=== PATIENT | male | born 1990 | race Caucasian/White ===

== ENCOUNTER 2020-03-13 09:18 | Outpatient (REF) | payer OTHER, SELFPAY | END 2020-03-13 09:19 | disposition home or self-care (01) | LOC: HO.LAB 09:18 | PROVIDERS: Visit Provider Internal Medicine | DX: Z20.822 Contact with and (suspected) exposure to COVID-19 (principal) | CPT/HCPCS: 36415; C9803; U0003 ==

== ENCOUNTER 2020-03-21 10:07 | Outpatient (REF) | payer OTHER, SELFPAY | END 2020-03-21 10:08 | disposition home or self-care (01) | LOC: HO.LAB 10:07 | PROVIDERS: Visit Provider Internal Medicine | DX: Z20.822 Contact with and (suspected) exposure to COVID-19 (principal) | CPT/HCPCS: 36415; C9803; U0003; U0005 ==

== ENCOUNTER 2020-03-23 10:36 | Outpatient (REF) | payer OTHER, SELFPAY | END 2020-03-23 10:37 | disposition home or self-care (01) | LOC: HO.LAB 10:36 | PROVIDERS: Visit Provider Internal Medicine | DX: Z20.822 Contact with and (suspected) exposure to COVID-19 (principal) | CPT/HCPCS: 36415; C9803; U0003; U0005 ==

== ENCOUNTER 2021-05-10 11:42 | Emergency (ER) | payer OTHER, SELFPAY ==
--- NOTE | ~2021-05-10 | CT_ITS ---
EXAMINATION: CT ABDOMEN AND PELVIS WITH CONTRAST CLINICAL INFORMATION: Left lower quadrant pain COMPARISON: None TECHNIQUE: Multidetector volumetric images were obtained from the superior aspect of the liver through the pubic symphysis following administration 85 mL of Omnipaque 350 intravenous contrast. Sagittal and coronal reformatted images were obtained on the technologist's workstation. Oral contrast: No This CT examination was performed using dose optimization techniques as appropriate, variously including the following: *Automated exposure control *Adjustment of mA and/or kV according to patient size (this includes techniques or standardized protocols for targeted exams where dose is matched to indication/reason for exam; i.e. extremities or head) *Use of iterative reconstruction technique DLP: 462 mGy-cm FINDINGS: LUNG BASES: The visualized lung bases are unremarkable. LIVER, GALLBLADDER, AND BILIARY TREE: The liver is mildly enlarged in size, normal shape, and diffusely attenuated.. No focal hepatic lesion or biliary ductal dilatation is present. The gallbladder is unremarkable with no evidence of radiopaque gallstones, gallbladder wall thickening, or obvious pericholecystic inflammatory changes. PANCREAS: Unremarkable. SPLEEN: Unremarkable. ADRENAL GLANDS: Unremarkable. KIDNEYS AND URETERS: The kidneys are normal in size, shape, and attenuation. No hydronephrosis, hydroureter, or calculi seen. No perinephric stranding. BLADDER: Unremarkable. GASTROINTESTINAL TRACT: There are scattered colonic diverticula most prominent in the sigmoid colon with mural thickening and pericolic fat stranding. Rest the colon is unremarkable. The small bowel loops are normal caliber. Appendix is normal caliber. No free air or free fluid seen. ABDOMINAL WALL: No significant hernia is appreciated. LYMPH NODES: There are small para-aortic lymph nodes in the left upper and mid abdomen. VASCULAR: Unremarkable. PELVIC VISCERA: Unremarkable. OSSEOUS STRUCTURES: Unremarkable. CT/CT abdomen pelvis w con IMPRESSION: Colonic diverticulosis with sigmoid diverticulitis. There is no free air, free fluid or abscess. No proximal bowel obstruction. Hepatic steatosis with mild hepatomegaly. Mild constipation. Fleischner guidelines were followed.
[2021-05-10 11:45] VITALS: BP 188/85; PULSE 122; RESP 19; TEMP 36.6; O2SAT 98; BMI 25.0
[2021-05-10 12:13] VITALS: BP 132/80; PULSE 111; RESP 20; TEMP 37.4; O2SAT 96
--- NOTE | 2021-05-10 12:17 | ED_ITS ---
HPI - Abdominal Pain General Chief Complaint: Abdominal Pain Stated Complaint: Abd pain Time Seen by Provider: 05/10/21 12:03 Source: patient Mode of arrival: ambulatory Limitations: no limitations History of Present Illness HPI narrative: This is a 31 years old patient presented to the emergency department with chief complaint of a left lower quadrant abdominal pain x4 days, denies any nausea vomiting fever, denies any other systemic symptoms MD elicited complaint: abdominal pain Pertinent past history: none Onset (ago): day(s) (4) Location: LLQ Severity: moderate Radiation: none Migration to: no migration Exacerbating factors: nothing Related Data Previous Rx's Medication Instructions Recorded levofloxacin 500 mg tablet 500 mg PO DAILY #10 tab 05/10/21 metronidazole 500 mg tablet 500 mg PO TID #30 tab 05/10/21 Allergies Allergy/AdvReac Type Severity Reaction Status Date / Time No Known Allergies Allergy Unverified 11/02/19 17:20 Review of Systems Constitutional: Reports no additional constitutional complaints Reports system reviewed and no additional complaints, except as documented Cardiovascular: Reports no additional cardiovascular complaints Respiratory: Reports no additional respiratory complaints [facility] Social History Social History Patient Tobacco Use Status: Current everyday Tobacco user Smoked in Last 30 Days: Yes Use of substances other than those prescribed or required for medical reasons: Yes Substance Use Type: Marijuana Advance Directives: No Advance Directives Information Provided: No Physical Exam ED Vital Signs: Vital Signs - 24 hr 05/10/21 11:45 05/10/21 12:13 05/10/21 13:07 Temperature 98 F 99.3 F Pulse Rate 122 H 111 H 90 Respiratory Rate 19 20 16 Blood Pressure 188/85 H 132/80 129/78 Pulse Oximetry 98 96 99 05/10/21 14:54 Temperature Pulse Rate 86 Respiratory Rate 16 Blood Pressure 128/80 Pulse Oximetry BMI result Body Mass Index 25.0 Const General: cooperative Nutritional Appearance: average body habitus Orientation/consciousness: patient oriented x3 HENMT Head: Yes normal to inspection General nose exam: Normal external nose present Face and sinus: Yes normal facial exam Throat: Yes posterior oropharynx normal Neck Neck: Yes normal visual inspection, Yes full ROM and Yes no lymphadenopathy Chest Chest palpation & inspection: normal inspection of the chest Resp Effort & Inspection: normal respiratory effort and able to speak in complete sentences Auscultation: clear to auscultation bilaterally Cardio Jugular venous distension: no JVD Rate: regular rate Rhythm: regular rhythm GI Inspection: Yes normal to inspection and No distended Palpation (GI): not firm and Tenderness to palpation present (GI) (left lower qudrant tenderness) Percussion: Yes normal to percussion Skin General skin exam: no rashes or lesions noted and elasticity normal Neuro General: patient oriented x3 and gait normal Cranial nerves: Yes CN's II-XII intact bilaterally Course Reevaluation(s) Reevaluation #1: Pt still having pain,WBC elevated,ct showed divericulitis will admit Time: 15:17 Reevaluation #2: Pt was seen by hospitalist admission was arranged but he wants to sign AMA,he understand risks/perforation/sepsis. He sign AMA I will send prescription to his Pharmacy anyway Levaquin and flagyl Reevaluation #3: Receiving IV antibiotic,he will wait for IV AB before leaving AMA MDM - Abdominal Pain Lab Data Result diagrams: 05/10/21 12:20 05/10/21 12:52 Labs: Lab Results 05/10/21 05/10/21 Range/Units 12:20 12:52 WBC 16.1 H (4.8-10.8) X10*3/uL RBC 4.12 L (4.60-5.80) X10*6/uL Hgb 13.1 L (14.0-18.0) g/dl Hct 38.1 L (42.0-52.0) % MCV 92.5 (80.0-98.0) fL MCH 31.8 (27.0-33.0) pg MCHC 34.4 (31.0-36.0) g/dl RDW 12.4 (11.0-16.0) % Plt Count 330 (160-400) X10*3/uL MPV 11.6 (9.4-12.4) fL Immature Gran % (Auto) 0.6 H (0.0-0.4) % Neut % (Auto) 76.1 H (45-73) % Lymph % (Auto) 15.8 L (20-40) % Dolores % (Auto) 6.3 (2-11) % Eos % (Auto) 0.8 (0-4) % Baso % (Auto) 0.4 (0-2) % Lymph # (Auto) 2.6 (1.2-4.9) X10*3/uL Dolores # (Auto) 1.0 (0.1-1.2) X10*3/uL Eos # (Auto) 0.1 (0.0-0.4) X10*3/uL Baso # (Auto) 0.1 (0.0-0.2) X10*3/uL Abs Immat Gran (auto) 0.10 H (0.00-0.03) X10*3/uL Absolute Neuts (auto) 12.3 H (2.0-8.3) x10*3/uL Absolute Nucleated RBC 0.000 (0.0-0.012) X10*3/uL Nucleated RBC % (auto) 0.0 (0.0-0.2) /100WBC Sodium 142 (135-145) mmol/L Potassium 3.9 (3.3-5.1) mmol/L Chloride 105 (96-108) mmol/L Carbon Dioxide 28 (22-29) mmol/L Anion Gap 13 (12-20) BUN 12 (9-16) mg/dL Creatinine 1.00 (0.5-1.4) mg/dL Estim Creat Clear Calc 91.3 Estimated GFR > 60 Random Glucose 103 (60-115) mg/dL Calcium 10.3 H (8.4-10.2) mg/dL Total Bilirubin 0.4 (0.0-1.0) mg/dL AST 54 H (5-37) U/L ALT 109 H (0-40) U/L Alkaline Phosphatase 67 (39-117) U/L Total Protein 7.5 (6.5-8.0) g/dL Albumin 4.8 (3.5-5.0) g/dL Lipase 27 (8-78) U/L Imaging Data CT scan - abdomen: Radiologist's impression: GASTROINTESTINAL TRACT: There are scattered colonic diverticula most prominent in the sigmoid colon with mural thickening and pericolic fat stranding. Rest the colon is unremarkable. The small bowel loops are normal caliber. Appendix is normal caliber. No free air or free fluid seen. ABDOMINAL WALL: No significant hernia is appreciated.? LYMPH NODES: There are small para-aortic lymph nodes in the left upper and mid abdomen. VASCULAR: Unremarkable. PELVIC VISCERA: Unremarkable.? OSSEOUS STRUCTURES: Unremarkable.? CT/CT abdomen pelvis w con IMPRESSION: Colonic diverticulosis with sigmoid diverticulitis. There is no free air, free fluid or abscess. No proximal bowel obstruction. ? Hepatic steatosis with mild hepatomegaly. ? Mild constipation.? ? Fleischner guidelines were followed. Dictated By: Porter Barnes MD Signed By: <Electronically signed by Porter Barnes MD in OV> 05/10/21 1424 DD/ 1352 TD/TT:? Pharmacy Informatics Specialist: [facility] Discharge Plan Discharge Clinical Impression: Diverticulitis Patient Disposition: Left Against Medical Advice Instructions: Diverticulitis (ED) Additional Instructions: You are signing against medical advice,you are welcome to return iof worse,follow up with your [facility] Doctor Wednesday Prescriptions: New levofloxacin 500 mg tablet 500 mg PO DAILY Qty: 10 0RF metronidazole 500 mg tablet 500 mg PO TID Qty: 30 0RF Stand Alone Forms: Against Medical Advice
[2021-05-10 12:25] LABS: MANUAL DIFF FLAG NO
[2021-05-10 12:47] LABS: Basophils Absolute Auto 0.1 X10*3/uL (0.0-0.2); Basophils Percent Auto 0.4 % (0-2); Eosinophils Absolute Auto 0.1 X10*3/uL (0.0-0.4); Eosinophils Percent Auto 0.8 % (0-4); Hematocrit 38.1 % (42.0-52.0); Hemoglobin 13.1 g/dl (14.0-18.0); Imm Gran Pct Auto 0.6 % (0.0-0.4); Lymphocytes Absolute Auto 2.6 X10*3/uL (1.2-4.9); Lymphocytes Percent Auto 15.8 % (20-40); Mean Corpuscular HGB Conc 34.4 g/dl (31.0-36.0); Mean Corpuscular Hemoglobin 31.8 pg (27.0-33.0); Mean Corpuscular Volume 92.5 fL (80.0-98.0); Mean Platelet Volume 11.6 fL (9.4-12.4); Monocytes Percent Auto 6.3 % (2-11); Neutrophils Absolute Auto 12.3 x10*3/uL (2.0-8.3); Neutrophils Percent Auto 76.1 % (45-73); Platelet Count 330 X10*3/uL (160-400); Red Blood Count 4.12 X10*6/uL (4.60-5.80); Red Cell Distribution Width 12.4 % (11.0-16.0); White Blood Count 16.1 X10*3/uL (4.8-10.8)
[2021-05-10] MEDS: ondansetron HCL 4 MG/2 ML VIAL IVPUSH (13:04)
[2021-05-10] MEDS: Morphine Sulfate 4 MG/ML CARTRIDGE IVPUSH ×2 (13:04→15:28)
[2021-05-10] MEDS: 0.9 % Sodium Chloride 1,000 ML 999 ML IVCONT (13:04)
[2021-05-10 13:07] VITALS: BP 129/78; PULSE 90; RESP 16; O2SAT 99
[2021-05-10 13:29] LABS: Alanine Aminotransferase 109 U/L (0-40); Albumin Level 4.8 g/dL (3.5-5.0); Alkaline Phosphatase 67 U/L (39-117); Anion Gap 13 (12-20); Aspartate Amino Transferase 54 U/L (5-37); Bilirubin Total 0.4 mg/dL (0.0-1.0); Blood Urea Nitrogen 12 mg/dL (9-16); Calcium 10.3 mg/dL (8.4-10.2); Carbon Dioxide 28 mmol/L (22-29); Chloride 105 mmol/L (96-108); Creatinine Clr Calc Pharmacy 91.3; Estimated Glomerular Filt Rate > 60; Glucose Random 103 mg/dL (60-115); Lipase 27 U/L (8-78); Potassium 3.9 mmol/L (3.3-5.1); Sodium 142 mmol/L (135-145); Total Protein 7.5 g/dL (6.5-8.0)
[2021-05-10] MEDS: iohexoL 350 MG/ML 100 ML INFUS..BTL IV (13:52)
[2021-05-10 14:54] VITALS: BP 128/80; PULSE 86; RESP 16
[2021-05-10] MEDS: metroNIDAZOLE/NS 500 MG/100 ML PIGGYBACK 100 MG IV (15:36)
--- NOTE | 2021-05-10 15:41 | PC.NURSE ---
Pt declines admission, will be discharged after abx, tolerating food, pain 4/10. Flagyl started
--- NOTE | 2021-05-10 16:20 | PHA.MEDREC ---
Pharmacy Consult ? Medication Reconciliation Pharmacy has completed the medication reconciliation. no known home meds. Only thing on list are Rx's being prescribed today
[2021-05-10] MEDS: levoFLOXacin/D5W 500 MG/100 ML PIGGYBACK 100 MG IV (16:36)
== END 2021-05-10 17:48 | disposition left against medical advice (07) ==
PROVIDERS: Emergency Provider Emergency Medicine
DX: K57.32 Diverticulitis of large intestine without perforation or abscess without bleeding (principal); R10.32 Left lower quadrant pain; F17.200 Nicotine dependence, unspecified, uncomplicated; F12.90 Cannabis use, unspecified, uncomplicated
CPT/HCPCS: 36415; 74177; 80053; 83690; 85025; 96361; 96365; 96368; 96375; 96376; 99284; J1956; J2270; J2405; Q9967

== ENCOUNTER 2021-05-16 10:38 | Inpatient (IN) | payer OTHER, SELFPAY ==
--- NOTE | ~2021-05-16 | CT_ITS ---
EXAMINATION: CT ABDOMEN AND PELVIS WITH CONTRAST CLINICAL INFORMATION: Left lower quadrant pain COMPARISON: CT abdomen pelvis 05/10/2021 TECHNIQUE: Multidetector volumetric images were obtained from the superior aspect of the liver through the pubic symphysis following administration 85 mL of Omnipaque 350 intravenous contrast. Sagittal and coronal reformatted images were obtained on the technologist's workstation. Oral contrast: No This CT examination was performed using dose optimization techniques as appropriate, variously including the following: *Automated exposure control *Adjustment of mA and/or kV according to patient size (this includes techniques or standardized protocols for targeted exams where dose is matched to indication/reason for exam; i.e. extremities or head) *Use of iterative reconstruction technique DLP: For 90 mGy-cm FINDINGS: LUNG BASES: The visualized lung bases are unremarkable. LIVER, GALLBLADDER, AND BILIARY TREE: The liver is mildly enlarged in size, shape, and diffuse hypoattenuation. There is some focal sparing along the periphery of the right hepatic lobe. No focal hepatic lesion or biliary ductal dilatation is present. The gallbladder is unremarkable with no evidence of radiopaque gallstones, gallbladder wall thickening, or obvious pericholecystic inflammatory changes. PANCREAS: Unremarkable. SPLEEN: Unremarkable. ADRENAL GLANDS: Unremarkable. KIDNEYS AND URETERS: The kidneys are normal in size, shape, and attenuation. No hydronephrosis, hydroureter, or calculi seen. No perinephric stranding. BLADDER: Unremarkable. GASTROINTESTINAL TRACT: There is scattered the diverticula stool and gas seen throughout the colon without distention. Nonspecific mild thickening of the sigmoid colon seen with mild pericolic fat stranding. There is paracolic hypodensity measuring 2.1 x 1.7 cm axial image 64/3 likely a small collection or distended diverticulum, better defined on the present exam. No gross changes seen from previous exam. It is not drainable.. The small bowel loops and appendix is normal caliber. ABDOMINAL WALL: No significant hernia is appreciated. LYMPH NODES: Normal. VASCULAR: Unremarkable. PELVIC VISCERA: The prostate gland is normal size. No abnormal pelvic lymph nodes seen. No evidence of hernia. OSSEOUS STRUCTURES: Unremarkable. CT/CT abdomen pelvis w con IMPRESSION: Sigmoid without sclerosis with diverticulitis similar previous study. There is a small hypodensity adjacent to the sigmoid colon slightly well-defined on the present exam and likely represent small collection dilated diverticulum. It is too small for drainage. No proximal bowel obstruction. No free air. Hepatic steatosis. With mild hepatomegaly. Fleischner guidelines were followed.
--- NOTE | ~2021-05-16 | CT_ITS ---
EXAMINATION: CT ABDOMEN AND PELVIS WITH CONTRAST CLINICAL INFORMATION: Follow-up diverticular abscess. COMPARISON: 05/16/2021 TECHNIQUE: Multidetector volumetric images were obtained from the superior aspect of the liver through the pubic symphysis following administration 85 mL of Omnipaque 350 intravenous contrast. Sagittal and coronal reformatted images were obtained on the technologist's workstation. Oral contrast: No This CT examination was performed using dose optimization techniques as appropriate, variously including the following: *Automated exposure control *Adjustment of mA and/or kV according to patient size (this includes techniques or standardized protocols for targeted exams where dose is matched to indication/reason for exam; i.e. extremities or head) *Use of iterative reconstruction technique DLP: 309 mGy-cm FINDINGS: LUNG BASES: The visualized lung bases are unremarkable. LIVER, GALLBLADDER, AND BILIARY TREE: The liver is enlarged measuring 20 cm in CC dimension. There is normal shape with decreased attenuation. No focal hepatic lesion or biliary ductal dilatation is present. The gallbladder is unremarkable with no evidence of radiopaque gallstones, gallbladder wall thickening, or obvious pericholecystic inflammatory changes. PANCREAS: Unremarkable. SPLEEN: Unremarkable. ADRENAL GLANDS: Unremarkable. KIDNEYS AND URETERS: The kidneys are normal in size, shape, and attenuation. No hydronephrosis, hydroureter, or calculi seen. No perinephric stranding. BLADDER: Unremarkable. GASTROINTESTINAL TRACT: The stomach is unremarkable. Normal caliber small bowel. No obstruction. Normal appendix. Colonic diverticulosis again noted. Focal wall thickening at the sigmoid colon remains with mild inflammation. The previous area of hypoattenuation along the colonic wall seen on the prior study has essentially resolved. There is no rim-enhancing fluid collection. No free air. ABDOMINAL WALL: No significant hernia is appreciated. LYMPH NODES: Normal. VASCULAR: Unremarkable. PELVIC VISCERA: The prostate and seminal vesicles are unremarkable. OSSEOUS STRUCTURES: No acute or suspicious osseous abnormality. CT/CT abdomen pelvis w con IMPRESSION: Persistent diverticulitis of the sigmoid colon. There is no abscess visualized at this time. Hepatomegaly with hepatic steatosis. Fleischner guidelines were followed.
[2021-05-16 10:40] VITALS: BP 155/94; PULSE 126; RESP 18; TEMP 37.1; O2SAT 98; BMI 26.6
--- NOTE | 2021-05-16 10:57 | ED.ABDPAIN ---
HPI - Abdominal Pain General Chief Complaint: Recheck/Abnormal Lab/Rx Stated Complaint: Abnormal labs Time Seen by Provider: 05/16/21 10:50 Source: patient Mode of arrival: ambulatory Limitations: no limitations History of Present Illness HPI narrative: 31 yo male with recently diagnosed sigmoid diverticulitis on 05/10 presents to the ER with ongoing abdominal pain and elevated WBC on repeat outpatient lab workup. He was discharged with PO levaquin, flagyl and has been compliant with his abx. He also has been taking Motrin every time he takes his oral antibiotics. He has been eating a normal diet. After discharge from the ER he states he stuck to a liquid diet for of only a very short period time, less than a day and then he advanced his diet to regular. He denies any fevers, nausea, vomiting. He has had 2 episodes of nonbloody diarrhea today as well. He reports ongoing fullness and pain left lower quadrant, not worse than before but not any better. He reports his primary care doctor repeated blood work yesterday and was called with an abnormally high results yesterday afternoon and told to come to the hospital. He is unsure with that number is. MD elicited complaint: abdominal pain Pertinent past history: diverticulitis Onset (ago): day(s) Pain Consistency: constant Location: LLQ Severity: moderate Pain scale (0-10): 6 Quality: aching and fullness Radiation: none Migration to: no migration Exacerbating factors: movement Relieving factors: medication Context: recent antibiotic use Associated symptoms: diarrhea (Nonbloody) Related Data Previous Rx's Medication Instructions Recorded levofloxacin 500 mg tablet 500 mg PO DAILY #10 tab 05/10/21 metronidazole 500 mg tablet 500 mg PO TID #30 tab 05/10/21 Allergies Allergy/AdvReac Type Severity Reaction Status Date / Time No Known Allergies Allergy Unverified 11/02/19 17:20 Review of Systems Review of Systems Constitutional: No Fever, No Chills ENT/Mouth: No sore throat, No Rhinorrhea, No Swallowing Difficulty Cardiovascular: No Chest Pain, No SOB, No Orthopnea, No Edema Respiratory: No Cough, No Sputum, No Wheezing, No dyspnea Gastrointestinal: No Nausea, No Vomiting, +Diarrhea, + abdominal Pain, No Hematochezia, No Melena Genitourinary: No Dysuria, No Urinary Frequency, No Hematuria Musculoskeletal: No joint pain, No Myalgias Skin: No Skin Lesions, No rash Neuro: No Weakness, No Numbness, No Dizziness, No Headache Psych: No Anxiety/Panic, No Depression Heme/Lymph: No Bruising, No Lymphadenopathy Endocrine: No Polyuria, No Polydipsia PMFSH Social History Social History Alcohol intake: current Alcohol intake frequency: a few times a week Patient Tobacco Use Status: Current everyday Tobacco user Use of substances other than those prescribed or required for medical reasons: No Substance Use Type: Marijuana Advance Directives: No Physical Exam ED Vital Signs: Vital Signs - 24 hr 05/16/21 10:40 05/16/21 14:36 Temperature 98.7 F 98.4 F Pulse Rate 126 H 97 Respiratory Rate 18 14 Blood Pressure 155/94 H 143/63 H Pulse Oximetry 98 99 BMI result Body Mass Index 26.6 Course Course Course Narrative: 31-year-old otherwise healthy male presents to the ER with ongoing left lower quadrant pain in the setting of recently diagnosed diverticulitis. He has been on oral Levaquin and Flagyl at home, with reported compliance. He had leukocytosis on lab workup yesterday. Unknown number he is going to call his PCP and find out. On arrival to the ER he is tachycardic to the 120s and complaining of lower quadrant pain in the left side. He has no fever. No vomiting. Will get repeat lab workup including lactic, blood cultures. He already took his PO abx today. Will hold off on IV abx for now. Reevaluation(s) Reevaluation #1: 13:00 - WBC up to 17K, lactic 2.1. Will need to repeat CT scan to assess for possible developing abscess. IV levaquin and flagyl ordered. Reevaluation #2: CT scan showing sigmoid diverticulitis similar to prior study, with a small hypodensity adjacent to the sigmoid colon slightly well-defined on the present exam and most likely representing a small collection, dilated diverticulum, too small for drainage. No free air, no bowel obstruction. Dr. Strong from general surgery was consulted who will admit the patient for further management. Patient updated on plan of care. MDM - Abdominal Pain Lab Data Result diagrams: 05/16/21 11:21 04/01/22 11:22 Labs: Lab Results 05/16/21 05/16/21 05/16/21 Range/Units 11:21 11:21 11:22 WBC 17.5 H (4.8-10.8) X10*3/uL RBC 4.26 L (4.60-5.80) X10*6/uL Hgb 13.3 L (14.0-18.0) g/dl Hct 39.1 L (42.0-52.0) % MCV 91.8 (80.0-98.0) fL MCH 31.2 (27.0-33.0) pg MCHC 34.0 (31.0-36.0) g/dl RDW 12.3 (11.0-16.0) % Plt Count 427 H D (160-400) X10*3/uL MPV 11.1 (9.4-12.4) fL Immature Gran % (Auto) 0.9 H (0.0-0.4) % Neut % (Auto) 79.2 H (45-73) % Lymph % (Auto) 13.5 L (20-40) % Hudspeth % (Auto) 5.8 (2-11) % Eos % (Auto) 0.3 (0-4) % Baso % (Auto) 0.3 (0-2) % Lymph # (Auto) 2.4 (1.2-4.9) X10*3/uL Hudspeth # (Auto) 1.0 (0.1-1.2) X10*3/uL Eos # (Auto) 0.1 (0.0-0.4) X10*3/uL Baso # (Auto) 0.1 (0.0-0.2) X10*3/uL Abs Immat Gran (auto) 0.16 H (0.00-0.03) X10*3/uL Absolute Neuts (auto) 13.9 H (2.0-8.3) x10*3/uL Absolute Nucleated RBC 0.000 (0.0-0.012) X10*3/uL Nucleated RBC % (auto) 0.0 (0.0-0.2) /100WBC PT 14.7 H (9.9-13.0) SEC INR 1.3 H (0.9-1.1) APTT 39.0 H (24.1-38.0) SEC Sodium 139 (135-145) mmol/L Potassium 4.1 (3.3-5.1) mmol/L Chloride 103 (96-108) mmol/L Carbon Dioxide 25 (22-29) mmol/L Anion Gap 15 (12-20) BUN 10 (9-16) mg/dL Creatinine 1.03 (0.5-1.4) mg/dL Estim Creat Clear Calc 88.7 Estimated GFR > 60 Random Glucose 180 H D (60-115) mg/dL Lactic Acid (0.5-2.0) mmol/L Calcium 10.2 (8.4-10.2) mg/dL Magnesium 1.9 (1.6-2.6) mg/dL Total Bilirubin 0.2 (0.0-1.0) mg/dL Direct Bilirubin 0.2 (0.0-0.5) mg/dL AST 65 H (5-37) U/L ALT 78 H (0-40) U/L Alkaline Phosphatase 69 (39-117) U/L Total Protein 7.8 (6.5-8.0) g/dL Albumin 4.8 (3.5-5.0) g/dL COVID-19 (MILAGROS) (Negative) COVID-19 Clin Com 05/16/21 05/16/21 Range/Units 11:22 11:22 WBC (4.8-10.8) X10*3/uL RBC (4.60-5.80) X10*6/uL Hgb (14.0-18.0) g/dl Hct (42.0-52.0) % MCV (80.0-98.0) fL MCH (27.0-33.0) pg MCHC (31.0-36.0) g/dl RDW (11.0-16.0) % Plt Count (160-400) X10*3/uL MPV (9.4-12.4) fL Immature Gran % (Auto) (0.0-0.4) % Neut % (Auto) (45-73) % Lymph % (Auto) (20-40) % Hudspeth % (Auto) (2-11) % Eos % (Auto) (0-4) % Baso % (Auto) (0-2) % Lymph # (Auto) (1.2-4.9) X10*3/uL Hudspeth # (Auto) (0.1-1.2) X10*3/uL Eos # (Auto) (0.0-0.4) X10*3/uL Baso # (Auto) (0.0-0.2) X10*3/uL Abs Immat Gran (auto) (0.00-0.03) X10*3/uL Absolute Neuts (auto) (2.0-8.3) x10*3/uL Absolute Nucleated RBC (0.0-0.012) X10*3/uL Nucleated RBC % (auto) (0.0-0.2) /100WBC PT (9.9-13.0) SEC INR (0.9-1.1) APTT (24.1-38.0) SEC Sodium (135-145) mmol/L Potassium (3.3-5.1) mmol/L Chloride (96-108) mmol/L Carbon Dioxide (22-29) mmol/L Anion Gap (12-20) BUN (9-16) mg/dL Creatinine (0.5-1.4) mg/dL Estim Creat Clear Calc Estimated GFR Random Glucose (60-115) mg/dL Lactic Acid 2.1 H* (0.5-2.0) mmol/L Calcium (8.4-10.2) mg/dL Magnesium (1.6-2.6) mg/dL Total Bilirubin (0.0-1.0) mg/dL Direct Bilirubin (0.0-0.5) mg/dL AST (5-37) U/L ALT (0-40) U/L Alkaline Phosphatase (39-117) U/L Total Protein (6.5-8.0) g/dL Albumin (3.5-5.0) g/dL COVID-19 (MILAGROS) Negative (Negative) COVID-19 Clin Com See Note Discharge Plan Discharge Clinical Impression: Diverticulitis Patient Disposition: Admitted As Inpatient
[2021-05-16] MEDS: 0.9 % Sodium Chloride 1,000 ML 999 ML IVCONT ×2 (11:23→15:04)
[2021-05-16 11:32] LABS: MANUAL DIFF FLAG NO
[2021-05-16 11:37] LABS: Basophils Absolute Auto 0.1 X10*3/uL (0.0-0.2); Basophils Percent Auto 0.3 % (0-2); Eosinophils Absolute Auto 0.1 X10*3/uL (0.0-0.4); Eosinophils Percent Auto 0.3 % (0-4); Hematocrit 39.1 % (42.0-52.0); Hemoglobin 13.3 g/dl (14.0-18.0); Imm Gran Abs Auto 0.16 X10*3/uL (0.00-0.03); Imm Gran Pct Auto 0.9 % (0.0-0.4); Lymphocytes Absolute Auto 2.4 X10*3/uL (1.2-4.9); Lymphocytes Percent Auto 13.5 % (20-40); Mean Corpuscular Hemoglobin 31.2 pg (27.0-33.0); Mean Corpuscular Volume 91.8 fL (80.0-98.0); Mean Platelet Volume 11.1 fL (9.4-12.4); Monocytes Percent Auto 5.8 % (2-11); Neutrophils Absolute Auto 13.9 x10*3/uL (2.0-8.3); Neutrophils Percent Auto 79.2 % (45-73); Platelet Count 427 X10*3/uL (160-400); Red Blood Count 4.26 X10*6/uL (4.60-5.80); Red Cell Distribution Width 12.3 % (11.0-16.0); White Blood Count 17.5 X10*3/uL (4.8-10.8)
[2021-05-16 11:46] LABS: INTERNATIONAL NORM RATIO 1.3 (0.9-1.1); Prothrombin Time 14.7 SEC (9.9-13.0)
[2021-05-16 11:47] LABS: Lactic Acid 2.1 mmol/L (0.5-2.0)
[2021-05-16 11:49] LABS: COVID-19 Test Negative (Negative); IDNOW Serial# 55D5AD1C
[2021-05-16 11:51] LABS: Alanine Aminotransferase 78 U/L (0-40); Albumin Level 4.8 g/dL (3.5-5.0); Alkaline Phosphatase 69 U/L (39-117); Anion Gap 15 (12-20); Aspartate Amino Transferase 65 U/L (5-37); Bilirubin Direct 0.2 mg/dL (0.0-0.5); Bilirubin Total 0.2 mg/dL (0.0-1.0); Blood Urea Nitrogen 10 mg/dL (9-16); Calcium 10.2 mg/dL (8.4-10.2); Carbon Dioxide 25 mmol/L (22-29); Chloride 103 mmol/L (96-108); Creatinine Clr Calc Pharmacy 88.7; Estimated Glomerular Filt Rate > 60; Glucose Random 180 mg/dL (60-115); Magnesium 1.9 mg/dL (1.6-2.6); Potassium 4.1 mmol/L (3.3-5.1); Sodium 139 mmol/L (135-145); Total Protein 7.8 g/dL (6.5-8.0)
[2021-05-16 13:29] LABS: Reflex Lactate? Lactic Acid Added
[2021-05-16] MEDS: iohexoL 350 MG/ML 100 ML INFUS..BTL IV (13:48)
[2021-05-16] MEDS: levoFLOXacin/D5W 500 MG/100 ML PIGGYBACK 100 MG IV (14:01)
[2021-05-16 14:36] VITALS: BP 143/63; PULSE 97; RESP 14; TEMP 36.9; O2SAT 99
[2021-05-16 14:49] LABS: Appearance Urine CLEAR; Color Urine YELLOW; Glucose Urine UA NEG (NEG); Leukocyte Esterase Urine NEG (NEG); Nitrite Urine NEG (NEG); PH 5.5 (5.0-8.0); Specific Gravity - Urine <= 1.005 (1.005-1.025); Urine Blood NEG (NEG); Urine Ketones NEG (NEG); Urine Protein NEG (NEG-TRACE)
[2021-05-16] MEDS: Ketorolac Tromethamine 30 MG/ML VIAL IVPUSH (15:02)
[2021-05-16] MEDS: Morphine Sulfate 4 MG/ML CARTRIDGE IVPUSH (15:03)
[2021-05-16] MEDS: metroNIDAZOLE/NS 500 MG/100 ML PIGGYBACK 100 MG IV (15:03)
--- NOTE | 2021-05-16 15:03 | PM.HPGS ---
History of Present Illness History of Present Illness Date of Service: 05/16/21 Chief complaint: Abnormal labs Narrative: João Campo is a 31 year old male who came to the emergency room today because of left lower quadrant pain. He is actually seen by the ER 5 days ago because of the same problem. He was placed on oral Levaquin and Flagyl. However, he says that he has had persistent pain. He denies any fever or chills. He denies any nausea or vomiting. He had a white count of 16 on the last visit in the ED and it is now up to 17. He says that he does not think that the oral antibiotics of helped him. This is his 1st episode of acute diverticulitis. Review of Systems Constitutional: Constitutional: Denies chills and Denies fever(s) Cardiovascular: Cardiovascular: Denies chest pain, Denies dyspnea and Denies dyspnea on exertion Respiratory: Respiratory: Denies cough, Denies dyspnea and Denies dyspnea on exertion Gastrointestinal: Gastrointestinal: Denies hematochezia and Denies change in bowel habits Genitourinary: Genitourinary: Denies hematuria and Denies difficulty urinating Musculoskeletal: Musculoskeletal: Denies back pain and Denies limited range of motion Neurologic: Denies focal weakness and Denies convulsions Psychiatric: Psychiatric: Denies depression and Denies mood swings PMFSH Past Medical History Medical History (Updated 05/16/21 @ 15:05 by Terrence Strong MD) No pertinent past medical history Social History Social History Alcohol intake: current Alcohol intake frequency: a few times a week Patient Tobacco Use Status: Current everyday Tobacco user Use of substances other than those prescribed or required for medical reasons: No Substance Use Type: Marijuana Advance Directives: No Meds Allergies Allergy/AdvReac Type Severity Reaction Status Date / Time No Known Allergies Allergy Unverified 11/02/19 17:20 Active Medications: Current Medications Sodium Chloride (Ns) 1,000 mls @ 999 mls/hr IVCONT .Q1H1M SABA Stop: 05/16/21 16:00 Physical Exam Vital Signs: Vital Signs: Last Vital Signs Temp 98.4 F 05/16/21 14:36 Pulse 97 05/16/21 14:36 Resp 14 05/16/21 14:36 BP 143/63 H 05/16/21 14:36 Pulse Ox 99 05/16/21 14:36 BMI result Body Mass Index 26.6 Const: General: comfortable and no acute distress Orientation/consciousness: patient oriented x3 Neck: Neck: Yes no lymphadenopathy Resp: Auscultation: clear to auscultation bilaterally Cardio: Rhythm: regular rhythm GI: Other: Soft, tender left lower quadrant, no rebound or guarding, nondistended Palpation (GI): Soft to palpation, nontender and no guarding Neuro: General: patient oriented x3 Results Results Labs: Short CBC 05/16/21 Range/Units 11:21 WBC 17.5 H (4.8-10.8) X10*3/uL Hgb 13.3 L (14.0-18.0) g/dl Hct 39.1 L (42.0-52.0) % Plt Count 427 H D (160-400) X10*3/uL BMP 05/16/21 11:22 Sodium 139 Potassium 4.1 Chloride 103 Carbon Dioxide 25 BUN 10 Creatinine 1.03 Calcium 10.2 Liver Function 05/16/21 Range/Units 11:22 Total Bilirubin 0.2 (0.0-1.0) mg/dL Direct Bilirubin 0.2 (0.0-0.5) mg/dL AST 65 H (5-37) U/L ALT 78 H (0-40) U/L Alkaline Phosphatase 69 (39-117) U/L Albumin 4.8 (3.5-5.0) g/dL Assessment and Plan (1) Diverticulitis: Status: Acute Plan He has acute diverticulitis with what seemed to be a small abscess, described as about 2.1 cm in the sigmoid. This is not an amenable to drainage. He has failed oral antibiotics treatment. He will be admitted for IV antibiotics with Zosyn. He will be be kept on clear liquids. I told him that small chance that he will require CT drainage or even surgery if he does not improve. He is otherwise hemodynamically stable and looks well although complaints of pain. He seems to understand the plan well and is comfortable with this. Quality Stroke Does the patient have a stroke diagnosis?: No VTE Prior VTE?: No VTE Risk Level:: Medical - low VTE Device Contraindication: N/A - Device Ordered VTE Drug Contraindication: Treatment Not Indicated Procedures Date of Service Date of Service: 05/16/21
[2021-05-16] MEDS: 0.9 % Sodium Chloride Flush 3 ML SYRINGE IVFLUSH ×2 (15:06→23:30)
[2021-05-16 15:07] LABS: ~Lactic Acid-LAB USE ONLY 0.8 mmol/L (0.5-2.0)
[2021-05-16] MEDS: Lactated Ringers 500 ML 80 ML IV (16:17)
--- NOTE | 2021-05-16 16:40 | PHA.MEDREC ---
Pharmacy Consult ? Medication Reconciliation Pharmacy has completed the medication reconciliation.
[2021-05-16] MEDS: Piperacillin Sodium/Tazobactam 3.375 GM in 0.9 % Sodium Chloride 50 ML IV ×2 (18:38→23:30)
[2021-05-16 19:10] VITALS: BP 133/69; PULSE 84; RESP 18; TEMP 37.2; O2SAT 98
[2021-05-16] MEDS: Morphine Sulfate 2 MG/ML CARTRIDGE IVPUSH ×2 (19:30→23:16)
[2021-05-17] VITALS (7 sets, daily range): BP systolic 104–139; BP diastolic 56–75; PULSE 72–98; RESP 17–18; TEMP 36.3–37.2; O2SAT 98–99
[2021-05-17] MEDS: Piperacillin Sodium/Tazobactam 3.375 GM in 0.9 % Sodium Chloride 50 ML IV ×4 (05:55→23:54)
[2021-05-17] MEDS: Morphine Sulfate 2 MG/ML CARTRIDGE IVPUSH ×5 (05:58→21:49)
[2021-05-17 06:03] LABS: Hematocrit 37.7 % (42.0-52.0); Hemoglobin 12.6 g/dl (14.0-18.0); Mean Corpuscular HGB Conc 33.4 g/dl (31.0-36.0); Mean Corpuscular Hemoglobin 31.3 pg (27.0-33.0); Mean Corpuscular Volume 93.5 fL (80.0-98.0); Mean Platelet Volume 11.3 fL (9.4-12.4); Platelet Count 391 X10*3/uL (160-400); Red Blood Count 4.03 X10*6/uL (4.60-5.80); Red Cell Distribution Width 12.3 % (11.0-16.0); White Blood Count 17.4 X10*3/uL (4.8-10.8)
[2021-05-17 06:18] LABS: Anion Gap 11 (12-20); Blood Urea Nitrogen 10 mg/dL (9-16); Calcium 9.1 mg/dL (8.4-10.2); Carbon Dioxide 26 mmol/L (22-29); Chloride 104 mmol/L (96-108); Creatinine Clr Calc Pharmacy 99.3; Estimated Glomerular Filt Rate > 60; Glucose Random 103 mg/dL (60-115); Potassium 4.5 mmol/L (3.3-5.1); Sodium 136 mmol/L (135-145)
[2021-05-17] MEDS: 0.9 % Sodium Chloride Flush 3 ML SYRINGE IVFLUSH (08:59)
--- NOTE | 2021-05-17 10:04 | PM.PNGS ---
Subjective Subjective Date of Service: 05/17/21 Interval history: still has pain no fever no N/V passing flatus, BMs Physical Exam Vital Signs: Vital Signs: Last Vital Signs Temp 97.5 F 05/17/21 07:40 Pulse 79 05/17/21 07:40 Resp 17 05/17/21 07:40 BP 111/58 L 05/17/21 07:40 Pulse Ox 99 05/17/21 07:40 BMI result Body Mass Index 26.6 Const: General: comfortable and no acute distress Resp: Effort & Inspection: normal respiratory effort Cardio: Rate: regular rate GI: Other: soft, tender on LLQ, no guarding or rebound, not distended Objective Data Active Medications Piperacillin Sod/Tazobactam (Sod 3.375 gm/ Sodium Chloride) 50 mls @ 100 mls/hr IV Q6H [facility] Last Infusion: 05/17/21 06:25 Dose: 0 mls/hr Documented by: FABY Morphine Sulfate (Morphine Sulfate 2 Mg/Ml Cartridge) 2 mg IVPUSH Q3H PRN; Protocol PRN Reason: Pain, Severe (Pain Scale 7-10) Last Admin: 05/17/21 05:58 Dose: 2 mg Documented by: FABY Ondansetron HCl (Ondansetron Hcl 4 Mg/2 Ml Vial) 4 mg IVPUSH Q8H PRN PRN Reason: nausea Sodium Chloride (0.9 % Sodium Chloride Flush 3 Ml Syringe) 3 ml IVFLUSH QSHIFT [facility] Last Admin: 05/17/21 08:59 Dose: 3 ml Documented by: TRAE Labs CBC & Chem 7: 05/17/21 05:36 05/17/21 05:36 Labs: Laboratory Results - last 24 hr 05/16/21 05/16/21 05/16/21 11:21 11:21 11:22 MCV 91.8 MCH 31.2 MCHC 34.0 RDW 12.3 Plt Count 427 H D MPV 11.1 Immature Gran % (Auto) 0.9 H Neut % (Auto) 79.2 H Lymph % (Auto) 13.5 L [place] % (Auto) 5.8 Eos % (Auto) 0.3 Baso % (Auto) 0.3 Lymph # (Auto) 2.4 [place] # (Auto) 1.0 Eos # (Auto) 0.1 Baso # (Auto) 0.1 Abs Immat Gran (auto) 0.16 H Absolute Neuts (auto) 13.9 H Absolute Nucleated RBC 0.000 Nucleated RBC % (auto) 0.0 PT 14.7 H INR 1.3 H APTT 39.0 H Anion Gap 15 Estim Creat Clear Calc 88.7 Estimated GFR > 60 Random Glucose 180 H D Lactic Acid Lactic Acid F/U @ 2Hr Calcium 10.2 Magnesium 1.9 Total Bilirubin 0.2 Direct Bilirubin 0.2 AST 65 H ALT 78 H Alkaline Phosphatase 69 Total Protein 7.8 Albumin 4.8 Urine Color Urine Appearance Urine pH Ur Specific [place] Urine Protein Urine Glucose (UA) Urine Ketones Urine Blood Urine Nitrite Ur Leukocyte Esterase COVID-19 (MILAGROS) COVID-[employer] 05/16/21 05/16/21 05/16/21 11:22 11:22 14:41 MCV MCH MCHC RDW Plt Count MPV Immature Gran % (Auto) Neut % (Auto) Lymph % (Auto) [place] % (Auto) Eos % (Auto) Baso % (Auto) Lymph # (Auto) [place] # (Auto) Eos # (Auto) Baso # (Auto) Abs Immat Gran (auto) Absolute Neuts (auto) Absolute Nucleated RBC Nucleated RBC % (auto) PT INR APTT Anion Gap Estim Creat Clear Calc Estimated GFR Random Glucose Lactic Acid 2.1 H* Lactic Acid F/U @ 2Hr Calcium Magnesium Total Bilirubin Direct Bilirubin AST ALT Alkaline Phosphatase Total Protein Albumin Urine Color YELLOW Urine Appearance CLEAR Urine pH 5.5 Ur Specific [place] <= 1.005 Urine Protein NEG Urine Glucose (UA) NEG Urine Ketones NEG Urine Blood NEG Urine Nitrite NEG Ur Leukocyte Esterase NEG COVID-19 (MILAGROS) Negative COVID-19 [employer] [facility] See Note 05/16/21 05/17/21 05/17/21 14:50 05:36 05:36 MCV 93.5 MCH 31.3 MCHC 33.4 RDW 12.3 Plt Count 391 MPV 11.3 Immature Gran % (Auto) Neut % (Auto) Lymph % (Auto) [place] % (Auto) Eos % (Auto) Baso % (Auto) Lymph # (Auto) [place] # (Auto) Eos # (Auto) Baso # (Auto) Abs Immat Gran (auto) Absolute Neuts (auto) Absolute Nucleated RBC 0.000 Nucleated RBC % (auto) 0.0 PT INR APTT Anion Gap 11 L Estim Creat Clear Calc 99.3 Estimated GFR > 60 Random Glucose 103 D Lactic Acid Lactic Acid F/U @ 2Hr 0.8 Calcium 9.1 D Magnesium Total Bilirubin Direct Bilirubin AST ALT Alkaline Phosphatase Total Protein Albumin Urine Color Urine Appearance Urine pH Ur Specific [place] Urine Protein Urine Glucose (UA) Urine Ketones Urine Blood Urine Nitrite Ur Leukocyte Esterase COVID-19 (MILAGROS) COVID-19 Clin Com Procedures Date of Service Date of Service: 05/17/21 Progress Note: A&P Assessment and plan (1) Diverticulitis: Status: Acute Assessment and Plan: with small abscess WBC same exam benign looks well continue IV abx bowel rest plan to repeat CT scan in 48H Fall Risk Details Current Medications: Current Medications Piperacillin Sod/Tazobactam (Sod 3.375 gm/ Sodium Chloride) 50 mls @ 100 mls/hr IV Q6H [facility] Last Infusion: 05/17/21 06:25 Dose: Infused Documented by: Morphine Sulfate (Morphine Sulfate 2 Mg/Ml Cartridge) 2 mg IVPUSH Q3H PRN; Protocol PRN Reason: Pain, Severe (Pain Scale 7-10) Last Admin: 05/17/21 05:58 Dose: 2 mg Documented by: Ondansetron HCl (Ondansetron Hcl 4 Mg/2 Ml Vial) 4 mg IVPUSH Q8H PRN PRN Reason: nausea Sodium Chloride (0.9 % Sodium Chloride Flush 3 Ml Syringe) [facility] Last Admin: 05/17/21 08:59 Dose: 3 ml Documented by: Time Spent With Patient Time: Total time spent is greater than 50% in coordination of care (as documented) at patient's floor/unit and/or counseling patient: Quality Stroke Does the patient have a stroke diagnosis?: No VTE Prior VTE?: No VTE Risk Level:: Medical - low VTE Device Contraindication: N/A - Device Ordered VTE Drug Contraindication: Treatment Not Indicated
--- NOTE | 2021-05-17 10:29 | MHC.CM.PN ---
PATIENT LIVES WITH FAMILY HE IS FULLY INDEPENDENT NO DME OR VNA SERVICES PLAN IS REPEAT CT WEDNESDAY. IF ABSCESS IS NOT RESOLVED, POSSIBLE DRAIN OF ABSCESS. FOLLOW UP COLONOSCOPY IN 6 WEEKS. COVID-19 VACCINATED X 2 - MODERNA SERIES. NO HPC ON FILE PATIENT WILL CONSIDER COMPLETION OF ONE
[2021-05-17] MEDS: Lactated Ringers 1,000 ML 80 ML IVCONT ×2 (11:02→23:59)
--- NOTE | 2021-05-17 13:10 | HE.PHANOTE ---
Zosyn <48h of therapy
[2021-05-18] VITALS (7 sets, daily range): BP systolic 110–145; BP diastolic 55–92; PULSE 68–95; RESP 14–19; TEMP 36.1–37.7; O2SAT 98–100
[2021-05-18] MEDS: Piperacillin Sodium/Tazobactam 3.375 GM in 0.9 % Sodium Chloride 50 ML IV ×3 (05:50→18:08)
[2021-05-18 08:28] LABS: Hematocrit 37.6 % (42.0-52.0); Hemoglobin 12.5 g/dl (14.0-18.0); Mean Corpuscular HGB Conc 33.2 g/dl (31.0-36.0); Mean Corpuscular Hemoglobin 31.2 pg (27.0-33.0); Mean Corpuscular Volume 93.8 fL (80.0-98.0); Mean Platelet Volume 11.1 fL (9.4-12.4); Platelet Count 401 X10*3/uL (160-400); Red Blood Count 4.01 X10*6/uL (4.60-5.80); Red Cell Distribution Width 12.3 % (11.0-16.0); White Blood Count 12.8 X10*3/uL (4.8-10.8)
[2021-05-18] MEDS: Morphine Sulfate 2 MG/ML CARTRIDGE IVPUSH ×4 (08:40→22:29)
--- NOTE | 2021-05-18 10:45 | P.PNGS_ITS ---
Subjective Subjective Date of Service: 05/18/21 Interval history: says pain is better although he still has periodic episodes of pain passing flatus no fever hungry Physical Exam Vital Signs: Vital Signs: Last Vital Signs Temp 97.3 F 05/18/21 08:00 Pulse 79 05/18/21 08:00 Resp 19 05/18/21 08:00 BP 136/78 05/18/21 08:00 Pulse Ox 100 05/18/21 08:00 BMI result Body Mass Index 26.6 Const: General: comfortable and no acute distress Resp: Effort & Inspection: normal respiratory effort Cardio: Rate: regular rate GI: Other: some tenderness on LLQ Palpation (GI): Soft to palpation, not firm, no guarding and not rigid Objective Data Active Medications Piperacillin Sod/Tazobactam (Sod 3.375 gm/ Sodium Chloride) 50 mls @ 100 mls/hr IV Q6H [facility] Last Infusion: 05/18/21 06:20 Dose: 0 mls/hr Documented by: FABY Lactated Ringer's (Lr) 1,000 mls @ 80 mls/hr IVCONT .[id number] [facility] Last Admin: 05/17/21 23:59 Dose: 80 mls/hr Documented by: FABY Morphine Sulfate (Morphine Sulfate 2 Mg/Ml Cartridge) 2 mg IVPUSH Q3H PRN; Protocol PRN Reason: Pain, Severe (Pain Scale 7-10) Last Admin: 05/18/21 08:40 Dose: 2 mg Documented by: TRAE Ondansetron HCl (Ondansetron Hcl 4 Mg/2 Ml Vial) 4 mg IVPUSH Q8H PRN PRN Reason: nausea Sodium Chloride (0.9 % Sodium Chloride Flush 3 Ml Syringe) 3 ml IVFLUSH QSHIFT [facility] Last Admin: 05/18/21 08:23 Dose: Not Given Documented by: TRAE Non-Admin Reason: IV Running Labs CBC & Chem 7: 05/18/21 07:53 05/17/21 05:36 Labs: Laboratory Results - last 24 hr 05/18/21 07:53 MCV 93.8 MCH 31.2 MCHC 33.2 RDW 12.3 Plt Count 401 H MPV 11.1 Absolute Nucleated RBC 0.000 Nucleated RBC % (auto) 0.0 Microbiology Microbiology Results: Microbiology 05/16/21 11:31 Blood Culture - Preliminary Blood - Venous No growth after 24 hours. 05/16/21 11:21 Blood Culture - Preliminary Blood - Venous No growth after 24 hours. Procedures Date of Service Date of Service: 05/18/21 Progress Note: A&P Assessment and plan (1) Diverticulitis of intestine with abscess without bleeding: Status: Acute Assessment and Plan: notices improvement with pain no fever WBC down to 12 from 17 abd panel machine tender but benign looks well plan to repeat CT tomorrow to follow abscess Fall Risk Details Current Medications: Current Medications Piperacillin Sod/Tazobactam (Sod 3.375 gm/ Sodium Chloride) 50 mls @ 100 mls/hr IV Q6H [facility] Last Infusion: 05/18/21 06:20 Dose: Infused Documented by: Lactated Ringer's (Lr) 1,000 mls @ 80 mls/hr IVCONT .[id number] [facility] Last Admin: 05/17/21 23:59 Dose: 80 mls/hr Documented by: Morphine Sulfate (Morphine Sulfate 2 Mg/Ml Cartridge) 2 mg IVPUSH Q3H PRN; Protocol PRN Reason: Pain, Severe (Pain Scale 7-10) Last Admin: 05/18/21 08:40 Dose: 2 mg Documented by: Ondansetron HCl (Ondansetron Hcl 4 Mg/2 Ml Vial) 4 mg IVPUSH Q8H PRN PRN Reason: nausea Sodium Chloride (0.9 % Sodium Chloride Flush 3 Ml Syringe) 3 ml IVFLUSH QSHIFT [facility] Last Admin: 05/18/21 08:23 Dose: Not Given Documented by: Time Spent With Patient Time: Total time spent is greater than 50% in coordination of care (as documented) at patient's floor/unit and/or counseling patient: Quality Stroke Does the patient have a stroke diagnosis?: No VTE Prior VTE?: No VTE Risk Level:: Medical - low VTE Device Contraindication: N/A - Device Ordered VTE Drug Contraindication: Treatment Not Indicated
[2021-05-18] MEDS: Lactated Ringers 1,000 ML 80 ML IVCONT (12:40)
[2021-05-19] MEDS: Piperacillin Sodium/Tazobactam 3.375 GM in 0.9 % Sodium Chloride 50 ML IV ×5 (00:08→23:27)
[2021-05-19] MEDS: 0.9 % Sodium Chloride Flush 3 ML SYRINGE IVFLUSH ×3 (00:08→23:27)
[2021-05-19] MEDS: Lactated Ringers 1,000 ML 100 ML IVCONT (00:43)
[2021-05-19 03:12] VITALS: BP 112/56; PULSE 65; RESP 14; TEMP 36.1; O2SAT 99
[2021-05-19 07:39] VITALS: BP 112/64; PULSE 78; RESP 20; TEMP 37.4; O2SAT 93
--- NOTE | 2021-05-19 08:21 | P.PNGS_ITS ---
Subjective Subjective Date of Service: 05/19/21 <Zahra Crowder PA-C - Last Filed: 05/19/21 08:24> 05/19/21 <Terrence Strong MD - Last Filed: 05/19/21 09:40> Interval history: Continues to feel better- pain improving. Was able to sleep on left side last night. Feels hungry. Passing flatus, BM yesterday. <Zahra Crowder PA-C - Last Filed: 05/19/21 08:24> Physical Exam Vital Signs: Vital Signs: Last Vital Signs Temp 99.3 F 05/19/21 07:39 Pulse 78 05/19/21 07:39 Resp 20 05/19/21 07:39 BP 112/64 05/19/21 07:39 Pulse Ox 93 05/19/21 07:39 BMI result Body Mass Index 26.6 <Zahra Crowder PA-C - Last Filed: 05/19/21 08:24> Const: General: comfortable, no acute distress, well developed and alert <Zahra Crowder PA-C - Last Filed: 05/19/21 08:24> Orientation/consciousness: patient oriented x3 <Zahra Crowder PA-C - Last Filed: 05/19/21 08:24> Resp: Effort & Inspection: normal respiratory effort <FOREST Chan Last Filed: 05/19/21 08:24> GI: Inspection: No distended <Zahra Crowder PA-C - Last Filed: 05/19/21 08:24> Palpation (GI): Soft to palpation, Tenderness to palpation present (GI) in the LLQ, no guarding and not rigid <Zahra Crowder PA-C - Last Filed: 05/19/21 08:24> Percussion: Yes normal to percussion <FOREST Chan Last Filed: 05/19/21 08:24> Skin: General skin exam: no rashes or lesions noted <FOREST Chan Last Filed: 05/19/21 08:24> Neuro: General: patient oriented x3 <FOREST Chan Last Filed: 05/19/21 08:24> Extrem: General: Yes no clubbing, cyanosis or edema <Zahra Crowder PA-C - Last Filed: 05/19/21 08:24> Objective Data Active Medications Piperacillin Sod/Tazobactam (Sod 3.375 gm/ Sodium Chloride) 50 mls @ 100 mls/hr IV Q6H [facility] Last Infusion: 05/19/21 06:48 Dose: 0 mls/hr Documented by: CARLEY Lactated Ringer's (Lr) 1,000 mls @ 80 mls/hr IVCONT .[id number] [facility] Last Infusion: 05/19/21 06:49 Dose: 80 mls/hr Documented by: CARLEY Morphine Sulfate (Morphine Sulfate 2 Mg/Ml Cartridge) 2 mg IVPUSH Q3H PRN; Protocol PRN Reason: Pain, Severe (Pain Scale 7-10) Last Admin: 05/18/21 22:29 Dose: 2 mg Documented by: BRISEYDA Ondansetron HCl (Ondansetron Hcl 4 Mg/2 Ml Vial) 4 mg IVPUSH Q8H PRN PRN Reason: nausea Sodium Chloride (0.9 % Sodium Chloride Flush 3 Ml Syringe) 3 ml IVFLUSH QSHIFT [facility] Last Admin: 05/19/21 00:08 Dose: 3 ml Documented by: CARLEY <Zahra Crowder PA-C - Last Filed: 05/19/21 08:24> Labs CBC & Chem 7: : 05/18/21 07:53 05/17/21 05:36 <Zahra Crowder PA-C - Last Filed: 05/19/21 08:24> Labs: Laboratory Results - last 24 hr 05/18/21 07:53 MCV 93.8 MCH 31.2 MCHC 33.2 RDW 12.3 Plt Count 401 H MPV 11.1 Absolute Nucleated RBC 0.000 Nucleated RBC % (auto) 0.0 <FOREST Chan Last Filed: 05/19/21 08:24> Microbiology Microbiology Results: Microbiology 05/16/21 11:31 Blood Culture - Preliminary Blood - Venous No growth after 48 hours. 05/16/21 11:21 Blood Culture - Preliminary Blood - Venous No growth after 48 hours. <Zahra Crowder PA-C - Last Filed: 05/19/21 08:24> Procedures Date of Service Date of Service: 05/19/21 <Zahra Crowder PA-C - Last Filed: 05/19/21 08:24> Progress Note: A&P Assessment and plan (1) Diverticulitis of intestine with abscess without bleeding: Status: Acute <Zahra Crowedr PA-C - Last Filed: 05/19/21 08:24> Assessment and Plan: Feels much better although still has some tenderness Repeat CT scan today as follow-up for the diverticular abscess IV antibiotic Exam remains benign Seen and examined independently - agree with KIMMY Crowder <Terrence Strong MD - Last Filed: 05/19/21 09:40> Plan 31 year old male admitted with diverticulitis. Failed outpatient treatment prior. Clinically improving overall with supportive measures but does still have pinpoint tenderness in the LLQ. VSS. Clinically appearing well. Plan for repeat CT scan with IV contrast today. Hopefully advance to low residue diet if improved. Cont IV zosyn, IVF for now. Patient comfortable with plan. <Zahra Crowder PA-C - Last Filed: 05/19/21 08:24> Fall Risk Details Current Medications: Current Medications Piperacillin Sod/Tazobactam (Sod 3.375 gm/ Sodium Chloride) 50 mls @ 100 mls/hr IV Q6H [facility] Last Infusion: 05/19/21 06:48 Dose: Infused Documented by: Lactated Ringer's (Lr) 1,000 mls @ 80 mls/hr IVCONT .[id number] [facility] Last Infusion: 05/19/21 06:49 Dose: 80 mls/hr Documented by: Morphine Sulfate (Morphine Sulfate 2 Mg/Ml Cartridge) 2 mg IVPUSH Q3H PRN; Protocol PRN Reason: Pain, Severe (Pain Scale 7-10) Last Admin: 05/18/21 22:29 Dose: 2 mg Documented by: Ondansetron HCl (Ondansetron Hcl 4 Mg/2 Ml Vial) 4 mg IVPUSH Q8H PRN PRN Reason: nausea Sodium Chloride (0.9 % Sodium Chloride Flush 3 Ml Syringe) 3 ml IVFLUSH QSHIFT [facility] Last Admin: 05/19/21 00:08 Dose: 3 ml Documented by: <Zahra Crowder PA-C - Last Filed: 05/19/21 08:24> Time Spent With Patient Time: Total time spent is greater than 50% in coordination of care (as documented) at patient's floor/unit and/or counseling patient: <Zahra Crowder PA-C - Last Filed: 05/19/21 08:24> Quality Stroke Does the patient have a stroke diagnosis?: No <Zahra Crowder PA-C - Last Filed: 05/19/21 08:24> VTE Prior VTE?: No <Zahra Crowder PA-C - Last Filed: 05/19/21 08:24> VTE Risk Level:: Medical - low <FOREST Chan Last Filed: 05/19/21 08:24> VTE Device Contraindication: N/A - Device Ordered <FOREST Chan Last Filed: 05/19/21 08:24> VTE Drug Contraindication: Treatment Not Indicated <FOREST Chan Last Filed: 05/19/21 08:24>
[2021-05-19] MEDS: iohexoL 350 MG/ML 100 ML INFUS..BTL IV (10:35)
[2021-05-19 11:59] VITALS: BP 129/73; PULSE 71; RESP 20; TEMP 36.4; O2SAT 100
[2021-05-19 15:34] VITALS: BP 144/82; PULSE 98; RESP 18; TEMP 36.4; O2SAT 98
--- NOTE | 2021-05-19 16:21 | MHC.CM.PN ---
PT NOT MEDICALLY CLEARED TO DC TODAY DC PLAN REMAINS HOME WITH NO SERVICES
[2021-05-19 19:20] VITALS: BP 132/67; PULSE 115; RESP 18; TEMP 36.9; O2SAT 98
[2021-05-20] VITALS: BP 132/65; PULSE 85; RESP 18; TEMP 36.5; O2SAT 98
[2021-05-20] MEDS: Piperacillin Sodium/Tazobactam 3.375 GM in 0.9 % Sodium Chloride 50 ML IV ×2 (06:25→11:38)
[2021-05-20 07:48] VITALS: BP 131/83; PULSE 95; RESP 18; TEMP 36.3; O2SAT 99
--- NOTE | 2021-05-20 08:47 | PM.PNGS ---
Subjective Subjective Date of Service: 05/20/21 <Zahra Crowder PA-C - Last Filed: 05/20/21 08:50> 05/20/21 <Terrence Strong MD - Last Filed: 05/20/21 14:11> Interval history: Tolerating solid diet. Pain has been minimal and has not needed any narcotics. Moving bowels. <Zahra Crowder PA-C - Last Filed: 05/20/21 08:50> Physical Exam Vital Signs: Vital Signs: Last Vital Signs Temp 97.3 F 05/20/21 07:48 Pulse 95 05/20/21 07:48 Resp 18 05/20/21 07:48 BP 131/83 05/20/21 07:48 Pulse Ox 99 05/20/21 07:48 BMI result Body Mass Index 26.6 <FOREST Chan Last Filed: 05/20/21 08:50> Const: General: comfortable, no acute distress and alert <FOREST Chan Last Filed: 05/20/21 08:50> Orientation/consciousness: patient oriented x3 <FOREST Chan Last Filed: 05/20/21 08:50> Resp: Effort & Inspection: normal respiratory effort <FOREST Chan Last Filed: 05/20/21 08:50> GI: Inspection: No distended <FOREST Chan Last Filed: 05/20/21 08:50> Palpation (GI): Soft to palpation and Tenderness to palpation present (GI) in the LLQ (pinpoint, mild) <Zahra Crowder PA-C - Last Filed: 05/20/21 08:50> Percussion: Yes normal to percussion <FOREST Chan Last Filed: 05/20/21 08:50> Skin: General skin exam: no rashes or lesions noted <FOREST Chan Last Filed: 05/20/21 08:50> Neuro: General: patient oriented x3 <FOREST Chan Last Filed: 05/20/21 08:50> Objective Data Active Medications Acetaminophen (Acetaminophen 325 Mg Tablet) 650 mg PO Q6H PRN PRN Reason: fever, pain Piperacillin Sod/Tazobactam (Sod 3.375 gm/ Sodium Chloride) 50 mls @ 100 mls/hr IV Q6H [facility] Last Infusion: 05/20/21 07:43 Dose: 0 mls/hr Documented by: HAWK Morphine Sulfate (Morphine Sulfate 2 Mg/Ml Cartridge) 2 mg IVPUSH Q3H PRN; Protocol PRN Reason: Pain, Severe (Pain Scale 7-10) Last Admin: 05/18/21 22:29 Dose: 2 mg Documented by: BRISEYDA Ondansetron HCl (Ondansetron Hcl 4 Mg/2 Ml Vial) 4 mg IVPUSH Q8H PRN PRN Reason: nausea Oxycodone HCl (Oxycodone Hcl Immed Release 5 Mg Tablet) 5 mg PO Q4H PRN PRN Reason: Pain, Moderate (Pain Scale 4-6 Sodium Chloride (0.9 % Sodium Chloride Flush 3 Ml Syringe) 3 ml IVFLUSH QSHIFT [facility] Last Admin: 05/19/21 23:27 Dose: 3 ml Documented by: ANA <Zahra Crowder PA-C - Last Filed: 05/20/21 08:50> Labs CBC & Chem 7: : 05/18/21 07:53 05/17/21 05:36 <Zahra Crowder PA-C - Last Filed: 05/20/21 08:50> Procedures Date of Service Date of Service: 05/20/21 <Zahra Crowder PA-C - Last Filed: 05/20/21 08:50> Progress Note: A&P Assessment and plan (1) Diverticulitis of intestine with abscess without bleeding: Status: Acute <Zahra Crowder PA-C - Last Filed: 05/20/21 08:50> Assessment and Plan: feels much better minimal pain tolerating diet has BMs,Flatus abd soft,benign looks well ok to dc home on PO abx seen and examined independently - agree with KIMMY Crowder <Terrence Strong MD - Last Filed: 05/20/21 14:11> Plan 31 year old male admitted with diverticulitis with abscess. On IV zosyn. Repeat CT scan yesterday showed no residual abscess, mild fat stranding. Tolerating solid diet without worsening pain. VSS. Abd exam with soft, ND, mild pinpoint LLQ tenderness, no peritoneal signs. Stable for d/c to home today with course of PO Augmentin. Patient comfortable with plan. F/u in office in 2 weeks. <Zahra Crowder PA-C - Last Filed: 05/20/21 08:50> Fall Risk Details Current Medications: Current Medications Acetaminophen (Acetaminophen 325 Mg Tablet) 650 mg PO Q6H PRN PRN Reason: fever, pain Piperacillin Sod/Tazobactam (Sod 3.375 gm/ Sodium Chloride) 50 mls @ 100 mls/hr IV Q6H [facility] Last Infusion: 05/20/21 07:43 Dose: Infused Documented by: Morphine Sulfate (Morphine Sulfate 2 Mg/Ml Cartridge) 2 mg IVPUSH Q3H PRN; Protocol PRN Reason: Pain, Severe (Pain Scale 7-10) Last Admin: 05/18/21 22:29 Dose: 2 mg Documented by: Ondansetron HCl (Ondansetron Hcl 4 Mg/2 Ml Vial) 4 mg IVPUSH Q8H PRN PRN Reason: nausea Oxycodone HCl (Oxycodone Hcl Immed Release 5 Mg Tablet) 5 mg PO Q4H PRN PRN Reason: Pain, Moderate (Pain Scale 4-6 Sodium Chloride (0.9 % Sodium Chloride Flush 3 Ml Syringe) 3 ml IVFLUSH QSHIFT [facility] Last Admin: 05/19/21 23:27 Dose: 3 ml Documented by: <Zahra Crowder PA-C - Last Filed: 05/20/21 08:50> Time Spent With Patient Time: Total time spent is greater than 50% in coordination of care (as documented) at patient's floor/unit and/or counseling patient: <Zahra Crowder PA-C - Last Filed: 05/20/21 08:50> Quality Stroke Does the patient have a stroke diagnosis?: No <FOREST Chan Last Filed: 05/20/21 08:50> VTE Prior VTE?: No <Zahra Crowder PA-C - Last Filed: 05/20/21 08:50> VTE Risk Level:: Medical - low <Zahra Crowder PA-C - Last Filed: 05/20/21 08:50> VTE Device Contraindication: N/A - Device Ordered <FOREST Chan Last Filed: 05/20/21 08:50> VTE Drug Contraindication: Treatment Not Indicated <Zahra Crowder PA-C - Last Filed: 05/20/21 08:50>
[2021-05-20] MEDS: 0.9 % Sodium Chloride Flush 3 ML SYRINGE IVFLUSH (09:29)
--- NOTE | 2021-05-20 09:42 | MHC.CM.PN ---
NURSE LOAD BUILDER NOTE ELECTRONICMEDICAL RECORD REVIEWED ALONG WITH CASE DISCUSSED WITH STAFF NURSE , MET WITH PATIENT AND HE IS AWARE THAT HE WILL BE DISCHARGED HOME TODAY AFTER HIS IV ABX DOSE TODAY . DISCHARGE PLAN -HOME NO SERVICES PCP DR TALIA ORTIZ PATIENT TO CALL FOR FOLLOW UP APPOINTMENT AND FOLLOW UP WITH GI SPECIALIST TRANSPORTATION - PATIENT TO SELF ARRANGE
--- NOTE | 2021-05-20 11:38 | P.DS_ITS ---
DS: Providers Provider Date of Service: 05/20/21 Date of admission: 05/16/21 16:44 Primary care physician: Chi Moyer MD Attending physician on admission: eTrrence Strong Attending physician on discharge: Terrence Strong DS: Diagnosis Discharge Diagnosis (1) Diverticulitis of intestine with abscess without bleeding: Status: Acute DS: Summary Hospital Course Hospital Course: BRIEF HPI: João Campo is a 31 year old male who came to the emergency room today because of left lower quadrant pain.? He is actually seen by the ER 5 days ago because of the same problem.? He was placed on oral Levaquin and Flagyl.? H owever, he says that he has had persistent pain.? He denies any fever or chills.? He denies any nausea or vomiting. He had a white count of 16 on the last visit in the ED and it is now up to 17. He says that he does not think that the oral antibiotics of helped him. This is his 1st episode of acute diverticulitis. CT scan showed scattered the diverticula throughout the colon with mild thickening of the sigmoid colon with mild pericolic fat stranding with a paracolic hypodensity measuring 2.1 x 1.7 cm. HOSPITAL COURSE: The patient was admitted to the surgical service for further treatment of the acute diverticulitis with possible small abscess versus dilated diverticulum. He failed outpatient therapy and therefore required IV antibiotics. He was started on IV zosyn, clear liquids and on IVF. The patient slowly improved through out his stay with decreasing pain. His leukocytosis significantly improved. A repeat CT scan was performed on HD #3 which demonstrated resolution of the area of hypoattenuation along the colonic wall. He was therefore advanced to a low residue diet. He felt well the following day and was tolerating the solid diet without worsening in pain. He was moving his bowels. His abdomen had mild LLQ tenderness without peritoneal signs. He felt ready for discharge. He was discharged to home on 05/20/21 on a 10 day course of PO Augmentin in stable condition. He is to follow up with Dr. Strong in office. Status at Discharge Functional status at discharge: independent ambulation Overall status at discharge: patient is progressing back to baseline Time Spent with Patient Time attestation: Total time spent providing and/or coordinating discharge services: Discharge coordination time: Less than 30 minutes Quality: Safe Use of Opioids Does Pt have an Active Cancer Diagnosis on the Problem List?: No Quality: Stroke Does the patient have a stroke diagnosis?: No Physical Exam Vital Signs: Vital Signs: Last Vital Signs Temp 97.8 F 05/20/21 11:43 Pulse 83 05/20/21 11:43 Resp 17 05/20/21 11:43 BP 143/80 H 05/20/21 11:43 Pulse Ox 99 05/20/21 11:43 BMI result Body Mass Index 26.6 Const: General: comfortable and alert Orientation/consciousness: patient oriented x3 GI: Inspection: No distended Palpation (GI): Soft to palpation, Tenderness to palpation present (GI) in the LLQ; Negative for with no rebound tenderness, no guarding and not rigid Skin: General skin exam: no rashes or lesions noted Neuro: General: patient oriented x3 DS: Data Data Completed and Pending Labs on day of discharge: Preliminary micro results at discharge 05/16/21 11:31 Blood Culture - Preliminary Blood - Venous No growth after 48 hours. 05/16/21 11:21 Blood Culture - Preliminary Blood - Venous No growth after 48 hours. Discharge Plan Discharge Patient Disposition: Home, Self-Care Discharge Diagnosis: diverticulitis Referrals: Chi Moyer MD [Primary Care Provider] - 1 Week Terrence Strong MD [Physician] - 2 Weeks Discharge Medications: New amoxicillin-pot clavulanate [Augmentin] 500-125 mg tablet 1 tab PO BID Qty: 14 0RF Discontinued levofloxacin 500 mg tablet 500 mg PO DAILY Qty: 10 0RF metronidazole 500 mg tablet 500 mg PO TID Qty: 30 0RF Discharge Orders: Discharge Order (Routine); Ordered 05/20/21 Ordered By: Zahra Crowder Diet: other Activity on Discharge: As tolerated Stand Alone Forms: Patient Portal Discharge page, Work/School Release Activity Restrictions/Additional Instructions: Call Your Doctor If: ? ? -Your temperature exceeds 101.5? F? ? ? -You experience excessive pain or swelling ? ? -You have an unexpected reaction to medication ? ? -You experience continued vomiting/nausea Low residue diet. Care Plan Goals: Return to baseline health and gradual return to activity as tolerated. Health Concerns: Diverticulitis with abscess Plan of Treatment: IV antibiotics, transition to PO abx f/u in office Assessment: Improved Discharge Date/Time: 05/20/21 12:25
[2021-05-20 11:43] VITALS: BP 143/80; PULSE 83; RESP 17; TEMP 36.6; O2SAT 99
== END 2021-05-20 12:25 | disposition home or self-care (01) | DRG 244 ==
LOC: HO.ED 15:01 → HO.EDOVER 16:46 → HO.S3 17:22
PROVIDERS: Physician Assistant; Admitting Provider Surgery; Emergency Provider Emergency Medicine; PCP Internal Medicine; Visit Provider Surgery
DX: K57.20 Diverticulitis of large intestine with perforation and abscess without bleeding (principal); F17.210 Nicotine dependence, cigarettes, uncomplicated; Z71.6 Tobacco abuse counseling; Z20.822 Contact with and (suspected) exposure to COVID-19
CPT/HCPCS: 36415; 74177; 80048; 80076; 81003; 83605; 83735; 85025; 85027; 85610; 85730; 87040; 87635; 96361; 96365; 96375; 99285; J1885; J1956; J2270; J2543; Q9967

== ENCOUNTER → 2021-05-28 15:12 | Outpatient (BNVA) | payer OTHER, SELFPAY | PROVIDERS: PCP Internal Medicine; Referring Provider Internal Medicine; Visit Provider Surgery | DX: K57.80 Diverticulitis of intestine, part unspecified, with perforation and abscess without bleeding (principal) | CPT/HCPCS: 99212 ==

== ENCOUNTER 2021-05-30 09:13 | Inpatient (IN) | payer OTHER, SELFPAY ==
--- NOTE | ~2021-05-30 | CT_ITS ---
EXAMINATION: CT ABDOMEN AND PELVIS WITH CONTRAST CLINICAL INFORMATION: Follow-up diverticular abscess. COMPARISON: 05/30/2021 TECHNIQUE: Multidetector volumetric images were obtained from the superior aspect of the liver through the pubic symphysis following administration 85 mL of Omnipaque 350 intravenous contrast. Sagittal and coronal reformatted images were obtained on the technologist's workstation. Oral contrast: No This CT examination was performed using dose optimization techniques as appropriate, variously including the following: *Automated exposure control *Adjustment of mA and/or kV according to patient size (this includes techniques or standardized protocols for targeted exams where dose is matched to indication/reason for exam; i.e. extremities or head) *Use of iterative reconstruction technique DLP: 444 mGy-cm FINDINGS: LUNG BASES: The visualized lung bases are unremarkable. LIVER, GALLBLADDER, AND BILIARY TREE: Fatty liver. No ductal dilatation. The gallbladder is unremarkable with no evidence of radiopaque gallstones, gallbladder wall thickening, or obvious pericholecystic inflammatory changes. PANCREAS: Unremarkable. SPLEEN: Unremarkable. ADRENAL GLANDS: Unremarkable. KIDNEYS AND URETERS: The kidneys are normal in size, shape, and attenuation. No hydronephrosis, hydroureter, or calculi seen. No perinephric stranding. BLADDER: Unremarkable. GASTROINTESTINAL TRACT: Small bowel normal in caliber. Diffuse thickening and inflammation involving the sigmoid colon. The previously seen pericolonic fluid collection has resolved. There is no visible abscess. ABDOMINAL WALL: No significant hernia is appreciated. LYMPH NODES: Normal. VASCULAR: Unremarkable. PELVIC VISCERA: Unremarkable. OSSEOUS STRUCTURES: Unremarkable. CT/CT abdomen pelvis w con IMPRESSION: Persistent diverticulitis of the sigmoid colon. Previously seen abscess has resolved.
--- NOTE | ~2021-05-30 | CT_ITS ---
EXAMINATION: CT ABDOMEN AND PELVIS WITH CONTRAST CLINICAL INFORMATION: Left lower quadrant pain. COMPARISON: 05/19/2021 TECHNIQUE: Multidetector volumetric images were obtained from the superior aspect of the liver through the pubic symphysis following administration 85 mL of Omnipaque 350 intravenous contrast. Sagittal and coronal reformatted images were obtained on the technologist's workstation. Oral contrast: No This CT examination was performed using dose optimization techniques as appropriate, variously including the following: *Automated exposure control *Adjustment of mA and/or kV according to patient size (this includes techniques or standardized protocols for targeted exams where dose is matched to indication/reason for exam; i.e. extremities or head) *Use of iterative reconstruction technique DLP: 465 mGy-cm FINDINGS: LUNG BASES: The visualized lung bases are unremarkable. LIVER, GALLBLADDER, AND BILIARY TREE: The liver is normal in contour with decreased attenuation. No focal hepatic lesion or biliary ductal dilatation is present. The gallbladder is unremarkable with no evidence of radiopaque gallstones, gallbladder wall thickening, or obvious pericholecystic inflammatory changes. PANCREAS: Unremarkable. SPLEEN: Unremarkable. ADRENAL GLANDS: Unremarkable. KIDNEYS AND URETERS: The kidneys are normal in size, shape, and attenuation. No hydronephrosis or hydroureter. No perinephric stranding. BLADDER: Underdistended. GASTROINTESTINAL TRACT: Marked wall thickening and submucosal edema of the sigmoid colon with pericolonic inflammatory change. There is a submucosal hyperenhancement. Possible intramural abscess measuring 1.8 x 1.4 x 1.6 cm. No small bowel obstruction. There is fluid in the colon and rectum. The appendix contains fluid and gas measuring up to 8 mm. ABDOMINAL WALL: No significant hernia is appreciated. LYMPH NODES: Normal. VASCULAR: Normal caliber abdominal aorta. PELVIC VISCERA: The prostate gland and seminal vesicles are unremarkable. OSSEOUS STRUCTURES: No destructive bone lesions. CT/CT abdomen pelvis w con IMPRESSION: Severe inflammation of the sigmoid colon with possible intramural abscess measuring 1.8 x 1.4 x 1.6 cm. Fluid contents of the colon and rectum. This likely represents acute colitis and less likely acute diverticulitis. Infectious and inflammatory etiologies should be considered. Follow-up imaging after treatment is advised. Hepatic steatosis.
[2021-05-30 09:23] VITALS: BP 125/86; PULSE 125; RESP 18; TEMP 36.9; O2SAT 97; BMI 26.6
--- NOTE | 2021-05-30 09:41 | ED_ITS ---
HPI - Abdominal Pain General Chief Complaint: Abdominal Pain Stated Complaint: abd pain Time Seen by Provider: 05/30/21 09:27 Source: patient Mode of arrival: ambulatory Limitations: no limitations History of Present Illness HPI narrative: 31-year-old male with a history of diverticulitis with recent admission05/16-05/20 for diverticulitis with concern for diverticular abscess. patient followed up with Dr. Strong as on May 28 and was switched to oral Augmentin. At that time the patient was reporting increased left lower quadrant abdominal pain. He was recommended to seek care in the emergency department on the but the patient tells me he could not because he had a to go to. Since then he has had continued pain. Yesterday he had a temperature up to 100.4. Has not had any nausea, vomiting, diarrhea or constipation. He is taking the Augmentin as prescribed (has had 4 doses). Related Data Home Medications Medication Instructions Recorded Confirmed betamethasone, augmented 0.05 % 1 appl TOPICAL BID PRN 05/30/21 05/30/21 topical cream Previous Rx's Medication Instructions Recorded amoxicillin 875 mg-potassium 1 tab PO BID #14 tab 05/28/21 clavulanate 125 mg tablet Allergies Allergy/AdvReac Type Severity Reaction Status Date / Time acetaminophen [From Tylenol] Allergy Mild rash Verified 05/28/21 15:36 Review of Systems Review of Systems Yes all other systems are reviewed and are negative Constitutional: Reports no additional constitutional complaints, Denies body ache(s), Denies chills, Reports fever(s), Denies headache(s) and Denies weakness Eyes: Reports no additional eye complaints and Denies change in vision Reports system reviewed and no additional complaints, except as documented, Denies dizziness, Denies headache(s), Denies nasal congestion, Denies nasal discharge and Denies neck pain Cardiovascular: Reports no additional cardiovascular complaints, Denies chest pain, Denies leg edema and Denies dyspnea Respiratory: Reports no additional respiratory complaints, Denies cough and Denies dyspnea Gastrointestinal: Reports no additional gastrointestinal complaints, Reports abdominal pain, Denies diarrhea, Denies nausea and Denies vomiting Genitourinary: Denies urinary incontinence Musculoskeletal: Reports no additional musculoskeletal complaints, Denies back pain, Denies arthralgias, Denies joint swelling, Denies neck pain, Denies numbness and Denies tingling Skin/Breast: Reports system reviewed and no additional complaints, except as docu and Denies rash Reports system reviewed and no additional complaints, except as documented, Denies dizziness, Denies headache(s), Denies numbness, Denies tingling and Denies weakness PMFSH Past Medical History Attestation statement: The following information was validated with the patient. Source: old records reviewed and nursing notes reviewed Medical History Diverticulitis of intestine with abscess without bleeding No pertinent past medical history Social History Social History Household Members: Spouse and Family Housing: Apartment Do you presently have visiting nurse or other home services: No Alcohol intake: current Alcohol intake frequency: holidays/special occasions only Patient Tobacco Use Status: Current everyday Tobacco user Tobacco use type: Cigarette Use of substances other than those prescribed or required for medical reasons: Yes Substance Use Type: Marijuana Advance Directives: No Advance Directives Information Provided: No service: No Current occupational status: employed Physical Exam ED Vital Signs: Vital Signs - 24 hr 05/30/21 09:23 05/30/21 10:36 05/30/21 12:25 Temperature 98.4 F 98.5 F 98.6 F Pulse Rate 125 H 95 83 Respiratory Rate 18 16 18 Blood Pressure 125/86 129/82 126/87 Pulse Oximetry 97 98 100 05/30/21 13:49 Temperature 98.6 F Pulse Rate 91 Respiratory Rate 17 Blood Pressure 128/82 Pulse Oximetry 100 BMI result Body Mass Index 26.6 Const General: cooperative, healthy appearing and comfortable Orientation/consciousness: patient oriented x3 Limitations: no limitations [facility] Head: Yes normal to inspection Ears: hearing grossly normal bilaterally General nose exam: Normal external nose present Face and sinus: Yes normal facial exam Mouth: Normal oral and palatal mucosa present Teeth and gingiva: dentition normal Throat: Yes posterior oropharynx normal, Yes tonsils normal and Yes uvula midline Eyes General: appearance normal, both eyes and all related structures Pupils: Equal, round and reactive pupils present Neck Neck: Yes normal visual inspection, Yes full ROM, Yes no lymphadenopathy and Yes no meningeal signs Chest Chest palpation & inspection: normal inspection of the chest Resp Effort & Inspection: normal respiratory effort Auscultation: clear to auscultation bilaterally Cardio Rate: tachycardic Rhythm: regular rhythm Peripheral pulses: Peripheral pulses 2+ throughout GI Inspection: Yes normal to inspection Palpation (GI): Firmness to palpation present (GI) and Tenderness to palpation present (GI) (LLQ with rebound or guarding) General: Yes no CVA tenderness Back/Spine/Pelvis Back: no CVA tenderness Thoracic/Lumbar Spine: thoracic and lumbar spine normal to inspection Skin General skin exam: no rashes or lesions noted Neuro General: patient oriented x3, moves all extremities and no meningeal signs Cranial nerves: Yes Equal, round and reactive pupils present Extrem General: Yes normal to inspection, Yes no pedal edema and Yes no calf tenderness Course Course Course Narrative: 31-year-old male with recent admit for diverticulitis with small abscess discharged on oral antibiotics, started 2nd run antibiotics 48 hours ago now with worsened pain, subjective fevers. On exam tenderness to palpate with rebound and guarding over the left lower quadrant. Will need labs, UA, repeat imaging. At this time infection is suspected. Antibiotics ordered. Reevaluation(s) Reevaluation #1: Labs show leukocytosis with a shift. Anticipate patient will require admission. I did speak to Dr. Tesfaye from General surgery. He will review CT images Time: 13:24 MDM - Abdominal Pain Differential Diagnosis Differential diagnosis: Likely diverticulitis Medical Records Attestation: I reviewed the patient's medical records. Lab Data Attestation: I reviewed the patient's lab results. Result diagrams: 05/30/21 10:33 05/30/21 10:33 Labs: Lab Results 05/30/21 05/30/21 05/30/21 Range/Units 10:33 10:33 10:33 WBC 22.8 H (4.8-10.8) X10*3/uL RBC 4.06 L (4.60-5.80) X10*6/uL Hgb 12.6 L (14.0-18.0) g/dl Hct 38.1 L (42.0-52.0) % MCV 93.8 (80.0-98.0) fL MCH 31.0 (27.0-33.0) pg MCHC 33.1 (31.0-36.0) g/dl RDW 12.3 (11.0-16.0) % Plt Count 386 (160-400) X10*3/uL MPV 11.4 (9.4-12.4) fL Immature Gran % (Auto) 0.4 (0.0-0.4) % Neut % (Auto) 84.1 H (45-73) % Lymph % (Auto) 8.6 L (20-40) % [place] % (Auto) 6.1 (2-11) % Eos % (Auto) 0.5 (0-4) % Baso % (Auto) 0.3 (0-2) % Lymph # (Auto) 2.0 (1.2-4.9) X10*3/uL [place] # (Auto) 1.4 H (0.1-1.2) X10*3/uL Eos # (Auto) 0.1 (0.0-0.4) X10*3/uL Baso # (Auto) 0.1 (0.0-0.2) X10*3/uL Abs Immat Gran (auto) 0.10 H (0.00-0.03) X10*3/uL Absolute Neuts (auto) 19.2 H (2.0-8.3) x10*3/uL Absolute Nucleated RBC 0.000 (0.0-0.012) X10*3/uL Nucleated RBC % (auto) 0.0 (0.0-0.2) /100WBC Sodium 138 (135-145) mmol/L Potassium 4.1 (3.3-5.1) mmol/L Chloride 106 (96-108) mmol/L Carbon Dioxide 23 (22-29) mmol/L Anion Gap 13 (12-20) BUN 11 (9-16) mg/dL Creatinine 0.86 (0.5-1.4) mg/dL Estim Creat Clear Calc 106.2 Estimated GFR > 60 Random Glucose 188 H D (60-115) mg/dL Lactic Acid 1.5 (0.5-2.0) mmol/L Calcium 9.3 (8.4-10.2) mg/dL Total Bilirubin 0.4 (0.0-1.0) mg/dL Direct Bilirubin < 0.2 (0.0-0.5) mg/dL AST 24 D (5-37) U/L ALT 33 (0-40) U/L Alkaline Phosphatase 68 (39-117) U/L Total Protein 7.2 (6.5-8.0) g/dL Albumin 4.2 (3.5-5.0) g/dL COVID-19 (MILAGROS) (Negative) COVID-19 Clin Com 05/30/21 Range/Units 10:49 WBC (4.8-10.8) X10*3/uL RBC (4.60-5.80) X10*6/uL Hgb (14.0-18.0) g/dl Hct (42.0-52.0) % MCV (80.0-98.0) fL MCH (27.0-33.0) pg MCHC (31.0-36.0) g/dl RDW (11.0-16.0) % Plt Count (160-400) X10*3/uL MPV (9.4-12.4) fL Immature Gran % (Auto) (0.0-0.4) % Neut % (Auto) (45-73) % Lymph % (Auto) (20-40) % [place] % (Auto) (2-11) % Eos % (Auto) (0-4) % Baso % (Auto) (0-2) % Lymph # (Auto) (1.2-4.9) X10*3/uL [place] # (Auto) (0.1-1.2) X10*3/uL Eos # (Auto) (0.0-0.4) X10*3/uL Baso # (Auto) (0.0-0.2) X10*3/uL Abs Immat Gran (auto) (0.00-0.03) X10*3/uL Absolute Neuts (auto) (2.0-8.3) x10*3/uL Absolute Nucleated RBC (0.0-0.012) X10*3/uL Nucleated RBC % (auto) (0.0-0.2) /100WBC Sodium (135-145) mmol/L Potassium (3.3-5.1) mmol/L Chloride (96-108) mmol/L Carbon Dioxide (22-29) mmol/L Anion Gap (12-20) BUN (9-16) mg/dL Creatinine (0.5-1.4) mg/dL Estim Creat Clear Calc Estimated GFR Random Glucose (60-115) mg/dL Lactic Acid (0.5-2.0) mmol/L Calcium (8.4-10.2) mg/dL Total Bilirubin (0.0-1.0) mg/dL Direct Bilirubin (0.0-0.5) mg/dL AST (5-37) U/L ALT (0-40) U/L Alkaline Phosphatase (39-117) U/L Total Protein (6.5-8.0) g/dL Albumin (3.5-5.0) g/dL COVID-19 (MILAGROS) Negative (Negative) COVID-19 Clin Com See Note Imaging Data CT scan - abdomen: Attestation: I personally reviewed and interpreted this imaging study as follows: Radiologist's impression: FINDINGS: LUNG BASES: The visualized lung bases are unremarkable.? LIVER, GALLBLADDER, AND BILIARY TREE: The liver is normal in contour with decreased attenuation. No focal hepatic lesion or biliary ductal dilatation is present. The gallbladder is unremarkable with no evidence of radiopaque gallstones, gallbladder wall thickening, or obvious pericholecystic inflammatory changes.? PANCREAS: Unremarkable.? SPLEEN: Unremarkable.? ADRENAL GLANDS: Unremarkable.? KIDNEYS AND URETERS: The kidneys are normal in size, shape, and attenuation. No hydronephrosis or hydroureter. No perinephric stranding. ? BLADDER: Underdistended. GASTROINTESTINAL TRACT: Marked wall thickening and submucosal edema of the sigmoid colon with pericolonic inflammatory change. There is a submucosal hyperenhancement. Possible intramural abscess measuring 1.8 x 1.4 x 1.6 cm. No small bowel obstruction. There is fluid in the colon and rectum. The appendix contains fluid and gas measuring up to 8 mm. ABDOMINAL WALL: No significant hernia is appreciated.? LYMPH NODES: Normal. VASCULAR: Normal caliber abdominal aorta. PELVIC VISCERA: The prostate gland and seminal vesicles are unremarkable.? OSSEOUS STRUCTURES: No destructive bone lesions. CT/CT abdomen pelvis w con IMPRESSION: Severe inflammation of the sigmoid colon with possible intramural abscess measuring 1.8 x 1.4 x 1.6 cm. Fluid contents of the colon and rectum. This likely represents acute colitis and less likely acute diverticulitis. Infectious and inflammatory etiologies should be considered. Follow-up imaging after treatment is advised. Discharge Plan Discharge Clinical Impression: Abdominal pain, Colitis, Leukocytosis Patient Disposition: Admitted As Inpatient Prescriptions: No Action betamethasone, augmented 0.05 % cream 1 appl topical BID PRN (Reason: Dry Skin) 0RF amoxicillin-pot clavulanate 875-125 mg tablet 1 tab PO BID Qty: 14 0RF
[2021-05-30 10:36] VITALS: BP 129/82; PULSE 95; RESP 16; TEMP 36.9; O2SAT 98
[2021-05-30 10:40] LABS: MANUAL DIFF FLAG NO
[2021-05-30 10:42] LABS: Basophils Absolute Auto 0.1 X10*3/uL (0.0-0.2); Basophils Percent Auto 0.3 % (0-2); Eosinophils Absolute Auto 0.1 X10*3/uL (0.0-0.4); Eosinophils Percent Auto 0.5 % (0-4); Hematocrit 38.1 % (42.0-52.0); Hemoglobin 12.6 g/dl (14.0-18.0); Imm Gran Pct Auto 0.4 % (0.0-0.4); Lymphocytes Percent Auto 8.6 % (20-40); Mean Corpuscular HGB Conc 33.1 g/dl (31.0-36.0); Mean Corpuscular Volume 93.8 fL (80.0-98.0); Mean Platelet Volume 11.4 fL (9.4-12.4); Monocytes Absolute Auto 1.4 X10*3/uL (0.1-1.2); Monocytes Percent Auto 6.1 % (2-11); Neutrophils Absolute Auto 19.2 x10*3/uL (2.0-8.3); Neutrophils Percent Auto 84.1 % (45-73); Platelet Count 386 X10*3/uL (160-400); Red Blood Count 4.06 X10*6/uL (4.60-5.80); Red Cell Distribution Width 12.3 % (11.0-16.0); White Blood Count 22.8 X10*3/uL (4.8-10.8)
[2021-05-30] MEDS: Morphine Sulfate 4 MG/ML CARTRIDGE IVPUSH ×2 (10:47→13:58)
[2021-05-30] MEDS: ondansetron HCL 4 MG/2 ML VIAL IVPUSH (10:48)
[2021-05-30] MEDS: metroNIDAZOLE/NS 500 MG/100 ML PIGGYBACK 100 MG IV (10:48)
[2021-05-30] MEDS: 0.9 % Sodium Chloride 1,000 ML 999 ML IV (10:48)
[2021-05-30 10:52] LABS: Lactic Acid 1.5 mmol/L (0.5-2.0)
[2021-05-30 10:57] LABS: Alanine Aminotransferase 33 U/L (0-40); Albumin Level 4.2 g/dL (3.5-5.0); Alkaline Phosphatase 68 U/L (39-117); Anion Gap 13 (12-20); Aspartate Amino Transferase 24 U/L (5-37); Bilirubin Direct < 0.2 mg/dL (0.0-0.5); Bilirubin Total 0.4 mg/dL (0.0-1.0); Blood Urea Nitrogen 11 mg/dL (9-16); Calcium 9.3 mg/dL (8.4-10.2); Carbon Dioxide 23 mmol/L (22-29); Chloride 106 mmol/L (96-108); Creatinine Clr Calc Pharmacy 106.2; Estimated Glomerular Filt Rate > 60; Glucose Random 188 mg/dL (60-115); Potassium 4.1 mmol/L (3.3-5.1); Sodium 138 mmol/L (135-145); Total Protein 7.2 g/dL (6.5-8.0)
--- NOTE | 2021-05-30 11:04 | PHA.MEDREC ---
Pharmacy Consult ? Medication Reconciliation Pharmacy has completed the medication reconciliation.
[2021-05-30] MEDS: iohexoL 350 MG/ML 100 ML INFUS..BTL IV (11:34)
[2021-05-30 11:49] LABS: COVID-19 Test Negative (Negative)
[2021-05-30 12:25] VITALS: BP 126/87; PULSE 83; RESP 18; TEMP 37; O2SAT 100
[2021-05-30] MEDS: levoFLOXacin/D5W 750 MG/150 ML PIGGYBACK 100 MG IV (12:28)
[2021-05-30 13:49] VITALS: BP 128/82; PULSE 91; RESP 17; TEMP 37; O2SAT 100
--- NOTE | 2021-05-30 13:52 | PM.HPGS ---
History of Present Illness History of Present Illness Date of Service: 05/30/21 Chief complaint: sigmoid diverticulitis w intramural abscess Narrative: João Campo is a 31 year old male male with a previous history of sigmoid diverticulitis admitted on 05/16/2021 to the surgical service for IV antibiotics. He noted improvement in his pain was subsequently discharged to home on 05/20/2021 on oral antibiotics. He was well until helping his cousin move out of an apartment. He noted increasing pain with heavy lifting mainly located in the room left lower quadrant. The pain was very similar to was brought to the emergency department previously. This pain continued to increase in severity any return to the emergency department this morning for further evaluation. In the emergency department he was noted to have tenderness in the left lower quadrant. Laboratories [place] [address] of the abdomen and pelvis again showed sigmoid diverticulitis with a possible mural abscess. He is again admitted to the surgical service for IV antibiotics. Review of Systems Constitutional: Constitutional: Denies chills and Denies fever(s) Cardiovascular: Cardiovascular: Denies chest pain, Denies dyspnea and Denies dyspnea on exertion Respiratory: Respiratory: Denies cough, Denies dyspnea and Denies dyspnea on exertion Gastrointestinal: Gastrointestinal: Denies hematochezia and Denies change in bowel habits Genitourinary: Genitourinary: Denies hematuria and Denies difficulty urinating Musculoskeletal: Musculoskeletal: Denies back pain and Denies limited range of motion Neurologic: Denies focal weakness and Denies convulsions Psychiatric: Psychiatric: Denies depression and Denies mood swings PMFSH Past Medical History Medical History Diverticulitis of intestine with abscess without bleeding No pertinent past medical history Social History Social History Household Members: Spouse and Family Housing: Apartment Do you presently have visiting nurse or other home services: No Alcohol intake: current Alcohol intake frequency: holidays/special occasions only Patient Tobacco Use Status: Current everyday Tobacco user Tobacco use type: Cigarette Use of substances other than those prescribed or required for medical reasons: Yes Substance Use Type: Marijuana Advance Directives: No Advance Directives Information Provided: No service: No Current occupational status: employed Meds Allergies Allergy/AdvReac Type Severity Reaction Status Date / Time acetaminophen [From Tylenol] Allergy Mild rash Verified 05/28/21 15:36 Active Medications: Current Medications Hydromorphone HCl (Hydromorphone Hcl 1 Mg/Ml Syringe) 0.5 mg IVPUSH Q2H PRN; Protocol PRN Reason: Pain, Severe (Pain Scale 7-10) Dextrose/Lactated Ringer's (D5lr) 1,000 mls @ 125 mls/hr IVCONT .Q8H SABA Piperacillin Sod/Tazobactam (Sod 3.375 gm/ Sodium Chloride) 50 mls @ 100 mls/hr IV Q6H SABA Ondansetron HCl (Ondansetron Hcl 4 Mg/2 Ml Vial) 4 mg IVPUSH QID PRN PRN Reason: Nausea Oxycodone HCl (Oxycodone Hcl Immed Release 5 Mg Tablet) 5 mg PO Q6H PRN PRN Reason: Pain, Moderate (Pain Scale 4-6 Pharmacy Consult (Consult Rx Perform Med Rec) 1 each MISCELLANE ONCE PRN PRN Reason: Consult order Sodium Chloride (0.9 % Sodium Chloride Flush 3 Ml Syringe) 3 ml IVFLUSH QSHIFT SABA Zolpidem Tartrate (Zolpidem Tartrate 5 Mg Tablet) 5 mg PO BEDTIME PRN PRN Reason: Insomnia Home Medications Medication Instructions Recorded Confirmed Last Taken Type betamethasone, augmented 0.05 % 1 appl TOPICAL BID PRN 05/30/21 05/30/21 Unknown History topical cream Physical Exam Vital Signs: Vital Signs: Last Vital Signs Temp 98.6 F 05/30/21 13:49 Pulse 91 05/30/21 13:49 Resp 17 05/30/21 13:49 BP 128/82 05/30/21 13:49 Pulse Ox 100 05/30/21 13:49 BMI result Body Mass Index 26.6 Const: General: cooperative, comfortable and well developed Nutritional Appearance: well nourished Orientation/consciousness: patient oriented x3 Eyes: Sclerae: sclerae normal EOM: EOMs intact bilaterally Neck: Neck: Yes normal visual inspection Resp: Effort & Inspection: normal respiratory effort, no cough, no respiratory distress and no stridor Cardio: Jugular venous distension: no JVD GI: Inspection: Yes normal to inspection Palpation (GI): Soft to palpation, Tenderness to palpation present (GI) in the LLQ, Guarding due to palpation present (GI) in the LLQ and not rigid Percussion: Yes dullness to percussion Auscultation: Absent bowel sounds Rectal Exam - Male: Yes deferred Skin: General skin exam: no rashes or lesions noted Neuro: General: patient oriented x3 and no focal motor deficits Extrem: General: Yes full ROM and Yes no clubbing, cyanosis or edema Psych: Appearance: grossly normal Results Results Labs: Short CBC 05/30/21 Range/Units 10:33 WBC 22.8 H (4.8-10.8) X10*3/uL Hgb 12.6 L (14.0-18.0) g/dl Hct 38.1 L (42.0-52.0) % Plt Count 386 (160-400) X10*3/uL BMP 05/30/21 10:33 Sodium 138 Potassium 4.1 Chloride 106 Carbon Dioxide 23 BUN 11 Creatinine 0.86 Calcium 9.3 Liver Function 05/30/21 Range/Units 10:33 Total Bilirubin 0.4 (0.0-1.0) mg/dL Direct Bilirubin < 0.2 (0.0-0.5) mg/dL AST 24 D (5-37) U/L ALT 33 (0-40) U/L Alkaline Phosphatase 68 (39-117) U/L Albumin 4.2 (3.5-5.0) g/dL Assessment and Plan (1) Diverticulitis of intestine with abscess without bleeding: Qualifiers: Diverticulitis site: large intestine Qualified Code(s): K57.20 - Diverticulitis of large intestine with perforation and abscess without bleeding Status: Acute Plan 31-year-old male patient with a recurrent episode of sigmoid diverticulitis with increased abdominal pain in the left lower quadrant. Repeat workup today revealed a markedly elevated WBC and CT with a mural abscess of the sigmoid colon. I recommended readmission with IV antibiotics. We discussed possibility of requiring a sigmoid colectomy in the future. He wishes to avoid surgery for as long as possible I would like to give the antibiotics a chance to work. He understands that if his symptoms do not improve surgery may be the only option. He will be started on Zosyn IV. I will keep him NPO and on IV fluids. Repeat laboratories were requested in the a.m.. Quality Stroke Does the patient have a stroke diagnosis?: No VTE Prior VTE?: No VTE Risk Level:: Surgical - moderate VTE Device Contraindication: N/A - Device Ordered VTE Drug Contraindication: Treatment Not Indicated Procedures Date of Service Date of Service: 05/30/21
[2021-05-30 14:12] LABS: Appearance Urine CLEAR; Color Urine YELLOW; Glucose Urine UA NEG (NEG); Leukocyte Esterase Urine NEG (NEG); Nitrite Urine NEG (NEG); PH 5.5 (5.0-8.0); Urine Blood NEG (NEG); Urine Ketones NEG (NEG); Urine Protein NEG (NEG-TRACE)
[2021-05-30] MEDS: Piperacillin Sodium/Tazobactam 3.375 GM in 0.9 % Sodium Chloride 50 ML IV ×2 (15:09→19:28)
[2021-05-30 15:14] VITALS: BP 120/70; PULSE 92; RESP 16; TEMP 37.3; O2SAT 99
[2021-05-30 15:59] VITALS: BP 134/74; PULSE 104; RESP 18; TEMP 36.6; O2SAT 97
[2021-05-30] MEDS: Dextrose 5 % and Lactated Ring 1,000 ML 125 ML IVCONT ×2 (15:59→23:58)
[2021-05-30] MEDS: 0.9 % Sodium Chloride Flush 3 ML SYRINGE IVFLUSH (16:00)
[2021-05-30] MEDS: oxyCODONE HCl Immed Release 5 MG TABLET PO ×2 (16:26→22:26)
[2021-05-30] MEDS: HYDROmorphone HCl 1 MG/ML SYRINGE 0.5 MG IVPUSH (20:44)
[2021-05-31] VITALS: BP 105/58; PULSE 91; RESP 18; TEMP 36.5; O2SAT 97
[2021-05-31] MEDS: HYDROmorphone HCl 1 MG/ML SYRINGE 0.5 MG IVPUSH ×5 (02:22→23:46)
[2021-05-31] MEDS: Piperacillin Sodium/Tazobactam 3.375 GM in 0.9 % Sodium Chloride 50 ML IV ×4 (02:22→19:57)
[2021-05-31 06:09] LABS: MANUAL DIFF FLAG NO
[2021-05-31] MEDS: oxyCODONE HCl Immed Release 5 MG TABLET PO ×3 (06:15→19:57)
[2021-05-31 06:23] LABS: Basophils Absolute Auto 0.1 X10*3/uL (0.0-0.2); Basophils Percent Auto 0.4 % (0-2); Eosinophils Absolute Auto 0.2 X10*3/uL (0.0-0.4); Eosinophils Percent Auto 1.3 % (0-4); Imm Gran Abs Auto 0.13 X10*3/uL (0.00-0.03); Imm Gran Pct Auto 0.8 % (0.0-0.4); Lymphocytes Absolute Auto 4.4 X10*3/uL (1.2-4.9); Lymphocytes Percent Auto 25.8 % (20-40); Mean Corpuscular HGB Conc 32.4 g/dl (31.0-36.0); Mean Corpuscular Hemoglobin 30.7 pg (27.0-33.0); Mean Corpuscular Volume 94.6 fL (80.0-98.0); Mean Platelet Volume 11.3 fL (9.4-12.4); Monocytes Absolute Auto 1.3 X10*3/uL (0.1-1.2); Monocytes Percent Auto 7.6 % (2-11); Neutrophils Absolute Auto 10.9 x10*3/uL (2.0-8.3); Neutrophils Percent Auto 64.1 % (45-73); Platelet Count 387 X10*3/uL (160-400); Red Blood Count 3.91 X10*6/uL (4.60-5.80); Red Cell Distribution Width 12.5 % (11.0-16.0)
[2021-05-31 06:24] LABS: Anion Gap 13 (12-20); Blood Urea Nitrogen 6 mg/dL (9-16); Calcium 9.1 mg/dL (8.4-10.2); Carbon Dioxide 26 mmol/L (22-29); Chloride 102 mmol/L (96-108); Creatinine Clr Calc Pharmacy 106.2; Estimated Glomerular Filt Rate > 60; Glucose Random 124 mg/dL (60-115); Potassium 4.1 mmol/L (3.3-5.1); Sodium 137 mmol/L (135-145)
[2021-05-31] MEDS: Dextrose 5 % and Lactated Ring 1,000 ML 125 ML IVCONT ×3 (07:40→23:46)
[2021-05-31 08:00] VITALS: BP 116/58; PULSE 74; RESP 18; TEMP 36.1; O2SAT 98
--- NOTE | 2021-05-31 08:39 | P.PNGS_ITS ---
Subjective Subjective Date of Service: 05/31/21 Interval history: Patient reports feeling improved today with decreased abdominal pain. He still has some left lower quadrant abdominal pain but overall is much improved. He denies nausea or vomiting. He is hungry and would like to try some clear liquids. Physical Exam Vital Signs: Vital Signs: Last Vital Signs Temp 96.9 F 05/31/21 08:00 Pulse 74 05/31/21 08:00 Resp 18 05/31/21 08:00 BP 116/58 L 05/31/21 08:00 Pulse Ox 98 05/31/21 08:00 BMI result Body Mass Index 26.6 Const: General: healthy appearing and no acute distress Nutritional Appearance: well nourished Orientation/consciousness: patient oriented x3 Limitations: no limitations Resp: Effort & Inspection: normal respiratory effort GI: Inspection: Yes normal to inspection Palpation (GI): Soft to palpation, Tenderness to palpation present (GI) in the LLQ, no guarding and not rigid Auscultation: normal bowel sounds Rectal Exam - Male: Yes deferred Neuro: General: patient oriented x3 Extrem: General: Yes normal to inspection and No edema Objective Data Active Medications Hydromorphone HCl (Hydromorphone Hcl 1 Mg/Ml Syringe) 0.5 mg IVPUSH Q2H PRN; Protocol PRN Reason: Pain, Severe (Pain Scale 7-10) Last Admin: 05/31/21 02:22 Dose: 0.5 mg Documented by: WOODROW Dextrose/Lactated Ringer's (D5lr) 1,000 mls @ 125 mls/hr IVCONT .Q8H [facility] Last Admin: 05/31/21 07:40 Dose: 125 mls/hr Documented by: TRAE Piperacillin Sod/Tazobactam (Sod 3.375 gm/ Sodium Chloride) 50 mls @ 100 mls/hr IV Q6H [facility] Last Admin: 05/31/21 08:32 Dose: 100 mls/hr Documented by: TRAE Ondansetron HCl (Ondansetron Hcl 4 Mg/2 Ml Vial) 4 mg IVPUSH QID PRN PRN Reason: Nausea Oxycodone HCl (Oxycodone Hcl Immed Release 5 Mg Tablet) 5 mg PO Q6H PRN PRN Reason: Pain, Moderate (Pain Scale 4-6 Last Admin: 05/31/21 06:15 Dose: 5 mg Documented by: WOODROW Pharmacy Consult (Consult Rx Perform Med Rec) 1 each MISCELLANE ONCE PRN PRN Reason: Consult order Sodium Chloride (0.9 % Sodium Chloride Flush 3 Ml Syringe) 3 ml IVFLUSH QSHIFT [facility] Last Admin: 05/31/21 07:43 Dose: Not Given Documented by: TRAE Non-Admin Reason: IV Running Zolpidem Tartrate (Zolpidem Tartrate 5 Mg Tablet) 5 mg PO BEDTIME PRN PRN Reason: Insomnia Labs CBC & Chem 7: 05/31/21 06:03 05/31/21 06:03 Labs: Laboratory Results - last 24 hr 05/30/21 05/30/21 05/30/21 10:33 10:33 10:33 MCV 93.8 MCH 31.0 MCHC 33.1 RDW 12.3 Plt Count 386 MPV 11.4 Immature Gran % (Auto) 0.4 Neut % (Auto) 84.1 H Lymph % (Auto) 8.6 L [place] % (Auto) 6.1 Eos % (Auto) 0.5 Baso % (Auto) 0.3 Lymph # (Auto) 2.0 Vernon # (Auto) 1.4 H Eos # (Auto) 0.1 Baso # (Auto) 0.1 Abs Immat Gran (auto) 0.10 H Absolute Neuts (auto) 19.2 H Absolute Nucleated RBC 0.000 Nucleated RBC % (auto) 0.0 Anion Gap 13 Estim Creat Clear Calc 106.2 Estimated GFR > 60 Random Glucose 188 H D Lactic Acid 1.5 Calcium 9.3 Total Bilirubin 0.4 Direct Bilirubin < 0.2 AST 24 D ALT 33 Alkaline Phosphatase 68 Total Protein 7.2 Albumin 4.2 Urine Color Urine Appearance Urine pH Ur Specific [place] Urine Protein Urine Glucose (UA) Urine Ketones Urine Blood Urine Nitrite Ur Leukocyte Esterase COVID-19 (MILAGROS) COVID-19 Clin Com 05/30/21 05/30/21 05/31/21 10:49 14:03 06:03 MCV 94.6 MCH 30.7 MCHC 32.4 RDW 12.5 Plt Count 387 MPV 11.3 Immature Gran % (Auto) 0.8 H Neut % (Auto) 64.1 Lymph % (Auto) 25.8 Vernon % (Auto) 7.6 Eos % (Auto) 1.3 Baso % (Auto) 0.4 Lymph # (Auto) 4.4 Vernon # (Auto) 1.3 H Eos # (Auto) 0.2 Baso # (Auto) 0.1 Abs Immat Gran (auto) 0.13 H Absolute Neuts (auto) 10.9 H Absolute Nucleated RBC 0.000 Nucleated RBC % (auto) 0.0 Anion Gap Estim Creat Clear Calc Estimated GFR Random Glucose Lactic Acid Calcium Total Bilirubin Direct Bilirubin AST ALT Alkaline Phosphatase Total Protein Albumin Urine Color YELLOW Urine Appearance CLEAR Urine pH 5.5 Ur Specific [place] 1.010 Urine Protein NEG Urine Glucose (UA) NEG Urine Ketones NEG Urine Blood NEG Urine Nitrite NEG Ur Leukocyte Esterase NEG COVID-19 (MILAGROS) Negative COVID-19 [facility]Room Com See Note 05/31/21 06:03 MCV MCH MCHC RDW Plt Count MPV Immature Gran % (Auto) Neut % (Auto) Lymph % (Auto) Vernon % (Auto) Eos % (Auto) Baso % (Auto) Lymph # (Auto) Vernon # (Auto) Eos # (Auto) Baso # (Auto) Abs Immat Gran (auto) Absolute Neuts (auto) Absolute Nucleated RBC Nucleated RBC % (auto) Anion Gap 13 Estim Creat Clear Calc 106.2 Estimated GFR > 60 Random Glucose 124 H Lactic Acid Calcium 9.1 Total Bilirubin Direct Bilirubin AST ALT Alkaline Phosphatase Total Protein Albumin Urine Color Urine Appearance Urine pH Ur Specific [place] Urine Protein Urine Glucose (UA) Urine Ketones Urine Blood Urine Nitrite Ur Leukocyte Esterase COVID-19 (MILAGROS) COVID-19 Clin Com Procedures Date of Service Date of Service: 05/31/21 Progress Note: A&P Assessment and plan (1) Diverticulitis of intestine with abscess without bleeding: Status: Acute Plan Hospital day 2 with sigmoid diverticulitis with mural abscess. Overall the patient feels improved today with decreased abdominal pain. He is passing liquid stools and flatus. He reports feeling hungry this morning. WBC is also improved down to 17 K. will continue IV antibiotics and start clear liquids. Fall Risk Details Current Medications: Current Medications Hydromorphone HCl (Hydromorphone Hcl 1 Mg/Ml Syringe) 0.5 mg IVPUSH Q2H PRN; Protocol PRN Reason: Pain, Severe (Pain Scale 7-10) Last Admin: 05/31/21 02:22 Dose: 0.5 mg Documented by: Dextrose/Lactated Ringer's (D5lr) 1,000 mls @ 125 mls/hr IVCONT .Q8H [facility] Last Admin: 05/31/21 07:40 Dose: 125 mls/hr Documented by: Piperacillin Sod/Tazobactam (Sod 3.375 gm/ Sodium Chloride) 50 mls @ 100 mls/hr IV Q6H [facility] Last Admin: 05/31/21 08:32 Dose: 100 mls/hr Documented by: Ondansetron HCl (Ondansetron Hcl 4 Mg/2 Ml Vial) 4 mg IVPUSH QID PRN PRN Reason: Nausea Oxycodone HCl (Oxycodone Hcl Immed Release 5 Mg Tablet) 5 mg PO Q6H PRN PRN Reason: Pain, Moderate (Pain Scale 4-6 Last Admin: 05/31/21 06:15 Dose: 5 mg Documented by: Pharmacy Consult (Consult Rx Perform Med Rec) 1 each MISCELLANE ONCE PRN PRN Reason: Consult order Sodium Chloride (0.9 % Sodium Chloride Flush 3 Ml Syringe) 3 ml IVFLUSH QSHIFT [facility] Last Admin: 05/31/21 07:43 Dose: Not Given Documented by: Zolpidem Tartrate (Zolpidem Tartrate 5 Mg Tablet) 5 mg PO BEDTIME PRN PRN Reason: Insomnia Time Spent With Patient Time: Total time spent is greater than 50% in coordination of care (as documented) at patient's floor/unit and/or counseling patient: Quality Stroke Does the patient have a stroke diagnosis?: No VTE Prior VTE?: No VTE Risk Level:: Surgical - moderate VTE Device Contraindication: N/A - Device Ordered VTE Drug Contraindication: Treatment Not Indicated
--- NOTE | 2021-05-31 14:55 | MHC.CM.PN ---
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
[2021-05-31 15:59] VITALS: BP 139/81; PULSE 79; RESP 18; TEMP 36.4; O2SAT 99
[2021-05-31] MEDS: 0.9 % Sodium Chloride Flush 3 ML SYRINGE IVFLUSH (16:25)
[2021-06-01] VITALS: BP 114/58; PULSE 64; RESP 18; TEMP 36.4; O2SAT 97
[2021-06-01] MEDS: Piperacillin Sodium/Tazobactam 3.375 GM in 0.9 % Sodium Chloride 50 ML IV ×4 (02:57→19:32)
[2021-06-01] MEDS: oxyCODONE HCl Immed Release 5 MG TABLET PO ×2 (03:32→09:40)
[2021-06-01 05:32] LABS: Hematocrit 31.4 % (42.0-52.0); Hemoglobin 10.5 g/dl (14.0-18.0); Mean Corpuscular HGB Conc 33.4 g/dl (31.0-36.0); Mean Corpuscular Hemoglobin 31.3 pg (27.0-33.0); Mean Corpuscular Volume 93.5 fL (80.0-98.0); Mean Platelet Volume 11.5 fL (9.4-12.4); Platelet Count 349 X10*3/uL (160-400); Red Blood Count 3.36 X10*6/uL (4.60-5.80); Red Cell Distribution Width 12.4 % (11.0-16.0); White Blood Count 9.6 X10*3/uL (4.8-10.8)
[2021-06-01 07:19] VITALS: BP 141/79; PULSE 94; RESP 18; TEMP 36.2; O2SAT 97
[2021-06-01] MEDS: Dextrose 5 % and Lactated Ring 1,000 ML 125 ML IVCONT (07:48)
[2021-06-01] MEDS: 0.9 % Sodium Chloride Flush 3 ML SYRINGE IVFLUSH ×3 (07:50→23:19)
[2021-06-01] MEDS: HYDROmorphone HCl 1 MG/ML SYRINGE 0.5 MG IVPUSH (08:37)
--- NOTE | 2021-06-01 09:01 | PM.PNGS ---
Subjective Subjective Date of Service: 06/01/21 Interval history: Patient has some mild abdominal pain in the left lower quadrant but denies nausea, vomiting, fever or chills. He did have a bowel movement this morning possibly with some blood. Physical Exam Vital Signs: Vital Signs: Last Vital Signs Temp 97.1 F 06/01/21 07:19 Pulse 94 06/01/21 07:19 Resp 18 06/01/21 07:19 BP 141/79 H 06/01/21 07:19 Pulse Ox 97 06/01/21 07:19 BMI result Body Mass Index 26.6 Const: General: healthy appearing and well developed Nutritional Appearance: well nourished Orientation/consciousness: patient oriented x3 Limitations: no limitations Resp: Effort & Inspection: normal respiratory effort GI: Inspection: Yes normal to inspection Palpation (GI): Soft to palpation, Tenderness to palpation present (GI) in the LLQ; Negative for with no rebound tenderness, no guarding and not rigid Skin: General skin exam: no rashes or lesions noted Neuro: General: patient oriented x3 Extrem: General: Yes normal to inspection Objective Data Active Medications Hydromorphone HCl (Hydromorphone Hcl 1 Mg/Ml Syringe) 0.5 mg IVPUSH Q4H PRN; Protocol PRN Reason: Pain, Severe (Pain Scale 7-10) Piperacillin Sod/Tazobactam (Sod 3.375 gm/ Sodium Chloride) 50 mls @ 100 mls/hr IV Q6H [facility] Last Infusion: 06/01/21 08:43 Dose: 0 mls/hr Documented by: TRAE Ondansetron HCl (Ondansetron Hcl 4 Mg/2 Ml Vial) 4 mg IVPUSH QID PRN PRN Reason: Nausea Oxycodone HCl (Oxycodone Hcl Immed Release 5 Mg Tablet) 5 mg PO Q4H PRN PRN Reason: Pain, Moderate (Pain Scale 4-6 Oxycodone HCl (Oxycodone Hcl Immed Release 5 Mg Tablet) 10 mg PO Q4H PRN PRN Reason: Pain, Severe (Pain Scale 7-10) Pharmacy Consult (Consult Rx Perform Med Rec) 1 each MISCELLANE ONCE PRN PRN Reason: Consult order Sodium Chloride (0.9 % Sodium Chloride Flush 3 Ml Syringe) 3 ml IVFLUSH QSHIFT [facility] Last Admin: 06/01/21 07:50 Dose: 3 ml Documented by: TRAE Zolpidem Tartrate (Zolpidem Tartrate 5 Mg Tablet) 5 mg PO BEDTIME PRN PRN Reason: Insomnia Labs CBC & Chem 7: 06/01/21 04:37 05/31/21 06:03 Labs: Laboratory Results - last 24 hr 06/01/21 04:37 MCV 93.5 MCH 31.3 MCHC 33.4 RDW 12.4 Plt Count 349 MPV 11.5 Absolute Nucleated RBC 0.000 Nucleated RBC % (auto) 0.0 Microbiology Microbiology Results: Microbiology 05/30/21 10:43 Blood Culture - Preliminary Blood - Venous No growth after 24 hours. 05/30/21 10:33 Blood Culture - Preliminary Blood - Venous No growth after 24 hours. Procedures Date of Service Date of Service: 06/01/21 Progress Note: A&P Assessment and plan (1) Diverticulitis of intestine with abscess without bleeding: Status: Acute Plan Hospital day 3 with sigmoid diverticulitis and mural abscess. Patient continues to have some abdominal pain but overall feels improved. He is passing liquid stool and flatus. He is unsure of there was some blood in his stool today. He tolerated clear liquids and denies any nausea or vomiting. He wishes to advanced to regular diet. WBC is now normal. Continue IV antibiotics and advanced to a regular diet. Will stop IV fluids. Hospital day 2 with sigmoid diverticulitis with mural abscess.? Overall the patient feels improved today with decreased abdominal pain.? He is passing liquid stools and flatus.? He reports feeling hungry this morning.? WBC is also improved down to 17 K. will continue IV antibiotics and start clear liquids. Fall Risk Details Current Medications: Current Medications Hydromorphone HCl (Hydromorphone Hcl 1 Mg/Ml Syringe) 0.5 mg IVPUSH Q4H PRN; Protocol PRN Reason: Pain, Severe (Pain Scale 7-10) Piperacillin Sod/Tazobactam (Sod 3.375 gm/ Sodium Chloride) 50 mls @ 100 mls/hr IV Q6H [facility] Last Infusion: 06/01/21 08:43 Dose: Infused Documented by: Ondansetron HCl (Ondansetron Hcl 4 Mg/2 Ml Vial) 4 mg IVPUSH QID PRN PRN Reason: Nausea Oxycodone HCl (Oxycodone Hcl Immed Release 5 Mg Tablet) 5 mg PO Q4H PRN PRN Reason: Pain, Moderate (Pain Scale 4-6 Oxycodone HCl (Oxycodone Hcl Immed Release 5 Mg Tablet) 10 mg PO Q4H PRN PRN Reason: Pain, Severe (Pain Scale 7-10) Pharmacy Consult (Consult Rx Perform Med Rec) 1 each MISCELLANE ONCE PRN PRN Reason: Consult order Sodium Chloride (0.9 % Sodium Chloride Flush 3 Ml Syringe) 3 ml IVFLUSH [facility] Last Admin: 06/01/21 07:50 Dose: 3 ml Documented by: Zolpidem Tartrate (Zolpidem Tartrate 5 Mg Tablet) 5 mg PO BEDTIME PRN PRN Reason: Insomnia Time Spent With Patient Time: Total time spent is greater than 50% in coordination of care (as documented) at patient's floor/unit and/or counseling patient: Quality Stroke Does the patient have a stroke diagnosis?: No VTE Prior VTE?: No VTE Risk Level:: Surgical - moderate VTE Device Contraindication: N/A - Device Ordered VTE Drug Contraindication: Treatment Not Indicated
[2021-06-01] MEDS: oxyCODONE HCl Immed Release 5 MG TABLET 10 MG PO ×2 (12:49→19:36)
[2021-06-01 15:40] VITALS: BP 134/75; PULSE 78; RESP 18; TEMP 36.2; O2SAT 100
[2021-06-01 23:39] VITALS: BP 125/69; PULSE 88; RESP 18; TEMP 36.6; O2SAT 99
[2021-06-02] MEDS: oxyCODONE HCl Immed Release 5 MG TABLET 10 MG PO ×5 (00:59→22:23)
[2021-06-02] MEDS: Piperacillin Sodium/Tazobactam 3.375 GM in 0.9 % Sodium Chloride 50 ML IV ×4 (00:59→20:48)
[2021-06-02 08:00] VITALS: BP 129/70; PULSE 76; RESP 18; TEMP 36.5; O2SAT 99
--- NOTE | 2021-06-02 09:17 | P.PNGS_ITS ---
Subjective Subjective Date of Service: 06/02/21 Interval history: Overall patient feels improved and tolerated a regular diet however he continues to have pain in the left lower quadrant. Physical Exam Vital Signs: Vital Signs: Last Vital Signs Temp 97.7 F 06/02/21 08:00 Pulse 76 06/02/21 08:00 Resp 18 06/02/21 08:00 BP 129/70 06/02/21 08:00 Pulse Ox 99 06/02/21 08:00 BMI result Body Mass Index 26.6 Const: General: healthy appearing and well developed Nutritional Appearanc e: well nourished Orientation/consciousness: patient oriented x3 Limitations: no limitations Resp: Effort & Inspection: normal respiratory effort, no audible wheezes, no cough and no respiratory distress GI: Palpation (GI): Soft to palpation, Tenderness to palpation present (GI) in the LLQ; Negative for with no rebound tenderness, no guarding and not rigid Percussion: Yes normal to percussion Auscultation: normal bowel sounds Rectal Exam - Male: Yes deferred Skin: General skin exam: no rashes or lesions noted Neuro: General: patient oriented x3 Extrem: General: Yes no clubbing, cyanosis or edema Objective Data Active Medications Hydromorphone HCl (Hydromorphone Hcl 1 Mg/Ml Syringe) 0.5 mg IVPUSH Q4H PRN; Pr otocol PRN Reason: Pain, Severe (Pain Scale 7-10) Piperacillin Sod/Tazobactam (Sod 3.375 gm/ Sodium Chloride) 50 mls @ 100 mls/hr IV Q6H [facility] Last Infusion: 06/02/21 01:40 Dose: 100 mls/hr Documented by: WOODROW Ondansetron HCl (Ondansetron Hcl 4 Mg/2 Ml Vial) 4 mg IVPUSH QID PRN PRN Reason: Nausea Oxycodone HCl (Oxycodone Hcl Immed Release 5 Mg Tablet) 5 mg PO Q4H PRN PRN Reason: Pain, Moderate (Pain Scale 4-6 Last Admin: 06/01/21 09:40 Dose: 5 mg Documented by: TRAE Oxycodone HCl (Oxycodone Hcl Immed Release 5 Mg Tablet) 10 mg PO Q4H PRN PRN Reason: Pain, Severe (Pain Scale 7-10) Last Admin: 06/02/21 05:12 Dose: 10 mg Documented by: WOODROW Pharmacy Consult (Consult Rx Perform Med Rec) 1 each MISCELLANE ONCE PRN PRN Reason: Consult order Sodium Chloride (0.9 % Sodium Chloride Flush 3 Ml Syringe) 3 ml IVFLUSH QSHIFT [facility] Last Admin: 06/01/21 23:19 Dose: 3 ml Documented by: WOODROW Zolpidem Tartrate (Zolpidem Tartrate 5 Mg Tablet) 5 mg PO BEDTIME PRN PRN Reason: Insomnia Labs CBC & Chem 7: 06/01/21 04:37 05/31/21 06:03 Microbiology Microbiology Results: Microbiology 05/30/21 10:43 Blood Culture - Preliminary Blood - Venous No growth after 48 hours. 05/30/21 10:33 Blood Culture - Preliminary Blood - Venous No growth after 48 hours. Procedures Date of Service Date of Service: 06/02/21 Progress Note: A&P Assessment and plan (1) Diverticulitis of intestine with abscess without bleeding: Status: Acute Plan 31-year-old male patient presenting with recurrent diverticulitis with mural abscess. Overall he has improved with normal WBC and decreased abdominal pain however the pain does persist in the left lower quadrant. On examination he is indeed tender in the left lower quadrant without peritoneal signs. I recommended repeating the CT to assess changes in the mural abscess. He expressed understanding and agrees with the plan. Fall Risk Details Current Medications: Current Medications Hydromorphone HCl (Hydromorphone Hcl 1 Mg/Ml Syringe) 0.5 mg IVPUSH Q4H PRN; Protocol PRN Reason: Pain, Severe (Pain Scale 7-10) Piperacillin Sod/Tazobactam (Sod 3.375 gm/ Sodium Chloride) 50 mls @ 100 mls/hr IV Q6H [facility] Last Infusion: 06/02/21 01:40 Dose: Infused Documented by: Ondansetron HCl (Ondansetron Hcl 4 Mg/2 Ml Vial) 4 mg IVPUSH QID PRN PRN Reason: Nausea Oxycodone HCl (Oxycodone Hcl Immed Release 5 Mg Tablet) 5 mg PO Q4H PRN PRN Reason: Pain, Moderate (Pain Scale 4-6 Last Admin: 06/01/21 09:40 Dose: 5 mg Documented by: Oxycodone HCl (Oxycodone Hcl Immed Release 5 Mg Tablet) 10 mg PO Q4H PRN PRN Reason: Pain, Severe (Pain Scale 7-10) Last Admin: 06/02/21 05:12 Dose: 10 mg Documented by: Pharmacy Consult (Consult Rx Perform Med Rec) 1 each MISCELLANE ONCE PRN PRN Reason: Consult order Sodium Chloride (0.9 % Sodium Chloride Flush 3 Ml Syringe) [address] [facility] Last Admin: 06/01/21 23:19 Dose: 3 ml Documented by: Zolpidem Tartrate (Zolpidem Tartrate 5 Mg Tablet) 5 mg PO BEDTIME PRN PRN Reason: Insomnia Time Spent With Patient Time: Total time spent is greater than 50% in coordination of care (as documented) at patient's floor/unit and/or counseling patient: No Severe Sepsis: No Severe Sepsis Quality Stroke Does the patient have a stroke diagnosis?: No VTE Prior VTE?: No VTE Risk Level:: Surgical - moderate VTE Device Contraindication: N/A - Device Ordered VTE Drug Contraindication: Treatment Not Indicated
[2021-06-02] MEDS: 0.9 % Sodium Chloride Flush 3 ML SYRINGE IVFLUSH ×3 (09:52→20:50)
[2021-06-02] MEDS: iohexoL 350 MG/ML 100 ML INFUS..BTL IV (14:50)
[2021-06-02] MEDS: Diatrizoate Meglumine, Sodium 30 ML SOLUTION PO (14:52)
[2021-06-02 15:59] VITALS: BP 114/61; PULSE 76; RESP 18; TEMP 36.3; O2SAT 100
[2021-06-02] MEDS: oxyCODONE HCl Immed Release 5 MG TABLET PO (17:47)
[2021-06-03] VITALS: BP 112/57; PULSE 70; RESP 18; TEMP 36.5; O2SAT 97
[2021-06-03] MEDS: Piperacillin Sodium/Tazobactam 3.375 GM in 0.9 % Sodium Chloride 50 ML IV ×4 (02:59→19:54)
[2021-06-03] MEDS: oxyCODONE HCl Immed Release 5 MG TABLET 10 MG PO ×5 (03:50→21:53)
[2021-06-03 08:00] VITALS: BP 113/56; PULSE 66; RESP 18; TEMP 36.6; O2SAT 98
--- NOTE | 2021-06-03 08:44 | PM.PNGS ---
Subjective Subjective Date of Service: 06/03/21 Interval history: Feeling a little better today. Tolerating solid diet without worsening pain. Moving bowels. Physical Exam Vital Signs: Vital Signs: Last Vital Signs Temp 98 F 06/03/21 08:00 Pulse 66 06/03/21 08:00 Resp 18 06/03/21 08:00 BP 113/56 L 06/03/21 08:00 Pulse Ox 98 06/03/21 08:00 BMI result Body Mass Index 26.6 Const: General: comfortable, no acute distress, well developed and alert Orientation/consciousness: patient oriented x3 Resp: Effort & Inspection: normal respiratory effort GI: Inspection: No distended Palpation (GI): Soft to palpation and Tenderness to palpation present (GI) in the LLQ and suprapubicly Skin: General skin exam: no rashes or lesions noted Neuro: General: patient oriented x3 Objective Data Active Medications Hydromorphone HCl (Hydromorphone Hcl 1 Mg/Ml Syringe) 0.5 mg IVPUSH Q4H PRN; Protocol PRN Reason: Pain, Severe (Pain Scale 7-10) Piperacillin Sod/Tazobactam (Sod 3.375 gm/ Sodium Chloride) 50 mls @ 100 mls/hr IV Q6H [facility] Last Infusion: 06/03/21 03:51 Dose: 0 mls/hr Documented by: BAILEY Ondansetron HCl (Ondansetron Hcl 4 Mg/2 Ml Vial) 4 mg IVPUSH QID PRN PRN Reason: Nausea Oxycodone HCl (Oxycodone Hcl Immed Release 5 Mg Tablet) 5 mg PO Q4H PRN PRN Reason: Pain, Moderate (Pain Scale 4-6 Last Admin: 06/02/21 17:47 Dose: 5 mg Documented by: LANG Oxycodone HCl (Oxycodone Hcl Immed Release 5 Mg Tablet) 10 mg PO Q4H PRN PRN Reason: Pain, Severe (Pain Scale 7-10) Last Admin: 06/03/21 03:50 Dose: 10 mg Documented by: BAILEY Pharmacy Consult (Consult Rx Perform Med Rec) 1 each MISCELLANE ONCE PRN PRN Reason: Consult order Sodium Chloride (0.9 % Sodium Chloride Flush 3 Ml Syringe) [facility] Last Admin: 06/02/21 20:50 Dose: 3 ml Documented by: BAILEY Zolpidem Tartrate (Zolpidem Tartrate 5 Mg Tablet) 5 mg PO BEDTIME PRN PRN Reason: Insomnia Labs CBC & Chem 7: 06/01/21 04:37 05/31/21 06:03 Procedures Date of Service Date of Service: 06/03/21 Progress Note: A&P Assessment and plan (1) Diverticulitis of intestine with abscess without bleeding: Status: Acute Plan 31 year old male admitted with diverticulitis with abscess. Abdominal pain improving but remains tender in LLQ/suprapubic. Repeat CT scan yesterday showed resolution of abscess but persistent diverticulitis changes. Will cont IV antibiotics for at least one more day given recent recurrent episode. Diet as tolerated. Patient comfortable with plan. Fall Risk Details Current Medications: Current Medications Hydromorphone HCl (Hydromorphone Hcl 1 Mg/Ml Syringe) 0.5 mg IVPUSH Q4H PRN; Protocol PRN Reason: Pain, Severe (Pain Scale 7-10) Piperacillin Sod/Tazobactam (Sod 3.375 gm/ Sodium Chloride) 50 mls @ 100 mls/hr IV Q6H [facility] Last Infusion: 06/03/21 03:51 Dose: Infused Documented by: Ondansetron HCl (Ondansetron Hcl 4 Mg/2 Ml Vial) 4 mg IVPUSH QID PRN PRN Reason: Nausea Oxycodone HCl (Oxycodone Hcl Immed Release 5 Mg Tablet) 5 mg PO Q4H PRN PRN Reason: Pain, Moderate (Pain Scale 4-6 Last Admin: 06/02/21 17:47 Dose: 5 mg Documented by: Oxycodone HCl (Oxycodone Hcl Immed Release 5 Mg Tablet) 10 mg PO Q4H PRN PRN Reason: Pain, Severe (Pain Scale 7-10) Last Admin: 06/03/21 03:50 Dose: 10 mg Documented by: Pharmacy Consult (Consult Rx Perform Med Rec) 1 each MISCELLANE ONCE PRN PRN Reason: Consult order Sodium Chloride (0.9 % Sodium Chloride Flush 3 Ml Syringe) 3 ml IVFLUSH [facility] Last Admin: 06/02/21 20:50 Dose: 3 ml Documented by: Zolpidem Tartrate (Zolpidem Tartrate 5 Mg Tablet) 5 mg PO BEDTIME PRN PRN Reason: Insomnia Time Spent With Patient Time: Total time spent is greater than 50% in coordination of care (as documented) at patient's floor/unit and/or counseling patient: Quality Stroke Does the patient have a stroke diagnosis?: No VTE Prior VTE?: No VTE Risk Level:: Surgical - moderate VTE Device Contraindication: N/A - Device Ordered VTE Drug Contraindication: Treatment Not Indicated
[2021-06-03] MEDS: 0.9 % Sodium Chloride Flush 3 ML SYRINGE IVFLUSH ×3 (09:10→23:32)
[2021-06-03 15:18] VITALS: BP 132/72; PULSE 87; RESP 18; TEMP 37; O2SAT 98
[2021-06-03 23:25] VITALS: BP 152/69; PULSE 62; RESP 17; TEMP 36.7; O2SAT 98
[2021-06-04] MEDS: Piperacillin Sodium/Tazobactam 3.375 GM in 0.9 % Sodium Chloride 50 ML IV ×2 (02:15→08:25)
[2021-06-04] MEDS: oxyCODONE HCl Immed Release 5 MG TABLET 10 MG PO (02:19)
[2021-06-04 07:03] VITALS: BP 98/54; PULSE 57; RESP 17; TEMP 36.1; O2SAT 98
[2021-06-04] MEDS: 0.9 % Sodium Chloride Flush 3 ML SYRINGE IVFLUSH (08:25)
[2021-06-04] MEDS: oxyCODONE HCl Immed Release 5 MG TABLET PO (08:44)
--- NOTE | 2021-06-04 13:05 | P.PNGS_ITS ---
Subjective Subjective Date of Service: 06/04/21 <Zahra Crowder PA-C - Last Filed: 06/04/21 13:09> 06/04/21 <Tyron Tesfaye MD - Last Filed: 06/04/21 14:14> Interval history: Feels much better. Pain improved, mostly only having pain after eating. Relieved with analgesics. Moving bowels. <Zahra Crowder PA-C - Last Filed: 06/04/21 13:09> Physical Exam Vital Signs: Vital Signs: Last Vital Signs Temp 97 F 06/04/21 07:03 Pulse 57 06/04/21 07:03 Resp 17 06/04/21 07:03 BP 98/54 L 06/04/21 07:03 Pulse Ox 98 06/04/21 07:03 BMI result Body Mass Index 26.6 <Zahra Crowder PA-C - Last Filed: 06/04/21 13:09> Const: General: comfortable, no acute distress and alert <Zahra Crowder PA-C - Last Filed: 06/04/21 13:09> Orientation/consciousness: patient oriented x3 <Zahra Crowder PA-C - Last Filed: 06/04/21 13:09> GI: Inspection: No distended <Zahra Crowder PA-C - Last Filed: 06/04/21 13:09> Palpation (GI): Soft to palpation and Tenderness to palpation present (GI) (LLQ, mild) <Zahra Crowder PA-C - Last Filed: 06/04/21 13:09> Percussion: Yes normal to percussion <Zahra Crowder PA-C - Last Filed: 06/04/21 13:09> Skin: General skin exam: no rashes or lesions noted <FOREST Chan Last Filed: 06/04/21 13:09> Neuro: General: patient oriented x3 and moves all extremities <Zahra Crowder PA-C - Last Filed: 06/04/21 13:09> Objective Data Active Medications Hydromorphone HCl (Hydromorphone Hcl 1 Mg/Ml Syringe) 0.5 mg IVPUSH Q4H PRN; Protocol PRN Reason: Pain, Severe (Pain Scale 7-10) Piperacillin Sod/Tazobactam (Sod 3.375 gm/ Sodium Chloride) 50 mls @ 100 mls/hr IV Q6H [facility] Last Infusion: 06/04/21 09:04 Dose: 0 mls/hr Documented by: LANG Ondansetron HCl (Ondansetron Hcl 4 Mg/2 Ml Vial) 4 mg IVPUSH QID PRN PRN Reason: Nausea Oxycodone HCl (Oxycodone Hcl Immed Release 5 Mg Tablet) 5 mg PO Q4H PRN PRN Reason: Pain, Moderate (Pain Scale 4-6 Last Admin: 06/04/21 08:44 Dose: 5 mg Documented by: LANG Oxycodone HCl (Oxycodone Hcl Immed Release 5 Mg Tablet) 10 mg PO Q4H PRN PRN Reason: Pain, Severe (Pain Scale 7-10) Last Admin: 06/04/21 02:19 Dose: 10 mg Documented by: MARK Pharmacy Consult (Consult Rx Perform Med Rec) 1 each MISCELLANE ONCE PRN PRN Reason: Consult order Sodium Chloride (0.9 % Sodium Chloride Flush 3 Ml Syringe) 3 ml IVFLUSH QSHIFT [facility] Last Admin: 06/04/21 08:25 Dose: 3 ml Documented by: LANG Zolpidem Tartrate (Zolpidem Tartrate 5 Mg Tablet) 5 mg PO BEDTIME PRN PRN Reason: Insomnia <Zahra Crowder PA-C - Last Filed: 06/04/21 13:09> Labs CBC & Chem 7: : 06/01/21 04:37 05/31/21 06:03 <Zahra Crowder PA-C - Last Filed: 06/04/21 13:09> Microbiology Microbiology Results: Microbiology 05/30/21 10:43 Blood Culture - Final Blood - Venous No growth after 5 days. 05/30/21 10:33 Blood Culture - Final Blood - Venous No growth after 5 days. <FOREST Chan Last Filed: 06/04/21 13:09> Procedures Date of Service Date of Service: 06/04/21 <Zahra Crowder PA-C - Last Filed: 06/04/21 13:09> Progress Note: A&P Assessment and plan (1) Diverticulitis of intestine with abscess without bleeding: Status: Acute <Zahra Crowder PA-C - Last Filed: 06/04/21 13:09> Plan 31 year old male admitted with diverticulitis with abscess. Repeat CT scan 06/02/21 showed resolution of abscess but persistent diverticulitis changes. He feels improved with pain only after eating. Abd tenderness significantly improved as well, no peritoneal signs. Has been on IV zosyn for 5 days. Will reassess later this afternoon, possible d/c to home on PO course of abx later today. Patient comfortable with plan. <Zahra Crowder PA-C - Last Filed: 06/04/21 13:09> 31 year old male admitted with diverticulitis with abscess. Repeat CT scan 06/02/21 showed resolution of abscess but persistent diverticulitis changes. He feels improved with pain only after eating. Abd tenderness significantly improved as well, no peritoneal signs. Has been on IV zosyn for 5 days. Will re assess later this afternoon, possible d/c to home on PO course of abx later today. Patient comfortable with plan. Patient evaluated this afternoon in reports feeling much improved with minimal abdominal pain. He is tolerating regular diet without nausea or vomiting. Agree with the above assessment and plan. He will be discharged to home today and restarted on oral antibiotics. I have asked him to return to the office in approximately [address] Strong. He should return to the emergency department should the symptoms return. I have asked him to avoid lifting greater than 20 lb for the next month. He expressed understanding and agrees with the plan. <Tyron Tesfaye MD - Last Filed: 06/04/21 14:14> Fall Risk Details Current Medications: Current Medications Hydromorphone HCl (Hydromorphone Hcl 1 Mg/Ml Syringe) 0.5 mg IVPUSH Q4H PRN; Protocol PRN Reason: Pain, Severe (Pain Scale 7-10) Piperacillin Sod/Tazobactam (Sod 3.375 gm/ Sodium Chloride) 50 mls @ 100 mls/hr IV Q6H [facility] Last Infusion: 06/04/21 09:04 Dose: Infused Documented by: Ondansetron HCl (Ondansetron Hcl 4 Mg/2 Ml Vial) 4 mg IVPUSH QID PRN PRN Reason: Nausea Oxycodone HCl (Oxycodone Hcl Immed Release 5 Mg Tablet) 5 mg PO Q4H PRN PRN Reason: Pain, Moderate (Pain Scale 4-6 Last Admin: 06/04/21 08:44 Dose: 5 mg Documented by: Oxycodone HCl (Oxycodone Hcl Immed Release 5 Mg Tablet) 10 mg PO Q4H PRN PRN Reason: Pain, Severe (Pain Scale 7-10) Last Admin: 06/04/21 02:19 Dose: 10 mg Documented by: Pharmacy Consult (Consult Rx Perform Med Rec) 1 each MISCELLANE ONCE PRN PRN Reason: Consult order Sodium Chloride (0.9 % Sodium Chloride Flush 3 Ml Syringe) [facility] Last Admin: 06/04/21 08:25 Dose: 3 ml Documented by: Zolpidem Tartrate (Zolpidem Tartrate 5 Mg Tablet) 5 mg PO BEDTIME PRN PRN Reason: Insomnia <Zahra Crowder PA-C - Last Filed: 06/04/21 13:09> Time Spent With Patient Time: Total time spent is greater than 50% in coordination of care (as documented) at patient's floor/unit and/or counseling patient: <Zahra Crowder PA-C - Last Filed: 06/04/21 13:09> Quality Stroke Does the patient have a stroke diagnosis?: No <Zahra Crowder PA-C - Last Filed: 06/04/21 13:09> VTE Prior VTE?: No <Zahra Crowder PA-C - Last Filed: 06/04/21 13:09> VTE Risk Level:: Surgical - moderate <FOREST Chan Last Filed: 06/04/21 13:09> VTE Device Contraindication: N/A - Device Ordered <Zahra Crowder PA-C - Last Filed: 06/04/21 13:09> VTE Drug Contraindication: Treatment Not Indicated <Zahra Crowder PA-C - Last Filed: 06/04/21 13:09>
--- NOTE | 2021-06-04 13:30 | MHC.CM.PN ---
nurse clinical case manager note electronic medical record reviewed along with case discussed with staff nurse and ghospitalist met with patient he is aware that he will be discharged home today no services
--- NOTE | 2021-06-05 10:01 | PM.DS ---
DS: Providers Provider Date of Service: 06/04/21 Date of admission: 05/30/21 13:46 Primary care physician: Shantel Physician Attending physician on admission: Tyron Tesfaye Attending physician on discharge: Tyron Tesfaye DS: Diagnosis Discharge Diagnosis (1) Diverticulitis of intestine with abscess without bleeding: Status: Acute DS: Summary Hospital Course Hospital Course: BRIEF HPI: João Campo is a 31 year old male male with a previous history of sigmoid diverticulitis admitted on 05/16/2021 to the surgical service for IV antibiotics. He noted improvement in his pain was subsequently discharged to home on 05/20/2021 on oral antibiotics. He was well until helping his cousin move out of an apartment. He noted increasing pain with heavy lifting mainly located in the room left lower quadrant. The pain was very similar to was brought to the emergency department previously. This pain continued to increase in severity any return to the emergency department this morning for further evaluation. In the emergency department he was noted to have tenderness in the left lower quadrant. [place] [id number] of the abdomen and pelvis again showed sigmoid diverticulitis with a possible mural abscess. HOSPITAL COURSE: He was again admitted to the surgical service for IV antibiotics. We discussed possibility of requiring a sigmoid colectomy in the future. He wished to avoid surgery for as long as possible and wanted to continue with antibiotics and understood that if his symptoms did not improve, surgery may be necessary. He was started on Zosyn IV. I was kept NPO and on IV fluids. He had an uncomplicated hospital course. He improved symptomatically and clinically quickly with near resolution of his abdominal pain and significant improvement in his abd tenderness on exam. His WBC count downtrended and normalized on HD #2. He was advanced to a clear liquid and then low residue diet the following day. He did have some mild residual pain and therefore a repeat CT scan was performed which showed complete resolution of the abscess but persistent diverticulitis changes. He was kept inpatient for a longer course of IV abx given the readmission and persistent changes. The following day he felt improved and felt ready for discharge. He completed a 5 day course of IV abx. He had previously seen Dr. Strong in the office as follow up last week when the pain restarted and was prescribed PO antibiotics. He is to continue these upon discharge. He is to follow up with Dr. Strong in office in 1 week. Status at Discharge Functional status at discharge: independent ambulation Overall status at discharge: patient is progressing back to baseline Time Spent with Patient Time attestation: Total time spent providing and/or coordinating discharge services: Discharge coordination time: Greater than 30 minutes Quality: Safe Use of Opioids Does Pt have an Active Cancer Diagnosis on the Problem List?: No Quality: Stroke Does the patient have a stroke diagnosis?: No Physical Exam Vital Signs: Vital Signs: Last Vital Signs Temp 97 F 06/04/21 07:03 Pulse 57 06/04/21 07:03 Resp 17 06/04/21 07:03 BP 98/54 L 06/04/21 07:03 Pulse Ox 98 06/04/21 07:03 BMI result Body Mass Index 26.6 Const: General: comfortable, no acute distress and alert Resp: Effort & Inspection: normal respiratory effort GI: Inspection: No distended Palpation (GI): Soft to palpation and Tenderness to palpation present (GI) in the LLQ (mild to deep) Skin: General skin exam: no rashes or lesions noted Discharge Plan Discharge Patient Disposition: Home, Self-Care Discharge Diagnosis: diverticular abscess Referrals: Terrence Strong MD [Physician] - 1 Week Physician,Shantel Jewell [Primary Care Provider] - 1 Week Discharge Medications: New oxycodone 5 mg tablet 5 mg PO Q6H PRN (Reason: pain (scale score 7-10)) Qty: 7 0RF Continued betamethasone, augmented 0.05 % cream 1 appl topical BID PRN (Reason: Dry Skin) 0RF amoxicillin-pot clavulanate 875-125 mg tablet 1 tab PO BID Qty: 14 0RF Discharge Orders: Discharge Order (Routine); Ordered 06/04/21 Ordered By: Tyron Tesfaye Diet: other Activity on Discharge: As tolerated Stand Alone Forms: Patient Portal Discharge page, Work/School Release Activity Restrictions/Additional Instructions: Call Your Doctor If: ? ? -Your temperature exceeds 101.5? F? ? ? -You experience excessive pain or swelling ? ? -You have an unexpected reaction to medication ? ? -You experience continued vomiting/nausea Low residue diet Care Plan Goals: Resolution of pain Health Concerns: Diverticulitis with abscess Plan of Treatment: Supportive, abx F/u in office Assessment: Improved Discharge Date/Time: 06/04/21 14:36
== END 2021-06-04 14:36 | disposition home or self-care (01) | DRG 244 ==
LOC: HO.ED 13:55 → HO.EDOVER 13:55 → HO.S3 14:00
PROVIDERS: Nurse Practitioner Family; Admitting Provider Surgery; Emergency Provider Emergency Medicine; Visit Provider Surgery
DX: K57.20 Diverticulitis of large intestine with perforation and abscess without bleeding (principal); F17.210 Nicotine dependence, cigarettes, uncomplicated; Z20.822 Contact with and (suspected) exposure to COVID-19; Z71.6 Tobacco abuse counseling; Z88.6 Allergy status to analgesic agent; Z79.899 Other long term (current) drug therapy
CPT/HCPCS: 36415; 74177; 80048; 80076; 81003; 83605; 85025; 85027; 87040; 87635; 96361; 96374; 96375; 96376; 99284; 99285; J1170; J1956; J2270; J2405; J2543; Q9967

== ENCOUNTER → 2021-06-11 13:59 | Outpatient (BNVA) | payer OTHER, SELFPAY | PROVIDERS: Visit Provider Surgery | DX: K57.92 Diverticulitis of intestine, part unspecified, without perforation or abscess without bleeding (principal); Z78.9 Other specified health status | CPT/HCPCS: 99212 ==

== ENCOUNTER 2021-09-25 12:12 | Inpatient (IN) | payer OTHER, SELFPAY ==
--- NOTE | ~2021-09-25 | CT_ITS ---
EXAMINATION: CT ABDOMEN AND PELVIS WITH CONTRAST CLINICAL INFORMATION: Left lower quadrant pain. Rule out perforation. COMPARISON: CT abdomen pelvis 06/02/2021 TECHNIQUE: Multidetector volumetric images were obtained from the superior aspect of the liver through the pubic symphysis following administration 85 mL of Omnipaque 350 intravenous contrast. Sagittal and coronal reformatted images were obtained on the technologist's workstation. Oral contrast: No This CT examination was performed using dose optimization techniques as appropriate, variously including the following: *Automated exposure control *Adjustment of mA and/or kV according to patient size (this includes techniques or standardized protocols for targeted exams where dose is matched to indication/reason for exam; i.e. extremities or head) *Use of iterative reconstruction technique DLP: 462 mGy-cm FINDINGS: LUNG BASES: The visualized lung bases are unremarkable. LIVER, GALLBLADDER, AND BILIARY TREE: Liver is mildly enlarged measuring 17.5 cm in craniocaudal length. Diffuse hepatic hypoattenuation compatible steatosis. Small focal areas of fatty sparing in the medial segment left liver lobe adjacent to the marium hepatis and about the gallbladder. No other liver lesions. No biliary ductal dilation. The gallbladder is unremarkable with no evidence of radiopaque gallstones, gallbladder wall thickening, or obvious pericholecystic inflammatory changes. PANCREAS: Unremarkable. SPLEEN: Unremarkable. ADRENAL GLANDS: Unremarkable. KIDNEYS AND URETERS: The kidneys are normal in size, shape, and attenuation. No hydronephrosis, hydroureter, or calculi seen. No perinephric stranding. BLADDER: Slight thickening of the posterior bladder wall likely mildly secondarily inflamed by the adjacent sigmoid diverticulitis detailed below. GASTROINTESTINAL TRACT: Segment of circumferential mural thickening of the sigmoid colon with extensive surrounding inflammatory fat stranding centered about a sigmoid diverticulum compatible with acute diverticulitis. No extraluminal gas to suggest perforation. No intramural or pericolonic abscess. No additional bowel wall thickening. No dilated bowel loops appendix. No ascites or free air. ABDOMINAL WALL: No significant hernia is appreciated. LYMPH NODES: No lymphadenopathy. VASCULAR: Unremarkable. PELVIC VISCERA: Unremarkable. OSSEOUS STRUCTURES: No acute fracture or suspicious osseous lesion. Chronic bilateral L5 pars defects. Spina bifida occulta of L5 noted incidentally. CT/CT abdomen pelvis w con IMPRESSION: 1. Acute sigmoid diverticulitis. No evidence of perforation or abscess. 2. Mild hepatomegaly and hepatic steatosis.
[2021-09-25 12:30] VITALS: BP 168/89; PULSE 121; RESP 18; TEMP 37.7; O2SAT 98; BMI 24.1
[2021-09-25 13:05] LABS: Hematocrit 39.8 % (42.0-52.0); Hemoglobin 13.9 g/dl (14.0-18.0); Mean Corpuscular HGB Conc 34.9 g/dl (31.0-36.0); Mean Corpuscular Hemoglobin 31.5 pg (27.0-33.0); Mean Corpuscular Volume 90.2 fL (80.0-98.0); Mean Platelet Volume 11.4 fL (9.4-12.4); Platelet Count 314 X10*3/uL (160-400); Red Blood Count 4.41 X10*6/uL (4.60-5.80); Red Cell Distribution Width 13.3 % (11.0-16.0); White Blood Count 24.8 X10*3/uL (4.8-10.8)
[2021-09-25 13:22] LABS: Alanine Aminotransferase 71 U/L (0-40); Alkaline Phosphatase 72 U/L (39-117); Anion Gap 18 (12-20); Aspartate Amino Transferase 36 U/L (5-37); Bilirubin Direct 0.4 mg/dL (0.0-0.5); Bilirubin Total 0.9 mg/dL (0.0-1.0); Blood Urea Nitrogen 12 mg/dL (9-16); Calcium 9.6 mg/dL (8.4-10.2); Carbon Dioxide 24 mmol/L (22-29); Chloride 101 mmol/L (96-108); Creatinine Clr Calc Pharmacy 77.4; Estimated Glomerular Filt Rate > 60; Glucose Random 172 mg/dL (60-115); Lipase 21 U/L (8-78); Potassium 3.8 mmol/L (3.3-5.1); Sodium 139 mmol/L (135-145); Total Protein 7.7 g/dL (6.5-8.0)
--- NOTE | 2021-09-25 17:03 | ED_ITS ---
HPI - Abdominal Pain General Chief Complaint: Abdominal Pain Stated Complaint: lower abd pain Time Seen by Provider: 09/25/21 16:49 Source: patient Mode of arrival: ambulatory Limitations: no limitations History of Present Illness HPI narrative: 31-year-old male with a history of recurrent diverticulitis and diverticular abscess in the past treated with antibiotics presents with the left lower abdominal pain since yesterday with nausea. No vomiting, diarrhea, fever. Patient had a BM this morning that was reportedly normal. Related Data Home Medications Medication Instructions Recorded Confirmed psyllium 1 packet PO DAILY 09/25/21 09/25/21 Allergies Allergy/AdvReac Type Severity Reaction Status Date / Time acetaminophen [From Tylenol] Allergy Mild rash Verified 06/11/21 14:08 Review of Systems Review of Systems Yes all other systems are reviewed and are negative Constitutional: Reports no additional constitutional complaints, Denies body ache(s), Denies chills, Denies fever(s), Denies headache(s) and Denies weakness Eyes: Reports no additional eye complaints and Denies change in vision Reports system reviewed and no additional complaints, except as documented, Denies dizziness, Denies headache(s), Denies nasal congestion, Denies nasal discharge and Denies neck pain Cardiovascular: Reports no additional cardiovascular complaints, Denies chest pain, Denies leg edema and Denies dyspnea Respiratory: Reports no additional respiratory complaints, Denies cough and Denies dyspnea Gastrointestinal: Reports no additional gastrointestinal complaints, Reports abdominal pain, Denies diarrhea, Reports nausea and Denies vomiting Genitourinary: Denies urinary incontinence Musculoskeletal: Reports no additional musculoskeletal complaints, Denies back pain, Denies arthralgias, Denies joint swelling, Denies neck pain, Denies numbness and Denies tingling Skin/Breast: Reports system reviewed and no additional complaints, except as docu and Denies rash Reports system reviewed and no additional complaints, except as documented, Denies dizziness, Denies headache(s), Denies numbness, Denies tingling and Denies weakness PMFSH Past Medical History Attestation statement: The following information was validated with the patient. Source: old records reviewed and nursing notes reviewed Medical History Diverticulitis of intestine with abscess without bleeding No pertinent past medical history Surgical History History of ankle surgery Social History Social History Household Members: Significant Other and Children Housing: Apartment Do you presently have visiting nurse or other home services: No Alcohol intake: current Alcohol intake frequency: a few times a week Patient Tobacco Use Status: Current everyday Tobacco user Tobacco use type: Cigarette Cigarette Packs Per Day: 0.5 Cigarettes Per Day: 10.0 Years Smoked: 18 e-Cigarette/Vaping Use: Never Used Use of substances other than those prescribed or required for medical reasons: Yes Substance Use Type: Marijuana Advance Directives: No Advance Directives Information Provided: No service: No Current occupational status: employed Physical Exam ED Vital Signs: Vital Signs - 24 hr 09/25/21 12:30 09/25/21 17:39 Temperature 99.8 F 99.2 F Pulse Rate 121 H 111 H Respiratory Rate 18 18 Blood Pressure 168/89 H 130/79 Pulse Oximetry 98 98 Oxygen Delivery Method Room Air Room Air BMI result Body Mass Index 24.1 Const Other: In pain General: alert Orientation/consciousness: patient oriented x3 Limitations: no limitations HENMT Head: Yes normal to inspection Ears: hearing grossly normal bilaterally Eyes General: appearance normal, both eyes and all related structures Pupils: Equal, round and reactive pupils present Neck Neck: Yes normal visual inspection, Yes full ROM, Yes no lymphadenopathy and Yes no meningeal signs Chest Chest palpation & inspection: normal inspection of the chest Resp Effort & Inspection: normal respiratory effort Auscultation: clear to auscultation bilaterally Cardio Rate: regular rate Rhythm: regular rhythm Peripheral pulses: Peripheral pulses 2+ throughout GI Inspection: Yes normal to inspection Palpation (GI): Firmness to palpation present (GI), Tenderness to palpation pre sent (GI) and Guarding due to palpation present (GI) General: Yes no CVA tenderness Back/Spine/Pelvis Back: no CVA tenderness Thoracic/Lumbar Spine: thoracic and lumbar spine normal to inspection Skin General skin exam: no rashes or lesions noted Neuro General: patient oriented x3, moves all extremities and no meningeal signs Cranial nerves: Yes Equal, round and reactive pupils present Gait exam (Neuro): Normal gait present Course Course Course Narrative: CT is consistent with acute sigmoid diverticulitis. No evidence of abscess or perforation. Labs show leukocytosis with an elevated lactic acid. Patient will need admission for IV antibiotics. Reevaluation(s) Reevaluation #1: [id number] spoke to Dr. Hung from the medicine team who accepted admission MDM - Abdominal Pain MDM Narrative Medical decision making narrative: [id number]-old male with a history of recurrent sigmoid diverticulitis and diverticular abscess treated medically with antibiotics presents with left-sided abdominal pain since yesterday with nausea. On arrival the patient has a firm abdomen with tenderness in the left lower quadrant and some guarding. Will need labs including blood cultures and lactic acid, UA, COVID screen and CT. At this time infection is suspected. Antibiotics ordered Differential Diagnosis Differential diagnosis: Likely bowel perforation and diverticulitis Medical Records Attestation: I reviewed the patient's medical records. Lab Data Attestation: I reviewed the patient's lab results. Result diagrams: 09/25/21 12:47 09/25/21 12:47 Labs: Lab Results 09/25/21 09/25/21 09/25/21 Range/Units 12:47 12:47 17:13 WBC 24.8 H (4.8-10.8) X10*3/uL RBC 4.41 L D (4.60-5.80) X10*6/uL Hgb 13.9 L D (14.0-18.0) g/dl Hct 39.8 L D (42.0-52.0) % MCV 90.2 (80.0-98.0) fL MCH 31.5 (27.0-33.0) pg MCHC 34.9 (31.0-36.0) g/dl RDW 13.3 (11.0-16.0) % Plt Count 314 (160-400) X10*3/uL MPV 11.4 (9.4-12.4) fL Absolute Nucleated RBC 0.000 (0.0-0.012) X10*3/uL Nucleated RBC % (auto) 0.0 (0.0-0.2) /100WBC Sodium 139 (135-145) mmol/L Potassium 3.8 (3.3-5.1) mmol/L Chloride 101 (96-108) mmol/L Carbon Dioxide 24 (22-29) mmol/L Anion Gap 18 (12-20) BUN 12 D (9-16) mg/dL Creatinine 1.18 (0.5-1.4) mg/dL Estim Creat Clear Calc 77.4 Estimated GFR > 60 Random Glucose 172 H D (60-115) mg/dL Lactic Acid 2.1 H* (0.5-2.0) mmol/L Calcium 9.6 (8.4-10.2) mg/dL Total Bilirubin 0.9 (0.0-1.0) mg/dL Direct Bilirubin 0.4 (0.0-0.5) mg/dL AST 36 D (5-37) U/L ALT 71 H (0-40) U/L Alkaline Phosphatase 72 (39-117) U/L Total Protein 7.7 (6.5-8.0) g/dL Albumin 5.0 (3.5-5.0) g/dL Lipase 21 (8-78) U/L COVID-19 (MILAGROS) (Negative) COVID-19 Clin Com 09/25/21 Range/Units 17:13 WBC (4.8-10.8) X10*3/uL RBC (4.60-5.80) X10*6/uL Hgb (14.0-18.0) g/dl Hct (42.0-52.0) % MCV (80.0-98.0) fL MCH (27.0-33.0) pg MCHC (31.0-36.0) g/dl RDW (11.0-16.0) % Plt Count (160-400) X10*3/uL MPV (9.4-12.4) fL Absolute Nucleated RBC (0.0-0.012) X10*3/uL Nucleated RBC % (auto) (0.0-0.2) /100WBC Sodium (135-145) mmol/L Potassium (3.3-5.1) mmol/L Chloride (96-108) mmol/L Carbon Dioxide (22-29) mmol/L Anion Gap (12-20) BUN (9-16) mg/dL Creatinine (0.5-1.4) mg/dL Estim Creat Clear Calc Estimated GFR Random Glucose (60-115) mg/dL Lactic Acid (0.5-2.0) mmol/L Calcium (8.4-10.2) mg/dL Total Bilirubin (0.0-1.0) mg/dL Direct Bilirubin (0.0-0.5) mg/dL AST (5-37) U/L ALT (0-40) U/L Alkaline Phosphatase (39-117) U/L Total Protein (6.5-8.0) g/dL Albumin (3.5-5.0) g/dL Lipase (8-78) U/L COVID-19 (MILAGROS) Negative (Negative) COVID-19 Clin Com See Note Imaging Data CT scan - abdomen: Attestation: I personally reviewed and interpreted this imaging study as follows: Radiologist's impression: FINDINGS: LUNG BASES: The visualized lung bases are unremarkable.? LIVER, GALLBLADDER, AND BILIARY TREE: Liver is mildly enlarged measuring 17.5 cm in craniocaudal length. Diffuse hepatic hypoattenuation compatible steatosis. Small focal areas of fatty sparing in the medial segment left liver lobe adjacent to the marium hepatis and about the gallbladder. No other liver lesions. No biliary ductal dilation. The gallbladder is unremarkable with no evidence of radiopaque gallstones, gallbladder wall thickening, or obvious pericholecystic inflammatory changes.? PANCREAS: Unremarkable.? SPLEEN: Unremarkable.? ADRENAL GLANDS: Unremarkable.? KIDNEYS AND URETERS: The kidneys are normal in size, shape, and attenuation. No hydronephrosis, hydroureter, or calculi seen. No perinephric stranding. ? BLADDER: Slight thickening of the posterior bladder wall likely mildly secondarily inflamed by the adjacent sigmoid diverticulitis detailed below.? GASTROINTESTINAL TRACT: Segment of circumferential mural thickening of the sigmoid colon with extensive surrounding inflammatory fat stranding centered about a sigmoid diverticulum compatible with acute diverticulitis. No extraluminal gas to suggest perforation. No intramural or pericolonic abscess. No additional bowel wall thickening. No dilated bowel loops appendix. No ascites or free air.? ABDOMINAL WALL: No significant hernia is appreciated.? LYMPH NODES: No lymphadenopathy. VASCULAR: Unremarkable. PELVIC VISCERA: Unremarkable.? OSSEOUS STRUCTURES: No acute fracture or suspicious osseous lesion. Chronic bilateral L5 pars defects. Spina bifida occulta of L5 noted incidentally.? CT/CT abdomen pelvis w con IMPRESSION: ? 1. Acute sigmoid diverticulitis. No evidence of perforation or abscess. 2. Mild hepatomegaly and hepatic steatosis. ? ? Discharge Plan Discharge Clinical Impression: Diverticulitis, Leukocytosis, Elevated lactic acid level Patient Disposition: Admitted As Inpatient
[2021-09-25] MEDS: 0.9 % Sodium Chloride 1,000 ML 999 ML IV (17:16)
[2021-09-25] MEDS: iohexoL 350 MG/ML 100 ML INFUS..BTL IV (17:34)
[2021-09-25] MEDS: Piperacillin Sodium/Tazobactam 3.375 GM in 0.9 % Sodium Chloride 50 ML IV (17:37)
[2021-09-25] MEDS: Morphine Sulfate 4 MG/ML CARTRIDGE IVPUSH ×3 (17:38→22:04)
[2021-09-25] MEDS: ondansetron HCL 4 MG/2 ML VIAL IVPUSH (17:38)
[2021-09-25 17:39] VITALS: BP 130/79; PULSE 111; RESP 18; TEMP 37.3; O2SAT 98
--- NOTE | 2021-09-25 17:42 | PC.NURSE ---
abd continues to be tender. no vomiting. skin pwd. pt is warm to touch. st onmonitor. awaits CT results. axox3.
--- NOTE | 2021-09-25 17:45 | PHA.MEDREC ---
Pharmacy Consult ? Medication Reconciliation Pharmacy has completed the medication reconciliation.
[2021-09-25 17:48] LABS: Lactic Acid 2.1 mmol/L (0.5-2.0)
[2021-09-25 17:49] LABS: COVID-19 Test Negative (Negative); IDNOW Serial# 16C4AD1C
[2021-09-25 19:16] LABS: Reflex Lactate? Lactic Acid Added
--- NOTE | 2021-09-25 20:11 | P.HPHOSP_ITS ---
History of Present Illness Date of Service: 09/25/21 Chief Complaint: abd pain 31-year-old male with past medical history of diverticulitis in the past presents to the hospital with abdominal pain that is in the left lower quadrant, 10/10, nonradiating, associated with nausea and low appetite, no diarrhea constipation. Patient reports that he has had diverticulitis in the same spot in the past x2. He denies any fever but has chills, no chest pain, no shortness of breath. no urinary symptoms and no lower extremity edema. On arrival to the ED patient has a heart rate of 121, slightly elevated blood pressure, Labs are significant for WBC count 24.8, hemoglobin 13.9, hematocrit of 39.8 lactic acid of 2.1, CT abdomen shows acute sigmoid diverticulitis with no evidence of perforation or abscess Patient will be admitted for further management given sepsis Review of Systems Review of Systems: Yes all other systems are reviewed and are negative [facility] Medical History Diverticulitis of intestine with abscess without bleeding No pertinent past medical history Surgical History History of ankle surgery Social History Household Members: Significant Other and Children Housing: Apartment Do you presently have visiting nurse or other home services: No Alcohol intake: current Alcohol intake frequency: a few times a week Patient Tobacco Use Status: Current everyday Tobacco user Tobacco use type: Cigarette Cigarette Packs Per Day: 0.5 Cigarettes Per Day: 10.0 Years Smoked: 18 e-Cigarette/Vaping Use: Never Used Use of substances other than those prescribed or required for medical reasons: Yes Substance Use Type: Marijuana Advance Directives: No Advance Directives Information Provided: No service: No Current occupational status: employed Meds Allergies Allergy/AdvReac Type Severity Reaction Status Date / Time acetaminophen [From Tylenol] Allergy Mild rash Verified 06/11/21 14:08 Active Medications: Current Medications Pharmacy Consult (Consult Rx Perform Med Rec) 1 each MISCELLANE ONCE PRN PRN Reason: Consult order Home Medications Medication Instructions Recorded Confirmed Last Taken Type psyllium 1 packet PO DAILY 09/25/21 09/25/21 09/25/21 History Physical Exam Vital Signs and Narrative: Vital Signs: Last Vital Signs Temp 99.2 F 09/25/21 17:39 Pulse 111 H 09/25/21 17:39 Resp 18 09/25/21 17:39 BP 130/79 09/25/21 17:39 Pulse Ox 98 09/25/21 17:39 O2 Del Method 09/25/21 17:39 BMI result Body Mass Index 24.1 Const: General: cooperative and no acute distress Orientation/consciousness: patient oriented x3 Eyes: General: appearance normal, both eyes and all related structures Resp: Effort & Inspection: normal respiratory effort Auscultation: clear to auscultation bilaterally Cardio: Rate: regular rate Rhythm: regular rhythm GI: Other: Tender abdomen specially to the right lower quadrant no rebound or guarding Palpation (GI): Soft to palpation Auscultation: normal bowel sounds Skin: General skin exam: no rashes or lesions noted Neuro: General: patient oriented x3 Cognition (Neuro): normal cognition Extrem: General: Yes normal to inspection and Yes no pedal edema Results Labs CBC and Chem 7: 09/25/21 12:47 09/25/21 12:47 Labs: Laboratory Results - last 24 hr 09/25/21 09/25/21 09/25/21 12:47 12:47 17:13 MCV 90.2 MCH 31.5 MCHC 34.9 RDW 13.3 Plt Count 314 MPV 11.4 Absolute Nucleated RBC 0.000 Nucleated RBC % (auto) 0.0 Anion Gap 18 Estim Creat Clear Calc 77.4 Estimated GFR > 60 Random Glucose 172 H D Lactic Acid 2.1 H* Calcium 9.6 Total Bilirubin 0.9 Direct Bilirubin 0.4 AST 36 D ALT 71 H Alkaline Phosphatase 72 Total Protein 7.7 Albumin 5.0 Lipase 21 COVID-19 (MILAGROS) COVID-19 Clin Com 09/25/21 17:13 MCV MCH MCHC RDW Plt Count MPV Absolute Nucleated RBC Nucleated RBC % (auto) Anion Gap Estim Creat Clear Calc Estimated GFR Random Glucose Lactic Acid Calcium Total Bilirubin Direct Bilirubin AST ALT Alkaline Phosphatase Total Protein Albumin Lipase COVID-19 (MILAGROS) Negative COVID-19 Clin Com See Note Imaging Radiologist's Impressions: Impressions Abdomen/Pelvis CT 09/25/21 17:37 IMPRESSION: 1. Acute sigmoid diverticulitis. No evidence of perforation or abscess. 2. Mild hepatomegaly and hepatic steatosis. Assessment and Plan (1) Sepsis: Status: Acute (2) Diverticulitis: Status: Acute Plan Day 1-year-old male with past medical history of diverticulitis presents to the hospital with abdominal pain found to have recurrent diverticulitis with no perforation # acute diverticulitis - no complications no perforation or abscess - has elevated lactic acid, leukocytosis, and heart rate - will treat with IV antibiotics - advised patient to follow-up with GI for sigmoidoscopy/colonoscopy given the recurrence of diverticulitis, patient reports that he has an appointment in [facility], - I do believe that he should be seen sooner than November by GI # sepsis - secondary to above - has leukocytosis, afebrile, tachycardia, and lactic acidosis - started on antibiotics - IV fluids - follow cultures DVT prophylaxis: Lovenox Given patient's need for IV antibiotics in the setting of sepsis patient will require minimum 2 night hospital stay for further management and evaluation Quality Stroke Does the patient have a stroke diagnosis?: No VTE Prior VTE?: No VTE Risk Level:: Medical - moderate - high VTE Device Contraindication: N/A - Device Ordered VTE Drug Contraindication: N/A - Med Ordered
[2021-09-25 20:30] VITALS: BP 122/73; PULSE 107; RESP 15; TEMP 36.8; O2SAT 98
[2021-09-25 20:42] LABS: ~Lactic Acid-LAB USE ONLY 1.7 mmol/L (0.5-2.0)
[2021-09-25] MEDS: metroNIDAZOLE/NS 500 MG/100 ML PIGGYBACK 100 MG IV (21:17)
[2021-09-25] MEDS: Enoxaparin Sodium 40 MG/0.4 ML SYRINGE SUBCUT (21:19)
[2021-09-25 22:00] VITALS: BP 123/71; PULSE 101; RESP 20; O2SAT 98
[2021-09-25] MEDS: cefTRIAXone sodium 1 GM in 0.9 % Sodium Chloride 50 ML IV (22:05)
[2021-09-25 23:26] VITALS: BP 116/62; PULSE 106; RESP 20; O2SAT 98
[2021-09-26] VITALS (7 sets, daily range): BP systolic 104–140; BP diastolic 55–82; PULSE 65–107; RESP 16–20; TEMP 36.5–36.8; O2SAT 97–99
[2021-09-26] MEDS: Morphine Sulfate 4 MG/ML CARTRIDGE IVPUSH ×5 (02:26→19:57)
[2021-09-26] MEDS: metroNIDAZOLE/NS 500 MG/100 ML PIGGYBACK 100 MG IV ×3 (06:12→19:56)
[2021-09-26 07:03] LABS: Basophils Absolute Auto 0.1 X10*3/uL (0.0-0.2); Basophils Percent Auto 0.4 % (0-2); Eosinophils Absolute Auto 0.2 X10*3/uL (0.0-0.4); Eosinophils Percent Auto 0.8 % (0-4); Hematocrit 37.4 % (42.0-52.0); Hemoglobin 12.7 g/dl (14.0-18.0); Imm Gran Abs Auto 0.16 X10*3/uL (0.00-0.03); Imm Gran Pct Auto 0.7 % (0.0-0.4); Lymphocytes Absolute Auto 2.2 X10*3/uL (1.2-4.9); Lymphocytes Percent Auto 9.6 % (20-40); MANUAL DIFF FLAG SCAN; Mean Corpuscular Hemoglobin 31.1 pg (27.0-33.0); Mean Corpuscular Volume 91.7 fL (80.0-98.0); Mean Platelet Volume 11.6 fL (9.4-12.4); Monocytes Absolute Auto 1.9 X10*3/uL (0.1-1.2); Monocytes Percent Auto 8.6 % (2-11); Neutrophils Absolute Auto 17.8 x10*3/uL (2.0-8.3); Neutrophils Percent Auto 79.9 % (45-73); Platelet Count 256 X10*3/uL (160-400); Red Blood Count 4.08 X10*6/uL (4.60-5.80); Red Cell Distribution Width 13.4 % (11.0-16.0); SCAN SMEAR FLAG 1; White Blood Count 22.3 X10*3/uL (4.8-10.8)
[2021-09-26 07:35] LABS: Anion Gap 13 (12-20); Blood Urea Nitrogen 8 mg/dL (9-16); Calcium 8.6 mg/dL (8.4-10.2); Carbon Dioxide 23 mmol/L (22-29); Chloride 104 mmol/L (96-108); Estimated Glomerular Filt Rate > 60; Glucose Random 117 mg/dL (60-115); Potassium 4.1 mmol/L (3.3-5.1); Sodium 136 mmol/L (135-145)
[2021-09-26 07:54] LABS: SLIDE REVIEW VERIFIED
[2021-09-26] MEDS: ondansetron HCL 4 MG/2 ML VIAL IVPUSH ×2 (08:46→14:59)
[2021-09-26] MEDS: 0.9 % Sodium Chloride Flush 3 ML SYRINGE IVFLUSH (08:47)
--- NOTE | 2021-09-26 10:32 | PM.GICN ---
History of Present Illness Data of Consult Service Date: 09/26/21 Requesting physician: Keven Hung Primary Care Provider: Unknown Physician HPI Reason for consult: recurrent diverticulitis 31-year-old male with past medical history of diverticulosis who I am seeing for assessment for recurrent diverticulitis. Patient has had x3 attacks of diverticulitis at least, beginning since 04/2021. He has had several CT scans since then revealing persistent sigmoid inflammation including a small abscess possibly which had resolved. This current attack follows a similar pattern as prior attacks. He had gradual onset of crampy left lower quadrant pain which kept increasing till reached 8/10 in severity. No releiving or exacerbating factors. No radiation of pain. no fevers, no chills, no constipation, no diarrhea, appetite has been good. He has normal stool, no blood, or mucous. Denies mouth ulcers, joint pains, and no dysuria. He is a smoker, weekend drinker and uses THC occasionally. He is and has stable relationship. There is a family hx of diverticulitis, but no colon cancer or crohns. On arrival to the ED patient has a heart rate of 121, slightly elevated blood pressure, Labs: WBC count 24.8, hemoglobin 13.9, hematocrit of 39.8 lactic acid of 2.1, Imaging: CT : acute sigmoid diverticulitis with no evidence of perforation or abscess Review of Systems Constitutional: Constitutional: Reports no additional constitutional complaints, Denies body ache(s), Denies chills, Denies fever(s), Denies headache(s) and Denies weakness Eyes: Eyes: Reports no additional eye complaints and Denies change in vision ENT: Reports system reviewed and no additional complaints, except as documented, Denies dizziness, Denies headache(s), Denies nasal congestion, Denies nasal discharge and Denies neck pain Cardiovascular: Cardiovascular: Reports no additional cardiovascular complaints, Denies chest pain, Denies leg edema and Denies dyspnea Respiratory: Respiratory: Reports no additional respiratory complaints, Denies cough and Denies dyspnea Gastrointestinal: Gastrointestinal: Reports no additional gastrointestinal complaints, Reports abdominal pain, Denies diarrhea, Reports nausea and Denies vomiting Genitourinary: Genitourinary: Denies urinary incontinence Musculoskeletal: Musculoskeletal: Reports no additional musculoskeletal complaints, Denies back pain, Denies arthralgias, Denies joint swelling, Denies neck pain, Denies numbness and Denies tingling Integumentary/Breasts: Skin/Breast: Reports system reviewed and no additional complaints, except as docu and Denies rash Neurologic: Reports system reviewed and no additional complaints, except as documented, Denies dizziness, Denies headache(s), Denies numbness, Denies tingling and Denies weakness PMFSH Past Medical History Medical History Diverticulitis of intestine with abscess without bleeding No pertinent past medical history Family History Pertinent family history: no Fh of CRC, or IBD, or uyen danlos Surgical History Surgical History History of ankle surgery Social History Social History Household Members: Significant Other and Children Housing: Apartment Do you presently have visiting nurse or other home services: No Alcohol intake: current Alcohol intake frequency: a few times a week Patient Tobacco Use Status: Current everyday Tobacco user Tobacco use type: Cigarette Cigarette Packs Per Day: 0.5 Cigarettes Per Day: 10.0 Years Smoked: 18 e-Cigarette/Vaping Use: Never Used Use of substances other than those prescribed or required for medical reasons: Yes Substance Use Type: Marijuana Advance Directives: No Advance Directives Information Provided: No service: No Current occupational status: employed Meds Allergies Allergy/AdvReac Type Severity Reaction Status Date / Time acetaminophen [From Tylenol] Allergy Mild rash Verified 06/11/21 14:08 Active Medications: Current Medications Enoxaparin Sodium (Enoxaparin Sodium 40 Mg/0.4 Ml Syringe) 40 mg SUBCUT Q24H [facility] Last Admin: 09/25/21 21:19 Dose: 40 mg Ceftriaxone Sodium 1 gm/ (Sodium Chloride) 50 mls @ 100 mls/hr IV Q24H [facility] Last Infusion: 09/26/21 01:52 Dose: Infused Metronidazole (Flagyl) 500 mg in 100 mls @ 100 mls/hr IV Q8H [facility] Last Infusion: 09/26/21 07:30 Dose: Infused Morphine Sulfate (Morphine Sulfate 4 Mg/Ml Cartridge) 4 mg IVPUSH Q4H PRN; Protocol PRN Reason: Pain, Severe (Pain Scale 7-10) Last Admin: 09/26/21 08:46 Dose: 4 mg Ondansetron HCl (Ondansetron Hcl 4 Mg/2 Ml Vial) 4 mg IVPUSH Q8H PRN PRN Reason: Nausea and Vomiting Last Admin: 09/26/21 08:46 Dose: 4 mg Pharmacy Consult (Consult Rx Perform Med Rec) 1 each MISCELLANE ONCE PRN PRN Reason: Consult order Psyllium Hydrophilic Mucilloid (Psyllium Seed 3.4 Gm Powd.Pack) 1 gm PO DAILY [facility] Last Admin: 09/26/21 09:00 Dose: Not Given Sodium Chloride (0.9 % Sodium Chloride Flush 3 Ml Syringe) 3 ml IVFLUSH QSHIFT [facility] Last Admin: 09/26/21 08:47 Dose: 3 ml Home Medications Medication Instructions Recorded Confirmed Last Taken Type psyllium 1 packet PO DAILY 09/25/21 09/25/21 09/25/21 History Physical Exam Vital Signs: Vital Signs: Last Vital Signs Temp 98.3 F 09/25/21 20:30 Pulse 105 H 09/26/21 06:27 Resp 20 09/26/21 08:46 BP 128/82 09/26/21 06:27 Pulse Ox 98 09/26/21 06:27 O2 Del Method 09/26/21 06:27 BMI result Body Mass Index 24.1 Const: General: cooperative, no acute distress and alert Orientation/consciousness: patient oriented x3 Limitations: no limitations HEENT: Head: Yes normal to inspection Ears: hearing grossly normal bilaterally Eyes: General: appearance normal, both eyes and all related structures Pupils: Equal, round and reactive pupils present Neck: Neck: Yes normal visual inspection, Yes full ROM, Yes no lymphadenopathy and Yes no meningeal signs Chest: Chest palpation & inspection: normal inspection of the chest Resp: Effort & Inspection: normal respiratory effort Auscultation: clear to auscultation bilaterally Cardio: Rate: regular rate Rhythm: regular rhythm Peripheral pulses: Peripheral pulses 2+ throughout GI: Inspection: Yes normal to inspection Palpation (GI): Soft to palpation, Firmness to palpation present (GI), Tenderness to palpation present (GI) in the LLQ and Guarding due to palpation present (GI) Auscultation: normal bowel sounds : General: Yes no CVA tenderness Back/Spine/Pelvis: Back: no CVA tenderness Thoracic/Lumbar Spine: thoracic and lumbar spine normal to inspection Skin: General skin exam: no rashes or lesions noted Neuro: General: patient oriented x3, moves all extremities and no meningeal signs Cranial nerves: Yes Equal, round and reactive pupils present Cognition (Neuro): normal cognition Gait exam (Neuro): Normal gait present Extrem: General: Yes normal to inspection and Yes no pedal edema Results Labs CBC & Chem 7: 09/26/21 06:32 09/26/21 06:32 Labs: Short CBC 09/25/21 09/26/21 Range/Units 12:47 06:32 WBC 24.8 H 22.3 H (4.8-10.8) X10*3/uL Hgb 13.9 L D 12.7 L (14.0-18.0) g/dl Hct 39.8 L D 37.4 L (42.0-52.0) % Plt Count 314 256 (160-400) X10*3/uL BMP 09/25/21 09/26/21 12:47 06:32 Sodium 139 136 Potassium 3.8 4.1 Chloride 101 104 Carbon Dioxide 24 23 BUN 12 D 8 L Creatinine 1.18 0.87 Calcium 9.6 8.6 D Liver Function 09/25/21 Range/Units 12:47 Total Bilirubin 0.9 (0.0-1.0) mg/dL Direct Bilirubin 0.4 (0.0-0.5) mg/dL AST 36 D (5-37) U/L ALT 71 H (0-40) U/L Alkaline Phosphatase 72 (39-117) U/L Albumin 5.0 (3.5-5.0) g/dL Imaging CT scan - abdomen: Attestation: I personally reviewed and interpreted this imaging study as follows: (stranding and inflammation around thickened sigmoid colon) Assessment and Plan (1) Diverticulitis: Status: Acute Plan 1/ Recurrent diverticulitis, wiht features of sepsis with tachycardia raised lactate and WCC. ddx: IBD, ischemia, underlying colonic lesion mimicking colitis. Main risk favor for recurrent attaks is smoking hx. PLAN: 1/ Agree with AB treatment 2/ surgical consult, may benefit from sigmoid colectomy given ongoing attacks, 3/ o/p colonoscopy in about 4 weeks, if ongoing sx then limited sigmoidoscopy 4/ smokign cessation will help reduce attacks as wekk Procedures Date of Service Date of Service: 09/26/21
--- NOTE | 2021-09-26 11:57 | MHC.CM.PN ---
CM ATTEMPTED TO MEET WITH PT WHO WAS SLEEPING SOUNDLY AND DID NOT WAKE TO VERBAL STIMULI CM WILL REVISIT
--- NOTE | 2021-09-26 13:29 | HO.PM.IMPN ---
Subjective Subjective Date of Service: 09/26/21 Interval History: seen and examined this morning Follow-up for diverticulitis Patient reports 3 days of lower abdominal pain. No nausea, vomiting, diarrhea. Requesting for diet to be advanced Review of Systems Review of Systems: Yes all other systems are reviewed and are negative Constitutional Constitutional: Denies chills and Denies fever(s) Cardiovascular Cardiovascular: Denies chest pain, Denies palpitations and Denies dyspnea Respiratory Respiratory: Denies cough and Denies dyspnea Gastrointestinal Gastrointestinal: Reports abdominal pain, Denies nausea and Denies vomiting Endocrine Endocrine: Denies palpitations Physical Exam Vital Signs: Vital Signs: Last Vital Signs Temp 98.3 F 09/25/21 20:30 Pulse 105 H 09/26/21 06:27 Resp 20 09/26/21 11:49 BP 128/82 09/26/21 06:27 Pulse Ox 98 09/26/21 06:27 O2 Del Method 09/26/21 06:27 BMI result Body Mass Index 24.1 Const: General: cooperative, comfortable, alert and awake Nutritional Appearance: average body habitus Orientation/consciousness: patient oriented x3 Resp: Effort & Inspection: normal respiratory effort and able to speak in complete sentences Auscultation: clear to auscultation bilaterally Cardio: Rate: regular rate Heart sounds: S1 normal heart sound present and S2 normal heart sound present GI: Other: tenderness primarily left lower quadrant. + bowel sounds Inspection: No distended Palpation (GI): Soft to palpation Neuro: General: patient oriented x3 and CN's II-XI intact bilaterally Extrem: General: Yes no pedal edema Objective Data Active Medications Enoxaparin Sodium (Enoxaparin Sodium 40 Mg/0.4 Ml Syringe) 40 mg SUBCUT Q24H [facility] Last Admin: 09/25/21 21:19 Dose: 40 mg Documented By: SHELL Ceftriaxone Sodium 1 gm/ (Sodium Chloride) 50 mls @ 100 mls/hr IV Q24H [facility] Last Infusion: 09/26/21 01:52 Dose: 0 mls/hr Documented By: SHELL Metronidazole (Flagyl) 500 mg in 100 mls @ 100 mls/hr IV Q8H [facility] Last Infusion: 09/26/21 07:30 Dose: 0 mls/hr Documented By: KRYSTAL Morphine Sulfate (Morphine Sulfate 4 Mg/Ml Cartridge) 4 mg IVPUSH Q4H PRN; Protocol PRN Reason: Pain, Severe (Pain Scale 7-10) Last Admin: 09/26/21 11:49 Dose: 4 mg Documented By: KRYSTAL Nicotine Polacrilex (Nicotine Polacrilex 2 Mg Gum) 2 mg BUCCAL Q2H PRN PRN Reason: Nicotine Cravings Ondansetron HCl (Ondansetron Hcl 4 Mg/2 Ml Vial) 4 mg IVPUSH Q8H PRN PRN Reason: Nausea and Vomiting Last Admin: 09/26/21 08:46 Dose: 4 mg Documented By: KRYSTAL Pharmacy Consult (Consult Rx Perform Med Rec) 1 each MISCELLANE ONCE PRN PRN Reason: Consult order Psyllium Hydrophilic Mucilloid (Psyllium Seed 3.4 Gm Powd.Pack) 1 gm PO DAILY [facility] Last Admin: 09/26/21 09:00 Dose: Not Given Documented By: KRYSTAL Non-Admin Reason: Physician Held Med Sodium Chloride (0.9 % Sodium Chloride Flush 3 Ml Syringe) 3 ml IVFLUSH QSHIFT [facility] Last Admin: 09/26/21 08:47 Dose: 3 ml Documented By: KRYSTAL Labs CBC & Chem 7: 09/26/21 06:32 09/26/21 06:32 Labs: Laboratory Results - last 24 hr 09/25/21 09/25/21 09/25/21 17:13 17:13 20:27 MCV MCH MCHC RDW Plt Count MPV Immature Gran % (Auto) Neut % (Auto) Lymph % (Auto) [place] % (Auto) Eos % (Auto) Baso % (Auto) Lymph # (Auto) [place] # (Auto) Eos # (Auto) Baso # (Auto) Abs Immat Gran (auto) Absolute Neuts (auto) Absolute Nucleated RBC Nucleated RBC % (auto) Smear Tech's Comments Anion Gap Estim Creat Clear Calc Estimated GFR Random Glucose Lactic Acid 2.1 H* Lactic Acid F/U @ 2Hr 1.7 Calcium COVID-19 (MILAGROS) Negative COVID-19 Clin Com See Note 09/26/21 09/26/21 06:32 06:32 MCV 91.7 MCH 31.1 MCHC 34.0 RDW 13.4 Plt Count 256 MPV 11.6 Immature Gran % (Auto) 0.7 H Neut % (Auto) 79.9 H Lymph % (Auto) 9.6 L [place] % (Auto) 8.6 Eos % (Auto) 0.8 Baso % (Auto) 0.4 Lymph # (Auto) 2.2 [place] # (Auto) 1.9 H Eos # (Auto) 0.2 Baso # (Auto) 0.1 Abs Immat Gran (auto) 0.16 H Absolute Neuts (auto) 17.8 H Absolute Nucleated RBC 0.000 Nucleated RBC % (auto) 0.0 Smear Tech's Comments VERIFIED Anion Gap 13 Estim Creat Clear Calc 105.0 Estimated GFR > 60 Random Glucose 117 H Lactic Acid Lactic Acid F/U @ 2Hr Calcium 8.6 D COVID-19 (MILAGROS) COVID-19 Clin Com Assessment and Plan (1) Diverticulitis: Status: Acute (2) Sepsis: Status: Acute Plan 31-year-old male with past medical history of diverticulitis presents to the hospital with abdominal pain found to have recurrent diverticulitis with no perforation sepsis secondary to acute diverticulitis no complications no perforation or abscess - has elevated lactic acid, leukocytosis, and heart rate - continue IV ceftriaxone, Flagyl - GI, surgical consult pending given recurrent episodes of diverticulitis -Pain control -Will advance to clear liquid, advanced diet as tolerated - blood cultures pending Tobacco dependence Smoking cessation advised NRT DVT prophylaxis: Lovenox attending-Dr. Espino requires ongoing inpatient hospitalization for IV antibiotics and treatment of recurrent diverticulitis Quality Stroke Does the patient have a stroke diagnosis?: No VTE Prior VTE?: No VTE Risk Level:: Medical - moderate - high VTE Device Contraindication: N/A - Device Ordered VTE Drug Contraindication: N/A - Med Ordered
[2021-09-26] MEDS: cefTRIAXone sodium 1 GM in 0.9 % Sodium Chloride 50 ML IV (23:35)
[2021-09-27] MEDS: Morphine Sulfate 4 MG/ML CARTRIDGE IVPUSH ×5 (00:06→20:06)
[2021-09-27 03:42] VITALS: BP 123/67; PULSE 98; RESP 18; TEMP 36.4; O2SAT 99
[2021-09-27] MEDS: metroNIDAZOLE/NS 500 MG/100 ML PIGGYBACK 100 MG IV ×3 (05:44→20:06)
[2021-09-27 06:09] LABS: Hematocrit 36.6 % (42.0-52.0); Hemoglobin 12.5 g/dl (14.0-18.0); Mean Corpuscular HGB Conc 34.2 g/dl (31.0-36.0); Mean Corpuscular Hemoglobin 31.5 pg (27.0-33.0); Mean Corpuscular Volume 92.2 fL (80.0-98.0); Mean Platelet Volume 11.5 fL (9.4-12.4); Platelet Count 258 X10*3/uL (160-400); Red Blood Count 3.97 X10*6/uL (4.60-5.80); Red Cell Distribution Width 13.1 % (11.0-16.0); White Blood Count 15.8 X10*3/uL (4.8-10.8)
[2021-09-27 07:36] VITALS: BP 114/58; PULSE 85; RESP 16; TEMP 37.5; O2SAT 98
[2021-09-27] MEDS: 0.9 % Sodium Chloride Flush 3 ML SYRINGE IVFLUSH ×2 (08:23→15:38)
--- NOTE | 2021-09-27 10:23 | MHC.CM.PN ---
No IMM required Patient reports he lives with his spouse, is independent at home and community, denies use of DME or home services. Kitty sutton'd x3 (MRNA), PCP Chi Moyer, HCP on file, he will drive himself hoem. D/C Plan: Home (self-care)
--- NOTE | 2021-09-27 10:41 | P.CONGS_ITS ---
History of Present Illness Consult details Consult date: 09/27/21 Reason for consult: abdominal pain Narrative: The patient is a 31-year-old gentleman who is readmitted to the hospital with his 3rd bout of sigmoid diverticulitis. I had seen him earlier in the year and we had discussed dietary changes which she is performed. We also discussed the pros and cons of resection and/or 2nd opinion. He has not had a colonoscopy to exclude malignancy at but has been seen by GI. Patient continues to use nicotine and has been advised regarding cessation to hopefully decrease diverticulitis attacks. The most recent bout started on Wednesday. He notes that he is improved since admission, and has had a bowel movement this morning. However he still has some residual left lower quadrant abdominal pain. He otherwise denies chest pain, difficulty breathing, shortness of breath. Review of Systems Review of Systems: Yes all other systems are reviewed and are negative Constitutional: Constitutional: Reports as per [facility] Past Medical History Medical History Diverticulitis of intestine with abscess without bleeding No pertinent past medical history Surgical History Surgical History History of ankle surgery Social History Social History Household Members: Spouse Housing: Apartment Do you presently have visiting nurse or other home services: No Alcohol intake: current Alcohol intake frequency: a few times a week Patient Tobacco Use Status: Current everyday Tobacco user Tobacco use type: Cigarette Cigarette Packs Per Day: 0.5 Cigarettes Per Day: 10.0 Years Smoked: 18 e-Cigarette/Vaping Use: Never Used Second Hand Smoke Exposure: No Substance Use Type: Marijuana service: No Current occupational status: employed Meds Allergies Allergy/AdvReac Type Severity Reaction Status Date / Time acetaminophen [From Tylenol] Allergy Mild rash Verified 06/11/21 14:08 Active Medications: Current Medications Enoxaparin Sodium (Enoxaparin Sodium 40 Mg/0.4 Ml Syringe) 40 mg SUBCUT Q24H [facility] Last Admin: 09/26/21 20:29 Dose: Not Given Ceftriaxone Sodium 1 gm/ (Sodium Chloride) 50 mls @ 100 mls/hr IV Q24H [facility] Last Infusion: 09/27/21 00:07 Dose: Infused Metronidazole (Flagyl) 500 mg in 100 mls @ 100 mls/hr IV Q8H [facility] Last Infusion: 09/27/21 08:27 Dose: Infused Morphine Sulfate (Morphine Sulfate 4 Mg/Ml Cartridge) 4 mg IVPUSH Q4H PRN; Protocol PRN Reason: Pain, Severe (Pain Scale 7-10) Last Admin: 09/27/21 05:37 Dose: 4 mg Nicotine Polacrilex (Nicotine Polacrilex 2 Mg Gum) 2 mg BUCCAL Q2H PRN PRN Reason: Nicotine Cravings Ondansetron HCl (Ondansetron Hcl 4 Mg/2 Ml Vial) 4 mg IVPUSH Q8H PRN PRN Reason: Nausea and Vomiting Last Admin: 09/26/21 14:59 Dose: 4 mg Pharmacy Consult (Consult Rx Perform Med Rec) 1 each MISCELLANE ONCE PRN PRN Reason: Consult order Psyllium Hydrophilic Mucilloid (Psyllium Seed 3.4 Gm Powd.Pack) 1 gm PO DAILY [facility] Last Admin: 09/27/21 08:20 Dose: 1 gm Sodium Chloride (0.9 % Sodium Chloride Flush 3 Ml Syringe) 3 ml IVFLUSH QSHIFT [facility] Last Admin: 09/27/21 08:23 Dose: 3 ml Home Medications Medication Instructions Recorded Confirmed Last Taken Type psyllium 1 packet PO DAILY 09/25/21 09/25/21 09/25/21 History Physical Exam Vital Signs: Vital Signs: Last Vital Signs Temp 99.5 F 09/27/21 07:36 Pulse 85 09/27/21 07:36 Resp 16 09/27/21 07:36 BP 114/58 L 09/27/21 07:36 Pulse Ox 98 09/27/21 07:36 O2 Del Method 09/27/21 07:36 BMI result Body Mass Index 24.1 The patient is non-toxic & in good spirits NC/AT, PERRLA, EOMI Mood, affect & judgment all appear appropriate Sclera anicteric conjunctiva pink and moist Oropharynx is clear with no aphthous ulcers, Mallampati class 2, mucous membran es moist Neck is supple with no masses, adenopathy or bruits Thyroid is nontender and free of dominant masses Heart is regular, normal S1-S2 no rubs or murmurs Lungs are clear and equal anteriorly with no audible wheezing, rubs or dullness to percussion No CVA tenderness present Abdomen is overweight with no demonstrable hernias. He has left lower quadrant abdominal pain with localized tenderness but no diffuse rebound, rigidity or guarding. No peritoneal irritation to percussion is present No HSM, rebound, rigidity, guarding, masses or bruits are present. Rectal exam is deferred Skin has good turgor and is free of rashes Extremities free of cyanosis clubbing edema Results Labs Result diagrams: 09/27/21 05:28 09/26/21 06:32 Labs: Abnormal lab results 09/27/21 Range/Units 05:28 WBC 15.8 H (4.8-10.8) X10*3/uL RBC 3.97 L (4.60-5.80) X10*6/uL Hgb 12.5 L (14.0-18.0) g/dl Hct 36.6 L (42.0-52.0) % Short CBC 09/27/21 Range/Units 05:28 WBC 15.8 H (4.8-10.8) X10*3/uL Hgb 12.5 L (14.0-18.0) g/dl Hct 36.6 L (42.0-52.0) % Plt Count 258 (160-400) X10*3/uL All other labs normal. Imaging Abdomen CT scan report/results: report reviewed and image reviewed CT scan - pelvis: report reviewed and image reviewed Assessment and Plan (1) Diverticulitis of intestine with abscess without bleeding: Qualifiers: Diverticulitis site: large intestine Qualified Code(s): K57.20 - Diverticulitis of large intestine with perforation and abscess without bleeding Status: Acute (2) Leukocytosis: Status: Acute Plan The patient and I again discussed the option of a 2nd opinion with a colorectal surgeon versus resection. The importance of excluding malignancy with col onoscopy and nicotine cessation if planning elective sigmoid resection was reviewed. The patient is interested in discussing this on an outpatient basis. Agree with GI's assessment that an to exclude malignancy is in order. Nicotine cessation before an elective colectomy is in order. Continue clear liquids for now given the persistent leukocytosis. Will reassess tomorrow. Trend labs. Procedures Date of Service Date of Service: 09/27/21
--- NOTE | 2021-09-27 10:41 | HO.PM.IMPN ---
Subjective Subjective Date of Service: 09/27/21 Interval History: seen and examined this morning Follow-up for diverticulitis Pain is improving, patient requesting advancement of diet denies any nausea, vomiting Review of Systems Review of Systems: Yes all other systems are reviewed and are negative Constitutional Constitutional: Denies chills and Denies fever(s) Cardiovascular Cardiovascular: Denies chest pain, Denies palpitations and Denies dyspnea Respiratory Respiratory: Denies cough and Denies dyspnea Gastrointestinal Gastrointestinal: Reports abdominal pain, Denies nausea and Denies vomiting Endocrine Endocrine: Denies palpitations Physical Exam Vital Signs: Vital Signs: Last Vital Signs Temp 99.5 F 09/27/21 07:36 Pulse 85 09/27/21 07:36 Resp 16 09/27/21 07:36 BP 114/58 L 09/27/21 07:36 Pulse Ox 98 09/27/21 07:36 O2 Del Method 09/27/21 07:36 BMI result Body Mass Index 24.1 Const: General: cooperative, comfortable, alert and awake Nutritional Appearance: average body habitus Orientation/consciousness: patient oriented x3 Resp: Effort & Inspection: normal respiratory effort and able to speak in complete sentences Auscultation: clear to auscultation bilaterally Cardio: Rate: regular rate Heart sounds: S1 normal heart sound present and S2 normal heart sound present GI: Other: tenderness primarily left lower quadrant. + bowel sounds Inspection: No distended Palpation (GI): Soft to palpation Neuro: General: patient oriented x3 and CN's II-XI intact bilaterally Extrem: General: Yes no pedal edema Objective Data Active Medications Enoxaparin Sodium (Enoxaparin Sodium 40 Mg/0.4 Ml Syringe) 40 mg SUBCUT Q24H [facility] Last Admin: 09/26/21 20:29 Dose: Not Given Documented By: VIRGILIO Non-Admin Reason: pt ambulates Ceftriaxone Sodium 1 gm/ (Sodium Chloride) 50 mls @ 100 mls/hr IV Q24H [facility] Last Infusion: 09/27/21 00:07 Dose: 0 mls/hr Documented By: VIRGILIO Metronidazole (Flagyl) 500 mg in 100 mls @ 100 mls/hr IV Q8H [facility] Last Infusion: 09/27/21 08:27 Dose: 0 mls/hr Documented By: LANG Morphine Sulfate (Morphine Sulfate 4 Mg/Ml Cartridge) 4 mg IVPUSH Q4H PRN; Protocol PRN Reason: Pain, Severe (Pain Scale 7-10) Last Admin: 09/27/21 05:37 Dose: 4 mg Documented By: VIRGILIO Nicotine Polacrilex (Nicotine Polacrilex 2 Mg Gum) 2 mg BUCCAL Q2H PRN PRN Reason: Nicotine Cravings Ondansetron HCl (Ondansetron Hcl 4 Mg/2 Ml Vial) 4 mg IVPUSH Q8H PRN PRN Reason: Nausea and Vomiting Last Admin: 09/26/21 14:59 Dose: 4 mg Documented By: JONEL Pharmacy Consult (Consult Rx Perform Med Rec) 1 each MISCELLANE ONCE PRN PRN Reason: Consult order Psyllium Hydrophilic Mucilloid (Psyllium Seed 3.4 Gm Powd.Pack) 1 gm PO DAILY [facility] Last Admin: 09/27/21 08:20 Dose: 1 gm Documented By: LANG Sodium Chloride (0.9 % Sodium Chloride Flush 3 Ml Syringe) 3 ml IVFLUSH QSHIFT [facility] Last Admin: 09/27/21 08:23 Dose: 3 ml Documented By: LANG Labs CBC & Chem 7: 09/27/21 05:28 09/26/21 06:32 Labs: Laboratory Results - last 24 hr 09/27/21 05:28 MCV 92.2 MCH 31.5 MCHC 34.2 RDW 13.1 Plt Count 258 MPV 11.5 Absolute Nucleated RBC 0.000 Nucleated RBC % (auto) 0.0 Microbiology Microbiology Results: Microbiology 09/25/21 17:13 Blood Culture - Preliminary Blood - Venous No growth after 24 hours. 09/25/21 17:13 Blood Culture - Preliminary Blood - Venous No growth after 24 hours. Assessment and Plan (1) Diverticulitis: Status: Acute Plan 31-year-old male with past medical history of diverticulitis presents to the hospital with abdominal pain found to have recurrent diverticulitis with no perforation sepsis secondary to acute diverticulitis no complications no perforation or abscess leukocytosis trending down blood cultures negative to date -? continue IV ceftriaxone, Flagyl d#2 - seen by GI, recommend outpatient colonoscopy in 4 weeks - surgery consult pending given recurrent episodes of diverticulitis - advanced diet - pain control Tobacco dependence Smoking cessation advised NRT DVT prophylaxis:? Lovenox ?attending-Dr. Fitzpatrick ?requires ongoing inpatient hospitalization for IV antibiotics and treatment of recurrent diverticulitis Quality Stroke Does the patient have a stroke diagnosis?: No VTE Prior VTE?: No VTE Risk Level:: Medical - moderate - high VTE Device Contraindication: N/A - Device Ordered VTE Drug Contraindication: N/A - Med Ordered
[2021-09-27 11:05] VITALS: BP 126/71; PULSE 94; RESP 15; TEMP 36.5; O2SAT 99
[2021-09-27 16:00] VITALS: BP 138/62; PULSE 93; RESP 18; TEMP 37; O2SAT 99
[2021-09-27 19:35] VITALS: BP 127/76; PULSE 110; RESP 18; TEMP 36.9; O2SAT 99
[2021-09-27 23:11] VITALS: BP 116/70; PULSE 100; RESP 18; TEMP 36.5; O2SAT 97
[2021-09-28] MEDS: Morphine Sulfate 4 MG/ML CARTRIDGE IVPUSH ×5 (00:07→23:41)
[2021-09-28] MEDS: cefTRIAXone sodium 1 GM in 0.9 % Sodium Chloride 50 ML IV ×2 (00:07→22:29)
[2021-09-28 03:12] VITALS: BP 142/80; PULSE 97; RESP 18; TEMP 36.6; O2SAT 100
[2021-09-28] MEDS: metroNIDAZOLE/NS 500 MG/100 ML PIGGYBACK 100 MG IV ×3 (05:44→21:24)
[2021-09-28 07:55] VITALS: BP 109/65; PULSE 76; RESP 16; TEMP 36.5; O2SAT 99
[2021-09-28 08:22] LABS: Hematocrit 39.6 % (42.0-52.0); Hemoglobin 13.2 g/dl (14.0-18.0); Mean Corpuscular HGB Conc 33.3 g/dl (31.0-36.0); Mean Corpuscular Hemoglobin 31.3 pg (27.0-33.0); Mean Corpuscular Volume 93.8 fL (80.0-98.0); Mean Platelet Volume 11.2 fL (9.4-12.4); Platelet Count 298 X10*3/uL (160-400); Red Blood Count 4.22 X10*6/uL (4.60-5.80); Red Cell Distribution Width 12.9 % (11.0-16.0); White Blood Count 11.1 X10*3/uL (4.8-10.8)
[2021-09-28] MEDS: 0.9 % Sodium Chloride Flush 3 ML SYRINGE IVFLUSH ×3 (09:51→19:23)
[2021-09-28 11:07] VITALS: BP 129/75; PULSE 92; RESP 17; TEMP 36.5; O2SAT 100
--- NOTE | 2021-09-28 13:46 | P.PNIM_ITS ---
Subjective Subjective Date of Service: 09/28/21 Interval History: seen and examined this morning Follow-up for diverticulitis Pain improving, no nausea, no vomiting Still having left lower quadrant abdominal pain, does not feel ready to return home at time Review of Systems Review of Systems: Yes all other systems are reviewed and are negative Constitutional Constitutional: Denies chills and Denies fever(s) Cardiovascular Cardiovascular: Denies chest pain Gastrointestinal Gastrointestinal: Reports abdominal pain, Denies nausea and Denies vomiting Physical Exam Vital Signs: Vital Signs: Last Vital Signs Temp 97.7 F 09/28/21 11:07 Pulse 92 09/28/21 11:07 Resp 17 09/28/21 11:07 BP 129/75 09/28/21 11:07 Pulse Ox 100 09/28/21 11:07 O2 Del Method 09/28/21 11:07 BMI result Body Mass Index 24.1 Const: General: cooperative, comfortable, alert and awake Nutritional Appearance: average body habitus Orientation/consciousness: patient oriented x3 Resp: Effort & Inspection: normal respiratory effort and able to speak in c omplete sentences Auscultation: clear to auscultation bilaterally Cardio: Rate: regular rate Heart sounds: S1 normal heart sound present and S2 normal heart sound present GI: Other: tenderness primarily left lower quadrant. + bowel sounds Inspection: No distended Palpation (GI): Soft to palpation Neuro: General: patient oriented x3 and CN's II-XI intact bilaterally Extrem: General: Yes no pedal edema Objective Data Active Medications Enoxaparin Sodium (Enoxaparin Sodium 40 Mg/0.4 Ml Syringe) 40 mg SUBCUT Q24H [facility] Last Admin: 09/27/21 20:15 Dose: Not Given Documented By: VIRGILIO Non-Admin Reason: Patient Refused Ceftriaxone Sodium 1 gm/ (Sodium Chloride) 50 mls @ 100 mls/hr IV Q24H [facility] Last Infusion: 09/28/21 02:12 Dose: 0 mls/hr Documented By: VIRGILIO Metronidazole (Flagyl) 500 mg in 100 mls @ 100 mls/hr IV Q8H [facility] Last Admin: 09/28/21 13:24 Dose: 100 mls/hr Documented By: LANG Morphine Sulfate (Morphine Sulfate 4 Mg/Ml Cartridge) 4 mg IVPUSH Q4H PRN; Protocol PRN Reason: Pain, Severe (Pain Scale 7-10) Last Admin: 09/28/21 05:43 Dose: 4 mg Documented By: VIRGILIO Nicotine Polacrilex (Nicotine Polacrilex 2 Mg Gum) 2 mg BUCCAL Q2H PRN PRN Reason: Nicotine Cravings Ondansetron HCl (Ondansetron Hcl 4 Mg/2 Ml Vial) 4 mg IVPUSH Q8H PRN PRN Reason: Nausea and Vomiting Last Admin: 09/26/21 14:59 Dose: 4 mg Documented By: JONEL Pharmacy Consult (Consult Rx Perform Med Rec) 1 each MISCELLANE ONCE PRN PRN Reason: Consult order Psyllium Hydrophilic Mucilloid (Psyllium Seed 3.4 Gm Powd.Pack) 1 gm PO DAILY [facility] Last Admin: 09/28/21 07:27 Dose: 1 gm Documented By: LANG Sodium Chloride (0.9 % Sodium Chloride Flush 3 Ml Syringe) 3 ml IVFLUSH QSHIFT [facility] Last Admin: 09/28/21 09:51 Dose: 3 ml Documented By: LANG Labs CBC & Chem 7: 09/28/21 08:07 09/26/21 06:32 Labs: Laboratory Results - last 24 hr 09/28/21 08:07 MCV 93.8 MCH 31.3 MCHC 33.3 RDW 12.9 Plt Count 298 MPV 11.2 Absolute Nucleated RBC 0.000 Nucleated RBC % (auto) 0.0 Microbiology Microbiology Results: Microbiology 09/25/21 17:13 Blood Culture - Preliminary Blood - Venous No growth after 48 hours. 09/25/21 17:13 Blood Culture - Preliminary Blood - Venous No growth after 48 hours. Assessment and Plan (1) Diverticulitis: Status: Acute Plan 31-year-old male with past medical history of diverticulitis presents to the hospital with abdominal pain found to have recurrent diverticulitis with no perforation sepsis secondary to acute diverticulitis no complications no perforation or abscess leukocytosis trending down blood cultures negative to date -? continue IV ceftriaxone, Flagyl d#3 - seen by GI, recommend outpatient colonoscopy in 4 weeks - seen by surgery, will need outpatient follow-up given recurrent episodes of diverticulitis - tolerating diet but still having abdominal pain - pain control Tobacco dependence Smoking cessation advised NRT DVT prophylaxis:? Lovenox ?attending-Dr. bang ?requires ongoing inpatient hospitalization for IV antibiotics and treatment of recurrent diverticulitis Quality Stroke Does the patient have a stroke diagnosis?: No VTE Prior VTE?: No VTE Risk Level:: Medical - moderate - high VTE Device Contraindication: N/A - Device Ordered VTE Drug Contraindication: N/A - Med Ordered
[2021-09-28 15:20] VITALS: BP 137/78; PULSE 98; RESP 17; TEMP 36.7; O2SAT 98
--- NOTE | 2021-09-28 15:40 | P.PNGS_ITS ---
Subjective Subjective Date of Service: 09/28/21 Patient reports: no new complaints and pain is less Interval history: The patient reports flatus and bowel movement. He is tolerating a regular diet. He otherwise has no new complaints. Physical Exam Vital Signs: Vital Signs: Last Vital Signs Temp 98.0 F 09/28/21 15:20 Pulse 98 09/28/21 15:20 Resp 17 09/28/21 15:20 BP 137/78 09/28/21 15:20 Pulse Ox 98 09/28/21 15:20 O2 Del Method 09/28/21 15:20 BMI result Body Mass Index 24.1 He is nontoxic He is in good spirits with appropriate mood, affect and judgment His abdomen is soft with no peritoneal sign. Minimal discomfort in the left lower quadrant is noted Extremities are free of edema and palpable cord Objective Data Active Medications Enoxaparin Sodium (Enoxaparin Sodium 40 Mg/0.4 Ml Syringe) 40 mg SUBCUT Q24H [facility] Last Admin: 09/27/21 20:15 Dose: Not Given Documented By: VIRGILIO Non-Admin Reason: Patient Refused Ceftriaxone Sodium 1 gm/ (Sodium Chloride) 50 mls @ 100 mls/hr IV Q24H [facility] Last Infusion: 09/28/21 02:12 Dose: 0 mls/hr Documented By: VIRGILIO Metronidazole (Flagyl) 500 mg in 100 mls @ 100 mls/hr IV Q8H [facility] Last Infusion: 09/28/21 14:48 Dose: 0 mls/hr Documented By: LANG Morphine Sulfate (Morphine Sulfate 4 Mg/Ml Cartridge) 4 mg IVPUSH Q4H PRN; Protocol PRN Reason: Pain, Severe (Pain Scale 7-10) Last Admin: 09/28/21 13:52 Dose: 4 mg Documented By: LANG Nicotine Polacrilex (Nicotine Polacrilex 2 Mg Gum) 2 mg BUCCAL Q2H PRN PRN Reason: Nicotine Cravings Ondansetron HCl (Ondansetron Hcl 4 Mg/2 Ml Vial) 4 mg IVPUSH Q8H PRN PRN Reason: Nausea and Vomiting Last Admin: 09/26/21 14:59 Dose: 4 mg Documented By: JONEL Pharmacy Consult (Consult Rx Perform Med Rec) 1 each MISCELLANE ONCE PRN PRN Reason: Consult order Psyllium Hydrophilic Mucilloid (Psyllium Seed 3.4 Gm Powd.Pack) 1 gm PO BEDTIME [facility] Sodium Chloride (0.9 % Sodium Chloride Flush 3 Ml Syringe) 3 ml IVFLUSH QSHIFT [facility] Last Admin: 09/28/21 09:51 Dose: 3 ml Documented By: LANG Labs CBC & Chem 7: 09/28/21 08:07 09/26/21 06:32 Labs: Laboratory Results - last 24 hr 09/28/21 08:07 MCV 93.8 MCH 31.3 MCHC 33.3 RDW 12.9 Plt Count 298 MPV 11.2 Absolute Nucleated RBC 0.000 Nucleated RBC % (auto) 0.0 Microbiology Microbiology Results: Microbiology 09/25/21 17:13 Blood Culture - Preliminary Blood - Venous No growth after 48 hours. 09/25/21 17:13 Blood Culture - Preliminary Blood - Venous No growth after 48 hours. Procedures Date of Service Date of Service: 09/28/21 Progress Note: A&P Assessment and plan (1) Diverticulitis of intestine with abscess without bleeding: Status: Acute (2) Cigarette smoker: Status: Acute Plan The patient remains interested in elective resection. The importance of colonoscopy to exclude malignancy and nicotine cessation was also reviewed and discussed at length. The patient will follow-up with me in 2-3 weeks. His questions seemed to be satisfactorily answered. Time Spent With Patient Time: Total time spent is greater than 50% in coordination of care (as documented) at patient's floor/unit and/or counseling patient: Quality Stroke Does the patient have a stroke diagnosis?: No VTE Prior VTE?: No VTE Risk Level:: Medical - moderate - high VTE Device Contraindication: N/A - Device Ordered VTE Drug Contraindication: N/A - Med Ordered
[2021-09-28 19:41] VITALS: BP 127/82; PULSE 90; RESP 17; TEMP 37.1; O2SAT 99
[2021-09-28 23:25] VITALS: BP 152/81; PULSE 87; RESP 17; TEMP 36.4; O2SAT 98
[2021-09-29 03:15] VITALS: BP 124/77; PULSE 82; RESP 17; TEMP 36.7; O2SAT 99
[2021-09-29] MEDS: metroNIDAZOLE/NS 500 MG/100 ML PIGGYBACK 100 MG IV (05:19)
[2021-09-29 07:33] VITALS: BP 123/78; PULSE 84; RESP 18; TEMP 36.7; O2SAT 99
[2021-09-29] MEDS: 0.9 % Sodium Chloride Flush 3 ML SYRINGE IVFLUSH (07:54)
--- NOTE | 2021-09-29 09:05 | PM.DS ---
DS: Providers Provider Date of Service: 09/29/21 Date of admission: 09/25/21 19:50 Primary care physician: Unknown Physician Consults: 09/26/21 07:17 Consult to Gastroenterology Routine Consulting Provider: Kristie Johns Reason for consultation: recurrent diverticulitis Has provider been notified: No 09/27/21 07:25 Consult to General Surgery Routine Consulting Provider: Randy Watt Reason for consultation: recurrent diverticulitis Has provider been notified: No DS: Diagnosis Discharge Diagnosis (1) Diverticulitis of intestine with abscess without bleeding: Status: Acute (2) Cigarette smoker: Status: Inactive DS: Summary Hospital Course Hospital Course: [facility] Complaint: abd pain 31-year-old male with past medical history of diverticulitis in the past presents to the hospital with abdominal pain that is in the left lower quadrant, 10/10, nonradiating, associated with nausea and low appetite, no diarrhea constipation.? Patient reports that he has had diverticulitis in the same spot in the past x2.? He denies any fever but has chills, no chest pain, no shortness of breath.? no urinary symptoms and no lower extremity edema.? On arrival to the ED patient has a heart rate of 121, slightly elevated blood pressure, Labs are significant for WBC count 24.8, hemoglobin 13.9, hematocrit of 39.8 lactic acid of 2.1, CT abdomen shows acute sigmoid diverticulitis with no evidence of perforation or abscess Patient will be admitted for further management given sepsis Hospital course: Patient was admitted with recurrent diverticulitis but w/o perforation. He has been treated with IV Abx with good effect. He was evaluation but GI (Dr. Johns) who recommends outpatient colonoscopy within 4 weeks and was also seen by Surgery (Dr. Watt) who recommends elective resection of sigmoid coloc and will follow up in the office in 2 to 3 weeks. Presently he is doing well, diet has been advanced and tolerating regular diet. Time Spent with Patient Time attestation: Total time spent providing and/or coordinating discharge services: Discharge coordination time: Greater than 30 minutes Quality: Safe Use of Opioids Does Pt have an Active Cancer Diagnosis on the Problem List?: No Quality: Stroke Does the patient have a stroke diagnosis?: No Physical Exam Vital Signs: Vital Signs: Last Vital Signs Temp 98.0 F 09/29/21 07:33 Pulse 84 08/15/22 07:33 Resp 18 09/29/21 07:33 BP 123/78 09/29/21 07:33 Pulse Ox 99 09/29/21 07:33 O2 Del Method 09/29/21 07:33 BMI result Body Mass Index 24.1 DS: Data Data Completed and Pending Labs on day of discharge: Preliminary micro results at discharge 09/25/21 17:13 Blood Culture - Preliminary Blood - Venous No growth after 48 hours. 09/25/21 17:13 Blood Culture - Preliminary Blood - Venous No growth after 48 hours. Discharge Plan Discharge Anticipated Discharge Date/Time: 09/29/21 09:10 Patient Disposition: Home, Self-Care Discharge Diagnosis: Acute and recurrent diverticulitis Referrals: Kristie Johns MD [Physician] - 2 Weeks PhysicianShantel [Physician] - 1 Week Randy Watt MD [Physician] - 3 Weeks Discharge Orders: Discharge Order (Routine); Ordered 09/29/21 Ordered By: Tom Hou Diet: Advance to usual diet Activity on Discharge: As tolerated Stand Alone Forms: Patient Portal Discharge page Care Plan Goals: Resolution of diverticulitis Health Concerns: recurrent diverticulitis Plan of Treatment: Take Ceftin and Flagyl and follow up with your Doctor, Dr. Pinon and Dr. Watt Assessment: As above Discharge Date/Time: 09/29/21 11:22
== END 2021-09-29 11:22 | disposition home or self-care (01) | DRG 720 ==
LOC: HO.ED 19:23 → HO.EDOVER 20:13 → HO.S3 09-26 17:13
PROVIDERS: Nurse Practitioner Family; Physician Assistant Medical; Admitting Provider Internal Medicine; Emergency Provider Internal Medicine; PCP Internal Medicine; Visit Provider Internal Medicine
DX: A41.9 Sepsis, unspecified organism (principal); F17.210 Nicotine dependence, cigarettes, uncomplicated; K57.32 Diverticulitis of large intestine without perforation or abscess without bleeding; Z20.822 Contact with and (suspected) exposure to COVID-19; Z71.6 Tobacco abuse counseling; Z88.6 Allergy status to analgesic agent; Z79.899 Other long term (current) drug therapy
CPT/HCPCS: 36415; 74177; 80048; 80076; 83605; 83690; 85025; 85027; 87040; 87635; 96361; 96365; 96375; 96376; 99218; 99285; J0696; J1650; J2270; J2405; J2543; Q9967

== ENCOUNTER → 2021-10-16 08:28 | Outpatient (BNVA) | payer OTHER, SELFPAY | PROVIDERS: PCP Internal Medicine; Referring Provider Internal Medicine; Visit Provider Internal Medicine | DX: K57.20 Diverticulitis of large intestine with perforation and abscess without bleeding (principal); R74.8 Abnormal levels of other serum enzymes; K76.0 Fatty (change of) liver, not elsewhere classified | CPT/HCPCS: 99212 ==

== ENCOUNTER → 2021-10-22 14:51 | Outpatient (BNVA) | payer OTHER, SELFPAY | PROVIDERS: PCP Internal Medicine; Referring Provider Internal Medicine; Visit Provider Surgery | DX: K57.20 Diverticulitis of large intestine with perforation and abscess without bleeding (principal) | CPT/HCPCS: 99212 ==

== ENCOUNTER 2022-04-30 09:02 | Day surgery (SDC) | payer OTHER, SELFPAY ==
[2022-01-16 15:01] VITALS: BMI 26.0
[2022-04-27 11:44] VITALS: BMI 26.2
--- NOTE | 2022-04-29 14:20 | HO.ANESPROP2 ---
Documented by User: Allyn Burton NP 04/29/22 14:20 HPI - Anesthesia Eval Consult details Narrative: 32yo M for Colonoscopy PMFSH Active Problems Active Problems: All Active Problems (Updated 01/16/22 @ 14:47 by Sofi Banks RN) No pertinent past medical history (Acute) Abdominal pain (Acute) Colitis (Acute) Past Medical History Medical History Cigarette smoker Diverticulitis of intestine with abscess without bleeding Surgical History Surgical History History of ankle surgery Social History Social History Household Members: Spouse Housing: Apartment Do you presently have visiting nurse or other home services: No Alcohol intake: current Alcohol intake frequency: holidays/special occasions only Patient Tobacco Use Status: Current everyday Tobacco user Tobacco use type: Cigarette Cigarette Packs Per Day: 0.5 Cigarettes Per Day: 10.0 Years Smoked: 18 e-Cigarette/Vaping Use: Never Used Second Hand Smoke Exposure: No Substance Use Type: Marijuana Are you DNR?: No Advance Directives: No Advance Directives Information Provided: Yes Recently lost weight without trying: No Nutrition Risks: Acute nausea or vomiting x1 week service: No Current occupational status: employed Meds Allergies Allergy/AdvReac Type Severity Reaction Status Date / Time acetaminophen [From Tylenol] Allergy Mild rash Verified 10/22/21 15:00 Home Medications Medication Instructions Recorded Confirmed Last Taken Type No Known Home Meds 01/16/22 01/16/22 Unknown History Exam Exam Date and Time: April 29, 2022 1420 Height,Weight and Vital Signs: Height 5 ft 5 in Weight 71.441 kg Assessment and Plan Assessment Anesthesia Assessment: Chart Reviewed Documented by User: Milton Merchant MD 04/30/22 11:13 [facility] Past Medical History Medical History Cigarette smoker Diverticulitis of intestine with abscess without bleeding Family History Family history of problems with anesthesia: No Surgical History Surgical History History of ankle surgery History of Problems with Anesthesia: No Social History Social History Household Members: Spouse Housing: Apartment Do you presently have visiting nurse or other home services: No Alcohol intake: current Alcohol intake frequency: holidays/special occasions only Patient Tobacco Use Status: Current everyday Tobacco user Tobacco use type: Cigarette Cigarette Packs Per Day: 0.5 Cigarettes Per Day: 10.0 Years Smoked: 18 e-Cigarette/Vaping Use: Never Used Second Hand Smoke Exposure: No Substance Use Type: Marijuana Are you DNR?: No Advance Directives: No Advance Directives Information Provided: Yes Recently lost weight without trying: No Nutrition Risks: Acute nausea or vomiting x1 week service: No Current occupational status: employed Meds Allergies Allergy/AdvReac Type Severity Reaction Status Date / Time acetaminophen [From Tylenol] Allergy Mild rash Verified 10/22/21 15:00 Home Medications Medication Instructions Recorded Confirmed Last Taken Type No Known Home Meds 01/16/22 01/16/22 Unknown History Exam Airway Mallampati Class: I TM Dist: >3cm Neck ROM: Full Denture: Upper Loose/Missing/Broken Teeth: No Other: Sleepy at baseline, AO. Last marijuana use last night Assessment and Plan Assessment Anesthesia Assessment: Anesthesia Plan Discussed Final Anesthetic Review Family History of Problems with Anesthesia: No History of Problems with Anesthesia: No NPO: Yes ASA Class: II Final Preanesthetic Review: No Changes in Pt Med Stat, Meds/Allgs Chart Reviewed, Consent Obtained/Reviewed and Anes Risks/Benef Reviewed Patient Risk: Low Procedure Risk: Low Anesthetic Plan Anesthetic Plan: MAC: Disposition: Standard PACU
[2022-04-30 09:32] VITALS: BP 134/70; PULSE 102; RESP 18; TEMP 36.8; O2SAT 98
[2022-04-30] MEDS: Lactated Ringers 1,000 ML 100 ML IVCONT (09:43)
--- NOTE | 2022-04-30 09:49 | MHC.SHP ---
Pre-Procedural Eval Section A Date of Service: 04/30/22 Section B Chief Complaint: Diverticulitis of large intestine with perforation Details of Present Illness: PMH: Cigarette smoker Diverticulitis of intestine with abscess without bleeding No pertinent past medical history Surgical History: History of ankle surgery Relevant Family History (Specify if Yes): No Relevant Social History: Tobacco Use Present Medications: see Short Stay Collaborative assessment Allergies: Allergies Allergy/AdvReac Type Severity Reaction Status Date / Time acetaminophen [From Tylenol] Allergy Mild rash Verified 10/22/21 15:00 Review of Systems Review of Systems Comment: Ten point ROS negative Exam Exam Comment: Gen appear: No acute distress HEENT: no icterus Chest: No overt resp distress Abd: soft, nontender, nondistended Psych: Stable affect, answering questions appropriately Neuro: A/Ox3 noted to move all extremities spontaneously Ext: no peripheral edema Plan Diagnosis/Plan: Unchanged I have reviewed the history and physical and performed a pertinent physical examination on my patient. No changes have occurred unless specified. Time Spent With Patient Time: Total time managing care of this patient today ____ minutes.
--- NOTE | 2022-04-30 09:53 | P.OP_ITS ---
Operative Note Operative Note Date of Service: 04/30/22 Narrative: Procedure: Colonoscopy Indication: Diverticulitis Endoscopist: Delfina Benoit MD Anesthesia Provider: Dr Milton Merchant Anesthesia type: MAC Instrument: Olympus [id number]-H190L Consent: Indication, risks vs benefits, and alternatives were discussed with the patient who gave written informed consent to proceed. EKG, pulse, pulse oximetry and blood pressure were monitored throughout the procedure. Please see anesthesia flowsheet. Procedure: The patient was brought to the procedure room and placed in the left lateral decubitus position. IV medications were administered by the anesthesia provider in attendance. A digital rectal exam was performed which was normal. A distal attachment cap was affixed to the tip of the scope and the colonoscope was then inserted through the anus and advanced through the colon to the cecum at 75 cm and terminal ileum. Ileocecal valve and appendiceal orifice were identified. Mucosa was carefully examined under high definition white light as the instrument was slowly withdrawn in a retrograde panoramic fashion. Ascending colon was intubated twice. Retroflexion was performed in rectum. The procedure was not difficult. There were no immediate obvious complications. The quality of the prep was BBPS: 2+3+2 = adequate Withdrawal time 13 minutes. Limitations: No limitations. Findings: Mucosa: Patchy erythema and edema was noted in the sigmoid colon and the back on diverticulosis. Cold forceps biopsies were taken to rule out segmental colitis associated with diverticulosis. Remaining colon and terminal ileum mucosa was normal. Protruding lesions: * 1 sessile polyp of size 5 mm in transverse colon. Cold snare polypectomy was performed. The polyp was completely removed and retrieved. * Medium internal hemorrhoids with stigmata of recent bleeding. Excavated lesions: * Moderate diverticulosis of sigmoid colon. Impression: 1. Abnormal sigmoid colon mucosa 2. Total of 1 polyp removed from transverse colon. 3. Internal hemorrhoids 4. Diverticulosis Recommendations: - Follow path results. - Repeat colonoscopy in 7-10 years if polyp is an adenoma otherwise resume at 43y.o.
[2022-04-30 11:08] VITALS: BP 127/63; PULSE 92; RESP 18; TEMP 36.7; O2SAT 99
[2022-04-30 11:23] VITALS: BP 132/87; PULSE 98; RESP 16; TEMP 36.8; O2SAT 100
== END 2022-04-30 11:43 | disposition home or self-care (01) ==
PROVIDERS: PCP Internal Medicine; Visit Provider Internal Medicine
PROC: 0DJD8ZZ Inspection of Lower Intestinal Tract, Via Natural or Artificial Opening Endoscopic (ICD-10-PCS; CPT 45378; principal; 2022-04-30 10:30)
DX: K57.30 Diverticulosis of large intestine without perforation or abscess without bleeding (principal); K63.5 Polyp of colon; K64.8 Other hemorrhoids; F12.90 Cannabis use, unspecified, uncomplicated; R74.8 Abnormal levels of other serum enzymes; K76.0 Fatty (change of) liver, not elsewhere classified; F17.210 Nicotine dependence, cigarettes, uncomplicated; Z88.8 Allergy status to other drugs, medicaments and biological substances
CPT/HCPCS: 45385; 45380; 88305

== ENCOUNTER → 2022-05-15 12:43 | Outpatient (BNVA) | payer OTHER, SELFPAY | PROVIDERS: PCP Internal Medicine; Visit Provider Internal Medicine | DX: K57.90 Diverticulosis of intestine, part unspecified, without perforation or abscess without bleeding (principal); F17.210 Nicotine dependence, cigarettes, uncomplicated | CPT/HCPCS: 99212 ==

== ENCOUNTER 2024-02-03 09:42 | Emergency (ER) | payer OTHER, SELFPAY ==
--- NOTE | ~2024-02-03 | CT_ITS ---
EXAMINATION: CT ABDOMEN AND PELVIS WITH CONTRAST CLINICAL INFORMATION: Left Lower quadrant abdominal pain. History of diverticulitis. COMPARISON: CT dated September 25, 2021. TECHNIQUE: Multidetector volumetric images were obtained from the superior aspect of the liver through the pubic symphysis following administration 85 mL of Omnipaque 350 intravenous contrast. Sagittal and coronal reformatted images were obtained on the technologist's workstation. Oral contrast: No This CT examination was performed using dose optimization techniques as appropriate, variously including the following: *Automated exposure control *Adjustment of mA and/or kV according to patient size (this includes techniques or standardized protocols for targeted exams where dose is matched to indication/reason for exam; i.e. extremities or head) *Use of iterative reconstruction technique DLP: 406 mGy-cm FINDINGS: LUNG BASES: No acute airspace disease or gross pulmonary nodules. LIVER, GALLBLADDER, AND BILIARY TREE: Liver measures 19 cm with decreased enhancement pattern. No focal mass. Portal veins, hepatic veins and intrahepatic portion of the IVC are patent. Gallbladder is contracted. Common bile duct measures 3 mm. PANCREAS: No focal mass. No peripancreatic fluid collection. No main pancreatic ductal dilatation. SPLEEN: 10 cm. No focal lesion. ADRENAL GLANDS: No nodular lesion. KIDNEYS AND URETERS: No renal mass or hydronephrosis. Normal enhancement pattern both kidneys. BLADDER: Fluid-filled nearly collapsed. GASTROINTESTINAL TRACT: There is a segmental area of asymmetric wall thickening narrowing the lumen and multiple diverticula with pericolonic edema pattern centered in the distal descending colon/proximal sigmoid colon junction. There is a focal extraluminal gas in the antimesenteric margin of the proximal sigmoid colon. Numerous diverticula in the left hemicolon. Collapsed appearance of the rectosigmoid colon. No intestinal obstruction pattern. No ascites. No gross peripheral enhancing fluid collection, peritoneal cavity. Normal variant pneumoperitoneum. Appendix is normal and long. ABDOMINAL WALL: No gross hernia. Diastases abdominal rectus muscles in the periumbilical region. LYMPH NODES: Prominent lymph nodes, mesenteric and retroperitoneum. VASCULAR: No aneurysm or dissection, abdominal aorta. PELVIC VISCERA: Normal-sized prostate gland and seminal vesicles. OSSEOUS STRUCTURES: Spondylolysis pars interarticularis L5-S1. No listhesis. Spina bifida occulta, L5 and S1. CT/CT abdomen pelvis w IV con IMPRESSION: Acute diverticulitis, distal descending colon/proximal sigmoid colon with complicated phlegmon versus early abscess. Hepatomegaly and steatosis. 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 Fleischner guidelines were followed. Electronically signed by: Navneet Lara MD 02/03/2024 02:51 PM EST
[2024-02-03 09:52] VITALS: BP 137/84; PULSE 121; RESP 20; TEMP 36.8; O2SAT 98; BMI 25.4
[2024-02-03 10:16] LABS: MANUAL DIFF FLAG NO
[2024-02-03 10:20] LABS: Basophils Absolute Auto 0.1 X10*3/uL (0.0-0.2); Basophils Percent Auto 0.7 % (0-2); Eosinophils Absolute Auto 0.3 X10*3/uL (0.0-0.4); Hematocrit 37.5 % (42.0-52.0); Hemoglobin 13.2 g/dl (14.0-18.0); Imm Gran Abs Auto 0.11 X10*3/uL (0.00-0.03); Imm Gran Pct Auto 0.8 % (0.0-0.4); Lymphocytes Absolute Auto 2.2 X10*3/uL (1.2-4.9); Lymphocytes Percent Auto 16.2 % (20-40); Mean Corpuscular HGB Conc 35.2 g/dl (31.0-36.0); Mean Corpuscular Hemoglobin 32.7 pg (27.0-33.0); Mean Corpuscular Volume 92.8 fL (80.0-98.0); Monocytes Percent Auto 7.4 % (2-11); Neutrophils Percent Auto 72.9 % (45-73); Platelet Count 324 X10*3/uL (160-400); Red Blood Count 4.04 X10*6/uL (4.60-5.80); Red Cell Distribution Width 11.9 % (11.0-16.0); White Blood Count 13.8 X10*3/uL (4.8-10.8)
[2024-02-03 10:39] LABS: Alanine Aminotransferase 50 U/L (0-40); Albumin Level 4.3 g/dL (3.5-5.0); Alkaline Phosphatase 63 U/L (39-117); Anion Gap 10 (12-20); Aspartate Amino Transferase 30 U/L (5-37); Bilirubin Direct < 0.2 mg/dL (0.0-0.5); Bilirubin Total 0.2 mg/dL (0.0-1.0); Blood Urea Nitrogen 8 mg/dL (9-16); Calcium 9.7 mg/dL (8.4-10.2); Carbon Dioxide 29 mmol/L (22-29); Chloride 105 mmol/L (96-108); Creatinine Clr Calc Pharmacy 79.3; Estimated Glomerular Filt Rate > 60; Glucose Random 237 mg/dL (60-115); Lipase 66 U/L (8-78); Potassium 4.1 mmol/L (3.3-5.1); Sodium 140 mmol/L (135-145); Total Protein 7.4 g/dL (6.5-8.0)
[2024-02-03 11:03] VITALS: BP 144/71; PULSE 108; RESP 16; O2SAT 98
[2024-02-03] MEDS: Ketorolac Tromethamine 15 MG/ML VIAL IVPUSH (11:33)
--- NOTE | 2024-02-03 11:33 | ED_ITS ---
HPI - Abdominal Pain General Chief Complaint: Abdominal Pain Stated Complaint: Abd pain Time Seen by Provider: 02/03/24 11:01 Source: patient, RN notes reviewed and old records reviewed Mode of arrival: ambulatory History of Present Illness ED Provider: Tahira Zepeda PA-C HPI narrative: 33-year-old male with a past medical history diverticulitis presenting to the ED complaining of left lower quadrant abdominal pain x3 days. Admits pain feels similar to prior diverticulitis, took left over antibiotics, Levaquin and Flagyl x2 days with some relief. Denies fever, chills, nausea, vomiting, dysuria/hematuria Related Data Home Medications ?Medication ?Instructions ?Recorded ?Confirmed No Known Home Meds 01/16/22 01/16/22 Allergies Allergy/AdvReac Type Severity Reaction Status Date / Time acetaminophen [From Tylenol] Allergy Mild rash Verified 02/03/24 09:56 Review of Systems Review of Systems Yes all other systems are reviewed and are negative Constitutional: Reports as per [facility] Past Medical History Attestation statement: The following information was validated with the patient. Source: old records reviewed Medical History Cigarette smoker Diverticulitis of intestine with abscess without bleeding Surgical History Hx of colonoscopy History of ankle surgery Social History Social History Household Members: Spouse Housing: Apartment Do you presently have visiting nurse or other home services: No Alcohol intake: current Alcohol intake frequency: holidays/special occasions only Patient Tobacco Use Status: Current everyday Tobacco user Tobacco use type: Cigarette Cigarette Packs Per Day: 0.5 Cigarettes Per Day: 10.0 Years Smoked: 18 Smoked in Last 30 Days: No e-Cigarette/Vaping Use: Never Used Second Hand Smoke Exposure: No Use of substances other than those prescribed or required for medical reasons: No Substance Use Type: Marijuana Advance Directives: No Advance Directives Information Provided: Yes Do you have a plan to hurt others: No Plan service: No Current occupational status: employed Physical Exam ED Vital Signs: Vital Signs - 24 hr 02/03/24 09:52 02/03/24 11:03 02/03/24 13:19 Temperature 98.3 F 98.1 F Pulse Rate 121 H 108 H 101 H Respiratory Rate 20 16 18 Blood Pressure 137/84 144/71 H 128/80 Pulse Oximetry 98 98 99 Oxygen Delivery Method Room Air Room Air Room Air 02/03/24 14:51 Temperature 98.2 F Pulse Rate 100 Respiratory Rate 16 Blood Pressure 120/60 Pulse Oximetry 98 Oxygen Delivery Method Room Air BMI result Body Mass Index 25.4 Const General: cooperative, healthy appearing and no acute distress Orientation/consciousness: patient oriented x3 Limitations: no limitations HENMT Head: Yes normal to inspection and Yes atraumatic Ears: hearing grossly normal bilaterally General nose exam: Normal external nose present Face and sinus: Yes normal facial exam Eyes General: appearance normal, both eyes and all related structures EOM: EOMs intact bilaterally Neck Neck: Yes normal visual inspection and Yes no meningeal signs Resp Effort & Inspection: normal respiratory effort and no respiratory distress Auscultation: clear to auscultation bilaterally Cardio Rate: regular rate Heart sounds: S1 normal heart sound present and S2 normal heart sound present GI Inspection: Yes normal to inspection Palpation (GI): Soft to palpation, Tenderness to palpation present (GI) in the LLQ; with no rebound tenderness, no guarding and not rigid General: Yes no CVA tenderness Back/Spine/Pelvis Back: no CVA tenderness Skin Rashes: no rashes Wounds: no wounds Neuro General: patient oriented x3, tone normal and no meningeal signs Cranial nerves: Yes CN's II-XII intact bilaterally Gait exam (Neuro): Normal gait present Extrem General: Yes normal to inspection Course Course Course Narrative: -1136--leukocytosis of 13.8 > will obtain lactic/blood cultures and give empiric Zosyn. H&H at patient's baseline -labs otherwise reassuring -1430--patient would like to leave AMA prior to CT results. Discussed importance of waiting and knowing what CT shows however patient is A&O x3/competent to make his own decisions and would like to leave regardless. Will sign out AMA 1500--CT abdomen pelvis w IV con IMPRESSION: Acute diverticulitis, distal descending colon/proximal sigmoid colon with complicated phlegmon versus early abscess. Hepatomegaly and steatosis. 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 Fleischner guidelines were followed. > 1503-- called patient's listed phone number, no answer, left voicemail. Called patient's emergency contact, his and spoke with her, informed her that patient needs to return to the emergency department and important that he contacts us. -5159--patient called back and spoke with him, made aware that he needs to return to the ED for admission. Reports understanding and states he will return to the ED today Medical Decision Making Medical Decision Making MDM Narrative: 33-year-old male with a past medical history diverticulitis presenting to the ED complaining of left lower quadrant abdominal pain x3 days. On exam tachycardic likely from pain, NAD, nontoxic appearing, abdomen soft with left lower quadrant tenderness, no rebound or guarding. Concern for diverticulitis vs colitis vs ? Appendicitis. Lower suspicion for UTI, pyelo, cholecystitis/lithiasis or pancreatitis Low suspicion for severe sepsis at this time Plan: Labs, UA, CT AP, IVF, pain control Please refer to course for remaining clinical decision making, interpretation of labs/imaging results, and discussions with consultants and/or family members. Differential Diagnosis Differential Diagnoses: The differential diagnosis associated with the presentation includes As above Admission/Observation Consideration of admission/observation: Escalation of care including admission/observation considered Lab Data MDM Lab Attestation statement: I reviewed the patient's lab results. 02/03/24 10:05 02/03/24 10:05 Labs: Lab Results 02/03/24 02/03/24 Range/Units 10:05 12:20 WBC 13.8 H (4.8-10.8) X10*3/uL RBC 4.04 L (4.60-5.80) X10*6/uL Hgb 13.2 L (14.0-18.0) g/dl Hct 37.5 L (42.0-52.0) % MCV 92.8 (80.0-98.0) fL MCH 32.7 (27.0-33.0) pg MCHC 35.2 (31.0-36.0) g/dl RDW 11.9 (11.0-16.0) % Plt Count 324 (160-400) X10*3/uL MPV 11.0 (9.4-12.4) fL Immature Gran % (Auto) 0.8 H (0.0-0.4) % Neut % (Auto) 72.9 (45-73) % Lymph % (Auto) 16.2 L (20-40) % [place] % (Auto) 7.4 (2-11) % Eos % (Auto) 2.0 (0-4) % Baso % (Auto) 0.7 (0-2) % Lymph # (Auto) 2.2 (1.2-4.9) X10*3/uL [place] # (Auto) 1.0 (0.1-1.2) X10*3/uL Eos # (Auto) 0.3 (0.0-0.4) X10*3/uL Baso # (Auto) 0.1 (0.0-0.2) X10*3/uL Abs Immat Gran (auto) 0.11 H (0.00-0.03) X10*3/uL Absolute Neuts (auto) 10.0 H (2.0-8.3) x10*3/uL Absolute Nucleated RBC 0.000 (0.0-0.012) X10*3/uL Nucleated RBC % (auto) 0.0 (0.0-0.2) /100WBC Sodium 140 (135-145) mmol/L Potassium 4.1 (3.3-5.1) mmol/L Chloride 105 (96-108) mmol/L Carbon Dioxide 29 (22-29) mmol/L Anion Gap 10 L (12-20) BUN 8 L (9-16) mg/dL Creatinine 1.13 (0.5-1.4) mg/dL Estim Creat Clear Calc 79.3 Estimated GFR > 60 Random Glucose 237 H (60-115) mg/dL Lactic Acid 1.1 (0.5-2.0) mmol/L Calcium 9.7 D (8.4-10.2) mg/dL Magnesium 1.7 (1.6-2.6) mg/dL Total Bilirubin 0.2 (0.0-1.0) mg/dL Direct Bilirubin < 0.2 (0.0-0.5) mg/dL AST 30 (5-37) U/L ALT 50 H (0-40) U/L Alkaline Phosphatase 63 (39-117) U/L Total Protein 7.4 (6.5-8.0) g/dL Albumin 4.3 (3.5-5.0) g/dL Lipase 66 (8-78) U/L Independent Interpretation I performed an independent interpretation of an: CT Scan Radiology Impression Discussion of test interpretation with radiology: I have reviewed the radiologist's reading. External Record Review External record reviewed: Inpatient record, Office record, Outpatient record, Prior outpatient labs, Prior outpatient radiology, Primary care record and Outside ED record Tests considered The following testing was considered but not selected: As above Prescription Management I considered prescription management with: Pain Medication Chronic Conditions Patient?s care impacted by: Other Social Determinants Patient?s care significantly limited by Social Determinants of Health including: Other Social Determinant of Health Medications Administered Discontinued Medications Generic Name Dose Route Start Last Admin Trade Name Freq PRN Reason Stop Dose Admin Sodium Chloride 1,000 mls @ 999 mls/hr 02/03/24 11:30 02/03/24 13:14 Ns IV 02/03/24 12:30 Infused .Q1H1M SABA Infusion Piperacillin Sod/Tazobactam 50 mls @ 100 mls/hr 02/03/24 11:36 02/03/24 13:14 Sod 3.375 gm/ Sodium Chloride IV 02/03/24 12:05 Infused ONCE ONE Infusion Iohexol 100 ml 02/03/24 13:09 02/03/24 13:10 Iohexol 350 Mg/Ml 100 Ml Infus..Btl IV 02/03/24 13:10 85 ml ONCE ONE Administration Ketorolac Tromethamine 15 mg 02/03/24 11:21 02/03/24 11:33 Ketorolac Tromethamine 15 Mg/Ml Vial IVPUSH 02/03/24 11:22 15 mg ONCE ONE Administration Critical Care Time Critical Care Time Critical Care Time: Yes Total Critical Care Time: 35 Attestation: I have personally provided critical care time exclusive of time spent on separately billable procedures. Time includes review of lab data, radiology results, discussion with consultants, and monitoring for potential decompensation. Intervention performed as documented. Discharge Plan Discharge Clinical Impression: Diverticulitis of large intestine with complication Patient Disposition: Left Against Medical Advice Instructions: Abdominal Pain (ED) Additional Instructions: You are leaving prior to your CT scan results You are always welcome to return to the emergency department Please close follow-up with your doctor If symptoms persist or worsen you constant worsening pain, you are unable to eat or drink return to the ED Prescriptions: No Action No Known Home Meds Stand Alone Forms: Against Medical Advice Interventions: ED Discharge Assessment Last Done: 02/03/24 14:51 Discharge Date/Time: 02/03/24 14:53 Print Language: Kinyarwanda
[2024-02-03 11:34] LABS: Magnesium 1.7 mg/dL (1.6-2.6)
[2024-02-03] MEDS: 0.9 % Sodium Chloride 1,000 ML 999 ML IV (11:35)
--- NOTE | 2024-02-03 12:27 | PC.NURSE ---
Med administration delayed d/t pt hard stick. Attempting to obtain second set of cultures.
[2024-02-03] MEDS: Piperacillin Sodium/Tazobactam 3.375 GM in 0.9 % Sodium Chloride 50 ML IV (12:35)
[2024-02-03 12:41] LABS: Lactic Acid 1.1 mmol/L (0.5-2.0)
[2024-02-03] MEDS: iohexoL 350 MG/ML 100 ML INFUS..BTL IV (13:10)
[2024-02-03 13:19] VITALS: BP 128/80; PULSE 101; RESP 18; TEMP 36.7; O2SAT 99
[2024-02-03 14:51] VITALS: BP 120/60; PULSE 100; RESP 16; TEMP 36.8; O2SAT 98
== END 2024-02-03 14:53 | disposition left against medical advice (07) ==
PROVIDERS: Physician Assistant; Emergency Provider Emergency Medicine Emergency Medical Services
DX: K57.30 Diverticulosis of large intestine without perforation or abscess without bleeding (principal); R10.32 Left lower quadrant pain; F17.210 Nicotine dependence, cigarettes, uncomplicated; F12.90 Cannabis use, unspecified, uncomplicated
CPT/HCPCS: 36415; 74177; 80048; 80076; 83605; 83690; 83735; 85025; 87040; 96361; 96374; 96375; 99285; J1885; J2543; Q9967

== ENCOUNTER → 2024-02-03 11:21 | Outpatient (BNV) | payer OTHER, SELFPAY | PROVIDERS: Emergency Provider Emergency Medicine Emergency Medical Services; Visit Provider Radiology Diagnostic Radiology | DX: K57.20 Diverticulitis of large intestine with perforation and abscess without bleeding (principal); K76.0 Fatty (change of) liver, not elsewhere classified; Q76.0 Spina bifida occulta | CPT/HCPCS: 74177 ==

== ENCOUNTER 2024-02-03 16:40 | Inpatient (IN) | payer OTHER, SELFPAY ==
[2024-02-03 17:07] VITALS: BP 148/73; PULSE 119; RESP 18; TEMP 37.2; O2SAT 100; BMI 25.7
--- NOTE | 2024-02-03 17:09 | ED_ITS ---
HPI - Abdominal Pain General Chief Complaint: Abdominal Pain Stated Complaint: ?diverticulitis Time Seen by Provider: 02/03/24 17:08 Source: patient, RN notes reviewed and old records reviewed Mode of arrival: ambulatory History of Present Illness ED Provider: Tahira Zepeda PA-C HPI narrative: 33-year-old male with a past medical history diverticulitis, seen in our ED earlier today for left lower quadrant abdominal pain x3 days, diagnosed with acute complicated diverticulitis with phlegmon/possible early abscess, however signed out AMA due to wait time of CT results. Patient was contacted once CT results were back and informed to return to the emergency department. Reports same complaints of left lower quadrant abdominal pain. Denies fever, nausea/vomiting. Related Data Home Medications ?Medication ?Instructions ?Recorded ?Confirmed No Known Home Meds 01/16/22 01/16/22 Allergies Allergy/AdvReac Type Severity Reaction Status Date / Time acetaminophen [From Tylenol] Allergy Mild rash Verified 02/03/24 17:09 Review of Systems Review of Systems Yes all other systems are reviewed and are negative Constitutional: Reports as per HPI [facility] Past Medical History Attestation statement: The following information was validated with the patient. Source: old records reviewed Medical History Cigarette smoker Diverticulitis of intestine with abscess without bleeding Surgical History Hx of colonoscopy History of ankle surgery Social History Social History Household Members: Spouse Housing: Apartment Do you presently have visiting nurse or other home services: No Alcohol intake: current Alcohol intake frequency: holidays/special occasions only Patient Tobacco Use Status: Current everyday Tobacco user Tobacco use type: Cigarette Cigarette Packs Per Day: 0.5 Cigarettes Per Day: 10.0 Years Smoked: 18 e-Cigarette/Vaping Use: Never Used Second Hand Smoke Exposure: No Substance Use Type: Marijuana Do you have a plan to hurt others: No Plan service: No Current occupational status: employed Physical Exam ED Vital Signs: Vital Signs - 24 hr 02/03/24 17:07 Temperature 99.0 F Pulse Rate 119 H Respiratory Rate 18 Blood Pressure 148/73 H Pulse Oximetry 100 Oxygen Delivery Method Room Air BMI result Body Mass Index 25.7 Const General: cooperative, healthy appearing and no acute distress Orientation/consciousness: patient oriented x3 Limitations: no limitations HENMT Head: Yes normal to inspection and Yes atraumatic Ears: hearing grossly normal bilaterally General nose exam: Normal external nose present Face and sinus: Yes normal facial exam Eyes General: appearance normal, both eyes and all related structures EOM: EOMs intact bilaterally Neck Neck: Yes normal visual inspection and Yes no meningeal signs Resp Effort & Inspection: normal respiratory effort and no respiratory distress Auscultation: clear to auscultation bilaterally Cardio Rate: regular rate Heart sounds: S1 normal heart sound present and S2 normal heart sound present GI Inspection: Yes normal to inspection Palpation (GI): Soft to palpation, Tenderness to palpation present (GI) in the LLQ; with no rebound tenderness, no guarding and not rigid Skin Rashes: no rashes Wounds: no wounds Neuro General: patient oriented x3, tone normal and no meningeal signs Cranial nerves: Yes CN's II-XII intact bilaterally Gait exam (Neuro): Normal gait present Extrem General: Yes normal to inspection Course Course Course Narrative: -patient to be admitted to surgical service under Dr. Tesfaye Medical Decision Making Medical Decision Making MDM Narrative: 33-year-old male with a past medical history diverticulitis, seen in our ED earlier today for left lower quadrant abdominal pain x3 days, diagnosed with acute complicated diverticulitis with phlegmon/possible early abscess, however signed out AMA due to wait time of CT results. On exam tachycardic, NAD, abdomen soft with left lower quadrant tenderness. Known complicated diverticulitis on CT from earlier today. Plan is for admission. Patient already received dose of IV Zosyn in the ED earlier today, not due for additi onal dose at this time. Blood cultures currently pending from earlier Will contact General surgery, Dr. Tesfaye Please refer to course for remaining clinical decision making, interpretation of labs/imaging results, and discussions with consultants and/or family members. Differential Diagnosis Differential Diagnoses: The differential diagnosis associated with the presentation includes As above Admission/Observation Consideration of admission/observation: Escalation of care including admission/observation considered Consult Healthcare Provider Management of the patient was discussed with: Gandy Dancer Lab Data [facility] Lab Attestation statement: I reviewed the patient's lab results. Radiology Impression Discussion of test interpretation with radiology: I have reviewed the radiologist's reading. External Record Review External record reviewed: Inpatient record, Office record, Outpatient record, Prior outpatient labs, Prior outpatient radiology, Primary care record and Outside ED record Tests considered The following testing was considered but not selected: As above Prescription Management I considered prescription management with: Pain Medication and Antibiotic Chronic Conditions Patient?s care impacted by: Other Social Determinants Patient?s care significantly limited by Social Determinants of Health including: Other Social Determinant of Health Medications Administered Generic Name Dose Route Start Last Admin Trade Name Freq PRN Reason Stop Dose Admin Sodium Chloride 1,000 mls @ 999 mls/hr 02/03/24 17:30 02/03/24 17:26 Ns IV 02/03/24 18:30 999 mls/hr .Q1H1M SABA Administration Discontinued Medications Generic Name Dose Route Start Last Admin Trade Name Freq PRN Reason Stop Dose Admin Ketorolac Tromethamine 15 mg 02/03/24 17:16 02/03/24 17:28 Ketorolac Tromethamine 15 Mg/Ml Vial IVPUSH 02/03/24 17:17 15 mg ONCE ONE Administration Discharge Plan Discharge Clinical Impression: Diverticulitis of large intestine with complication Patient Disposition: Admitted As Inpatient Print Language: [place]
[2024-02-03] MEDS: 0.9 % Sodium Chloride 1,000 ML 999 ML IV (17:26)
[2024-02-03] MEDS: Ketorolac Tromethamine 15 MG/ML VIAL IVPUSH (17:28)
--- NOTE | 2024-02-03 18:04 | PHA.MEDREC ---
Pharmacy Consult ? Medication Reconciliation Pharmacy has completed the medication reconciliation.Med rec complete, patient recently started levaquin and metronidazole for the abdominal pain but had only taken 2 days worth of medication.
[2024-02-03] MEDS: Piperacillin Sodium/Tazobactam 3.375 GM in 0.9 % Sodium Chloride 50 ML IV ×2 (18:08→23:29)
[2024-02-03] MEDS: Dextrose 5 % and Lactated Ring 1,000 ML 125 ML IVCONT (18:08)
[2024-02-03] MEDS: HYDROmorphone HCl 0.5 MG/0.5 ML SYRINGE IVPUSH ×2 (19:28→22:50)
--- NOTE | 2024-02-03 19:45 | PC.NURSE ---
PT reporting 7/10 abd pain, medicated as per MAR- effectiveness pending . Also report numbness and pian with IV in r ac. New IV placed in left forearm which is now asymptomatic. IV fluids infusing. Plan of care ongoing
[2024-02-03 20:00] VITALS: BP 124/85; PULSE 90; RESP 20; TEMP 36.9; O2SAT 100
[2024-02-03 21:29] VITALS: BMI 26.6
[2024-02-03] MEDS: oxyCODONE HCl Immed Release 5 MG TABLET PO (21:41)
[2024-02-03 22:41] VITALS: RESP 18
[2024-02-03 22:48] VITALS: BP 131/60; PULSE 93; RESP 14; TEMP 36.2; O2SAT 99
[2024-02-03] MEDS: 0.9 % Sodium Chloride Flush 3 ML SYRINGE IVFLUSH (22:50)
[2024-02-03 23:22] VITALS: RESP 18
[2024-02-04] VITALS (9 sets, daily range): BP systolic 107–134; BP diastolic 57–87; PULSE 74–97; RESP 15–18; TEMP 36.1–36.8; O2SAT 98–100
[2024-02-04] MEDS: Dextrose 5 % and Lactated Ring 1,000 ML 125 ML IVCONT ×3 (02:38→19:50)
[2024-02-04] MEDS: HYDROmorphone HCl 0.5 MG/0.5 ML SYRINGE IVPUSH ×3 (02:42→22:27)
[2024-02-04] MEDS: Piperacillin Sodium/Tazobactam 3.375 GM in 0.9 % Sodium Chloride 50 ML IV ×4 (05:51→23:32)
[2024-02-04] MEDS: oxyCODONE HCl Immed Release 5 MG TABLET PO ×4 (06:07→18:01)
[2024-02-04 06:16] LABS: MANUAL DIFF FLAG NO
[2024-02-04 06:50] LABS: Basophils Absolute Auto 0.1 X10*3/uL (0.0-0.2); Basophils Percent Auto 0.6 % (0-2); Eosinophils Absolute Auto 0.7 X10*3/uL (0.0-0.4); Hematocrit 34.4 % (42.0-52.0); Hemoglobin 11.7 g/dl (14.0-18.0); Imm Gran Abs Auto 0.13 X10*3/uL (0.00-0.03); Imm Gran Pct Auto 0.9 % (0.0-0.4); Mean Corpuscular Hemoglobin 31.6 pg (27.0-33.0); Mean Platelet Volume 11.5 fL (9.4-12.4); Monocytes Absolute Auto 1.2 X10*3/uL (0.1-1.2); Monocytes Percent Auto 8.7 % (2-11); Neutrophils Absolute Auto 7.7 x10*3/uL (2.0-8.3); Neutrophils Percent Auto 55.8 % (45-73); Platelet Count 300 X10*3/uL (160-400); Red Cell Distribution Width 12.1 % (11.0-16.0); White Blood Count 13.8 X10*3/uL (4.8-10.8)
--- NOTE | 2024-02-04 08:41 | P.HPGS_ITS ---
History of Present Illness History of Present Illness Date of Service: 02/04/24 <Zahra Crowder PA-C - Last Filed: 02/04/24 08:56> 02/04/24 <Tyron Tesfaye MD - Last Filed: 02/04/24 09:36> Chief complaint: Sigmoid diverticulitis with abscess <Zahra Crowder PA-C - Last Filed: 02/04/24 08:56> Narrative: João Campo is a 33 year old male with PMH significant for recurrent diverticulitis who presented to the ED with complaints of abdominal pain. Patient reports the pain began on Wednesday in the LLQ. It was sharp in nature and progressively worsened and became severe. He reports this felt similar to his prior episodes of diverticulitis. He has been admitted prior for IV abx. Due to the severity of pain, he presented to the ED for evaluation. Work up included CBC, BMP, LFTs which were significant for a leukocytosis of 13.8. CT scan abd pelvis showed area of wall thickening with pericolonic edema pattern of the distal descending colon/proximal sigmoid with focal extraluminal gas in the antimesenteric margin concerning for possible phlegmon vs developing abscess, no free intraperitoneal air, no definitive fluid collection. His pain is improved this morning and he feels better and is asking for solid food. He had a colonoscopy 05/07 which showed moderate sigmoid diverticulosis, hyperplastic polpy. He reports he has not had an episode in around a year. He reports passing flatus and had a normal BM yesterday. He denies fever, chills, nausea, vomiting, diarrhea, melena, hematochezia, dysuria, hematuria, pneumoturia. <Zahra Crowder PA-C - Last Filed: 02/04/24 08:56> Review of Systems Review of Systems: Yes all other systems are reviewed and are negative <Zahra Crowder PA-C - Last Filed: 02/04/24 08:56> [facility] Past Medical History Medical History: Medical History Cigarette smoker Diverticulitis of intestine with abscess without bleeding <Zahra Crowder PA-C - Last Filed: 02/04/24 08:56> Surgical History Surgical History: Surgical History Hx of colonoscopy History of ankle surgery <Zahra Crowder PA-C - Last Filed: 02/04/24 08:56> Social History Social History: Social History Household Members: Family Housing: Apartment Do you presently have visiting nurse or other home services: No Alcohol intake: current Alcohol intake frequency: holidays/special occasions only Patient Tobacco Use Status: Current everyday Tobacco user Tobacco use type: Cigarette Cigarette Packs Per Day: 0.5 Cigarettes Per Day: 7 Years Smoked: 18 Smoked in Last 30 Days: Yes e-Cigarette/Vaping Use: Never Used Patient Interested in Nicotine Replacement: Yes Patient Given Instructions on How to Stop Smoking: No Second Hand Smoke Exposure: No Use of substances other than those prescribed or required for medical reasons: No Substance Use Type: Marijuana Substance Use Frequency: Daily Last Used Substance: Just Prior to Admission Currently Displaying Signs/Symptoms of Drug Intoxication Withdrawal: No Any prior treatment program specific to substance use: No Have you been hit, kicked, punched, or otherwise hurt by someone within the past year? If so, by whom?: No Do you feel safe in your current relationship?: Yes Is there a partner from a previous relationship who is making you feel unsafe now?: No Are you made to feel afraid or neglected: No Advance Directives: No Advance Directives Information Provided: No Do you have a plan to hurt others: No Plan Recently lost weight without trying: No How much weight loss: Not applicable Eating poorly because of decreased appetite: No Nutrition screen score: 0 Nutrition Risks: No Nutritional Risk Poor oral hygiene: No service: No Current occupational status: employed <Zahra Crowder PA-C - Last Filed: 02/04/24 08:56> Meds Allergies/Adverse reactions: Allergies Allergy/AdvReac Type Severity Reaction Status Date / Time acetaminophen [From Tylenol] Allergy Mild rash Verified 02/03/24 17:09 <Zahra Crowder PA-C - Last Filed: 02/04/24 08:56> Active Medications: Current Medications Calcium Carbonate (Calcium Carbonate 750 Mg Tab.Chew) 750 mg PO Q4H PRN PRN Reason: Heartburn Hydromorphone HCl (Hydromorphone Hcl 0.5 Mg/0.5 Ml Syringe) 0.5 mg IVPUSH Q3H PRN; Protocol PRN Reason: Pain, Severe (Pain Scale 7-10) Last Admin: 02/04/24 02:42 Dose: 0.5 mg Dextrose/Lactated Ringer's (D5lr) 1,000 mls @ 125 mls/hr IVCONT .Q8H [facility] Last Infusion: 02/04/24 05:51 Dose: 0 mls/hr Piperacillin Sod/Tazobactam (Sod 3.375 gm/ Sodium Chloride) 50 mls @ 100 mls/hr IV Q6H [facility] Last Infusion: 02/04/24 06:21 Dose: Infused Magnesium Hydroxide (Milk Of Magnesia 30 Ml Oral.Susp) 30 ml PO DAILY PRN PRN Reason: Constipation Nicotine (Nicotine 21 Mg Patch.Td24) 21 mg TRANSDERMA DAILY [facility] Last Admin: 02/04/24 08:17 Dose: Not Given Ondansetron HCl (Ondansetron Hcl 4 Mg/2 Ml Vial) 4 mg IVPUSH QID PRN PRN Reason: Nausea Oxycodone HCl (Oxycodone Hcl Immed Release 5 Mg Tablet) 5 mg PO Q6H PRN PRN Reason: Pain, Moderate(Pain Scale 4-6) Last Admin: 02/04/24 08:16 Dose: 5 mg Sodium Chloride (0.9 % Sodium Chloride Flush 3 Ml Syringe) 3 ml IVFLUSH [facility] Last Admin: 02/04/24 08:17 Dose: Not Given Zolpidem Tartrate (Zolpidem Tartrate 5 Mg Tablet) 5 mg PO BEDTIME PRN PRN Reason: Insomnia <Zahra Crowder PA-C - Last Filed: 02/04/24 08:56> Home medications: Home Medications ?Medication ?Instructions ?Recorded ?Confirmed ?Last Taken ?Type levofloxacin 500 mg tablet 500 mg PO DAILY 02/03/24 02/03/24 Unknown History metronidazole 500 mg tablet 500 mg PO TID 02/03/24 02/03/24 Unknown History <FOREST Chan Last Filed: 02/04/24 08:56> Physical Exam Vital Signs: Vital Signs: Last Vital Signs Temp 96.9 F 02/04/24 07:45 Pulse 74 02/04/24 07:45 Resp 16 02/04/24 07:45 BP 107/57 L 02/04/24 07:45 Pulse Ox 99 02/04/24 07:45 O2 Del Method Room Air 02/04/24 07:45 BMI result Body Mass Index 26.6 <Zahra Crowder PA-C - Last Filed: 02/04/24 08:56> Const: General: comfortable, no acute distress and alert <Zahra Crowder PA-C - Last Filed: 02/04/24 08:56> Orientation/consciousness: patient oriented x3 <FOREST Chan Last Filed: 02/04/24 08:56> Resp: Effort & Inspection: normal respiratory effort <FOREST Chan Last Filed: 02/04/24 08:56> GI: Inspection: Yes distended and No scar <Zahra Crowder PA-C - Last Filed: 02/04/24 08:56> Palpation (GI): Soft to palpation, Tenderness to palpation present (GI) in the LLQ, suprapubicly and with rebound tenderness (LLQ), no guarding and not rigid <FOREST Chan Last Filed: 02/04/24 08:56> Percussion: Yes tympanic to percussion <FOREST Chan Last Filed: 02/04/24 08:56> Skin: General skin exam: no rashes or lesions noted <FOREST Chan Last Filed: 02/04/24 08:56> Neuro: General: patient oriented x3 and moves all extremities <FOREST Chan Last Filed: 02/04/24 08:56> Results Results Labs: Short CBC 02/04/24 Range/Units 05:23 WBC 13.8 H (4.8-10.8) X10*3/uL Hgb 11.7 L (14.0-18.0) g/dl Hct 34.4 L (42.0-52.0) % Plt Count 300 (160-400) X10*3/uL <Zahra Crowder PA-C - Last Filed: 02/04/24 08:56> Abdomen CT scan report/results: report reviewed and image reviewed <FOREST Chan Last Filed: 02/04/24 08:56> Assessment and Plan (1) Diverticulitis of large intestine with complication: Status: Acute <FOREST Chan Last Filed: 02/04/24 08:56> 33 year old male with history of diverticulitis presenting with LLQ pain, leukocytosis and CT scan with wall thickening and pericolonic edema with small amt of extraluminal air concerning for sigmoid diverticulitis with microperforation. He is hemodynamically stable and clinically appearing well. He feels improved this morning. Will continue nonoperative measures with IV abx, IVF and clear liquids for now. Discussed if no improvement in the next couple of days he will need repeat CT scan to reassess for possible abscess and IR drainage or even possibly surgical intervention with sigmoid resection. If he continues to improve and this episodes resolves, discussed he should f/u in office for elective sigmoid resection given the multiple recurrences with complication. He understands and is in agreement. Repeat CBC in am, further plan dependent on clinical course. <Zahra Crowder PA-C - Last Filed: 02/04/24 08:56> 33 year old male with history of diverticulitis presenting with LLQ pain, leukocytosis and CT scan with wall thickening and pericolonic edema with small amt of extraluminal air concerning for sigmoid diverticulitis with microperforation. He is hemodynamically stable and clinically appearing well. He feels improved this morning. Will continue nonoperative measures with IV abx, IVF and clear liquids for now. Discussed if no improvement in the next couple of days he will need repeat CT scan to reassess for possible abscess and IR drainage or even possibly surgical intervention with sigmoid resection. If he continues to improve and this episodes resolves, discussed he should f/u in office for elective sigmoid resection given the multiple recurrences with complication. He understands and is in agreement. Repeat CBC in am, further plan dependent on clinical course. Patient seen and examined, CT abdomen and pelvis reviewed. Agree with the above assessment and plan. Patient does feel improved this morning but we will continue with IV antibiotics. Check a.m. labs. <Tyron Tesfaye MD - Last Filed: 02/04/24 09:36> Quality Stroke Does the patient have a stroke diagnosis?: No <Zahra Crowder PA-C - Last Filed: 02/04/24 08:56> VTE Prior VTE?: No <Zahra Crowder PA-C - Last Filed: 02/04/24 08:56> VTE Risk Level:: Surgical - low <Zahra Crowder PA-C - Last Filed: 02/04/24 08:56> VTE Device Contraindication: N/A - Device Ordered <Zahra Crowder PA-C - Last Filed: 02/04/24 08:56> VTE Drug Contraindication: Treatment Not Indicated <Zahra Crowder PA-C - Last Filed: 02/04/24 08:56> Procedures Date of Service Date of Service: 02/04/24 <Zahra Crowder PA-C - Last Filed: 02/04/24 08:56> 02/04/24 <Tyron Tesfaye MD - Last Filed: 02/04/24 09:36>
--- NOTE | 2024-02-04 09:51 | MHC.CM.PN ---
PT IS INDEPEDENT AND WORKING HE HAS A RIDE HOME DC PLAN TRENT E N/S
--- NOTE | 2024-02-04 09:57 | MHC.CM.PN ---
pt has pp help 8 hrs a day 7 days a week he does not have a vna at this time pt may need a ride home when dcd and a ride home
[2024-02-04] MEDS: ondansetron HCL 4 MG/2 ML VIAL IVPUSH (13:11)
[2024-02-04] MEDS: 0.9 % Sodium Chloride Flush 3 ML SYRINGE IVFLUSH (19:51)
[2024-02-05] MEDS: oxyCODONE HCl Immed Release 5 MG TABLET PO ×4 (02:02→23:59)
[2024-02-05] MEDS: Dextrose 5 % and Lactated Ring 1,000 ML 125 ML IVCONT ×2 (02:02→11:19)
[2024-02-05 03:02] VITALS: RESP 16
[2024-02-05 03:53] VITALS: BP 130/62; PULSE 97; RESP 16; TEMP 37.2; O2SAT 98
[2024-02-05] MEDS: Piperacillin Sodium/Tazobactam 3.375 GM in 0.9 % Sodium Chloride 50 ML IV ×4 (06:13→23:55)
[2024-02-05 06:22] LABS: MANUAL DIFF FLAG NO
[2024-02-05 06:35] LABS: Basophils Absolute Auto 0.1 X10*3/uL (0.0-0.2); Basophils Percent Auto 0.6 % (0-2); Eosinophils Absolute Auto 0.4 X10*3/uL (0.0-0.4); Eosinophils Percent Auto 2.4 % (0-4); Hematocrit 32.1 % (42.0-52.0); Imm Gran Abs Auto 0.11 X10*3/uL (0.00-0.03); Imm Gran Pct Auto 0.7 % (0.0-0.4); Lymphocytes Absolute Auto 1.5 X10*3/uL (1.2-4.9); Lymphocytes Percent Auto 9.8 % (20-40); Mean Corpuscular HGB Conc 34.3 g/dl (31.0-36.0); Mean Corpuscular Hemoglobin 31.5 pg (27.0-33.0); Mean Platelet Volume 11.1 fL (9.4-12.4); Monocytes Absolute Auto 1.2 X10*3/uL (0.1-1.2); Monocytes Percent Auto 7.6 % (2-11); Neutrophils Absolute Auto 12.3 x10*3/uL (2.0-8.3); Neutrophils Percent Auto 78.9 % (45-73); Platelet Count 333 X10*3/uL (160-400); Red Blood Count 3.49 X10*6/uL (4.60-5.80); Red Cell Distribution Width 11.9 % (11.0-16.0); White Blood Count 15.6 X10*3/uL (4.8-10.8)
[2024-02-05 07:32] VITALS: BP 124/81; PULSE 100; RESP 18; TEMP 36.5; O2SAT 99
[2024-02-05 07:32] LABS: Glucose, Whole Blood 154 mg/dL (60-115)
[2024-02-05] MEDS: HYDROmorphone HCl 0.5 MG/0.5 ML SYRINGE IVPUSH (11:52)
--- NOTE | 2024-02-05 13:05 | PM.PNGS ---
Subjective Subjective Date of Service: 02/05/24 Interval history: Patient is feeling a little better no nausea no vomiting still pain on the left lower quadrant area no fevers or chills. He is hungry wants to eat says he has a headache Physical Exam Vital Signs: Vital Signs: Last Vital Signs Temp 97.7 F 02/05/24 07:32 Pulse 100 02/05/24 07:32 Resp 18 02/05/24 07:32 BP 124/81 02/05/24 07:32 Pulse Ox 99 02/05/24 07:32 O2 Del Method Room Air 02/05/24 07:32 BMI result Body Mass Index 26.6 Const: General: cooperative, healthy appearing and comfortable Orientation/consciousness: patient oriented x3 Resp: Effort & Inspection: normal respiratory effort Auscultation: clear to auscultation bilaterally Cardio: Rate: regular rate Rhythm: regular rhythm GI: Other: Abdomen is soft nondistended tender in the left lower quadrant mild guarding no rebound no peritoneal signs Neuro: General: patient oriented x3 Cranial nerves: Yes CN's II-XII intact bilaterally Psych: Appearance: grossly normal Mental Status: mental status grossly normal Speech and movement: Normal speech and movement present Affect: Labile affect present Objective Data Active Medications Calcium Carbonate (Calcium Carbonate 750 Mg Tab.Chew) 750 mg PO Q4H PRN PRN Reason: Heartburn Hydromorphone HCl (Hydromorphone Hcl 0.5 Mg/0.5 Ml Syringe) 0.5 mg IVPUSH Q3H PRN; Protocol PRN Reason: Pain, Severe (Pain Scale 7-10) Last Admin: 02/05/24 11:52 Dose: 0.5 mg Documented By: NYLA Dextrose/Lactated Ringer's (D5lr) 1,000 mls @ 125 mls/hr IVCONT .Q8H [facility] Last Infusion: 02/05/24 11:57 Dose: 125 mls/hr Documented By: NYLA Piperacillin Sod/Tazobactam (Sod 3.375 gm/ Sodium Chloride) 50 mls @ 100 mls/hr IV Q6H [facility] Last Infusion: 02/05/24 11:56 Dose: Infused Documented By: NYLA Ketorolac Tromethamine (Ketorolac Tromethamine 15 Mg/Ml Vial) 15 mg IVPUSH Q6H [facility] Lorazepam (Lorazepam 2 Mg/Ml Vial) 0.5 mg IVPUSH Q6H PRN PRN Reason: Anxiety Magnesium Hydroxide (Milk Of Magnesia 30 Ml Oral.Susp) 30 ml PO DAILY PRN PRN Reason: Constipation Nicotine (Nicotine 21 Mg Patch.Td24) 21 mg TRANSDERMA DAILY [facility] Last Admin: 02/05/24 07:54 Dose: Not Given Documented By: NYLA Non-Admin Reason: Patient Refused Ondansetron HCl (Ondansetron Hcl 4 Mg/2 Ml Vial) 4 mg IVPUSH QID PRN PRN Reason: Nausea Last Admin: 02/04/24 13:11 Dose: 4 mg Documented By: YENNI Oxycodone HCl (Oxycodone Hcl Immed Release 5 Mg Tablet) 5 mg PO Q4H PRN PRN Reason: Pain, Moderate(Pain Scale 4-6) Last Admin: 02/05/24 10:24 Dose: 5 mg Documented By: NYLA Sodium Chloride (0.9 % Sodium Chloride Flush 3 Ml Syringe) 3 ml IVFLUSH [facility] Last Admin: 02/05/24 09:25 Dose: Not Given Documented By: NYLA Non-Admin Reason: Previously Administered Zolpidem Tartrate (Zolpidem Tartrate 5 Mg Tablet) 5 mg PO BEDTIME PRN PRN Reason: Insomnia Labs 02/05/24 06:11 Labs: Laboratory Results - last 24 hr 02/05/24 02/05/24 06:11 07:29 MCV 92.0 MCH 31.5 MCHC 34.3 RDW 11.9 Plt Count 333 MPV 11.1 Immature Gran % (Auto) 0.7 H Neut % (Auto) 78.9 H Lymph % (Auto) 9.8 L Mower % (Auto) 7.6 Eos % (Auto) 2.4 Baso % (Auto) 0.6 Lymph # (Auto) 1.5 Mower # (Auto) 1.2 Eos # (Auto) 0.4 Baso # (Auto) 0.1 Abs Immat Gran (auto) 0.11 H Absolute Neuts (auto) 12.3 H Absolute Nucleated RBC 0.000 Nucleated RBC % (auto) 0.0 POC Glucose 154 H Hold Green Top See Note Procedures Date of Service Date of Service: 02/05/24 Progress Note: A&P Assessment and plan (1) Diverticulitis large intestine: Status: Acute Plan 33-year-old male with recurrent left-sided diverticulitis doing okay. His white count is a little higher today than yesterday but clinical exam is okay. He wants to advance his diet but I think at this point we will continue him on clear liquid diet IV fluids and IV Zosyn for antibiotic coverage. Re-evaluate. We discussed if his case worsens then he would need emergency surgery which would most likely be a Leif procedure and he does not necessarily want this. We discussed that if we could get him better from this situation keep him in a healing pattern for the next couple weeks to few months then he should probably book an elective colectomy to remove this area which also back in 2021 was significant for diverticulitis. He understands and is generally in agreement and we will reassess tomorrow. We will give him a little Ativan for some anxiety and some Toradol for his headache. Time Spent With Patient Time: Total time managing care of this patient today ____ minutes. Quality Stroke Does the patient have a stroke diagnosis?: No VTE Prior VTE?: No VTE Risk Level:: Surgical - low VTE Device Contraindication: N/A - Device Ordered VTE Drug Contraindication: Treatment Not Indicated
[2024-02-05] MEDS: Ketorolac Tromethamine 15 MG/ML VIAL IVPUSH ×2 (13:14→18:01)
[2024-02-05] MEDS: LORazepam 2 MG/ML VIAL 0.5 MG IVPUSH (13:15)
[2024-02-05 15:23] VITALS: BP 133/78; PULSE 95; RESP 18; TEMP 36.7; O2SAT 100
[2024-02-05 20:00] VITALS: BP 133/82; PULSE 101; RESP 18; TEMP 36.9; O2SAT 100
[2024-02-06] MEDS: Ketorolac Tromethamine 15 MG/ML VIAL IVPUSH ×3 (00:32→20:16)
[2024-02-06] MEDS: 0.9 % Sodium Chloride Flush 3 ML SYRINGE IVFLUSH ×2 (00:35→23:17)
[2024-02-06 03:05] VITALS: BP 132/73; PULSE 85; RESP 16; TEMP 36.6; O2SAT 99
[2024-02-06] MEDS: Piperacillin Sodium/Tazobactam 3.375 GM in 0.9 % Sodium Chloride 50 ML IV ×4 (05:33→23:16)
[2024-02-06 07:36] VITALS: BP 130/81; PULSE 96; RESP 18; TEMP 36.6; O2SAT 100
[2024-02-06 09:18] LABS: MANUAL DIFF FLAG NO
[2024-02-06 09:25] LABS: Basophils Absolute Auto 0.1 X10*3/uL (0.0-0.2); Basophils Percent Auto 0.5 % (0-2); Eosinophils Absolute Auto 0.2 X10*3/uL (0.0-0.4); Eosinophils Percent Auto 1.5 % (0-4); Hematocrit 36.3 % (42.0-52.0); Hemoglobin 12.7 g/dl (14.0-18.0); Imm Gran Pct Auto 0.8 % (0.0-0.4); Lymphocytes Absolute Auto 1.8 X10*3/uL (1.2-4.9); Lymphocytes Percent Auto 13.5 % (20-40); Mean Corpuscular Hemoglobin 31.8 pg (27.0-33.0); Mean Corpuscular Volume 90.8 fL (80.0-98.0); Mean Platelet Volume 10.4 fL (9.4-12.4); Monocytes Percent Auto 7.9 % (2-11); Neutrophils Percent Auto 75.8 % (45-73); Platelet Count 368 X10*3/uL (160-400); White Blood Count 13.2 X10*3/uL (4.8-10.8)
--- NOTE | 2024-02-06 09:56 | PM.PNGS ---
Subjective Subjective Date of Service: 02/06/24 Physical Exam Vital Signs: Vital Signs: Last Vital Signs Temp 97.8 F 02/06/24 07:36 Pulse 96 02/06/24 07:36 Resp 18 02/06/24 07:36 BP 130/81 02/06/24 07:36 Pulse Ox 100 02/06/24 07:36 O2 Del Method Room Air 02/06/24 07:36 BMI result Body Mass Index 26.6 Objective Data Active Medications Calcium Carbonate (Calcium Carbonate 750 Mg Tab.Chew) 750 mg PO Q4H PRN PRN Reason: Heartburn Hydromorphone HCl (Hydromorphone Hcl 0.5 Mg/0.5 Ml Syringe) 0.5 mg IVPUSH Q3H PRN; Protocol PRN Reason: Pain, Severe (Pain Scale 7-10) Last Admin: 02/05/24 11:52 Dose: 0.5 mg Documented By: NYLA Piperacillin Sod/Tazobactam (Sod 3.375 gm/ Sodium Chloride) 50 mls @ 100 mls/hr IV Q6H [facility] Last Infusion: 02/06/24 06:03 Dose: Infused Documented By: MEGGAN Ketorolac Tromethamine (Ketorolac Tromethamine 15 Mg/Ml Vial) 15 mg IVPUSH Q6H [facility] Last Admin: 02/06/24 06:07 Dose: 15 mg Documented By: MEGGAN Lorazepam (Lorazepam 2 Mg/Ml Vial) 0.5 mg IVPUSH Q6H PRN PRN Reason: Anxiety Last Admin: 02/05/24 13:15 Dose: 0.5 mg Documented By: ANTHONY Magnesium Hydroxide (Milk Of Magnesia 30 Ml Oral.Susp) 30 ml PO DAILY PRN PRN Reason: Constipation Nicotine (Nicotine 21 Mg Patch.Td24) 21 mg TRANSDERMA DAILY [facility] Last Admin: 02/06/24 08:12 Dose: Not Given Documented By: NYLA Non-Admin Reason: Patient Refused Ondansetron HCl (Ondansetron Hcl 4 Mg/2 Ml Vial) 4 mg IVPUSH QID PRN PRN Reason: Nausea Last Admin: 02/04/24 13:11 Dose: 4 mg Documented By: YENNI Oxycodone HCl (Oxycodone Hcl Immed Release 5 Mg Tablet) 5 mg PO Q4H PRN PRN Reason: Pain, Moderate(Pain Scale 4-6) Last Admin: 02/05/24 23:59 Dose: 5 mg Documented By: MEGGAN Sodium Chloride (0.9 % Sodium Chloride Flush 3 Ml Syringe) 3 ml IVFLUSH [facility] Last Admin: 02/06/24 08:12 Dose: Not Given Documented By: NYLA Non-Admin Reason: Previously Administered Zolpidem Tartrate (Zolpidem Tartrate 5 Mg Tablet) 5 mg PO BEDTIME PRN PRN Reason: Insomnia Labs 02/06/24 09:13 Labs: Laboratory Results - last 24 hr 02/06/24 09:13 MCV 90.8 MCH 31.8 MCHC 35.0 RDW 12.0 Plt Count 368 MPV 10.4 Immature Gran % (Auto) 0.8 H Neut % (Auto) 75.8 H Lymph % (Auto) 13.5 L Brooke % (Auto) 7.9 Eos % (Auto) 1.5 Baso % (Auto) 0.5 Lymph # (Auto) 1.8 Brooke # (Auto) 1.0 Eos # (Auto) 0.2 Baso # (Auto) 0.1 Abs Immat Gran (auto) 0.10 H Absolute Neuts (auto) 10.0 H Absolute Nucleated RBC 0.000 Nucleated RBC % (auto) 0.0 Procedures Date of Service Date of Service: 02/06/24 Progress Note: A&P Time Spent With Patient Time: Total time managing care of this patient today ____ minutes. Quality Stroke Does the patient have a stroke diagnosis?: No VTE Prior VTE?: No VTE Risk Level:: Surgical - low VTE Device Contraindication: N/A - Device Ordered VTE Drug Contraindication: Treatment Not Indicated
--- NOTE | 2024-02-06 13:54 | PC.NURSE ---
Patient left floor in regular clothing. Security and RN office machine repair shop supervisor notified. Code elopement called overhead. Patient returned to unit independently. Primary care RN explained to patient he cannot leave floor without doctor's order. Verbalized understanding. Security spoke with patient and further explained policy to patient.
[2024-02-06 15:13] VITALS: BP 143/80; PULSE 104; RESP 18; TEMP 36.8; O2SAT 100
[2024-02-06 19:37] VITALS: BP 128/71; PULSE 110; RESP 16; TEMP 36.9; O2SAT 98
[2024-02-07 03:11] VITALS: BP 98/53; PULSE 83; RESP 16; TEMP 36.2; O2SAT 99
[2024-02-07] MEDS: Piperacillin Sodium/Tazobactam 3.375 GM in 0.9 % Sodium Chloride 50 ML IV (05:30)
[2024-02-07 07:43] VITALS: BP 127/78; PULSE 89; RESP 18; TEMP 36.6; O2SAT 98
--- NOTE | 2024-02-07 08:23 | PM.PNGS ---
Subjective Subjective Date of Service: 02/07/24 Interval history: Feels improved. Denies abd pain, reports very mild LLQ soreness. Tolerating solid diet. Moving bowels without worsening pain. Wants to go home. Physical Exam Vital Signs: Vital Signs: Last Vital Signs Temp 97.9 F 02/07/24 07:43 Pulse 89 02/07/24 07:43 Resp 18 02/07/24 07:43 BP 127/78 02/07/24 07:43 Pulse Ox 98 02/07/24 07:43 O2 Del Method Room Air 02/07/24 07:43 BMI result Body Mass Index 26.6 Const: General: comfortable, no acute distress and alert Orientation/consciousness: patient oriented x3 Resp: Effort & Inspection: normal respiratory effort GI: Inspection: No distended Palpation (GI): Soft to palpation, nontender and no guarding Percussion: Yes normal to percussion Skin: General skin exam: no rashes or lesions noted Neuro: General: patient oriented x3 and moves all extremities Objective Data Active Medications Calcium Carbonate (Calcium Carbonate 750 Mg Tab.Chew) 750 mg PO Q4H PRN PRN Reason: Heartburn Hydromorphone HCl (Hydromorphone Hcl 0.5 Mg/0.5 Ml Syringe) 0.5 mg IVPUSH Q3H PRN; Protocol PRN Reason: Pain, Severe (Pain Scale 7-10) Last Admin: 02/05/24 11:52 Dose: 0.5 mg Documented By: NYLA Piperacillin Sod/Tazobactam (Sod 3.375 gm/ Sodium Chloride) 50 mls @ 100 mls/hr IV Q6H [facility] Last Infusion: 02/07/24 06:00 Dose: Infused Documented By: MEGGAN Ketorolac Tromethamine (Ketorolac Tromethamine 15 Mg/Ml Vial) 15 mg IVPUSH Q6H [facility] Last Admin: 02/07/24 06:39 Dose: Not Given Documented By: MEGGAN Non-Admin Reason: patient did not want Lorazepam (Lorazepam 2 Mg/Ml Vial) 0.5 mg IVPUSH Q6H PRN PRN Reason: Anxiety Last Admin: 02/05/24 13:15 Dose: 0.5 mg Documented By: ANTHONY Magnesium Hydroxide (Milk Of Magnesia 30 Ml Oral.Susp) 30 ml PO DAILY PRN PRN Reason: Constipation Nicotine (Nicotine 21 Mg Patch.Td24) 21 mg TRANSDERMA DAILY [facility] Last Admin: 02/07/24 07:46 Dose: Not Given Documented By: NYLA Non-Admin Reason: Patient Refused Ondansetron HCl (Ondansetron Hcl 4 Mg/2 Ml Vial) 4 mg IVPUSH QID PRN PRN Reason: Nausea Last Admin: 02/04/24 13:11 Dose: 4 mg Documented By: YENNI Oxycodone HCl (Oxycodone Hcl Immed Release 5 Mg Tablet) 5 mg PO Q4H PRN PRN Reason: Pain, Moderate(Pain Scale 4-6) Last Admin: 02/05/24 23:59 Dose: 5 mg Documented By: MEGGAN Sodium Chloride (0.9 % Sodium Chloride Flush 3 Ml Syringe) 3 ml IVFLUSH QSHIFT [facility] Last Admin: 02/07/24 07:52 Dose: Not Given Documented By: NYLA Non-Admin Reason: Previously Administered Zolpidem Tartrate (Zolpidem Tartrate 5 Mg Tablet) 5 mg PO BEDTIME PRN PRN Reason: Insomnia Labs 02/06/24 09:13 Labs: Laboratory Results - last 24 hr 02/06/24 09:13 MCV 90.8 MCH 31.8 MCHC 35.0 RDW 12.0 Plt Count 368 MPV 10.4 Immature Gran % (Auto) 0.8 H Neut % (Auto) 75.8 H Lymph % (Auto) 13.5 L Starke % (Auto) 7.9 Eos % (Auto) 1.5 Baso % (Auto) 0.5 Lymph # (Auto) 1.8 Starke # (Auto) 1.0 Eos # (Auto) 0.2 Baso # (Auto) 0.1 Abs Immat Gran (auto) 0.10 H Absolute Neuts (auto) 10.0 H Absolute Nucleated RBC 0.000 Nucleated RBC % (auto) 0.0 Procedures Date of Service Date of Service: 02/07/24 Progress Note: A&P Assessment and plan (1) Diverticulitis large intestine: Status: Acute Plan Feels improved with IV abx, no abd pain. Abd very benign. Hemodynamically stable, afebrile. Stable for dc to home today on course of oral Augmentin. F/u in office in 1 week to discuss elective sigmoid resection. He understands and agrees with plan. Time Spent With Patient Time: Total time managing care of this patient today ____ minutes. Quality Stroke Does the patient have a stroke diagnosis?: No VTE Prior VTE?: No VTE Risk Level:: Surgical - low VTE Device Contraindication: N/A - Device Ordered VTE Drug Contraindication: Treatment Not Indicated
--- NOTE | 2024-02-07 09:42 | MHC.CM.PN ---
Patient is discharged home today self-care. He has arranged for transportation home.
--- NOTE | 2024-02-07 13:11 | PM.DS ---
DS: Providers Provider Date of Service: 02/07/24 Date of admission: 02/03/24 17:43 Date of discharge: 02/07/24 Primary care physician: Shantel Physician Attending physician on admission: Tyron Tesfaye Attending physician on discharge: Tyron Tesfaye DS: Diagnosis Discharge Diagnosis (1) Diverticulitis large intestine: Status: Acute DS: Summary Hospital Course Hospital Course: HPI AT ADMISSION: João Campo is a 33 year old male with PMH significant for recurrent diverticulitis who presented to the ED with complaints of abdominal pain. Patient reports the pain began on Wednesday in the LLQ. It was sharp in nature and progressively worsened and became severe. He reports this felt similar to his prior episodes of diverticulitis. He has been admitted prior for IV abx. Due to the severity of pain, he presented to the ED for evaluation. Work up included CBC, BMP, LFTs which were significant for a leukocytosis of 13.8. CT scan abd pelvis showed area of wall thickening with pericolonic edema pattern of the distal descending colon/proximal sigmoid with focal extraluminal gas in the antimesenteric margin concerning for possible phlegmon vs developing abscess, no free intraperitoneal air, no definitive fluid collection. His pain is improved this morning and he feels better and is asking for solid food. He had a colonoscopy 05/07 which showed moderate sigmoid diverticulosis, hyperplastic polpy. He reports he has not had an episode in around a year. He reports passing flatus and had a normal BM yesterday. He denies fever, chills, nausea, vomiting, diarrhea, melena, hematochezia, dysuria, hematuria, pneumoturia. HOSPITAL COURSE: He was admitted to the surgical service for further treatment of the acute diverticulitis with phlegmon. He was started on IVF, IV abx and clear liquids. He improved symptomatically and his diet was advanced slowly. His WBC count fluctuated initially but improved. On the day of discharge, he had no abd pain. He was tolerating a solid diet. His abdomen was benign. He was hemodynamically stable and afebrile. He was discharged to home on 02/07/24 in stable condition. He is to follow up in the office in 1 week to discuss elective colon resection. Status at Discharge Functional status at discharge: independent ambulation Overall status at discharge: patient is progressing back to baseline Time Attestation Discharge Coordination Time (in mins): 35 Quality: Safe Use of Opioids Does Pt have an Active Cancer Diagnosis on the Problem List?: No Quality: Stroke Does the patient have a stroke diagnosis?: No Physical Exam Vital Signs: Vital Signs: Last Vital Signs Temp 97.9 F 02/07/24 07:43 Pulse 89 02/07/24 07:43 Resp 18 02/07/24 07:43 BP 127/78 02/07/24 07:43 Pulse Ox 98 02/07/24 07:43 O2 Del Method Room Air 02/07/24 07:43 BMI result Body Mass Index 26.6 Const: General: comfortable, no acute distress and alert Orientation/consciousness: patient oriented x3 Resp: Effort & Inspection: normal respiratory effort GI: Inspection: No distended Palpation (GI): Soft to palpation and no guarding Neuro: General: patient oriented x3 and moves all extremities Discharge Plan Discharge Anticipated Discharge Date/Time: 02/07/24 08:26 Patient Disposition: Home, Self-Care Discharge Diagnosis: diverticulitis Referrals: Tyron Tesfaye MD [Physician] - 1 Week Physician,Shantel Jewell [Primary Care Provider] - 1 Week Discharge Medications: New amoxicillin-pot clavulanate 875-125 mg tablet 1 tab PO BID Qty: 14 0RF Discontinued metronidazole 500 mg Tablet 500 mg PO TID levofloxacin 500 mg Tablet 500 mg PO DAILY Discharge Orders: Discharge Order (Routine); Ordered 02/07/24 Ordered By: Zahra Crowder Diet: Low residue diet Activity on Discharge: As tolerated Stand Alone Forms: Patient Portal Discharge page Print Language: Armenian Activity Restrictions/Additional Instructions: Follow up in office in a week. ([phone]) Call Your Doctor If: ? ? -Your temperature exceeds 101.5? F? ? ? -You experience excessive pain or swelling ? ? -You have an unexpected reaction to medication ? ? -You experience continued vomiting/nausea Care Plan Goals: Return to baseline health and resume normal activities. Eventual sigmoid resection to prevent recurrences. Health Concerns: Acute sigmoid diverticulitis Plan of Treatment: Iv transitioned to oral abx F/u in office to discuss sigmoid resection Assessment: Improved Patient Instructions: Diverticulitis (GEN), Diverticulitis Diet (GEN) Discharge Date/Time: 02/07/24 08:58
== END 2024-02-07 08:58 | disposition home or self-care (01) | DRG 244 ==
LOC: HO.ED 17:43 → HO.EDOVER 17:48 → HO.S3 19:46
PROVIDERS: Physician Assistant Surgical; Surgery; Admitting Provider Surgery; Emergency Provider Emergency Medicine; Visit Provider Surgery
DX: K57.20 Diverticulitis of large intestine with perforation and abscess without bleeding (principal); F17.210 Nicotine dependence, cigarettes, uncomplicated; Z71.6 Tobacco abuse counseling
CPT/HCPCS: 36415; 82947; 85025; 99285; J1171; J1885; J2060; J2405; J2543

== ENCOUNTER → 2024-02-03 17:43 | Outpatient (BNV) | payer OTHER, SELFPAY | PROVIDERS: Admitting Provider Surgery; Emergency Provider Emergency Medicine; Visit Provider Physician Assistant Surgical | DX: K57.32 Diverticulitis of large intestine without perforation or abscess without bleeding (principal) | CPT/HCPCS: 99222; 99232; 99239 ==

== ENCOUNTER 2024-02-17 10:34 | Outpatient (AMB) | payer OTHER, SELFPAY ==
--- NOTE | 2024-02-17 10:45 | A.OFFVIS_ITS ---
Vital Signs 02/17/24 10:48 Height 5 ft Weight 156 lb BMI 30.5 BP 135/77 Blood Pressure Location Rt brachial Position Sitting Pulse 125 H Intake Visit Reasons: Diverticulitis Intake Note: Patient is seen in office for ER follow up visit, following for diverticulitis. Pt c/o:pain improved since ED visit. Finished amoxicillin course. ER/CT:02/03/24 Business Banking Manager Required: No Accompanied by: spouse Lucero Allergies acetaminophen [From Tylenol] Allergy (Mild, Verified 02/17/24 10:47) rash HPI Comments Details: 33-year-old male patient returning after recent hospitalization for sigmoid diverticulitis. This was his 4th episode of sigmoid diverticulitis. He underwent colonoscopy by Dr. Mills in 2022. He currently feels much improved with no further abdominal pain. He reports normal bowel habits without bleeding or pain. He presents today to discuss elective sigmoid colectomy to prevent further episodes of diverticulitis. [facility] Medical History Cigarette smoker Diverticulitis of intestine with abscess without bleeding Surgical History Hx of colonoscopy History of ankle surgery Social History Household Members: Family Housing: Apartment Do you presently have visiting nurse or other home services: No Alcohol intake: current Alcohol intake frequency: holidays/special occasions only Patient Tobacco Use Status: Current everyday Tobacco user Tobacco use type: Cigarette Cigarette Packs Per Day: 0.5 Cigarettes Per Day: 7 Years Smoked: 18 e-Cigarette/Vaping Use: Never Used Second Hand Smoke Exposure: No Substance Use Type: Marijuana service: No Current occupational status: employed Review of Systems Const All systems reviewed & are unremarkable except as noted in HPI and below Physical Exam Vital Signs: Last Vital Signs Pulse 125 H 02/17/24 10:48 BP 135/77 02/17/24 10:48 BMI result Body Mass Index 30.5 Last Vital Signs Temp 97.9 F 02/07/24 07:43 Pulse 89 02/07/24 07:43 Resp 18 02/07/24 07:43 BP 127/78 02/07/24 07:43 Pulse Ox 98 02/07/24 07:43 O2 Del Method Room Air 02/07/24 07:43 BMI result Body Mass Index 26.6 Const General: comfortable, no acute distress and alert Orientation/consciousness: patient oriented x3 Resp Effort & Inspection: normal respiratory effort GI Inspection: No distended Palpation (GI): Soft to palpation and no guarding Neuro General: patient oriented x3 and moves all extremities Assessment & Plan Assessment & Plan (1) Diverticulitis of large intestine with complication: Code(s): K57.32 - Diverticulitis of large intestine without perforation or abscess without bleeding Category: Medical Plan 33-year-old male patient with a recurrent sigmoid diverticulitis recently hospitalized for his 4th episode. He feels much improved today and wishes to proceed with surgery. I reviewed the hand assisted laparoscopic sigmoid colectomy possible open including the procedure, risks and alternatives, he consents to the surgery and wishes to schedule the surgery as soon as possible. We reviewed the bowel prep including MiraLax prep in the morning prior to surgery followed by the neomycin and erythromycin in the afternoon prior to surgery. He expresses understanding and agrees with the plan. Medications: New neomycin administer at 1 PM, 2 PM, and 10 PM the day prior to surgery 1 g (2 x 500 mg) PO TID 6 tabs 0RF 3 doses erythromycin administer at 1 PM, 2 PM, and 10 PM the day prior to surgery 1 g (2 x 500 mg) PO TID 6 tabs 0RF Coding Level of Care Code Est Pt Level 3 (28970) Diagnoses Diverticulitis of large intestine with complication K57.32
[2024-02-17 10:48] VITALS: BP 135/77; PULSE 125; BMI 30.5
== END 2024-02-17 11:01 | disposition home or self-care (01) ==
PROVIDERS: PCP Internal Medicine; Visit Provider Surgery
DX: K57.32 Diverticulitis of large intestine without perforation or abscess without bleeding (principal)
CPT/HCPCS: 99213

== ENCOUNTER → 2024-02-17 10:34 | Outpatient (BNVA) | payer OTHER, SELFPAY | PROVIDERS: PCP Internal Medicine; Visit Provider Surgery | DX: K57.32 Diverticulitis of large intestine without perforation or abscess without bleeding (principal) | CPT/HCPCS: 99212 ==

== ENCOUNTER 2024-03-20 06:27 | Inpatient (IN) | payer OTHER, SELFPAY ==
[2024-03-17 12:18] VITALS: BP 118/70; PULSE 94; RESP 16; O2SAT 98; BMI 26.3
[2024-03-17 14:03] LABS: Hemoglobin 12.6 g/dl (14.0-18.0); Mean Corpuscular HGB Conc 34.1 g/dl (31.0-36.0); Mean Corpuscular Hemoglobin 31.3 pg (27.0-33.0); Mean Corpuscular Volume 91.8 fL (80.0-98.0); Mean Platelet Volume 11.1 fL (9.4-12.4); Platelet Count 339 X10*3/uL (160-400); Red Blood Count 4.03 X10*6/uL (4.60-5.80); Red Cell Distribution Width 12.7 % (11.0-16.0)
[2024-03-17 14:35] LABS: Anion Gap 14 (12-20); Blood Urea Nitrogen 16 mg/dL (9-16); Calcium 9.7 mg/dL (8.4-10.2); Carbon Dioxide 26 mmol/L (22-29); Chloride 103 mmol/L (96-108); Creatinine Clr Calc Pharmacy 101.9; Estimated Glomerular Filt Rate > 60; Glucose Random 91 mg/dL (60-115); Sodium 139 mmol/L (135-145)
[2024-03-20] VITALS (14 sets, daily range): BP systolic 112–147; BP diastolic 75–95; PULSE 84–108; RESP 16–18; TEMP 36.2–36.6; O2SAT 97–99; BMI 25.1
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
--- OUTSIDE RECORDS SUMMARY | 2024-03-20 06:02 | XMS_ITS | Encounter Summary ---
Author Organization [facility] Address [address] [place] [address] Care Team Providers Care Warper Fixer Name Role Phone Chi Moyer MD Primary Care Provider [phone] Reason for Visit * Reason Onset Date Comments Pre-op Exam 02/24/2024 Encounter Details Date Type Department Care Team ([facility] st Contact Info) Description 02/24/2024 Telephone Internal Medicine - [place] [address] [facility] [address] [place] [address] Chi Moyer MD [address] [facility] [address] [place] [address] Pre-op Exam Social History Tobacco Use Types Packs/Day Years [...] file Not on file Not on file documented as of this encounter Progress Notes * Deysi Caceres - 03/13/2024 10:49 AM EST Preop completed * Cuate Orlando [place] - 03/08/2024 12:12 PM EST EKG faxed to pre-op dept ATTN: Deysi . * Hodan Laughlin - 02/24/2024 3:46 PM EST Patient called and requested a pre op appt because he has a upcoming surgery 03/20/24 because he is getting part of his intestine removed due to his diverticulitis Please advise Cb# [phone] documented in this encounter Plan of Treatment Not on file documented as of this encounter Visit Diagnoses Not on filedocumented in this encounter Care Teams Warper Fixer Relationship Specialty Start Date End Date Chi Moyer MD PCP - General Internal Medicine 06/13/18 documented as of this encounter
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
--- OUTSIDE RECORDS SUMMARY | 2024-03-20 06:02 | XMS_ITS | Encounter Summary ---
Author Organization [facility] Address [address] [place] [address] Care Team Providers Care Automotive Engineer Name Role Phone Chi Moyer MD Primary Care Provider [phone] Reason for Visit * Reason Onset Date Comments Teresa HESS note 03/17/2024 Encounter Details Date Type Department Care Team ([facility] st Contact Info) Description 03/17/2024 Telephone Internal Medicine - [place] [address] [place] [id number] Chi Moyer MD [address] [place] [address] Teresa HESS note Social History Tobacco Use Types Packs/Day Years [...] as of this encounter Progress Notes * Lala Rivera MA - 03/17/2024 3:32 PM EST faxed * Hodan Laughlin - 03/17/2024 1:12 PM EST General surgery in [facility] called and requested the patients last office visit note because patient is having surgery on Wednesday. Please advise documented in this encounter Plan of Treatment Not on file documented as of this encounter Visit Diagnoses Not on filedocumented in this encounter Care Teams Automotive Engineer Relationship Specialty Start Date End Date Chi Moyer MD PCP - General Internal Medicine 06/13/18 documented as of this encounter
--- OUTSIDE RECORDS SUMMARY | 2024-03-20 06:03 | XMS_ITS | Clinical Summary ---
Author Organization [facility] Address [address] [place] [address] Care Team Providers Care Care Program Resident Name Role Phone Unavailable Primary Care Provider Unavailabl e Social History Tobacco Use Types Packs/Day Years Used Date Smoking Tobacco: Never Assessed Sex and Gender Information Value Date Recorded Sex Assigned at Male 12/15/2021 10:18 AM EDT Legal Sex Male 10:18 AM EDT Gender Identity Choose not to disclose 10:18 AM EDT Sexual Orientation Choose not to disclose 2021 10:18 AM EDT Plan of Treatment Health Maintenance Due Date Last Done Comments Depression Screening 1988 Lipid Panel 1988 Alcohol/Substance Use Screening 2000 Tobacco Screening 2000 Family Planning (PISQ) 04/28/2003 DTaP/Tdap/Td Vaccines (1 - Tdap) 04/28/2007 Hepatitis B Vaccines (1 of 3 - 19+ 3-dose series) 04/28/2007 COVID-19 Vaccine ( - 2023-2 5 season) 2023 Influenza Vaccine (#1) 2023 Zoster Vaccines (1 of 2) 2038 RSV Patients and Pa tients Aged 60 years or older (1 - 1-dose 75+ series) 04/28/2063 HIB Vaccines Aged Out No longer eligi [...] patient's age to complete this topic Meningococcal Vaccine Aged Out No kadeem diana eligible based on patient's age to complete this topic Pneumococcal Vaccine: Pediat rics (0 to 5 Years) and At-Risk Patients (6 to 49) Years) Aged Out No longer eligible b ased on patient's age to complete this topic RSV under 20 months Aged Out No longe r eligible based on patient's age to complete this topic Rotavirus Vaccines Aged Out No longer eligible based on patient's age to complete this topic
--- OUTSIDE RECORDS SUMMARY | 2024-03-20 06:03 | XMS_ITS | Encounter Summary ---
Author Organization [facility] Address [address] [place] [address] Care Team Providers Care Ore Crushing Dust Collector Name Role Phone Unavailable Primary Care Provider Unavailabl e Encounter Details Date Type Department Care Team (Latest Contact Info) Description 01/28/2021 Abstract C CONVERSIONS Dental, Provider, DDS Social History Tobacco Use Types Packs/Day Years Used Date Smoking Tobacco: Never Assessed Sex and Gender Information Value Date Recorded Sex Assigned at Male 12/15/2021 10:18 AM EDT Legal Sex Male 10:18 AM EDT Gender Identity Choose not to disclose 10:18 AM EDT Sexual Orientation Choose not to disclose 2021 10:18 AM EDT documented as of this encounter Plan of Treatment Not on file documented as of this encounter Visit Diagnoses Not on filedocumented in this encounter
[2024-03-20] MEDS: Lactated Ringers 1,000 ML 100 ML IVCONT (06:54)
--- NOTE | 2024-03-20 07:07 | MHC.SHP ---
Pre-Procedural Eval Section A - 24 Hr Update-Section A only Date of Service: 03/20/24 The patient is an INPATIENT: No Changes since office visit: Yes Patient answered all questions; No Cold of Flu in the past 2 weeks, No New Medical Problems and No Changes in Medication The patient has been examined within 24 hours of the surgical procedure. The History & Physical has been completed within 30 days and I have reviewed it.: Yes Section B - Complete if H&P > 30 days Chief Complaint: Diverticulitis of large intestine without perforat Details of Present Illness: Patient denies any ongoing abdominal symptoms at this time. Tolerated the bowel prep without problems. Relevant Family History (Specify if Yes): No Relevant Social History: None Present Medications: see Short Stay Collaborative assessment Medical History: No relevant PMH History of Previous Operations: No relevant previous surgery Allergies: Allergies Allergy/AdvReac Type Severity Reaction Status Date / Time acetaminophen [From Tylenol] Allergy Intermediate rash Verified 03/20/24 06:30 Review of Systems Sugical H&P ROS: Negative: Constitution, Cardiovascular, Respiratory, Gastrointestinal, Genitourinary and Musculoskeletal Exam Surgical H&P Exam: Normal: Heart, Normal: Lungs, Normal: Extremities, Normal: Abdomen and Normal: Skin Plan Diagnosis/Plan: Unchanged I have reviewed the history and physical and performed a pertinent physical examination on my patient. No changes have occurred unless specified. Time Spent With Patient Time: Total time managing care of this patient today ____ minutes.
--- NOTE | 2024-03-20 07:15 | P.CONAN_ITS ---
HPI - Anesthesia Eval Consult details Narrative: 33 yo M presenting for lap hand assisted sigmoid colectomy. Daily marijuana. PMF Active Problems Active Problems: All Active Problems Diverticulosis (Acute) Colitis (Acute) Abdominal pain (Acute) No pertinent past medical history (Acute) Past Medical History Medical History (Updated 03/17/24 @ 12:32 by Bren Narvaez RN) Marijuana smoker Low back pain Chronic heartburn Cigarette smoker Diverticulitis of intestine with abscess without bleeding Family History Family history of problems with anesthesia: No Surgical History Surgical History (Updated 03/17/24 @ 12:08 by Bren Narvaez RN) Hx of colonoscopy (~2022) History of ankle surgery (~2004) History of Problems with Anesthesia: No Social History Social History Household Members: Family Housing: Apartment Are you a primary veterinarian laboratory animal care to a significant other at home: No Do you presently have visiting nurse or other home services: No Alcohol intake: current Alcohol intake frequency: holidays/special occasions only Patient Tobacco Use Status: Current everyday Tobacco user Tobacco use type: Cigarette Cigarette Packs Per Day: 0.5 Cigarettes Per Day: 6 Years Smoked: 18 Smoked in Last 30 Days: Yes e-Cigarette/Vaping Use: Never Used Patient Interested in Nicotine Replacement: Yes Second Hand Smoke Exposure: No Use of substances other than those prescribed or required for medical reasons: Yes Substance Use Type: Marijuana Substance Use Frequency: Daily Have you been hit, kicked, punched, or otherwise hurt by someone within the past year? If so, by whom?: No Are you DNR?: No Advance Directives: No Advance Directives Information Provided: Yes Advance Directives on File: No Recently lost weight without trying: No Nutrition Risks: No Nutritional Risk Poor oral hygiene: No service: No Current occupational status: employed Meds Allergies Allergy/AdvReac Type Severity Reaction Status Date / Time acetaminophen [From Tylenol] Allergy Intermediate rash Verified 03/20/24 06:30 Active Medications: Current Medications Haloperidol Lactate (Haloperidol Lactate 5 Mg/Ml Vial) 1 mg IVPUSH ONCE PRN PRN Reason: intractable nausea Stop: 03/20/24 15:42 Hydromorphone HCl (Hydromorphone Hcl 0.5 Mg/0.5 Ml Syringe) 0.5 mg IVPUSH Q5M PRN PRN Reason: Pain, Moderate to Severe (Pain Scale 4-10) Stop: 03/20/24 15:41 Lactated Ringer's (Lr) 1,000 mls @ 100 mls/hr IVCONT .Q10H SABA Last Admin: 03/20/24 06:54 Dose: 100 mls/hr Naloxone HCl (Naloxone Hcl 0.4 Mg/Ml Vial) 0.04 mg IVPUSH Q5M PRN PRN Reason: Excessive sedation or RR < 8 Home Medications ?Medication ?Instructions ?Recorded ?Confirmed ?Last Taken ?Type No Known Home Meds 03/20/24 03/20/24 Unknown History Exam Exam Date and Time: 03/20/24 0715 Height,Weight and Vital Signs: Height 5 ft 5 in Weight 68.492 kg Last Vital Signs Temp 97.8 F 03/20/24 06:48 Pulse 94 03/20/24 06:48 Resp 16 03/20/24 06:48 BP 112/75 03/20/24 06:48 Pulse Ox 98 03/20/24 06:48 O2 Del Method Room Air 03/20/24 06:48 Pertinent Lab Results Pertinent Lab Results: Laboratory Tests 03/17/24 03/17/24 13:02 13:12 WBC 12.0 H RBC 4.03 L Hgb 12.6 L Hct 37.0 L MCV 91.8 MCH 31.3 MCHC 34.1 RDW 12.7 Plt Count 339 MPV 11.1 Absolute Nucleated RBC 0.000 Nucleated RBC % (auto) 0.0 Sodium 139 Potassium 4.0 Chloride 103 Carbon Dioxide 26 Anion Gap 14 BUN 16 Creatinine 0.88 Estim Creat Clear Calc 101.9 Estimated GFR > 60 Random Glucose 91 Calcium 9.7 Blood Type A Positive Antibody Screen NEGATIVE Airway Mallampati Class: II TM Dist: >3cm Neck ROM: Full Loose/Missing/Broken Teeth: No (patient denies any loose or broken teeth) Heart: S1S2 Lungs: CTAB Assessment and Plan Assessment Anesthesia Assessment: Anesthesia Plan Discussed and Chart Reviewed Final Anesthetic Review Family History of Problems with Anesthesia: No History of Problems with Anesthesia: No NPO: Yes ASA Class: II Final Preanesthetic Review: No Changes in Pt Med Stat, Meds/Allgs Chart Reviewed, Consent Obtained/Reviewed and Anes Risks/Benef Reviewed Patient Risk: Low Procedure Risk: Intermediate Anesthetic Plan Anesthetic Plan: GA, Regional Block (bilateral transversus abdominis and bilateral rectus sheath block) and Agree w/ Assess. and Plan Disposition: Standard PACU
--- NOTE | 2024-03-20 09:39 | W.PM.OPN ---
Operative Note Operative Note Date of Service: 03/20/24 Narrative: Preoperative diagnosis: Sigmoid diverticulitis Postoperative diagnosis: Same Procedure: Hand assisted laparoscopic sigmoid colectomy Surgeon: Tyron Tesfaye MD Community Sports Coordinator: Zahra Crowder PA-C Anesthesia: General endotracheal, tap block, rectus sheath block Indications for procedure: 33-year-old male patient with multiple episodes of sigmoid diverticulitis the most recent with a microperforation presenting for elective sigmoid colectomy Operative findings: Area of inflammation involving the sigmoid colon middle 3rd. No abscess. Phlegmon involving the midportion of the sigmoid colon Specimen: Sigmoid colon Estimated blood loss: 50 Complications: None Procedure details: Patient was brought to the OR and placed in a supine position. After administering general anesthesia he was placed in a lithotomy position. A Ferreira catheter was inserted. A tap block and rectus sheath block was performed by anesthesia. Patient's perineum was prepped with Betadine and abdomen prepped with ChloraPrep and draped in a sterile fashion. A surgical time-out was called and the consent confirmed. Patient received preoperative antibiotics and Venodyne boots were in place. A 7.5 cm incision was then made in the lower abdomen. This was carried out through subcutaneous tissue through linea alba into the peritoneum. A hand port was then inserted in the abdomen insufflated to a pressure of 15 mmHg. A 5 mm trocar was placed in the epigastrium and left upper quadrant. A 12 mm trocar was placed in the right upper quadrant. Patient was then placed in a Trendelenburg position and rotated to the right. Abdomen was explored in the above findings noted. The sigmoid colon and left colon were then mobilized along the peritoneal reflection up to the splenic flexure. The splenic flexure was further mobilized using the LigaSure. Dissection was continued distally along the sigmoid colon until the sigmoid colon was fully mobilized. An area of proximal resection was identified as containing normal bowel. This was at the descending colon sigmoid junction. Mesentery was divided using the LigaSure below the bowel. A Endo-JELANI 60 stapler was then used to divide the bowel at this location. LigaSure was then used to divide the mesentery of the sigmoid colon distally into the rectal sigmoid junction. At this point the mesentery was divided up to the bowel wall and a re firing of the Endo-JELANI 60 stapler used to divide the bowel at this level. The pursestring clamp was then obtained and placed on the descending colon. A Prolene suture was then placed and the bowel entered. A series of EEA dilators was then used at the descending colon. Decided to proceed with a 25 mm EEA stapler. The anvil was placed into the descending colon and the pursestring tied. Attention was then directed to the rectal stump which was serially dilated through the anus. EEA stapler device was then brought up to the distal staple line. The spike was brought through the staple line and the anvil connected. Prior to firing the stapler several Lembert 3-0 Surgilon sutures were used to secure the anastomosis. The stapler was then fired in the device removed. Two complete EEA donuts were identified. A leak test was then performed by instilling air into the rectum with the pelvis filled with saline. No leak was identified. The abdomen was then thoroughly irrigated and suctioned dry. No bowel injury or bleeding could be identified. The abdomen was re-explored laparoscopically and omentum brought down to the pelvis. All the trocars and hand port were then removed. The patient was returned to a normal positioning. Fascia was closed in the midline incision using a running looped PDS 0 suture. Fascia was closed in the 12 mm trocar site with a 0 Polysorb suture. Subcutaneous tissue and dermis were reapproximated using interrupted 3-0 Polysorb sutures in the midline incision. All skin incisions were then closed using a subcuticular 4-0 Polysorb suture. Steri-Strips, 4 x 4 gauze and Tegaderm were then applied. The patient tolerated the procedure well. Sponge, instrument, and needle counts reported as correct. The patient was transferred to PACU in stable condition.
--- NOTE | 2024-03-20 10:19 | PHA.MEDREC ---
Pharmacy Consult ? Medication Reconciliation Pharmacy has reviewed the medication reconciliation completed by nursing, patient has no consistent claims, no known home meds.
[2024-03-20] MEDS: HYDROmorphone HCl 0.5 MG/0.5 ML SYRINGE IVPUSH ×6 (10:30→22:15)
[2024-03-20] MEDS: oxyCODONE HCl Immed Release 5 MG TABLET PO ×2 (11:27→19:10)
[2024-03-20] MEDS: Dextrose 5 % and Lactated Ring 1,000 ML 100 ML IVCONT ×2 (12:33→22:16)
[2024-03-20] MEDS: 0.9 % Sodium Chloride Flush 3 ML SYRINGE IVFLUSH (15:32)
[2024-03-20] MEDS: diphenhydrAMINE HCL 50 MG/ML VIAL 25 MG IVPUSH (15:32)
[2024-03-20] MEDS: Acetaminophen 1,000 MG/100 ML PIGGYBACK 400 MG IV (15:43)
[2024-03-21] VITALS (9 sets, daily range): BP systolic 126–147; BP diastolic 66–79; PULSE 78–105; RESP 16–18; TEMP 36.2–36.7; O2SAT 98–100
[2024-03-21] MEDS: HYDROmorphone HCl 0.5 MG/0.5 ML SYRINGE IVPUSH ×6 (00:55→22:36)
[2024-03-21] MEDS: oxyCODONE HCl Immed Release 5 MG TABLET PO ×4 (01:00→21:06)
[2024-03-21 06:22] LABS: Basophils Percent Auto 0.1 % (0-2); Hematocrit 36.5 % (42.0-52.0); Hemoglobin 12.6 g/dl (14.0-18.0); Imm Gran Abs Auto 0.16 X10*3/uL (0.00-0.03); Imm Gran Pct Auto 0.8 % (0.0-0.4); Lymphocytes Absolute Auto 0.9 X10*3/uL (1.2-4.9); Lymphocytes Percent Auto 4.4 % (20-40); MANUAL DIFF FLAG SCAN; Mean Corpuscular HGB Conc 34.5 g/dl (31.0-36.0); Mean Corpuscular Hemoglobin 31.7 pg (27.0-33.0); Mean Corpuscular Volume 91.7 fL (80.0-98.0); Mean Platelet Volume 11.1 fL (9.4-12.4); Monocytes Absolute Auto 0.9 X10*3/uL (0.1-1.2); Monocytes Percent Auto 4.5 % (2-11); Neutrophils Absolute Auto 18.7 x10*3/uL (2.0-8.3); Neutrophils Percent Auto 90.2 % (45-73); Platelet Count 345 X10*3/uL (160-400); Red Blood Count 3.98 X10*6/uL (4.60-5.80); Red Cell Distribution Width 12.8 % (11.0-16.0); SCAN SMEAR FLAG 1; White Blood Count 20.8 X10*3/uL (4.8-10.8)
[2024-03-21 06:24] LABS: Anion Gap 13 (12-20); Blood Urea Nitrogen 5 mg/dL (9-16); Calcium 9.4 mg/dL (8.4-10.2); Carbon Dioxide 27 mmol/L (22-29); Chloride 103 mmol/L (96-108); Creatinine Clr Calc Pharmacy 110.7; Estimated Glomerular Filt Rate > 60; Glucose Random 172 mg/dL (60-115); Potassium 3.9 mmol/L (3.3-5.1); Sodium 139 mmol/L (135-145)
--- NOTE | 2024-03-21 06:59 | PM.PNGS ---
Subjective Subjective Date of Service: 03/21/24 <[facility] - Last Filed: 03/21/24 07:23> 03/21/24 <Zahra Crowder PA-C - Last Filed: 03/21/24 07:47> 03/21/24 <Tyron Tesfaye MD - Last Filed: 03/21/24 08:07> Interval history: Patient seen and examined this morning. States pain is a 7/10. Tolerating clear liquid diet well. Has been passing gas and had a bowel movement last night. Has been out of bed to bathroom. Feels bloated. Denies chest pain, shortness of breath, nausea or vomiting. <[facility] - Last Filed: 03/21/24 07:23> Physical Exam Vital Signs: Vital Signs: Last Vital Signs Temp 98.0 F 03/21/24 04:00 Pulse 85 03/21/24 04:00 Resp 16 03/21/24 04:00 BP 138/79 03/21/24 04:00 Pulse Ox 100 03/21/24 04:00 O2 Del Method Room Air 03/20/24 23:54 O2 Flow Rate 6 03/20/24 10:10 BMI result Body Mass Index 25.1 <[facility] - Last Filed: 03/21/24 07:23> Const: Other: Laying in bed, awake, calm, in no acute distress. <[facility] - Last Filed: 03/21/24 07:23> HEENT: Head: Yes normocephalic and Yes atraumatic <[facility] - Last Filed: 03/21/24 07:23> Resp: Other: Lungs clear to auscultation bilaterally. No increased work of breathing <[facility] - Last Filed: 03/21/24 07:23> Cardio: Other: Regular rate and rhytm. <[facility] - Last Filed: 03/21/24 07:23> GI: Other: Abdomen is distended and rigid. Non tender to palpation. Bowel sounds appreciated. Dressings intact <Yquncc-BO-Zhihpwj-Ah Gabriel - Last Filed: 03/21/24 07:23> Other: Abdomen is distended and soft. Non tender to palpation. Bowel sounds appreciated. Dressings intact <Zahra Crowder PA-C - Last Filed: 03/21/24 07:47> Percussion: Yes tympanic to percussion <Zahra Crowder PA-C - Last Filed: 03/21/24 07:47> Skin: Other: No lesions and rash noted <Tmgmtn-[id number]-Nimnwrw-Ah Esa - Last Filed: 03/21/24 07:23> Neuro: Other: Alert and orientatedx3 <[facility] - Last Filed: 03/21/24 07:23> Extrem: Other: Moving all extremities normally. No lower extremity edema noted. <[facility] - Last Filed: 03/21/24 07:23> Objective Data Active Medications Calcium Carbonate (Calcium Carbonate 750 Mg Tab.Chew) 750 mg PO Q4H PRN PRN Reason: Heartburn Diphenhydramine HCl (Diphenhydramine Hcl 50 Mg/Ml Vial) 25 mg IVPUSH Q6H PRN PRN Reason: itching/rash Last Admin: 03/20/24 15:32 Dose: 25 mg Documented By: EBONY Enoxaparin Sodium (Enoxaparin Sodium 40 Mg/0.4 Ml Syringe) 40 mg SUBCUT Q24H SABA Hydromorphone HCl (Hydromorphone Hcl 0.5 Mg/0.5 Ml Syringe) 0.5 mg IVPUSH Q3H PRN; Protocol PRN Reason: Pain, Severe (Pain Scale 7-10) Last Admin: 03/21/24 04:32 Dose: 0.5 mg Documented By: HERBERT Dextrose/Lactated Ringer's (D5lr) 1,000 mls @ 100 mls/hr IVCONT .Q10H [facility] Last Admin: 03/20/24 22:16 Dose: 100 mls/hr Documented By: HERBERT Acetaminophen (Ofirmev) 1,000 mg in 100 mls @ 400 mls/hr IV Q6H [facility] Last Admin: 03/21/24 04:10 Dose: Not Given Documented By: HERBERT Non-Admin Reason: Patient Refused Magnesium Hydroxide (Milk Of Magnesia 30 Ml Oral.Susp) 30 ml PO DAILY PRN PRN Reason: Constipation Ondansetron HCl (Ondansetron Hcl 4 Mg/2 Ml Vial) 4 mg IVPUSH QID PRN PRN Reason: Nausea Oxycodone HCl (Oxycodone Hcl Immed Release 5 Mg Tablet) 5 mg PO Q6H PRN PRN Reason: Pain, Moderate(Pain Scale 4-6) Last Admin: 03/21/24 01:00 Dose: 5 mg Documented By: HERBERT Sodium Chloride (0.9 % Sodium Chloride Flush 3 Ml Syringe) [facility] Last Admin: 03/21/24 00:34 Dose: Not Given Documented By: HERBERT Non-Admin Reason: IV Running Zolpidem Tartrate (Zolpidem Tartrate 5 Mg Tablet) 5 mg PO BEDTIME PRN PRN Reason: Insomnia <[facility] - Last Filed: 03/21/24 07:23> Labs CBC & Chem 7: 03/21/24 05:28 03/21/24 05:28 <[facility] - Last Filed: 03/21/24 07:23> Labs: Laboratory Results - last 24 hr 03/21/24 05:28 Anion Gap 13 Estim Creat Clear Calc 110.7 Estimated GFR > 60 Random Glucose 172 H Calcium 9.4 <[facility] - Last Filed: 03/21/24 07:23> Procedures Date of Service Date of Service: 03/21/24 <[facility] - Last Filed: 03/21/24 07:23> 03/21/24 <Zahra Crowder PA-C - Last Filed: 03/21/24 07:47> 03/21/24 <Tyron Tesfaye MD - Last Filed: 03/21/24 08:07> Progress Note: A&P Assessment and plan (1) S/P colon resection: Status: Acute <[facility] - Last Filed: 03/21/24 07:23> Assessment and Plan: Patient POD 1 s/p Hand assisted laparoscopic sigmoid colectomy. abdominal exam concerning for distention and ridgity. Patient is passing flatulence and had a bowel movement. Will add simethicone to bowel regimen. Continue current pain regime. Remove urinary catheter. Increase activity, incentive spirometer. <[facility] - Last Filed: 03/21/24 07:23> Patient POD 1 s/p Hand assisted laparoscopic sigmoid colectomy. abdominal exam concerning for distention and ridgity. Patient is passing flatulence and had a bowel movement. Will add simethicone to bowel regimen. Continue current pain regime. Remove urinary catheter. Increase activity, incentive spirometer. Seen independently from DAV Rios. POD #1 s/p Hand assisted laparoscopic sigmoid colectomy for recurrent diverticulitis. Patients pain is improved this morning and with some evidence of GI function. Clinically appearing well, vitals stable. Patients abdomen is benign and softly distended, without peritoneal signs, dressings intact. WBC elevated this morning but likely reactive. Will repeat in AM. Dc latif. Dec IVF. Will advance to full liquids. OOB/ambulation and IS use encouraged. <Zahra Crowder PA-C - Last Filed: 03/21/24 07:47> Time Spent With Patient Time: Total time managing care of this patient today ____ minutes. <[facility] - Last Filed: 03/21/24 07:23> Quality Stroke Does the patient have a stroke diagnosis?: No <Zahra Crowder PA-C - Last Filed: 03/21/24 07:47> VTE Prior VTE?: No <Zahra Crowder PA-C - Last Filed: 03/21/24 07:47> VTE Risk Level:: Surgical - moderate <[facility] - Last Filed: 03/21/24 07:23> VTE Device Contraindication: N/A - Device Ordered <[facility] - Last Filed: 03/21/24 07:23> VTE Drug Contraindication: N/A - Med Ordered <[facility] - Last Filed: 03/21/24 07:23>
[2024-03-21 07:05] LABS: SLIDE REVIEW VERIFIED
[2024-03-21] MEDS: 0.9 % Sodium Chloride Flush 3 ML SYRINGE IVFLUSH ×2 (07:28→16:13)
[2024-03-21] MEDS: Dextrose 5 % and Lactated Ring 1,000 ML 100 ML IVCONT (07:53)
[2024-03-21] MEDS: Enoxaparin Sodium 40 MG/0.4 ML SYRINGE SUBCUT (07:55)
--- NOTE | 2024-03-21 09:54 | MHC.CM.PN ---
PATIENT LIVES IN AN APARTMENT W/ AND 3 CHILDREN. FUNCTIONALLY INDEPENDENT. DENIES USE OF DME OR SERVICES. PCP ANGEL MELGAR MD HCP ON FILE AND VERIFIED DP: HOME SELF CARE VIA PRIVATE TRANSPORT. CM WILL CONTINUE TO FOLLOW.
--- NOTE | 2024-03-21 11:56 | HO.POSTANES ---
Post Anesthesia Evaluation Post Anesthesia Evaluation Date of Service: 03/21/24 Vital Signs: Vital Signs Temp Pulse Resp BP Pulse Ox O2 Del Method 03/21/24 07:48 18 03/21/24 07:41 97.8 F 100 18 133/78 100 Room Air 03/21/24 04:00 98.0 F 85 16 138/79 100 Anesthesia: Nerve Block (bilateral TAP block and bilateral rectus sheath block) and General Endotracheal-GETA Mental Status: Awake Pain Control: Satisfactory Nausea/Vomiting: None Hydration: Adequate Anesthesia-Related Issues: No Anes. Related Issues
[2024-03-21] MEDS: Dextrose 5 % and Lactated Ring 1,000 ML 50 ML IVCONT (17:37)
[2024-03-22] VITALS (7 sets, daily range): BP systolic 116–132; BP diastolic 63–82; PULSE 78–90; RESP 16–20; TEMP 36–36.6; O2SAT 96–99
[2024-03-22] MEDS: HYDROmorphone HCl 0.5 MG/0.5 ML SYRINGE IVPUSH ×5 (01:59→22:35)
[2024-03-22 06:32] LABS: MANUAL DIFF FLAG NO
[2024-03-22 06:35] LABS: Basophils Absolute Auto 0.1 X10*3/uL (0.0-0.2); Basophils Percent Auto 0.3 % (0-2); Eosinophils Absolute Auto 0.1 X10*3/uL (0.0-0.4); Eosinophils Percent Auto 0.3 % (0-4); Hematocrit 35.4 % (42.0-52.0); Hemoglobin 12.3 g/dl (14.0-18.0); Imm Gran Abs Auto 0.11 X10*3/uL (0.00-0.03); Imm Gran Pct Auto 0.6 % (0.0-0.4); Lymphocytes Absolute Auto 3.7 X10*3/uL (1.2-4.9); Lymphocytes Percent Auto 21.5 % (20-40); Mean Corpuscular HGB Conc 34.7 g/dl (31.0-36.0); Mean Corpuscular Hemoglobin 32.8 pg (27.0-33.0); Mean Corpuscular Volume 94.4 fL (80.0-98.0); Mean Platelet Volume 11.2 fL (9.4-12.4); Monocytes Absolute Auto 1.2 X10*3/uL (0.1-1.2); Monocytes Percent Auto 6.9 % (2-11); Neutrophils Percent Auto 70.4 % (45-73); Platelet Count 324 X10*3/uL (160-400); Red Blood Count 3.75 X10*6/uL (4.60-5.80); Red Cell Distribution Width 12.9 % (11.0-16.0); White Blood Count 17.1 X10*3/uL (4.8-10.8)
--- NOTE | 2024-03-22 06:48 | PM.PNGS ---
Subjective Subjective Date of Service: 03/22/24 <[facility] - Last Filed: 03/22/24 07:08> 03/22/24 <Zahra Crowder PA-C - Last Filed: 03/22/24 07:45> 03/22/24 <Tyron Tesfaye MD - Last Filed: 03/22/24 08:18> Interval history: Patient seen and examined today. States he is feeling much better than yesterday. He is sore but pain is tolerable. Tolerating diet. Urinating without difficulty. Bowel movements normal. Passing flatulence. Bloating is improving. Denies chest pain, shortness of breath, nausea or vomiting, fevers or chills. <[facility] Last Filed: 03/22/24 07:08> Physical Exam Vital Signs: Vital Signs: Last Vital Signs Temp 97.3 F 03/22/24 02:20 Pulse 85 03/22/24 02:20 Resp 16 03/22/24 02:20 BP 125/81 03/22/24 02:20 Pulse Ox 99 03/22/24 02:20 O2 Del Method Room Air 03/22/24 02:20 O2 Flow Rate 6 03/20/24 10:10 BMI result Body Mass Index 25.1 <[facility] Last Filed: 03/22/24 07:08> Const: Other: well appearing male, laying in bed, awake, in no acute distress <[facility] Last Filed: 03/22/24 07:08> Orientation/consciousness: patient oriented x3 <[facility] Last Filed: 03/22/24 07:08> Resp: Other: Lungs clear to auscultation bilaterally, no increased work of breathing <[facility] - Last Filed: 03/22/24 07:08> Cardio: Other: Regular rate and rhythm <[facility] Last Filed: 03/22/24 07:08> GI: Other: Abdomen soft and non tender, slight distention. Bowel sounds appreciated. <[facility] Last Filed: 03/22/24 07:08> Other: Abdomen soft and non tender, slight distention. Bowel sounds appreciated. incisions clean <Zahra Crowder PA-C - Last Filed: 03/22/24 07:45> Skin: Other: no rashes or lesions noted. <[facility] - Last Filed: 03/22/24 07:08> Neuro: General: patient oriented x3 <[facility] - Last Filed: 03/22/24 07:08> Extrem: Other: Moving all extremities normally, no lower extremity edema noted. <[facility] - Last Filed: 03/22/24 07:08> Objective Data Active Medications Calcium Carbonate (Calcium Carbonate 750 Mg Tab.Chew) 750 mg PO Q4H PRN PRN Reason: Heartburn Diphenhydramine HCl (Diphenhydramine Hcl 50 Mg/Ml Vial) 25 mg IVPUSH Q6H PRN PRN Reason: itching/rash Last Admin: 03/20/24 15:32 Dose: 25 mg Documented By: EBONY Enoxaparin Sodium (Enoxaparin Sodium 40 Mg/0.4 Ml Syringe) 40 mg SUBCUT Q24H [facility] Last Admin: 03/21/24 07:55 Dose: 40 mg Documented By: SURINDER Hydromorphone HCl (Hydromorphone Hcl 0.5 Mg/0.5 Ml Syringe) 0.5 mg IVPUSH Q3H PRN; Protocol PRN Reason: Pain, Severe (Pain Scale 7-10) Last Admin: 03/22/24 06:17 Dose: 0.5 mg Documented By: FIORDALIZA Dextrose/Lactated Ringer's (D5lr) 1,000 mls @ 50 mls/hr IVCONT .Q20H [facility] Last Admin: 03/21/24 17:37 Dose: 50 mls/hr Documented By: SURINDER Magnesium Hydroxide (Milk Of Magnesia 30 Ml Oral.Susp) 30 ml PO DAILY PRN PRN Reason: Constipation Ondansetron HCl (Ondansetron Hcl 4 Mg/2 Ml Vial) 4 mg IVPUSH QID PRN PRN Reason: Nausea Oxycodone HCl (Oxycodone Hcl Immed Release 5 Mg Tablet) 5 mg PO Q4H PRN PRN Reason: Pain, Moderate(Pain Scale 4-6) Last Admin: 03/21/24 21:06 Dose: 5 mg Documented By: FIORDALIZA Sodium Chloride (0.9 % Sodium Chloride Flush 3 Ml Syringe) 3 ml IVFLUSH QSHIFT SABA Last Admin: 03/21/24 21:09 Dose: Not Given Documented By: FIORDALIZA Non-Admin Reason: IV Running Zolpidem Tartrate (Zolpidem Tartrate 5 Mg Tablet) 5 mg PO BEDTIME PRN PRN Reason: Insomnia <[facility] - Last Filed: 03/22/24 07:08> Labs CBC & Chem 7: 03/22/24 05:55 03/21/24 05:28 <[facility] - Last Filed: 03/22/24 07:08> Labs: Laboratory Results - last 24 hr 03/21/24 03/22/24 05:28 05:55 MCV 91.7 94.4 MCH 31.7 32.8 MCHC 34.5 34.7 RDW 12.8 12.9 Plt Count 345 324 MPV 11.1 11.2 Immature Gran % (Auto) 0.8 H 0.6 H Neut % (Auto) 90.2 H 70.4 Lymph % (Auto) 4.4 L 21.5 Baker % (Auto) 4.5 6.9 Eos % (Auto) 0.0 0.3 Baso % (Auto) 0.1 0.3 Lymph # (Auto) 0.9 L 3.7 Baker # (Auto) 0.9 1.2 Eos # (Auto) 0.0 0.1 Baso # (Auto) 0.0 0.1 Abs Immat Gran (auto) 0.16 H 0.11 H Absolute Neuts (auto) 18.7 H 12.0 H Absolute Nucleated RBC 0.000 0.000 Nucleated RBC % (auto) 0.0 0.0 Smear Tech's Comments VERIFIED <[facility] - Last Filed: 03/22/24 07:08> Procedures Date of Service Date of Service: 03/22/24 <[facility] - Last Filed: 03/22/24 07:08> 03/22/24 <Zahra Crowder PA-C - Last Filed: 03/22/24 07:45> 03/22/24 <Tyron Tesfaye MD - Last Filed: 03/22/24 08:18> Progress Note: A&P Assessment and plan (1) S/P colon resection: Status: Acute <[facility] - Last Filed: 03/22/24 07:08> Assessment and Plan: Patient POD 2 Hand assisted laparoscopic sigmoid colectomy. Abdomen is soft and with appropriate with appropriate tenderness to palpation. Slightly distended but has greatly improved from yesterday. Dressings intact. Evidence of GI function with flatulence and bowel movements. Patient's pain has improved this morning. Clinically appearing well, vitals wnl. wbc has improved to 17.1 from 20.8. D/C IV pain medications and Begin PO pain medications. Increase activity, continue IS. Patient comfortable with plan. <Zack [facility] - Last Filed: 03/22/24 07:08> Patient POD 2 Hand assisted laparoscopic sigmoid colectomy. Abdomen is soft and with appropriate with appropriate tenderness to palpation. Slightly distended but has greatly improved from yesterday. Dressings intact. Evidence of GI function with flatulence and bowel movements. Patient's pain has improved this morning. Clinically appearing well, vitals wnl. wbc has improved to 17.1 from 20.8. D/C IV pain medications and Begin PO pain medications. Increase activity, continue IS. Patient comfortable with plan. POD #2 s/p Hand assisted laparoscopic sigmoid colectomy for recurrent diverticulitis. Continues to do well post op. Has had a few liquid BMs. Patients abdomen remains benign, distention improved, incisions clean. WBC improved and downtrending. Dc IVF. Advance diet to solids. Cont OOB/ambulation. Discussed transitioning to oral analgesics in preparation for discharge. Home when tolerating solid diet, pain controlled on oral analgesics likely in next 1-2 days. <Zahra Crowder PA-C - Last Filed: 03/22/24 07:45> Time Spent With Patient Time: Total time managing care of this patient today ____ minutes. <[facility]- [facility] - Last Filed: 03/22/24 07:08> Quality Stroke Does the patient have a stroke diagnosis?: No <[facility] - Last Filed: 03/22/24 07:08> VTE Prior VTE?: No <[facility] - Last Filed: 03/22/24 07:08> VTE Risk Level:: Surgical - moderate <[facility]rdxt-[facility]zwtl[facility]- [facility] - Last Filed: 03/22/24 07:08> VTE Device Contraindication: N/A - Device Ordered <[facility] - Last Filed: 03/22/24 07:08> VTE Drug Contraindication: N/A - Med Ordered <[facility] - Last Filed: 03/22/24 07:08>
[2024-03-22] MEDS: Enoxaparin Sodium 40 MG/0.4 ML SYRINGE SUBCUT (08:22)
[2024-03-22] MEDS: 0.9 % Sodium Chloride Flush 3 ML SYRINGE IVFLUSH ×2 (08:49→15:25)
[2024-03-22] MEDS: oxyCODONE HCl Immed Release 5 MG TABLET PO ×3 (09:01→20:28)
--- NOTE | 2024-03-22 10:40 | MHC.CM.PN ---
Per MD rounds patient not medically cleared for dc. CM will continue to follow.
[2024-03-23] MEDS: HYDROmorphone HCl 0.5 MG/0.5 ML SYRINGE IVPUSH (02:03)
[2024-03-23 04:00] VITALS: BP 126/73; PULSE 88; RESP 16; TEMP 36.6; O2SAT 98
[2024-03-23 07:17] VITALS: BP 129/78; PULSE 94; RESP 18; TEMP 36.2; O2SAT 99
--- NOTE | 2024-03-23 07:46 | P.PNGS_ITS ---
Subjective Subjective Date of Service: 03/23/24 Interval history: Sore this morning. Was very active yesterday and walked a lot. Required dilaudid overnight. Tolerating solid diet without nausea or vomiting. Passing flatus and moving bowels. Physical Exam 2 Vital Signs: Vital Signs: Last Vital Signs Temp 97.2 F 03/23/24 07:17 Pulse 94 03/23/24 07:17 Resp 18 03/23/24 07:17 BP 129/78 03/23/24 07:17 Pulse Ox 99 03/23/24 07:17 O2 Del Method Room Air 03/23/24 07:17 O2 Flow Rate 6 03/20/24 10:10 BMI result Body Mass Index 25.1 Const: General: comfortable, no acute distress and alert O rientation/consciousness: patient oriented x3 Resp: Effort & Inspection: normal respiratory effort GI: Inspection: No distended and Yes incision (clean, steris intact) P alpation (GI): Soft to palpation, Tenderness to palpation present (GI) (mild incisional) and no guarding Skin: General skin exam: no rashes or lesions noted Neuro: General: patient oriented x3 and moves all extremities Objective Data Active Medications Calcium Carbonate (Calcium Carbonate 750 Mg Tab.Chew) 750 mg PO Q4H PRN PRN Reason: Heartburn Diphenhydramine HCl (Diphenhydramine Hcl 50 Mg/Ml Vial) 25 mg IVPUSH Q6H PRN PRN Reason: itching/rash Last Admin: 03/20/24 15:32 Dose: 25 mg Documented By: EBONY Enoxaparin Sodium (Enoxaparin Sodium 40 Mg/0.4 Ml Syringe) 40 mg SUBCUT Q24H [facility] Last Admin: 03/22/24 08:22 Dose: 40 mg Documented By: ANNIE-RACLUDWIG Hydromorphone HCl (Hydromorphone Hcl 0.5 Mg/0.5 Ml Syringe) 0.5 mg IVPUSH Q3H PRN; Protocol PRN Reason: Pain, Severe (Pain Scale 7-10) Last Admin: 03/23/24 02:03 Dose: 0.5 mg Documented By: MICHAEL Magnesium Hydroxide (Milk Of Magnesia 30 Ml Oral.Susp) 30 ml PO DAILY PRN PRN Reason: Constipation Ondansetron HCl (Ondansetron Hcl 4 Mg/2 Ml Vial) 4 mg IVPUSH QID PRN PRN Reason: Nausea Oxycodone HCl (Oxycodone Hcl Immed Release 5 Mg Tablet) 5 mg PO Q4H PRN PRN Reason: Pain, Moderate(Pain Scale 4-6) Last Admin: 03/22/24 20:28 Dose: 5 mg Documented By: MICHAEL Comments: per pt request Sodium Chloride (0.9 % Sodium Chloride Flush 3 Ml Syringe) 3 ml IVFLUSH QSHIFT SABA Last Admin: 03/23/24 00:32 Dose: Not Given Documented By: MICHAEL Non-Admin Reason: Previously Administered Zolpidem Tartrate (Zolpidem Tartrate 5 Mg Tablet) 5 mg PO BEDTIME PRN PRN Reason: Insomnia Labs 03/22/24 05:55 03/21/24 05:28 Procedures Date of Service Date of Service: 03/23/24 Progress Note: A&P Assessment and plan (1) S/P colon resection: Status: Acute Plan POD #3 s/p Hand assisted laparoscopic sigmoid colectomy for recurrent diverticulitis. Continues to do well post op, good GI function, tolerating solid diet. Required IV analgesics overnight. VSS. Abd exam benign with clean incisions and mild incisional tenderness. Will return later today for possible dc to home if comfortable on oral analgesics. Patient comfortable with plan. Time Spent With Patient Time: Total time managing care of this patient today ____ minutes. Quality Stroke Does the patient have a stroke diagnosis?: No VTE Prior VTE?: No VTE Risk Level:: Surgical - moderate VTE Device Contraindication: N/A - Device Ordered VTE Drug Contraindication: N/A - Med Ordered
[2024-03-23] MEDS: oxyCODONE HCl Immed Release 5 MG TABLET PO (08:20)
[2024-03-23] MEDS: Enoxaparin Sodium 40 MG/0.4 ML SYRINGE SUBCUT (08:20)
--- NOTE | 2024-03-23 09:14 | MHC.CM.PN ---
Patient medically cleared for dc home self care. Patient's mother will provide transport. RN aware.
--- NOTE | 2024-03-23 10:56 | P.DS_ITS ---
DS: Providers Provider Date of Service: 03/23/24 Date of admission: 03/20/24 06:27 Date of discharge: 03/23/24 Primary care physician: Chi Moyer MD Attending physician on admission: Tyron Tesfaye Attending physician on discharge: Tyron Tesfaye DS: Diagnosis Discharge Diagnosis (1) S/P colon resection: Status: Acute DS: Summary Hospital Course Hospital Course: HPI AT ADMISSION: 33-year-old male patient with multiple episodes of sigmoid diverticulitis the most recent with a microperforation presenting for elective sigmoid colectomy HOSPITAL COURSE: On 03/20/24, hand assisted laparoscopic sigmoid resection was performed by Dr. Tesfaye without complication. The patient tolerated the procedure well and was admitted to the medical/surgical floor for observation. The patient had an uncomplicated recovery course. On POD #1, his latif was removed. He was activity was increased. His diet was advanced slowly as tolerated. He began to pass flatus and move his bowels. He remained inpatient until POD #3 for pain control. On the day of discharge, he was tolerating a solid diet without nausea or vomiting. His pain was well controlled. He was ambulating without difficulty. He had good GI function. He was hemodynamically stable with a benign abd exam and clean incisions. He was discharged to home on 03/23/24 in stable condition. He is to follow up in the office in 1 week. Status at Discharge Functional status at discharge: independent ambulation Overall status at discharge: patient is progressing back to baseline Time Attestation Discharge Coordination Time (in mins): 40 Quality: Safe Use of Opioids Does Pt have an Active Cancer Diagnosis on the Problem List?: No Quality: Stroke Does the patient have a stroke diagnosis?: No Physical Exam Vital Signs: Vital Signs: Last Vital Signs Temp 97.2 F 03/23/24 07:17 Pulse 94 03/23/24 07:17 Resp 18 03/23/24 07:17 BP 129/78 03/23/24 07:17 Pulse Ox 99 03/23/24 07:17 O2 Del Method Room Air 03/23/24 07:17 O2 Flow Rate 6 03/20/24 10:10 BMI result Body Mass Index 25.1 Const: General: comfortable, no acute distress and alert Orientation/consciousness: patient oriented x3 Resp: Effort & Inspection: normal respiratory effort GI: Inspection: No distended and Yes incision (clean incisions, steris intact ) Palpation (GI): Soft to palpation, Tenderness to palpation present (GI) (mild incisional) and no guarding Skin: General skin exam: no rashes or lesions noted Neuro: General: patient oriented x3 and moves all extremities DS: Data Data Completed and Pending Completed studies during hospitalization [Text1]: 03/20/24 09:11 Surgical [PTH] Routine A. Colon, sigmoid, segmental resection: Segment of bowel with diverticulosis and peridiverticular fibrosis. B. Colon, anastomotic donuts, takedown: Two annular portions of colonic mucosa and wall within normal limits. Discharge Plan Discharge Anticipated Discharge Date/Time: 03/23/24 08:00 Patient Disposition: Home, Self-Care Discharge Diagnosis: s/p ZACH sigmoid resection Referrals: Chi Moyer MD [Primary Care Provider] - 1 Week Tyron Tesfaye MD [Physician] - 1 Week Discharge Medications: New oxycodone 5 mg tablet 5 mg PO Q4H PRN (Reason: pain (scale score 7-10)) Qty: 30 0RF Rx Instructions: Partial Fill upon patient request. simethicone 125 mg tablet,chewable 125 mg PO TID PRN (Reason: Gas pain) Qty: 30 0RF Discharge Orders: Discharge Order (Routine); Ordered 03/23/24 Ordered By: Tyron Tesfaye Diet: Advance to usual diet Activity on Discharge: No heavy lifting Stand Alone Forms: Patient Portal Discharge page Print Language: Latvian Activity Restrictions/Additional Instructions: If the incision area is tender, you may apply an ice pack for short intervals (No more than 20 minutes on, followed by at least 20 minutes off). Do not apply heat. Do not use creams, lotions, or topical antibiotics. Ok to shower. No tub bath. You have steri strips (small white cloth strips) covering your incision- these will fall off ~1 week. No heavy lifting (>10lbs) or strenuous activity! Take Tylenol Extra-strength 1-2 tabs every 6 hours as needed. Oxycodone every 4- 6 hours as needed for pain. Colace 100 mg every day as needed for constipation. Follow up in office with Dr. Tesfaye in 1 week. ([phone]) Call Your Doctor If: -Your temperature exceeds 101.5? F -You experience excessive pain or swelling -You have an unexpected reaction to medication -You have excessive bleeding -You experience continued vomiting/nausea -Your incision begins to separate -Your incision shows signs of infection such as increased redness, swelling, excessive pain, drainage (light blood or clear fluid is normal) or heat Care Plan Goals: Return to baseline health and resume normal activities following recovery period. Health Concerns: recurrent sigmoid diverticulitis Plan of Treatment: s/p ZACH sigmoid resection pain control F/u in office in 1 week Assessment: Doing well post op. Discharge Date/Time: 03/23/24 09:31
== END 2024-03-23 09:31 | disposition home or self-care (01) | DRG 223 ==
LOC: HO.SSSA 07:46 → HO.S3 10:10
PROVIDERS: Anesthesiology; Physician Assistant Surgical; Admitting Provider Surgery; PCP Internal Medicine; Visit Provider Surgery
PROC: 0DTE4ZZ Resection of Large Intestine, Percutaneous Endoscopic Approach (ICD-10-PCS; principal; 2024-03-20 07:30)
DX: K57.20 Diverticulitis of large intestine with perforation and abscess without bleeding (principal); F17.210 Nicotine dependence, cigarettes, uncomplicated; Z71.6 Tobacco abuse counseling; G89.18 Other acute postprocedural pain
CPT/HCPCS: 36415; 80048; 85025; 85027; 86850; 86900; 86901; 88305; 88307; C1758; J0131; J1100; J1171; J1200; J1650; J2003; J2405; J2704; J3010

== ENCOUNTER → 2024-03-20 06:27 | Outpatient (BNV) | payer OTHER, SELFPAY | PROVIDERS: Admitting Provider Surgery; Visit Provider Surgery | DX: Z90.49 Acquired absence of other specified parts of digestive tract (principal) | CPT/HCPCS: 44204; 44213; 99024 ==

== ENCOUNTER 2024-03-26 23:41 | Inpatient (IN) | payer OTHER, SELFPAY ==
--- NOTE | ~2024-03-26 | CT_ITS ---
CLINICAL HISTORY: intra abdominal abscess, s p sig. resec [address] abdomen and pelvis with contrast Comparison: CT of the abdomen and pelvis from 04/05/2023 Findings: No consolidation of the imaged lung bases. Mild steatotic change of the liver. Spleen is nonenlarged. Adrenal glands and pancreas appear unchanged. Gallbladder is unremarkable for CT. No hydronephrosis. Small mesenteric lymph nodes are nonspecific and may be reactive. New ventral hernia contains 10 cm of small intestine. Minimal small bowel dilatation concerning for small bowel obstruction measures up to 3.5 cm diameter. Appendix measures at the upper limits of normal without significant change from comparison. Gas again present in the appendix lumen. Fluid in the large intestine as can be seen with diarrhea type illnesses and colitis. Mild distention of the stomach likely secondary to small bowel obstruction. Anastomosis involves distal large intestine. Interloop edema and interloop fluid is multifocal. Additional fluid in the mesentery and free fluid may be reactive. No free intraperitoneal air. Prostate gland measures 4 cm transverse. Mild wall thickening of the urinary bladder is nonspecific. No osseous change in the [id number]. IMPRESSION: Ventral hernia with small-bowel obstruction and multifocal interloop edema. This document has been electronically signed by: Gage Rios MD on 03/27/2024 01:58:19
[2024-03-26 23:46] VITALS: BP 140/98; PULSE 110; O2SAT 98
[2024-03-26 23:55] VITALS: BP 139/84; PULSE 105; RESP 18; TEMP 36.6; O2SAT 96
--- NOTE | 2024-03-26 23:56 | ED_ITS ---
HPI - Abdominal Pain General Chief Complaint: Abdominal Pain Stated Complaint: ABpain sigmoid colon removed,6 days, tender disten Source: patient Limitations: no limitations History of Present Illness ED Provider: Sofi Ferreira PA-C HPI narrative: 33-year-old male with hx of multiple episodes of sigmoid diverticulitis, the most recent with a microperforation, now s/p elective sigmoid colectomy 2/[address] Tesfaye, presents with severe abdominal pain. Patient states he has had some degree of discomfort since the surgery, however over the past day his symptoms have progressed. The pain is severe and diffuse, he states he felt as if he felt a ?pop of air?, in his lower abdomen near 1 of the incision sites. Associated abdominal distention and tension. The patient began vomiting today. Patient states he has been you using MiraLax, he is not constipated, he is having loose stool. He feels as if he is not passing as much flatus from below. He denies fever. Related Data Previous Rx's ?Medication ?Instructions ?Recorded oxycodone 5 mg tablet 5 mg PO Q4H PRN pain (scale score 03/22/24 7-10) #30 tabs simethicone 125 mg chewable tablet 125 mg PO TID PRN Gas pain #30 tabs 03/23/24 Allergies Allergy/AdvReac Type Severity Reaction Status Date / Time acetaminophen [From Tylenol] Allergy Intermediate rash Verified 03/27/24 00:22 Review of Systems Review of Systems Yes all other systems are reviewed and are negative Constitutional: Denies fatigue and Denies fever(s) Cardiovascular: Denies chest pain Gastrointestinal: Reports abdominal pain, Reports bloating, Denies constipation, Reports diarrhea, Reports nausea and Reports vomiting Endocrine: Denies fatigue PMFSH Past Medical History Attestation statement: The following information was validated with the patient. Medical History (Updated 03/27/24 @ 02:17 by KIMMY Henry) Marijuana smoker Low back pain Chronic heartburn Cigarette smoker Diverticulitis of intestine with abscess without bleeding Surgical History (Updated 03/21/24 @ 07:46 by Zahra Crowder PA-C) Hx of colonoscopy (~2022) History of ankle surgery (~2004) Social History Social History Household Members: Family Housing: Apartment Are you a primary transitions rn care coordinator to a significant other at home: No Do you presently have visiting nurse or other home services: No Alcohol intake: current Alcohol intake frequency: holidays/special occasions only Patient Tobacco Use Status: Current everyday Tobacco user Tobacco use type: Cigarette Cigarette Packs Per Day: 0.5 Cigarettes Per Day: 6 Years Smoked: 18 Smoked in Last 30 Days: Yes e-Cigarette/Vaping Use: Never Used Second Hand Smoke Exposure: No Use of substances other than those prescribed or required for medical reasons: Yes Substance Use Type: Marijuana Substance Use Frequency: Daily Advance Directives: No Advance Directives Information Provided: Yes service: No Current occupational status: employed Physical Exam ED Vital Signs: Vital Signs - 24 hr 03/26/24 23:55 03/27/24 02:06 03/27/24 02:25 Temperature 97.8 F 97.6 F Pulse Rate 105 H 100 106 H Respiratory Rate 18 16 16 Blood Pressure 139/84 108/72 116/75 Pulse Oximetry 96 97 99 Oxygen Delivery Method Room Air Room Air Room Air BMI result Body Mass Index 25.5 Const Other: Alert, ill-appearing Orientation/consciousness: patient oriented x3 HENMT Other: Dry cracked lips dry oral mucosa Resp Other: Nonlabored respirations Cardio Other: Normal peripheral perfusion GI Other: Abdomen is tense, peritonitic Skin Other: Warm dry no rash Neuro General: patient oriented x3, no focal motor deficits and CN's II-XI intact bilaterally Psych Other: Cooperative Course Reevaluation(s) Reevaluation #1: sepsis identiified, still no fever, leukocytosis with left shift, is significant...adding zosyn...we already obtained blood cx and lactic...he is receving IVF... His blood pressure is stable, he does not require weight based IV fluid therapy, he got a L, his lactic is 1.3... Still waiting on CT scan Time: 01:17 Consultations Consultation #1: paging Dr. Linder for consult....... Time: 02:12 Consultation #2: she is on way to see the patinet...I let Dr. Samson know at the time of my sign out Time: 03:56 Medical Decision Making Medical Decision Making MDM Narrative: 33-year-old male with hx of multiple episodes of sigmoid diverticulitis, the most recent with a microperforation, now s/p elective sigmoid colectomy [address] Tesfaye, presents with severe abdominal pain. Patient states he has had some degree of discomfort since the surgery, however over the past day his symptoms have progressed. The pain is severe and diffuse, he states he felt as if he felt a ?pop of air?, in his lower abdomen near 1 of the incision sites. Associated abdominal distention and tension. The patient began vomiting today. Patient states he has been you using MiraLax, he is not constipated, he is having loose stool. He feels as if he is not passing as much flatus from below. He denies fever. Problem: Recent surgery History: Per patient I have considered the following differential diagnoses: Surgical complication, intra-abdominal abscess, bowel obstruction Plan: We will be obtaining a CT scan, I am concerned for obstruction versus intra-abdominal abscess given the nature of his symptoms and exam. We will be screening basic labs, coags, obtaining blood cultures and a lactic in the event he requires antibiotics, to note he is not febrile at this time a rectal temp was checked. giving morphine Zofran and IV fluid I have independently reviewed the following tests: Labs: Significant leukocytosis 29.7 with left shift, not anemic, no electrolyte abnormality, lactic 1.3 CT abdomen and pelvis:Findings: No consolidation of the imaged lung bases. Mild steatotic change of the liver. Spleen is nonenlarged. Adrenal glands and pancreas appear unchanged. Gallbladder is unremarkable for CT. No hydronephrosis. Small mesenteric lymph nodes are nonspecific and may be reactive. New ventral hernia contains 10 cm of small intestine. Minimal small bowel dilatation concerning for small bowel obstruction measures up to 3.5 cm diameter. Appendix measures at the upper limits of normal without significant change from comparison. Gas again present in the appendix lumen. Fluid in the large intestine as can be seen with diarrhea type illnesses and colitis. Mild distention of the stomach likely secondary to small bowel obstruction. Anastomosis involves distal large intestine. Interloop edema and interloop fluid is multifocal. Additional fluid in the mesentery and free fluid may be reactive. No free intraperitoneal air. Prostate gland measures 4 cm transverse. Mild wall thickening of the urinary bladder is nonspecific. No osseous change in the [id number]. IMPRESSION: Ventral hernia with small-bowel obstruction and multifocal interloop edema. Lab Data 03/27/24 00:21 03/27/24 00:21 Labs: Lab Results 03/27/24 03/27/24 Range/Units 00:21 00:30 WBC 29.7 H (4.8-10.8) X10*3/uL RBC 4.56 L D (4.60-5.80) X10*6/uL Hgb 14.4 (14.0-18.0) g/dl Hct 41.6 L (42.0-52.0) % MCV 91.2 (80.0-98.0) fL MCH 31.6 (27.0-33.0) pg MCHC 34.6 (31.0-36.0) g/dl RDW 12.3 (11.0-16.0) % Plt Count 339 (160-400) X10*3/uL MPV 11.0 (9.4-12.4) fL Immature Gran % (Auto) 1.0 H (0.0-0.4) % Neut % (Auto) 88.3 H (45-73) % Lymph % (Auto) 4.1 L (20-40) % Butler % (Auto) 6.1 (2-11) % Eos % (Auto) 0.1 (0-4) % Baso % (Auto) 0.4 (0-2) % Lymph # (Auto) 1.2 (1.2-4.9) X10*3/uL Butler # (Auto) 1.8 H (0.1-1.2) X10*3/uL Eos # (Auto) 0.0 (0.0-0.4) X10*3/uL Baso # (Auto) 0.1 (0.0-0.2) X10*3/uL Abs Immat Gran (auto) 0.29 H (0.00-0.03) X10*3/uL Absolute Neuts (auto) 26.2 H (2.0-8.3) x10*3/uL Absolute Nucleated RBC 0.000 (0.0-0.012) X10*3/uL Nucleated RBC % (auto) 0.0 (0.0-0.2) /100WBC Smear Tech's Comments VERIFIED PT 12.3 (10.9-12.4) SEC INR 1.1 (0.9-1.1) Sodium 133 L (135-145) mmol/L Potassium 3.8 (3.3-5.1) mmol/L Chloride 99 (96-108) mmol/L Carbon Dioxide 21 L (22-29) mmol/L Anion Gap 17 (12-20) BUN 12 (9-16) mg/dL Creatinine 0.81 (0.5-1.4) mg/dL Estim Creat Clear Calc 110.7 Estimated GFR > 60 Random Glucose 206 H (60-115) mg/dL Lactic Acid 1.3 (0.5-2.0) mmol/L Calcium 10.4 H D (8.4-10.2) mg/dL Magnesium 1.7 (1.6-2.6) mg/dL Total Bilirubin 0.9 (0.0-1.0) mg/dL AST 33 (5-37) U/L ALT 65 H (0-40) U/L Alkaline Phosphatase 79 (39-117) U/L Total Protein 8.4 H (6.5-8.0) g/dL Albumin 4.8 (3.5-5.0) g/dL Medications Administered Discontinued Medications Generic Name Dose Route Start Last Admin Trade Name Freq PRN Reason Stop Dose Admin Sodium Chloride 1,000 mls @ 999 mls/hr 03/26/24 23:45 03/27/24 01:47 Ns IV 03/27/24 00:45 Infused .Q1H1M SABA Infusion Piperacillin Sod/Tazobactam 50 mls @ 100 mls/hr 03/27/24 01:12 03/27/24 02:06 Sod 3.375 gm/ Sodium Chloride IV 03/27/24 01:41 Infused ONCE ONE Infusion Iohexol 85 ml 03/27/24 00:57 03/27/24 00:57 Iohexol 350 Mg/Ml 100 Ml Infus..Btl IV 03/27/24 00:58 85 ml ONCE ONE Administration Morphine Sulfate 10 mg 03/26/24 23:54 03/27/24 00:11 Morphine Sulfate 10 Mg/Ml Cartridge IVPUSH 03/26/24 23:55 10 mg ONCE ONE Administration Protocol Morphine Sulfate 10 mg 03/27/24 02:11 03/27/24 02:22 Morphine Sulfate 10 Mg/Ml Cartridge IVPUSH 03/27/24 02:12 10 mg ONCE ONE Administration Protocol Ondansetron HCl 4 mg 03/26/24 23:54 03/27/24 00:11 Ondansetron Hcl 4 Mg/2 Ml Vial IVPUSH 03/26/24 23:55 4 mg ONCE ONE Administration Discharge Plan Discharge Clinical Impression: SBO (small bowel obstruction), Ventral hernia Patient Disposition: Admitted As Inpatient Print Language: French
[2024-03-27] VITALS (13 sets, daily range): BP systolic 104–143; BP diastolic 60–89; PULSE 97–111; RESP 14–18; TEMP 36.3–36.9; O2SAT 94–99; BMI 25.5
[2024-03-27] MEDS: ondansetron HCL 4 MG/2 ML VIAL IVPUSH (00:11)
[2024-03-27] MEDS: Morphine Sulfate 10 MG/ML CARTRIDGE IVPUSH ×2 (00:11→02:22)
--- OUTSIDE RECORDS SUMMARY | 2024-03-27 00:28 | XMS_ITS | Encounter Summary ---
Author Organization [facility] Address [address] [place] [address] Care Team Providers Care Avionics Mechanic Name Role Phone Chi Moyer MD Primary Care Provider [phone] Reason for Visit * Reason Onset Date Comments Pre-op Exam 02/24/2024 Encounter Details Date Type Department Care Team ([facility] st Contact Info) Description 02/24/2024 Telephone Internal Medicine - [place] [address] [facility] [address] [place] [address] Chi Moyer MD [address] [facility] [address] [place] [address] Pre-op Exam Social History Tobacco Use Types Packs/Day Years Used Date Smoking Tobacco: Every Day Smokeless Tobacco: Never Alcohol Use Standard Drinks/Week Comments Yes 0 (1 standard drink = 0.6 oz pur e alcohol) Sex and Gender Information Value Date Recorded Sex Assigned at Not on file Legal Sex Male 4:31 PM EDT Gender Identity Not on file Sexual Orientation Not on file documented as of this [...] due to his diverticulitis Please advise Cb# [phone] documented in this encounter Plan of Treatment Not on file documented as of this encounter Visit Diagnoses Not on filedocumented in this encounter Care Teams Avionics Mechanic Relationship Specialty Start Date End Date Chi Moyer MD PCP - General Internal Medicine 06/13/18 documented as of this encounter
--- OUTSIDE RECORDS SUMMARY | 2024-03-27 00:28 | XMS_ITS | Encounter Summary ---
Author Organization [facility] Address [address] [place] [address] Care Team Providers Care Rotary Derrick Operator Name Role Phone Chi Moyer MD Primary Care Provider [phone] Reason for Visit * Reason Onset Date Comments Teresa HESS note 03/17/2024 Encounter Details Date Type Department Care Team (Late st Contact Info) Description 03/17/2024 Telephone Internal Medicine - [place] [address] [facility] [address] [place] [phone] Chi Moyer MD [address] [facility] [address] [place] [address] Teresa HESS note Social History Tobacco Use [...] 03/17/2024 1:12 PM EST General surgery in [facility] called and requested the patients last office visit note because patient is having surgery on Wednesday. Please advise documented in this encounter Plan of Treatment Not on file documented as of this encounter Visit Diagnoses Not on filedocumented in this encounter Care Teams Rotary Derrick Operator Relationship Specialty Start Date End Date Chi Moyer MD PCP - General Internal Medicine 06/13/18 documented as of this encounter
--- OUTSIDE RECORDS SUMMARY | 2024-03-27 00:28 | XMS_ITS | Encounter Summary ---
Author Organization [facility] Address [address] [place] [address] Care Team Providers Care Spot Sprayer Name Role Phone Chi Moyer MD Primary Care Provider [phone] Reason for Visit * Reason Comments Pre-op Exam Encounter Details Date Type Department Care Team ([facility] st Contact Info) Description 03/08/2024 10:00 AM EST Consult Internal Medicine - [place] [address] [facility] [address] [place] [phone] Chi Moyer MD [address] [facility] [address] [place] [address] Preop examination (Primary Dx); Anxiety; Diverticula of [...] in this encounter Ordered Prescriptions Prescription Sig Dispense Quantity Refills Last Filled Start Date End Date traZODone (DESYREL) 50 mg tablet Take 1 [...] AM EST COMPLAINT preop visit IDENTIFIER: João aCmpo is a 33 y.o. old male. HPI: He is going for a laparoscopic diverticulosis surgery early next month at [facility]. 2 episodes of diverticulitis within the last 2 years. Feels fine otherwise ROS: GENERAL: No malaise, significant weight loss or fever RESPIRATORY: No cough, wheezing or shortness of breath CARDIOVASCULAR: No chest pain, leg swelling or palpitations GI: No abdominal discomfort, blood in stools or black stools PAST MEDICAL HISTORY: Patient Active Problem List Diagnosis Date Noted Anxiety 07/07/2018 Marijuana dependence ([facility]) 07/07/2018 Past Surgical History: Procedure Laterality Date [...] ECG 12 lead (03/08/2024 12:11 PM EST) us Chi Moyer MD ECG ORDERABLES Final Result documented in this encounter Visit Diagnoses Diagnosis Preop examination- Primary Unspecified pre-operative examination Anxiety Anxiety state, unspecified Diverticula of colon documented in this encounter Care Teams Spot Sprayer Relationship Specialty Start Date End Date Chi Moyer MD PCP - General Internal Medicine 06/13/18 documented as of this encounter
--- OUTSIDE RECORDS SUMMARY | 2024-03-27 00:28 | XMS_ITS | Clinical Summary ---
Author Organization [facility] [employer] [facility] Address [address] [place] [address] Care Team Providers Care Grant Administrator Name Role Phone Chi Moyer MD Primary Care Provider [phone] Allergies Active Allergy Reactions Criticality Noted Date Comments Acetaminophen 06/13/2018 Other Reaction(s): Rash/Dermatitis Medications ibuprofen (ADVIL,MOTRIN) 200 mg tablet Take 200 [...] Care Team Description 03/17/2024 Telephone Internal Medicine [address] [phone] Chi Moyer MD Joseph: DESHAWN note 03/08/2024 10:00 AM EST Consult Internal Medicine [address] [phone] Chi Moyer MD Preop examination (Primary Dx); Anxiety; Diverticula of colon 02/24/2024 Telephone Internal Medicine [address] [phone] Chi Moyer MD Pre-op Exam from Last 3 [...] on file Sexual Orientation Not on file Obstetrics History Last Filed [...] [employer] Health Screening 05/13/2020 COVID-19 Vaccine (2023-2 5 season) 2023 08/13/2021, 08/08/2020, 07/11/2020 Influenza [...] * Electrocardiogram Report (03/08/2024 3:52 PM EST) us Chi Moyer MD IN CLINIC/BEDSIDE ORDERABLES Fin al Result * ECG 12 lead (03/08/2024 12:11 PM EST) us Chi Moyer MD ECG ORDERABLES Final Result from Last 3 Months Insurance [facility] [employer] Care Teams Grant Administrator Relationship Specialty Start Date End Date Chi Moyer MD PCP - General Internal Medicine 06/13/18
--- OUTSIDE RECORDS SUMMARY | 2024-03-27 00:28 | XMS_ITS | Encounter Summary ---
Author Organization [employer] [facility] Address [address] [facility] [address] [place] [address] Care Team Providers Care Registered Nurses Name Role Phone Unavailable Primary Care Provider [...]
--- OUTSIDE RECORDS SUMMARY | 2024-03-27 00:28 | XMS_ITS | Clinical Summary ---
Author Organization [employer] Address [address] [facility] [address] [place] [address] Care Team Providers Care Respiratory Coordinator Name Role Phone Unavailable Primary Care Provider [...]
[2024-03-27 00:29] LABS: Basophils Absolute Auto 0.1 X10*3/uL (0.0-0.2); Basophils Percent Auto 0.4 % (0-2); Eosinophils Percent Auto 0.1 % (0-4); Hematocrit 41.6 % (42.0-52.0); Hemoglobin 14.4 g/dl (14.0-18.0); Imm Gran Abs Auto 0.29 X10*3/uL (0.00-0.03); Lymphocytes Absolute Auto 1.2 X10*3/uL (1.2-4.9); Lymphocytes Percent Auto 4.1 % (20-40); MANUAL DIFF FLAG SCAN; Mean Corpuscular HGB Conc 34.6 g/dl (31.0-36.0); Mean Corpuscular Hemoglobin 31.6 pg (27.0-33.0); Mean Corpuscular Volume 91.2 fL (80.0-98.0); Monocytes Absolute Auto 1.8 X10*3/uL (0.1-1.2); Monocytes Percent Auto 6.1 % (2-11); Neutrophils Absolute Auto 26.2 x10*3/uL (2.0-8.3); Neutrophils Percent Auto 88.3 % (45-73); Platelet Count 339 X10*3/uL (160-400); Red Blood Count 4.56 X10*6/uL (4.60-5.80); Red Cell Distribution Width 12.3 % (11.0-16.0); SCAN SMEAR FLAG 1; White Blood Count 29.7 X10*3/uL (4.8-10.8)
[2024-03-27] MEDS: 0.9 % Sodium Chloride 1,000 ML 999 ML IV (00:31)
[2024-03-27 00:36] LABS: INTERNATIONAL NORM RATIO 1.1 (0.9-1.1); Prothrombin Time 12.3 SEC (10.9-12.4)
[2024-03-27 00:42] LABS: Alanine Aminotransferase 65 U/L (0-40); Albumin Level 4.8 g/dL (3.5-5.0); Alkaline Phosphatase 79 U/L (39-117); Anion Gap 17 (12-20); Aspartate Amino Transferase 33 U/L (5-37); Bilirubin Total 0.9 mg/dL (0.0-1.0); Blood Urea Nitrogen 12 mg/dL (9-16); Calcium 10.4 mg/dL (8.4-10.2); Carbon Dioxide 21 mmol/L (22-29); Chloride 99 mmol/L (96-108); Creatinine Clr Calc Pharmacy 110.7; Estimated Glomerular Filt Rate > 60; Glucose Random 206 mg/dL (60-115); Magnesium 1.7 mg/dL (1.6-2.6); Potassium 3.8 mmol/L (3.3-5.1); Sodium 133 mmol/L (135-145); Total Protein 8.4 g/dL (6.5-8.0)
[2024-03-27 00:52] LABS: Lactic Acid 1.3 mmol/L (0.5-2.0)
[2024-03-27] MEDS: iohexoL 350 MG/ML 100 ML INFUS..BTL 85 ML IV (00:57)
[2024-03-27 01:07] LABS: SLIDE REVIEW VERIFIED
[2024-03-27] MEDS: Piperacillin Sodium/Tazobactam 3.375 GM in 0.9 % Sodium Chloride 50 ML IV (01:20)
--- NOTE | 2024-03-27 04:39 | P.HPGS_ITS ---
History of Present Illness History of Present Illness Date of Service: 03/27/24 Chief complaint: Abdominal Pain Narrative: João Campo is a 33 year old male who 8 days ago underwent sigmoid colon resection for recurrent diverticulitis elective procedure hand assisted and did well and was discharged 4 days ago. He comes in now saying he has had increasing abdominal pain nausea and vomiting here in the emergency room after blowing his nose and feeling a pop in his abdomen. He started having some swelling in the abdomen and felt little bloated and then started having chills no true fevers. Abdominal pain increase in his result he came into the emergency room. He had a bowel movement yesterday. Here his white count was noted to be 29,[address] scan of his abdomen and pelvis shows new ventral hernia with most likely incarcerated small bowel. Stomach and proximal small bowel is distended consistent with bowel obstruction from the incarcerated small bowel loops. Review of Systems Review of Systems: Yes all other systems are reviewed and are negative PMFSH Past Medical History Medical History (Updated 03/27/24 @ 04:45 by Yudy Linder MD) Marijuana smoker Low back pain Chronic heartburn Cigarette smoker Diverticulitis of intestine with abscess without bleeding Surgical History Surgical History (Updated 03/21/24 @ 07:46 by Zahra Crowder PA-C) Hx of colonoscopy (~2022) History of ankle surgery (~2004) Social History Social History Household Members: Family Housing: Apartment Are you a primary hospice spiritual care coordinator to a significant other at home: No Do you presently have visiting nurse or other home services: No Alcohol intake: current Alcohol intake frequency: holidays/special occasions only Patient Tobacco Use Status: Current everyday Tobacco user Tobacco use type: Cigarette Cigarette Packs Per Day: 0.5 Cigarettes Per Day: 6 Years Smoked: 18 Smoked in Last 30 Days: Yes e-Cigarette/Vaping Use: Never Used Second Hand Smoke Exposure: No Use of substances other than those prescribed or required for medical reasons: Yes Substance Use Type: Marijuana Substance Use Frequency: Daily Advance Directives: No Advance Directives Information Provided: Yes service: No Current occupational status: employed Meds Allergies Allergy/AdvReac Type Severity Reaction Status Date / Time acetaminophen [From Tylenol] Allergy Intermediate rash Verified 03/27/24 00:22 Physical Exam Vital Signs: Vital Signs: Last Vital Signs Temp 97.6 F 03/27/24 02:06 Pulse 106 H 03/27/24 02:25 Resp 16 03/27/24 02:25 BP 116/75 03/27/24 02:25 Pulse Ox 99 03/27/24 02:25 O2 Del Method Room Air 03/27/24 02:25 BMI result Body Mass Index 25.5 Const: General: cooperative and healthy appearing Orientation/consciousness: patient oriented x3 HEENT: Head: Yes normal to inspection Resp: Effort & Inspection: normal respiratory effort Auscultation: clear to auscultation bilaterally Cardio: Rate: tachycardic Rhythm: regular rhythm GI: Other: Abdomen is soft distended at the midline incision lower abdomen Steri-Strips are present there some mild erythema present and a bulge that is firm and tender. Other incisions look fine Neuro: General: patient oriented x3 Psych: Affect: normal affect Attitude: cooperative Results Results Labs: Short CBC 03/27/24 Range/Units 00:21 WBC 29.7 H (4.8-10.8) X10*3/uL Hgb 14.4 (14.0-18.0) g/dl Hct 41.6 L (42.0-52.0) % Plt Count 339 (160-400) X10*3/uL BMP 03/27/24 00:21 Sodium 133 L Potassium 3.8 Chloride 99 Carbon Dioxide 21 L BUN 12 Creatinine 0.81 Calcium 10.4 H D Liver Function 03/27/24 Range/Units 00:21 Total Bilirubin 0.9 (0.0-1.0) mg/dL AST 33 (5-37) U/L ALT 65 H (0-40) U/L Alkaline Phosphatase 79 (39-117) U/L Albumin 4.8 (3.5-5.0) g/dL Abdomen CT scan report/results: report reviewed and image reviewed CT scan - pelvis: report reviewed and image reviewed Additional studies: [address] [address] [address] Scan Report Signed with Demond Patient: João Campo MR#: [id number] : 1990 Acct:[id number] Age/Sex: 33 / M ADM Date: 03/27/24 Loc: HO.ED Attending Dr: Ordering Physician: Sofi Ferreira Date of Service: 03/27/24 Procedure(s): CT abdomen pelvis w IV con Accession Number(s): [id number] cc: Sofi Ferreira; Chi Moyer MD~ Report Number: [id number]: Total DLP = 427.00 mGy-cm ADDENDUMThis document has been electronically signed by: Gage Rios MD on 03/27/2024 01:58:19 ADDENDUM: This report was discussed with Jhon Farah on Mar 27, 2024 02:14:00 EST. This document has been electronically signed by: Liza Toribio on 03/27/2024 02:14:34 Addendum Dictated By: Gage Rios MD Addendum Signed By: <Electronically signed by Gage Rios MD in [place]> 03/27/24214 Addendum Cosigned By: DD/ /09/157 TD/TT: 03/27/2412/09/213 CLINICAL HISTORY: intra abdominal abscess, s p sig. resec [address] abdomen and pelvis with contrast Comparison: CT of the abdomen and pelvis from 04/05/2023 Findings: No consolidation of the imaged lung bases. Mild steatotic change of the liver. Spleen is nonenlarged. Adrenal glands and pancreas appear unchanged. Gallbladder is unremarkable for CT. No hydronephrosis. Small mesenteric lymph nodes are nonspecific and may be reactive. New ventral hernia contains 10 cm of small intestine. Minimal small bowel dilatation concerning for small bowel obstruction measures up to 3.5 cm diameter. Appendix measures at the upper limits of normal without significant change from comparison. Gas again present in the appendix lumen. Fluid in the large intestine as can be seen with diarrhea type illnesses and colitis. Mild distention of the stomach likely secondary to small bowel obstruction. Anastomosis involves distal large intestine. Interloop edema and interloop fluid is multifocal. Additional fluid in the mesentery and free fluid may be reactive. No free intraperitoneal air. Prostate gland measures 4 cm transverse. Mild wall thickening of the urinary bladder is nonspecific. No osseous change in the [id number]. IMPRESSION: Ventral hernia with small-bowel obstruction and multifocal interloop edema. This document has been electronically signed by: Gage Rios MD on 03/27/2024 01:58:19 Dictated By: Gage Rios MD Signed By: <Electronically signed by Gage Rios MD in [place]> 03/27/24 0158 DD/DT: Assessment and Plan (1) Incarcerated ventral hernia: Status: Acute Plan 33-year-old male little over a week status post elective sigmoid resection for recurrent diverticulitis hand assisted surgery coming in now with incarcerated small bowel loops from new ventral hernia secondary most likely to rupture of midline suture closure. Elevated white count tender firm mass noted. Plan to take to the OR emergently for re-exploration possible bowel resection with re- closure of abdominal wall. Patient understands and agrees with the above plan. Risks and benefits discussed with the patient but risk being progression of this incarcerated bowel to ischemic bowel and he wishes to proceed Quality Stroke Does the patient have a stroke diagnosis?: No VTE Prior VTE?: No VTE Risk Level:: Surgical - moderate VTE Device Contraindication: N/A - Device Ordered VTE Drug Contraindication: N/A - Med Ordered Procedures Date of Service Date of Service: 03/27/24
--- NOTE | 2024-03-27 05:28 | PC.NURSE ---
report given to OR
--- NOTE | 2024-03-27 05:33 | HO.ANESPROP2 ---
[facility] Active Problems Active Problems: All Active Problems Incarcerated ventral hernia (Acute) Ventral hernia (Acute) SBO (small bowel obstruction) (Acute) S/P colon resection (Acute) Diverticulosis (Acute) Colitis (Acute) Abdominal pain (Acute) No pertinent past medical history (Acute) Past Medical History Medical History (Updated 03/27/24 @ 04:45 by Yudy Linder MD) Marijuana smoker Low back pain Chronic heartburn Cigarette smoker Diverticulitis of intestine with abscess without bleeding Family History Family history of problems with anesthesia: No Surgical History Surgical History (Updated 03/21/24 @ 07:46 by Zahra Crowder PA-C) Hx of colonoscopy (~2022) History of ankle surgery (~2004) History of Problems with Anesthesia: No Social History Social History Household Members: Family Housing: Apartment Are you a primary long term acute care registered nurse to a significant other at home: No Do you presently have visiting nurse or other home services: No Alcohol intake: current Alcohol intake frequency: holidays/special occasions only Patient Tobacco Use Status: Current everyday Tobacco user Tobacco use type: Cigarette Cigarette Packs Per Day: 0.5 Cigarettes Per Day: 6 Years Smoked: 18 Smoked in Last 30 Days: Yes e-Cigarette/Vaping Use: Never Used Second Hand Smoke Exposure: No Use of substances other than those prescribed or required for medical reasons: Yes Substance Use Type: Marijuana Substance Use Frequency: Daily Advance Directives: No Advance Directives Information Provided: Yes Nutrition Risks: No Nutritional Risk service: No Current occupational status: employed Meds Allergies Allergy/AdvReac Type Severity Reaction Status Date / Time acetaminophen [From Tylenol] Allergy Intermediate rash Verified 03/27/24 00:22 Exam Height,Weight and Vital Signs: Height 5 ft 5 in Weight 69.4 kg Last Vital Signs Temp 97.9 F 03/27/24 05:20 Pulse 105 H 03/27/24 05:20 Resp 18 03/27/24 05:20 BP 114/64 03/27/24 05:20 Pulse Ox 98 03/27/24 05:20 O2 Del Method Room Air 03/27/24 05:20 Pertinent Lab Results Pertinent Lab Results: Laboratory Tests 03/27/24 03/27/24 00:21 00:30 WBC 29.7 H RBC 4.56 L D Hgb 14.4 Hct 41.6 L MCV 91.2 MCH 31.6 MCHC 34.6 RDW 12.3 Plt Count 339 MPV 11.0 Immature Gran % (Auto) 1.0 H Neut % (Auto) 88.3 H Lymph % (Auto) 4.1 L [place] % (Auto) 6.1 Eos % (Auto) 0.1 Baso % (Auto) 0.4 Lymph # (Auto) 1.2 [place] # (Auto) 1.8 H Eos # (Auto) 0.0 Baso # (Auto) 0.1 Abs Immat Gran (auto) 0.29 H Absolute Neuts (auto) 26.2 H Absolute Nucleated RBC 0.000 Nucleated RBC % (auto) 0.0 Smear Tech's Comments VERIFIED PT 12.3 INR 1.1 Sodium 133 L Potassium 3.8 Chloride 99 Carbon Dioxide 21 L Anion Gap 17 BUN 12 Creatinine 0.81 Estim Creat Clear Calc 110.7 Estimated GFR > 60 Random Glucose 206 H Lactic Acid 1.3 Calcium 10.4 H D Magnesium 1.7 Total Bilirubin 0.9 AST 33 ALT 65 H Alkaline Phosphatase 79 Total Protein 8.4 H Albumin 4.8 Airway Mallampati Class: II TM Dist: >3cm Neck ROM: Full Assessment and Plan Assessment Anesthesia Assessment: Anesthesia Plan Discussed and Chart Reviewed Final Anesthetic Review Family History of Problems with Anesthesia: No History of Problems with Anesthesia: No Final Preanesthetic Review: No Changes in Pt Med Stat, Meds/Allgs Chart Reviewed, Consent Obtained/Reviewed, Anes Risks/Benef Reviewed and DNR Form (If Appl.) Patient Risk: Intermediate Procedure Risk: Intermediate Anesthetic Plan Anesthetic Plan: GA Disposition: Standard PACU
--- NOTE | 2024-03-27 05:57 | PC.NURSE ---
pt off unit to OR
[2024-03-27] MEDS: ceFAZolin Sodium/Dextrose,Iso 2 GM/50 ML PIGGYBACK IV (07:46)
[2024-03-27] MEDS: fentaNYL citrate/PF 100 MCG/2 ML VIAL 50 MCG IVPUSH (07:55)
[2024-03-27] MEDS: oxyCODONE HCl Immed Release 5 MG TABLET 10 MG PO ×4 (08:50→23:50)
--- NOTE | 2024-03-27 09:10 | PM.EVENT ---
Event Note Date of Service: 03/27/24 Event Note: Awake and alert Reporting incisional pain Hemodynamically stable. Reviewed findings of surgery with the patient and . Time Spent With Patient Time: Total time managing care of this patient today ____ minutes.
--- NOTE | 2024-03-27 09:44 | MHC.CM.PN ---
PT LIVES WITH S/O HE IS INDEPENDENT HAS OWN RIDE HOME WILL NOT NEED SERVICES WHEN DCD DC PLAN HOME NO SERVICES
[2024-03-27] MEDS: cefTRIAXone sodium 2 GM VIAL IVPUSH (10:45)
[2024-03-27] MEDS: HYDROmorphone HCl 0.5 MG/0.5 ML SYRINGE IVPUSH ×4 (11:07→21:18)
--- NOTE | 2024-03-27 11:12 | PHA.MEDREC ---
Addendum entered by Ivanna Duggan RPh 03/27/24 12:50: Med rec was reviewed by ezekiel. Original Note: Pharmacy Consult ? Medication Reconciliation Pharmacy has completed the medication reconciliation. Spoke to patient to confirm med list. Patient states he no longer takes Trazodone 50 mg. Patient states he is not on any home medications at this time.
[2024-03-27] MEDS: Ketorolac Tromethamine 30 MG/ML VIAL IVPUSH ×2 (12:33→23:16)
--- NOTE | 2024-03-27 16:27 | W.PM.OPN ---
Operative Note Operative Note Date of Service: 03/27/24 Narrative: Preop diagnosis-- dehiscence of abdominal wall incision with incarcerated small bowel Postop diagnosis--same Procedure--exploratory laparotomy with reduction of small bowel and closure of abdominal wall fascia Surgeon--Niyah Anesthesia--TONY History--patient is a 33-year-old male who about a week ago had lap assisted sigmoid resection with the gel port in the midline area and was DC home to 3 days ago and did fine. However on Wednesday he was coughing and felt a pop and then had more pain and some nausea and decided to come to the emergency room where his white count was noted to be elevated and CT scan showed small bowel under the skin after the fascia had come apart. Findings-- thickened inflamed but healthy non compromised small bowel. Everything was able to be reduced easily into the peritoneal cavity. Procedure-- Patient was brought to the operative room under Anesthesia guidance was intubated. He had compression stockings placed before induction he was a preoperative antibiotic his abdomen was prepped and draped in standard surgical fashion a Ferreira catheter was placed the incision along the midline infraumbilical area was reopened with a scalpel and cautery. We did this carefully knowing that the bowel was right underneath. Eventually we were able to get through the subcutaneous fat and evaluate the small bowel in the loops so we are right underneath were thickened indurated pink in color and there was more fluid amongst the distended loops of small bowel. Area was suctioned and there was a lot free fluid which was a little serosanguineous in appearance no evidence of any purulence. Manual exploration of the left lower quadrant did not reveal a significant masses or lesions and the area of the anastomosis felt well. The suctioned was placed in his left lower quadrant area and there was just clear serous sanguinous type fluid obtained no evidence of any concern. As a result the small bowel was reduced and the fascia examined. On entering the abdomen the 0 PDS suture not was not at the apex of the wound but was midway to 2/[address] off to the side. The entire upper aspect of the wound was opened. Now to retention sutures were placed dividing the length of the wound and then 0 PDS loop was tied to the apex and the base of the incision and taking good bites through the fascia and close bites each suture was brought to the middle of the wound and tied this was a good approximation in the fascia bites were along good tissue. This made the closure secure. Plastic tubing from a MERT drain was in brought out around the retention sutures and tied down after closing the skin with porfirio. At the end of the case all sponge instrument needle count were correct estimated blood loss was minimal no specimen was sent dry sterile dressing was placed Ferreira catheter removed. Patient returned stable to recovery room
[2024-03-27] MEDS: Docusate Sodium 100 MG CAPSULE PO (19:38)
[2024-03-28 03:34] VITALS: BP 125/67; PULSE 98; RESP 18; TEMP 36.3; O2SAT 98
[2024-03-28 05:39] LABS: Basophils Absolute Auto 0.1 X10*3/uL (0.0-0.2); Basophils Percent Auto 0.3 % (0-2); Eosinophils Absolute Auto 0.2 X10*3/uL (0.0-0.4); Eosinophils Percent Auto 1.1 % (0-4); Hematocrit 34.2 % (42.0-52.0); Hemoglobin 11.9 g/dl (14.0-18.0); Imm Gran Abs Auto 0.16 X10*3/uL (0.00-0.03); Lymphocytes Absolute Auto 3.4 X10*3/uL (1.2-4.9); Lymphocytes Percent Auto 21.4 % (20-40); MANUAL DIFF FLAG SCAN; Mean Corpuscular HGB Conc 34.8 g/dl (31.0-36.0); Mean Corpuscular Hemoglobin 31.8 pg (27.0-33.0); Mean Corpuscular Volume 91.4 fL (80.0-98.0); Mean Platelet Volume 10.4 fL (9.4-12.4); Monocytes Absolute Auto 1.6 X10*3/uL (0.1-1.2); Neutrophils Absolute Auto 10.4 x10*3/uL (2.0-8.3); Neutrophils Percent Auto 66.2 % (45-73); Platelet Count 346 X10*3/uL (160-400); Red Blood Count 3.74 X10*6/uL (4.60-5.80); Red Cell Distribution Width 12.6 % (11.0-16.0); SCAN SMEAR FLAG 1; White Blood Count 15.8 X10*3/uL (4.8-10.8)
[2024-03-28 05:55] LABS: Anion Gap 13 (12-20); Blood Urea Nitrogen 9 mg/dL (9-16); Calcium 9.4 mg/dL (8.4-10.2); Carbon Dioxide 27 mmol/L (22-29); Chloride 104 mmol/L (96-108); Creatinine Clr Calc Pharmacy 112.1; Estimated Glomerular Filt Rate > 60; Glucose Fasting 101 mg/dL (60-99); Potassium 3.9 mmol/L (3.3-5.1); Sodium 140 mmol/L (135-145)
[2024-03-28 05:59] LABS: SLIDE REVIEW VERIFIED
[2024-03-28 07:38] VITALS: BP 127/81; PULSE 85; RESP 16; TEMP 37.3; O2SAT 99
--- NOTE | 2024-03-28 08:00 | P.PNGS_ITS ---
Subjective Subjective Date of Service: 03/28/24 Interval history: Reports incisional pain, denies nausea or vomiting. Tolerated liquid diet and would like to try solid food. Was up and ambulating early this morning. Physical Exam 2 Vital Signs: Vital Signs: Last Vital Signs Temp 99.1 F 03/28/24 07:38 Pulse 85 03/28/24 07:38 Resp 16 03/28/24 07:38 BP 127/81 03/28/24 07:38 Pulse Ox 99 03/28/24 07:38 O2 Del Method Room Air 03/28/24 07:38 BMI result Body Mass Index 25.5 Const: General: healthy appearing Nutritional Appearance: well nourished Orientation/consciousness: patient oriented x3 Limitations: no limitations Resp: Effort & Inspection: normal respiratory effort, no audible wheezes, no cough and no respiratory distress GI: Other: Abdominal binder in place, dressings clean and intact. Skin: Other: Warm, dry, no rash Neuro: General: patient oriented x3 Objective Data Active Medications Calcium Carbonate (Calcium Carbonate 750 Mg Tab.Chew) 750 mg PO Q6H PRN PRN Reason: Heartburn Ceftriaxone Sodium (Ceftriaxone Sodium 2 Gm Vial) 2 gm IVPUSH Q24H [facility] Last Admin: 03/27/24 10:45 Dose: 2 gm Documented By: EBONY Docusate Sodium (Docusate Sodium 100 Mg Capsule) 100 mg PO BID [facility] Last Admin: 03/27/24 19:38 Dose: 100 mg Documented By: LINH Hydromorphone HCl (Hydromorphone Hcl 0.5 Mg/0.5 Ml Syringe) 0.5 mg IVPUSH Q3H PRN; Protocol PRN Reason: Pain, Severe (Pain Scale 7-10) Last Admin: 03/27/24 21:18 Dose: 0.5 mg Documented By: LINH Ketorolac Tromethamine (Ketorolac Tromethamine 30 Mg/Ml Vial) 30 mg IVPUSH Q6H PRN PRN Reason: Pain, Mild (Pain Scale 1-3) Stop: 03/31/24 23:00 Last Admin: 03/27/24 23:16 Dose: 30 mg Documented By: LINH Ondansetron HCl (Ondansetron Hcl 4 Mg/2 Ml Vial) 4 mg IVPUSH Q6H PRN PRN Reason: Nausea and Vomiting Oxycodone HCl (Oxycodone Hcl Immed Release 5 Mg Tablet) 10 mg PO Q4H PRN PRN Reason: Pain, Moderate(Pain Scale 4-6) Last Admin: 03/27/24 23:50 Dose: 10 mg Documented By: LINH Labs 03/28/24 05:27 03/28/24 05:27 Labs: Laboratory Results - last 24 hr 03/28/24 05:27 MCV 91.4 MCH 31.8 MCHC 34.8 RDW 12.6 Plt Count 346 MPV 10.4 Immature Gran % (Auto) 1.0 H Neut % (Auto) 66.2 Lymph % (Auto) 21.4 [place] % (Auto) 10.0 Eos % (Auto) 1.1 Baso % (Auto) 0.3 Lymph # (Auto) 3.4 [place] # (Auto) 1.6 H Eos # (Auto) 0.2 Baso # (Auto) 0.1 Abs Immat Gran (auto) 0.16 H Absolute Neuts (auto) 10.4 H Absolute Nucleated RBC 0.000 Nucleated RBC % (auto) 0.0 Smear Tech's Comments VERIFIED Anion Gap 13 Estim Creat Clear Calc 112.1 Estimated GFR > 60 Fasting Glucose 101 H Calcium 9.4 D Microbiology Microbiology Results: Microbiology 03/27/24 00:30 Blood Culture - Preliminary Blood - Venous No growth after 24 hours. 03/27/24 00:21 Blood Culture - Preliminary Blood - Venous No growth after 24 hours. Procedures Date of Service Date of Service: 03/28/24 Progress Note: A&P Assessment and plan (1) S/P colon resection: Status: Acute (2) Incarcerated ventral hernia: Status: Acute Plan Pod 1 following repair of incarcerated hernia following hand assisted laparoscopic sigmoid colectomy. Patient is much improved this morning with mainly incisional pain. We will advance his diet today. Encouraged continued ambulation and incentive spirometry. Time Spent With Patient Time: Total time managing care of this patient today ____ minutes. Quality Stroke Does the patient have a stroke diagnosis?: No VTE Prior VTE?: No VTE Risk Level:: Surgical - moderate VTE Device Contraindication: N/A - Device Ordered VTE Drug Contraindication: N/A - Med Ordered
[2024-03-28] MEDS: Ketorolac Tromethamine 30 MG/ML VIAL IVPUSH ×3 (08:10→21:38)
[2024-03-28] MEDS: Docusate Sodium 100 MG CAPSULE PO ×2 (08:10→19:19)
[2024-03-28] MEDS: HYDROmorphone HCl 0.5 MG/0.5 ML SYRINGE IVPUSH ×4 (08:11→22:33)
[2024-03-28] MEDS: oxyCODONE HCl Immed Release 5 MG TABLET 10 MG PO ×4 (09:25→23:10)
[2024-03-28] MEDS: cefTRIAXone sodium 2 GM VIAL IVPUSH (10:33)
--- NOTE | 2024-03-28 14:17 | HO.POSTANES ---
Post Anesthesia Evaluation Post Anesthesia Evaluation Date of Service: 03/28/24 Vital Signs: Vital Signs Temp Pulse Resp BP Pulse Ox O2 Del Method 03/28/24 07:38 99.1 F 85 16 127/81 99 Room Air 03/28/24 03:34 97.3 F 98 18 125/67 98 Room Air Anesthesia: General Endotracheal-GETA Mental Status: Awake Pain Control: Satisfactory Nausea/Vomiting: None Hydration: Adequate Anesthesia-Related Issues: No Anes. Related Issues
[2024-03-28 15:00] VITALS: BP 129/70; PULSE 102; RESP 18; TEMP 37.1; O2SAT 98
[2024-03-28 19:35] VITALS: BP 130/70; PULSE 96; RESP 18; TEMP 36.7; O2SAT 98
[2024-03-29 03:12] VITALS: BP 119/55; PULSE 88; RESP 16; TEMP 36.1; O2SAT 99
[2024-03-29] MEDS: HYDROmorphone HCl 0.5 MG/0.5 ML SYRINGE IVPUSH (03:25)
[2024-03-29] MEDS: Docusate Sodium 100 MG CAPSULE PO (07:29)
[2024-03-29 07:38] VITALS: BP 129/93; PULSE 84; RESP 16; TEMP 36.9; O2SAT 100
[2024-03-29] MEDS: Ketorolac Tromethamine 30 MG/ML VIAL IVPUSH (07:39)
[2024-03-29] MEDS: oxyCODONE HCl Immed Release 5 MG TABLET 10 MG PO (09:08)
[2024-03-29] MEDS: cefTRIAXone sodium 2 GM VIAL IVPUSH (09:09)
--- NOTE | 2024-03-29 09:33 | P.PNGS_ITS ---
Subjective Subjective Date of Service: 03/29/24 Interval history: Overall feels ok, c/o incisional pain but able to ambulate without difficulty. Tolerating solid diet. Passing flatus, no BM. Physical Exam 2 Vital Signs: Vital Signs: Last Vital Signs Temp 98.4 F 03/29/24 07:38 Pulse 84 03/29/24 07:38 Resp 16 03/29/24 07:38 BP 129/93 H 03/29/24 07:38 Pulse Ox 100 03/29/24 07:38 O2 Del Method Room Air 03/29/24 07:38 BMI result Body Mass Index 25.5 Const: General: comfortable, no acute distress and alert O rientation/consciousness: patient oriented x3 Resp: Effort & Inspection: normal respiratory effort GI: Other: incision clean, porfirio and retention sutures intact Palpation (GI): Soft to palpation, Tenderness to palpation present (GI) (mild incisional) and no guarding Percussion: Yes normal to percussion Skin: General skin exam: no rashes or lesions noted Neuro: General: patient oriented x3 and moves all extremities Objective Data Active Medications Calcium Carbonate (Calcium Carbonate 750 Mg Tab.Chew) 750 mg PO Q6H PRN PRN Reason: Heartburn Ceftriaxone Sodium (Ceftriaxone Sodium 2 Gm Vial) 2 gm IVPUSH Q24H [facility] Last Admin: 03/29/24 09:09 Dose: 2 gm Documented By: ZAK Docusate Sodium (Docusate Sodium 100 Mg Capsule) 100 mg PO BID [facility] Last Admin: 03/29/24 07:29 Dose: 100 mg Documented By: ZAK Hydromorphone HCl (Hydromorphone Hcl 0.5 Mg/0.5 Ml Syringe) 0.5 mg IVPUSH Q3H PRN; Protocol PRN Reason: Pain, Severe (Pain Scale 7-10) Last Admin: 03/29/24 03:25 Dose: 0.5 mg Documented By: HERBERT Ketorolac Tromethamine (Ketorolac Tromethamine 30 Mg/Ml Vial) 30 mg IVPUSH Q6H PRN PRN Reason: Pain, Mild (Pain Scale 1-3) Stop: 03/31/24 23:00 Last Admin: 03/29/24 07:39 Dose: 30 mg Documented By: ZAK Ondansetron HCl (Ondansetron Hcl 4 Mg/2 Ml Vial) 4 mg IVPUSH Q6H PRN PRN Reason: Nausea and Vomiting Oxycodone HCl (Oxycodone Hcl Immed Release 5 Mg Tablet) 10 mg PO Q4H PRN PRN Reason: Pain, Moderate(Pain Scale 4-6) Last Admin: 03/29/24 09:08 Dose: 10 mg Documented By: BEIT Labs 03/28/24 05:27 03/28/24 05:27 Microbiology Microbiology Results: Microbiology 03/27/24 00:30 Blood Culture - Preliminary Blood - Venous No growth after 48 hours. 03/27/24 00:21 Blood Culture - Preliminary Blood - Venous No growth after 48 hours. Procedures Date of Service Date of Service: 03/29/24 Progress Note: A&P Assessment and plan (1) S/P colon resection: Status: Acute Plan Pod 2 following repair of incarcerated hernia following hand assisted laparoscopic sigmoid colectomy. Doing well overall, incision clean, retention sutures intact. Abd exam benign. Home when comfortable on oral analgesics, possibly later today or tomorrow. Ok to shower. Patient comfortable with plan. Time Spent With Patient Time: Total time managing care of this patient today ____ minutes. Quality Stroke Does the patient have a stroke diagnosis?: No VTE Prior VTE?: No VTE Risk Level:: Surgical - moderate VTE Device Contraindication: N/A - Device Ordered VTE Drug Contraindication: N/A - Med Ordered
[2024-03-29] MEDS: Ibuprofen 600 MG TABLET PO (09:54)
--- NOTE | 2024-03-29 11:19 | PC.NURSE ---
discharge com[pleted by ISHMAEL Mckeon
--- NOTE | 2024-03-29 12:55 | PM.DS ---
DS: Providers Provider Date of Service: 03/29/24 Date of admission: 03/27/24 04:36 Date of discharge: 03/29/24 Primary care physician: Chi Moyer MD Attending physician on admission: Yudy Linder Attending physician on discharge: Tyron Tesfaye DS: Diagnosis Discharge Diagnosis (1) S/P colon resection: Status: Inactive DS: Summary Hospital Course Hospital Course: HPI AT ADMISSION: João Campo is a 33 year old male who 8 days ago underwent sigmoid colon resection for recurrent diverticulitis elective procedure hand assisted and did well and was discharged 4 days ago. He comes in now saying he has had increasing abdominal pain nausea and vomiting here in the emergency room after blowing his nose and feeling a pop in his abdomen. He started having some swelling in the abdomen and felt little bloated and then started having chills no true fevers. Abdominal pain increase in his result he came into the emergency room. He had a bowel movement yesterday. Here his white count was noted to be 29,[address] scan of his abdomen and pelvis shows new ventral hernia with most likely incarcerated small bowel. Stomach and proximal small bowel is distended consistent with bowel obstruction from the incarcerated small bowel loops. HOSPITAL COURSE: On 03/27/24, exploratory laparotomy with reduction of small bowel and closure of abdominal wall fascia was performed by Dr. Linder for dehiscence of abdominal wall incision with incarcerated small bowel without immediate complication. The patient tolerated the procedure well and was admitted following for observation post operatively. Abd binder was placed post op. He had an uncomplicated recovery course. His diet was advanced as tolerated. His activity was increased as tolerated. He remained inpatient for 2 days post operatively for pain control. On the day of discharge, he was tolerating a solid diet without nausea or vomiting, was passing flatus, and was ambulating without difficulty. He was hemodynamically stable with a benign abd exam and clean incision with intact retention sutures. He was discharged to home on 03/29/23 in stable condition. He is to follow up in the office in 1 week. Status at Discharge Functional status at discharge: independent ambulation Time Attestation Discharge Coordination Time (in mins): 35 Quality: Safe Use of Opioids Does Pt have an Active Cancer Diagnosis on the Problem List?: No Quality: Stroke Does the patient have a stroke diagnosis?: No Physical Exam Vital Signs: Vital Signs: Last Vital Signs Temp 98.4 F 03/29/24 07:38 Pulse 84 03/29/24 07:38 Resp 16 03/29/24 07:38 BP 129/93 H 03/29/24 07:38 Pulse Ox 100 03/29/24 07:38 O2 Del Method Room Air 03/29/24 07:38 BMI result Body Mass Index 25.5 Const: General: comfortable, no acute distress and alert Orientation/consciousness: patient oriented x3 Resp: Effort & Inspection: normal respiratory effort GI: Other: incision clean, retention sutures in place Inspection: Yes distended (mild ) Palpation (GI): Soft to palpation, Tenderness to palpation present (GI) (mild incisional) and no guarding Skin: General skin exam: no rashes or lesions noted Neuro: General: patient oriented x3 and moves all extremities DS: Data Data Completed and Pending Completed studies during hospitalization [Text1]: Procedures Excision of Sigmoid Colon, Percutaneous Endoscopic Approach, Hand-Assisted (03/20/24) Introduction of Anesthetic Agent into Peripheral Nerves and Plexi, Percutaneous Approach (03/20/24) Discharge Plan Discharge Anticipated Discharge Date/Time: 03/29/24 10:08 Patient Disposition: Home, Self-Care Discharge Diagnosis: Incarcerated incisional hernia Referrals: Chi Moyer MD [Primary Care Provider] - 1 Week Tyron Tesfaye MD [Physician] - 1 Week Discharge Medications: New ketorolac 10 mg tablet 10 mg PO Q8H Qty: 20 0RF Rx Instructions: maximum total duration of 5 days from all oral, intranasal, or parenteral formulations No Action amoxicillin-pot clavulanate 500-125 mg tablet 1 tab PO Q8H Qty: 30 0RF oxycodone 5 mg tablet 5 mg PO Q6H PRN (Reason: pain (scale score 7-10)) Qty: 15 0RF Rx Instructions: Partial Fill upon patient request. Discharge Orders: Discharge Order (Routine); Ordered 03/29/24 Ordered By: Tyron Tesfaye Diet: Advance to usual diet Activity on Discharge: No heavy lifting Stand Alone Forms: Patient Portal Discharge page Print Language: Venezuelan Care Plan Goals: Return to normal diet and activity Health Concerns: Incisional hernia Plan of Treatment: Repair of incisional hernia Assessment: Incisional hernia Discharge Date/Time: 03/29/24 10:57
== END 2024-03-29 10:57 | disposition home or self-care (01) | DRG 794 ==
LOC: HO.ED 03-27 02:17 → HO.EDOVER 03-27 04:38 → HO.S3 03-27 07:26
PROVIDERS: Physician Assistant Medical; Physician Assistant Surgical; Admitting Provider Surgery; Emergency Provider Emergency Medicine; PCP Internal Medicine; Visit Provider Surgery
PROC: 0WQF0ZZ Repair Abdominal Wall, Open Approach (ICD-10-PCS; CPT 49000; principal; 2024-03-27 06:00)
DX: T81.321A Disruption or dehiscence of closure of internal operation (surgical) wound of abdominal wall muscle or fascia, initial encounter (principal); K43.6 Other and unspecified ventral hernia with obstruction, without gangrene; F17.210 Nicotine dependence, cigarettes, uncomplicated; Z71.6 Tobacco abuse counseling
CPT/HCPCS: 36415; 74177; 80048; 80053; 83605; 83735; 85025; 85610; 87040; 99284; J0690; J0696; J1100; J1171; J1885; J2003; J2250; J2270; J2405; J2543; J2704; J3010; Q9967

== ENCOUNTER → 2024-03-27 | Outpatient (BNV) | payer OTHER, SELFPAY | PROVIDERS: Emergency Provider Emergency Medicine; PCP Internal Medicine; Visit Provider Radiology Neuroradiology | DX: K43.6 Other and unspecified ventral hernia with obstruction, without gangrene (principal) | CPT/HCPCS: 74177 ==

== ENCOUNTER 2024-03-29 21:13 | Emergency (ER) | payer OTHER, SELFPAY ==
--- NOTE | ~2024-03-29 | CT_ITS ---
CLINICAL HISTORY: Abdominal pain and distention, recent hernia repai CT abdomen and pelvis with contrast Comparison: CT/SR - CT ABDOMEN PELVIS W IV CON - 03/27/24 00:52 EST Findings: Lung bases clear. Postsurgical changes of infraumbilical midline laparotomy with skin porfirio at the incision site. Mild associated skin thickening and subcutaneous edema. Small nonenhancing fluid collection at midline between the rectus abdominis muscle bellies measuring 1.7 cm with a tiny focus of air in the collection. Mild fat stranding adjacent to the sigmoid anastomosis. No adjacent fluid or free air. Normal appearance of the stomach and remaining bowel. Appendix unremarkable. Mild hepatic steatosis. Solid organs otherwise normal. IMPRESSION: 1. Mild inflammatory changes associated with the infraumbilical midline laparotomy incision and ventral abdominal wall. 2. Mild inflammatory changes adjacent to the sigmoid anastomosis without evidence of perforation. This document has been electronically signed by: Bryant Chaney MD on 03/30/2024 01:30:02
[2024-03-29 21:29] VITALS: BP 136/94; PULSE 146; RESP 20; TEMP 36.8; O2SAT 99; BMI 27.9
[2024-03-29 21:47] LABS: MANUAL DIFF FLAG NO
[2024-03-29 21:48] LABS: Basophils Absolute Auto 0.1 X10*3/uL (0.0-0.2); Basophils Percent Auto 0.5 % (0-2); Eosinophils Absolute Auto 0.1 X10*3/uL (0.0-0.4); Eosinophils Percent Auto 0.5 % (0-4); Hematocrit 33.6 % (42.0-52.0); Hemoglobin 11.9 g/dl (14.0-18.0); Imm Gran Abs Auto 0.16 X10*3/uL (0.00-0.03); Imm Gran Pct Auto 0.9 % (0.0-0.4); Lymphocytes Percent Auto 17.6 % (20-40); Mean Corpuscular HGB Conc 35.4 g/dl (31.0-36.0); Mean Corpuscular Hemoglobin 32.1 pg (27.0-33.0); Mean Corpuscular Volume 90.6 fL (80.0-98.0); Mean Platelet Volume 10.3 fL (9.4-12.4); Monocytes Absolute Auto 1.3 X10*3/uL (0.1-1.2); Monocytes Percent Auto 7.4 % (2-11); Neutrophils Absolute Auto 12.6 x10*3/uL (2.0-8.3); Neutrophils Percent Auto 73.1 % (45-73); Platelet Count 432 X10*3/uL (160-400); Red Blood Count 3.71 X10*6/uL (4.60-5.80); Red Cell Distribution Width 12.3 % (11.0-16.0); White Blood Count 17.2 X10*3/uL (4.8-10.8)
[2024-03-29 22:02] LABS: Alanine Aminotransferase 70 U/L (0-40); Albumin Level 4.5 g/dL (3.5-5.0); Alkaline Phosphatase 74 U/L (39-117); Anion Gap 15 (12-20); Aspartate Amino Transferase 39 U/L (5-37); Bilirubin Total 0.2 mg/dL (0.0-1.0); Blood Urea Nitrogen 14 mg/dL (9-16); Carbon Dioxide 22 mmol/L (22-29); Chloride 103 mmol/L (96-108); Creatinine Clr Calc Pharmacy 95.8; Estimated Glomerular Filt Rate > 60; Glucose Random 160 mg/dL (60-115); Lipase 12 U/L (8-78); Potassium 3.5 mmol/L (3.3-5.1); Sodium 136 mmol/L (135-145)
--- NOTE | 2024-03-29 23:52 | ED.GENADULT ---
HPI - General Adult General Chief complaint: Abdominal Pain Stated complaint: adm pain post surgery; seeking CAT Scan Time Seen by Provider: 03/29/24 23:52 History of Present Illness ED Provider: Brandy LOPEZ narrative: The patient is a 33-year-old male who had scheduled surgery for a partial colectomy with removal of a portion of the sigmoid colon because of recurrent diverticulitis. This elective surgery was done 10 days ago on March 20. The patient presented to the emergency room 6 days later on March 26 with the abdominal pain and was found to have an incarcerated ventral hernia that required surgery. The patient was taken to the operating room on March 27 after being found to have small-bowel obstruction possibly secondary to a ventral hernia. The patient was discharged following the 2nd surgery earlier today. He had gone home and was doing pretty well. He says that he was talking with his spouse when he started to laugh. He laughed a lot and this caused him to cough up a large piece of sputum. He then had abdominal pain that made him feel very worried that he might have another intra-abdominal problem and came to the emergency room. His pain was feeling somewhat better at the time that I examined him. He feels his abdomen is more distended than it was this morning when he left the hospital. He does not feel he has passed any flatus for several hours. Related Data Previous Rx's ?Medication ?Instructions ?Recorded ketorolac 10 mg tablet 10 mg PO Q8H pain mild 4-6 #20 tabs 03/29/24 oxycodone 5 mg tablet 5 mg PO Q6H PRN pain (scale score 03/29/24 7-10) #15 tabs Allergies Allergy/AdvReac Type Severity Reaction Status Date / Time acetaminophen [From Tylenol] Allergy Intermediate rash Verified 03/29/24 21:33 Review of Systems Review of Systems: Yes all other systems are reviewed and are negative [facility] Past Medical History Medical History (Updated 03/30/24 @ 02:12 by Gordo Nava MD) Marijuana smoker Low back pain Chronic heartburn Cigarette smoker Diverticulitis of intestine with abscess without bleeding Surgical History (Updated 03/27/24 @ 10:08 by IVELISSE Cm) S/P laparoscopic colectomy (03/20/24) Hx of colonoscopy (~2022) History of ankle surgery (~2004) Social History Social History Household Members: Family Housing: House Are you a primary medicare insurance specialist to a significant other at home: No Do you presently have visiting nurse or other home services: No Alcohol intake: current Alcohol intake frequency: a few times a week Alcohol type: beer Patient Tobacco Use Status: Current everyday Tobacco user Tobacco use type: Cigarette Cigarette Packs Per Day: 1 Cigarettes Per Day: 20.0 Years Smoked: 18 e-Cigarette/Vaping Use: Never Used Second Hand Smoke Exposure: No Substance Use Type: Marijuana Advance Directives Date on File: 06/05/21 service: No Current occupational status: employed Physical Exam ED Vital Signs: Vital Signs - 24 hr 03/29/24 21:29 03/30/24 01:45 03/30/24 02:23 Temperature 98.3 F 98.5 F 98.5 F Pulse Rate 146 H 106 H 103 H Respiratory Rate 20 16 16 Blood Pressure 136/94 H 120/65 123/77 Pulse Oximetry 99 98 98 Oxygen Delivery Method Room Air Room Air Room Air BMI result Body Mass Index 27.9 Const Other: The patient is a 33-year-old male who was awake and alert. He does not seem in obvious distress or discomfort. He was quite talkative. HENMT Other: Face is symmetrical. Mucous membranes moist. Eyes General: appearance normal, both eyes and all related structures Neck Neck: Yes full ROM, Yes no lymphadenopathy and Yes no JVD Resp Effort & Inspection: normal respiratory effort Auscultation: clear to auscultation bilaterally Cardio Rate: regular rate Rhythm: regular rhythm Heart sounds: S1 normal heart sound present and S2 normal heart sound present GI Other: The abdomen seemed somewhat protuberant and possibly mildly distended. It was tympanitic. There was an intact dressing in the infraumbilical region. Skin Other: Skin is dry and unremarkable Neuro Other: The patient is awake and alert with a normal mental status. Cranial nerves 2-12 are intact. He moves his extremities normally and appropriately. Extrem Other: No peripheral edema Medications Administered Discontinued Medications Generic Name Dose Route Start Last Admin Trade Name Freq PRN Reason Stop Dose Admin Sodium Chloride 1,000 mls @ 999 mls/hr 03/30/24 00:30 03/30/24 01:44 Ns IV 03/30/24 01:30 999 mls/hr .Q1H1M SABA Administration Ketorolac Tromethamine 10 mg 03/30/24 02:09 03/30/24 02:21 Ketorolac Tromethamine 15 Mg/Ml Vial IVPUSH 03/30/24 02:10 10 mg ONCE ONE Administration Medical Decision Making Medical Decision Making [facility] Narrative: The patient is a 33-year-old male who is 3 days postoperative from an exploratory laparotomy in which there was some incarcerated small bowel in a surgical incision. The patient had initially had surgery on March 20 for a partial resection of the colon. He has had a lot of problems with diverticulitis in the past. The patient presents to the emergency room after having been just discharged from the hospital earlier today. He describes being at home and laughing. When he did this he brought up a large piece of sputum and he also experienced some pain in his abdomen. He was worried that the pain in his abdomen might be indicative of some kind of postsurgical complication. He was feeling somewhat better spontaneously. A CT scan of the abdomen and pelvis was done that shows no bowel obstruction. The CT scan was read as follows: IMPRESSION: 1. Mild inflammatory changes associated with the infraumbilical midline laparotomy incision and ventral abdominal wall. 2. Mild inflammatory changes adjacent to the sigmoid anastomosis without evidence of perforation. My suspicion is that these mild inflammatory changes are simply expected postsurgical changes rather than any true complication. The patient was given IV fluids. He was observed. His tachycardia resolved. I felt that he was well enough for discharge. Lab Data 03/29/24 21:40 03/29/24 21:40 Labs: Lab Results 03/29/24 Range/Units 21:40 WBC 17.2 H (4.8-10.8) X10*3/uL RBC 3.71 L (4.60-5.80) X10*6/uL Hgb 11.9 L (14.0-18.0) g/dl Hct 33.6 L (42.0-52.0) % MCV 90.6 (80.0-98.0) fL MCH 32.1 (27.0-33.0) pg MCHC 35.4 (31.0-36.0) g/dl RDW 12.3 (11.0-16.0) % Plt Count 432 H (160-400) X10*3/uL MPV 10.3 (9.4-12.4) fL Immature Gran % (Auto) 0.9 H (0.0-0.4) % Neut % (Auto) 73.1 H (45-73) % Lymph % (Auto) 17.6 L (20-40) % [place] % (Auto) 7.4 (2-11) % Eos % (Auto) 0.5 (0-4) % Baso % (Auto) 0.5 (0-2) % Lymph # (Auto) 3.0 (1.2-4.9) X10*3/uL [place] # (Auto) 1.3 H (0.1-1.2) X10*3/uL Eos # (Auto) 0.1 (0.0-0.4) X10*3/uL Baso # (Auto) 0.1 (0.0-0.2) X10*3/uL Abs Immat Gran (auto) 0.16 H (0.00-0.03) X10*3/uL Absolute Neuts (auto) 12.6 H (2.0-8.3) x10*3/uL Absolute Nucleated RBC 0.000 (0.0-0.012) X10*3/uL Nucleated RBC % (auto) 0.0 (0.0-0.2) /100WBC Sodium 136 (135-145) mmol/L Potassium 3.5 (3.3-5.1) mmol/L Chloride 103 (96-108) mmol/L Carbon Dioxide 22 (22-29) mmol/L Anion Gap 15 (12-20) BUN 14 (9-16) mg/dL Creatinine 0.85 (0.5-1.4) mg/dL Estim Creat Clear Calc 95.8 Estimated GFR > 60 Random Glucose 160 H (60-115) mg/dL Calcium 9.0 (8.4-10.2) mg/dL Total Bilirubin 0.2 (0.0-1.0) mg/dL AST 39 H (5-37) U/L ALT 70 H (0-40) U/L Alkaline Phosphatase 74 (39-117) U/L Total Protein 8.0 (6.5-8.0) g/dL Albumin 4.5 (3.5-5.0) g/dL Lipase 12 (8-78) U/L Discharge Plan Discharge Clinical Impression: Postoperative abdominal pain Patient Disposition: Home, Self-Care Additional Instructions: I do not think that your CT scan is showing any significant surgical problem tonight. Please continue with your postoperative care as you had been previously instructed. Rest and take it easy. Use the abdominal binder as directed. Please call the surgical office in the morning to arrange a follow up appointment. If you feel significantly worse at any time called the surgical office or return to the emergency room. Prescriptions: No Action ketorolac 10 mg tablet 10 mg PO Q8H Qty: 20 0RF Rx Instructions: maximum total duration of 5 days from all oral, intranasal, or parenteral formulations oxycodone 5 mg tablet 5 mg PO Q6H PRN (Reason: pain (scale score 7-10)) Qty: 15 0RF Rx Instructions: Partial Fill upon patient request. Referrals: Tyron Tesfaye MD [Physician] - Yudy Linder MD [Physician] - Interventions: ED Discharge Assessment Last Done: 03/30/24 02:43 Print Language: Tunisian
--- NOTE | 2024-03-30 00:45 | PC.NURSE ---
pt taken to ct with contrast. pt walked with steady gait.
[2024-03-30] MEDS: 0.9 % Sodium Chloride 1,000 ML 999 ML IV (01:44)
[2024-03-30 01:45] VITALS: BP 120/65; PULSE 106; RESP 16; TEMP 36.9; O2SAT 98
[2024-03-30] MEDS: Ketorolac Tromethamine 15 MG/ML VIAL 10 MG IVPUSH (02:21)
[2024-03-30 02:23] VITALS: BP 123/77; PULSE 103; RESP 16; TEMP 36.9; O2SAT 98
[2024-03-30 02:43] VITALS: BP 123/77; PULSE 103; RESP 16; TEMP 36.9; O2SAT 98
== END 2024-03-30 02:44 | disposition home or self-care (01) ==
PROVIDERS: Emergency Provider Emergency Medicine; PCP Internal Medicine
DX: G89.18 Other acute postprocedural pain (principal); R10.2 Pelvic and perineal pain; R05.9 Cough, unspecified; R11.0 Nausea; Z79.899 Other long term (current) drug therapy
CPT/HCPCS: 36415; 74177; 80053; 83690; 85025; 96361; 96374; 99284; 99285; J1885

== ENCOUNTER → 2024-03-30 00:02 | Outpatient (BNV) | payer OTHER, SELFPAY | PROVIDERS: Emergency Provider Emergency Medicine; PCP Internal Medicine; Visit Provider Radiology Diagnostic Radiology | DX: R10.9 Unspecified abdominal pain (principal) | CPT/HCPCS: 74177 ==

== ENCOUNTER 2024-04-04 09:19 | Outpatient (AMB) | payer OTHER, SELFPAY ==
--- NOTE | 2024-04-04 09:25 | A.OFFVIS_ITS ---
Vital Signs 04/04/24 09:38 Height 5 ft Weight 151 lb BMI 29.5 BP 130/70 Blood Pressure Location Lt brachial Position Sitting Pulse 116 H Intake Visit Reasons: wound check Intake Note: Patient is seen in office for post op assessment post colon resection & exp loratory laparotomy. 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 He presents for examination this morning. He reports increased pain over the last 2 days mainly in the lower incision. He has been taking the Toradol as prescribed. [facility] Medical History Incarcerated ventral hernia Ventral hernia SBO (small bowel obstruction) Marijuana smoker Low back pain Chronic heartburn Cigarette smoker Diverticulitis of intestine with abscess without bleeding Surgical History Hx of exploratory laparotomy (03/27/24) S/P laparoscopic colectomy (03/20/24) Hx of colonoscopy (~2022) History of ankle surgery (~2004) Social History Household Members: Family Housing: House Are you a primary customer care agent to a significant other at home: No Do you presently have visiting nurse or other home services: No Alcohol intake: current Alcohol intake frequency: a few times a week Alcohol type: beer Patient Tobacco Use Status: Current everyday Tobacco user Tobacco use type: Cigarette Cigarette Packs Per Day: 1 Cigarettes Per Day: 20.0 Years Smoked: 18 e-Cigarette/Vaping Use: Never Used Second Hand Smoke Exposure: No Substance Use Type: Marijuana Advance Directives Date on File: 06/05/21 service: No Current occupational status: employed Physical Exam Vital Signs: Last Vital Signs Pulse 116 H 04/04/24 09:38 BP 130/70 04/04/24 09:38 BMI result Body Mass Index 29.5 Const General: cooperative Nutritional Appearance: average body habitus Orientation/consciousness: patient oriented x3 Resp Effort & Inspection: normal respiratory effort GI Other: Lower midline incision with some surrounding redness between the retention sutures and porfirio. No significant purulence discharge appreciated on dressing. Findings may be early cellulitis although no abscess identified. Retention sutures are tight against the skin Neuro General: patient oriented x3 Extrem General: Yes no clubbing, cyanosis or edema Assessment & Plan Assessment & Plan (1) Wound dehiscence: Code(s): T81.30XA - Disruption of wound, unspecified, initial encounter Category: Medical (2) Abdominal pain: Code(s): R10.9 - Unspecified abdominal pain Category: Medical Qualifiers: Abdominal location: lower abdomen, unspecified Qualified Code(s): R10.30 - Lower abdominal pain, unspecified Plan Patient may have a an early wound infection or cellulitis therefore I will start him on oral antibiotics today. I will also refill his pain medication and recommend he continue to avoid lifting. He should return in approximately 10 days for wound check. He is welcome to call sooner for any new concerns. Medications: New amoxicillin-pot clavulanate 500-125 mg 1 tab PO Q8H 30 tabs 0RF Refilled oxycodone Partial Fill upon patient request. 5 mg PO Q6H PRN 15 tabs 0RF pain (scale score 7-10) Coding Level of Care Code Global (69428) Diagnoses Wound dehiscence T81.30XA Lower abdominal pain R10.30 Abdominal location: lower abdomen, unspecified
[2024-04-04 09:38] VITALS: BP 130/70; PULSE 116; BMI 29.5
--- OUTSIDE RECORDS SUMMARY | 2024-04-04 10:05 | XMS_ITS | Encounter Summary ---
Author Organization [facility] Address [address] [place] [address] Care Team Providers Care Bowstring Maker Name Role Phone Chi Moyer MD Primary Care Provider [phone] Reason for Visit * Reason Onset Date Comments Teresa HESS note 03/17/2024 Encounter Details Date Type Department Care Team (Late st Contact Info) Description 03/17/2024 Telephone Internal Medicine - [place] [address] [place] [phone] Chi Moyer MD [address] [place] [address] Teresa HESS note Social History Tobacco Use [...] 03/17/2024 1:12 PM EST General surgery in [facility] called and requested the patients last office visit note because patient is having surgery on Wednesday. Please advise documented in this encounter Plan of Treatment Not on file documented as of this encounter Visit Diagnoses Not on filedocumented in this encounter Care Teams Bowstring Maker Relationship Specialty Start Date End Date Chi Moyer MD PCP - General Internal Medicine 06/13/18 documented as of this encounter
--- OUTSIDE RECORDS SUMMARY | 2024-04-04 10:05 | XMS_ITS | Clinical Summary ---
Author Organization [employer] Address [address] [place] [address] Care Team Providers Care Teaching Music Lessons Name Role Phone Unavailable Primary Care Provider [...]
--- OUTSIDE RECORDS SUMMARY | 2024-04-04 10:05 | XMS_ITS | Clinical Summary ---
Author Organization [facility] [employer] [facility] Address [address] [place] [address] Care Team Providers Care Imagery Analyst Name Role Phone Chi Moyer MD Primary Care Provider [phone] Allergies Active Allergy Reactions Criticality Noted Date [...] Care Team Description 03/17/2024 Telephone Internal Medicine [address] [phone] Chi Moyer MD Joseph: DESHAWN note 03/08/2024 10:00 AM EST Consult Internal Medicine [address] [phone] Chi Moyer MD Preop examination (Primary Dx); Anxiety; Diverticula of colon 02/24/2024 Telephone Internal Medicine [address] [phone] Chi Moyer MD Pre-op Exam from Last [...] Health Maintenance Due Date Last Done Comments Hepatitis B Vaccines (1 of 3 - 19+ 3-dose series) 04/28/2007 Pneumococcal Vaccine: Pediatrics (0 to 5 Years) and At-Risk Patients (6 to 64 Years) (1 of 2 - PCV) 04/28/2007 Cholesterol Screening (Lipid Panel) 05/13/2020 Depression [...] patient's age to complete this topic Meningococcal B Vacine Aged Out No lo nger eligible based on patient's age to complete [...] PM EST) Chi Moyer MD ECG ORDERABLES Final Result from Last 3 Months Insurance [facility] Care Teams Imagery Analyst Relationship Specialty Start Date End Date Chi Moyer MD PCP - General Internal Medicine 06/13/18
--- OUTSIDE RECORDS SUMMARY | 2024-04-04 10:05 | XMS_ITS | Encounter Summary ---
Author Organization [employer] [facility] Address [address] [place] [address] Care Team Providers Care Industrial Maintenance Instructor Name Role Phone Unavailable Primary Care Provider [...]
--- OUTSIDE RECORDS SUMMARY | 2024-04-04 10:05 | XMS_ITS | Encounter Summary ---
Author Organization [facility] Address [address] [place] [address] Care Team Providers Care Net Sql Developer Name Role Phone Chi Moyer MD Primary Care Provider [phone] Reason for Visit * Reason Comments Pre-op Exam Encounter Details Date Type Department Care Team ([facility] st Contact Info) Description 03/08/2024 10:00 AM EST Consult Internal Medicine - [place] [address] [place] [phone] Chi Moyer MD [address] [place] [address] Preop examination (Primary Dx); Anxiety; Diverticula of [...] laparoscopic diverticulosis surgery early next month at [facility]. 2 episodes of diverticulitis within the last 2 years. Feels fine otherwise ROS: GENERAL: No malaise, significant weight loss or fever RESPIRATORY: No cough, wheezing or shortness of breath CARDIOVASCULAR: No chest pain, leg swelling or palpitations GI: No abdominal discomfort, blood in stools or black stools PAST MEDICAL HISTORY: Patient Active Problem List Diagnosis Date Noted Anxiety 07/07/2018 Marijuana dependence ([facility]) 07/07/2018 Past Surgical History: Procedure Laterality Date [...] colon documented in this encounter Care Teams Net Sql Developer Relationship Specialty Start Date End Date Chi Moyer MD PCP - General Internal Medicine 06/13/18 documented as of this encounter
--- OUTSIDE RECORDS SUMMARY | 2024-04-04 10:05 | XMS_ITS | Encounter Summary ---
Author Organization [facility] Address [address] [place] [address] Care Team Providers Care Applications Engineer Manufacturing Name Role Phone Chi Moyer MD Primary Care Provider [phone] Reason for Visit * Reason Onset Date Comments Pre-op Exam 02/24/2024 Encounter Details Date Type Department Care Team ([facility] st Contact Info) Description 02/24/2024 Telephone Internal Medicine - [place] [address] [place] [address] Chi Moyer MD [address] [facility] [address] [place] [address] Pre-op Exam Social History Tobacco Use Types [...] due to his diverticulitis Please advise Cb# [phone] documented in this encounter Plan of Treatment Not on file documented as of this encounter Visit Diagnoses Not on filedocumented in this encounter Care Teams Applications Engineer Manufacturing Relationship Specialty Start Date End Date Chi Moyer MD PCP - General Internal Medicine 06/13/18 documented as of this encounter
== END 2024-04-04 09:48 | disposition home or self-care (01) ==
PROVIDERS: PCP Internal Medicine; Visit Provider Surgery
DX: T81.30XA Disruption of wound, unspecified, initial encounter (principal); R10.30 Lower abdominal pain, unspecified
CPT/HCPCS: 99024

== ENCOUNTER → 2024-04-04 09:19 | Outpatient (BNVA) | payer OTHER, SELFPAY | PROVIDERS: PCP Internal Medicine; Visit Provider Surgery | DX: T81.30XD Disruption of wound, unspecified, subsequent encounter (principal); R10.30 Lower abdominal pain, unspecified; F17.210 Nicotine dependence, cigarettes, uncomplicated; X58.XXXD Exposure to other specified factors, subsequent encounter; Z98.890 Other specified postprocedural states | CPT/HCPCS: 99212 ==

== ENCOUNTER 2024-04-14 09:10 | Outpatient (AMB) | payer OTHER, SELFPAY ==
--- NOTE | 2024-04-14 09:11 | A.OFFVIS_ITS ---
Intake Visit Reasons: s/p lap macario surgery 03/20/24 Intake Note: Patient is seen in office for one week follow up, wound check, post colon resection & exploratory laparotomy. Reports cellulitis improving with amoxicillin, has 5 pills left. No longer taking rx pain meds. Pt c/o: yellowish discharge, red, inflamed. Pipe Coverer And Insulator Required: No Accompanied by: spouse Lucero Allergies acetaminophen [From Tylenol] Allergy (Intermediate, Verified 04/14/24 09:17) rash Medication List - Last Reconciled 04/14/24 by Tyron Tesfaye MD ketorolac 10 mg PO Q8H HPI Comments Details: 33-year-old male patient status post hand assisted laparoscopic sigmoid colectomy on 03/20/2024 complicated by a abdominal wound dehiscence repaired on 03/27/2024 with retention sutures. He had some discharge from the incision and was recently started on amoxicillin/clavulanic acid last week. Overall his abdominal pain is improved he is no longer taking any pain medications. He does have pulling pain from the sutures and benedict. He returns today for wound check. [facility] Medical History Incarcerated ventral hernia Ventral hernia SBO (small bowel obstruction) Marijuana smoker Low back pain Chronic heartburn Cigarette smoker Diverticulitis of intestine with abscess without bleeding Surgical History Hx of exploratory laparotomy (03/27/24) S/P laparoscopic colectomy (03/20/24) Hx of colonoscopy (~2022) History of ankle surgery (~2004) Social History Household Members: Family Housing: House Are you a primary prompt care rn to a significant other at home: No Do you presently have visiting nurse or other home services: No Alcohol intake: current Alcohol intake frequency: a few times a week Alcohol type: beer Patient Tobacco Use Status: Current everyday Tobacco user Tobacco use type: Cigarette Cigarette Packs Per Day: 1 Cigarettes Per Day: 20.0 Years Smoked: 18 e-Cigarette/Vaping Use: Never Used Second Hand Smoke Exposure: No Substance Use Type: Marijuana Advance Directives Date on File: 06/05/21 service: No Current occupational status: employed Physical Exam Const General: no acute distress Nutritional Appearance: well nourished Orientation/consciousness: patient oriented x3 Limitations: no limitations Resp Effort & Inspection: normal respiratory effort GI Other: Lower midline incision is clean and intact. There was several small areas of wound separation but generally the wounds are healing nicely. Retention sutures have pulled through the skin to some degree which may be causing the burning pain and discharge. Cardinal were removed and Steri-Strips applied. Dry sterile dressings were applied. Neuro General: patient oriented x3 Extrem Other: No edema Assessment & Plan Assessment & Plan (1) Diverticulitis large intestine: Code(s): K57.32 - Diverticulitis of large intestine without perforation or abscess without bleeding Category: Medical Plan Patient returns for wound check after a wound dehiscence. Benedict were removed and retention sutures left in place. I recommended applying bacitracin ointment to the retention sutures. He should follow up in 2 weeks for retention removal. Coding Level of Care Code Global (30334) Diagnoses Diverticulitis large intestine K57.32
--- OUTSIDE RECORDS SUMMARY | 2024-04-14 09:43 | XMS_ITS | Encounter Summary ---
Author Organization [facility] Address [address] [place] [address] Care Team Providers Care Cotton Program Technician Name Role Phone Chi Moyer MD Primary Care Provider Encounter Details Date Type Department Care Team Description 06/04/2021 Software Developer Mid Level Report Medical Records [address] [place] [address] [facility] Social History Tobacco Use Types Packs/Day Years Used Date Smoking Tobacco: Every Day Cigarettes 15 Smokeless Tobacco: Never Comments:smokes 6 cigarettes daily Alcohol Use Standard Drinks/Week Comments Yes 0 (1 standard drink = 0.6 oz pur e alcohol) 6 beers per week Sex Assigned at Date Recorded Not on file COVID-19 Exposure Response Date Recorded In the last 10 days, have yo u been in contact with someone who was confirmed or suspected to have Coronavirus/COVID-19? No / Unsure 05/15/2021 8:46 AM EDT documented as of this encounter Plan of Treatment Not on file documented as of this encounter Visit Diagnoses Not on filedocumented in this encounter Care Teams Cotton Program Technician Relationship Specialty Start Date End Date Chi Moyer MD PCP - General Internal Medicine 06/13/18 documented as of this encounter
--- OUTSIDE RECORDS SUMMARY | 2024-04-14 09:43 | XMS_ITS | Encounter Summary ---
Author Organization [facility] Address [address] [place] [address] Care Team Providers Care Pizza Chef Name Role Phone Chi Moyer MD Primary Care Provider [phone] Reason for Visit * Reason Onset Date Comments Teresa HESS note 03/17/2024 Encounter Details Date Type Department Care Team (Late st Contact Info) Description 03/17/2024 Telephone Internal Medicine - [place] [address] [facility] [address] [place] [phone] Chi Moyer MD [address] [facility] [address] [place] [address] Teresa HESS note Social History Tobacco Use [...] 03/17/2024 1:12 PM EST [facility] called and requested the patients last office visit note because patient is having surgery on Wednesday. Please advise documented in this encounter Plan of Treatment Not on file documented as of this encounter Visit Diagnoses Not on filedocumented in this encounter Care Teams Pizza Chef Relationship Specialty Start Date End Date Chi Moyer MD PCP - General Internal Medicine 06/13/18 documented as of this encounter
--- OUTSIDE RECORDS SUMMARY | 2024-04-14 09:43 | XMS_ITS | Encounter Summary ---
Author Organization [employer] [facility] Address [address] [facility] [address] [place] [address] Care Team Providers Care Compound Finisher Name Role Phone Unavailable Primary Care Provider [...]
--- OUTSIDE RECORDS SUMMARY | 2024-04-14 09:43 | XMS_ITS | Encounter Summary ---
Author Organization [facility] Address [address] [place] [address] Care Team Providers Care Photo Finisher Name Role Phone Chi Moyer MD Primary Care Provider Encounter Details Date Type Department Care Team Description 09/25/2021 Hospital Medical Records [address] [place] [address] Tom Hou MD Social History Tobacco Use Types Packs/Day Years Used Date Smoking Tobacco: Every Day Cigarettes 15 Smokeless Tobacco: Never Comments:smokes 6 cigarettes daily Alcohol Use Standard Drinks/Week Comments Yes 0 (1 standard drink = 0.6 oz pur e alcohol) 6 beers per week Sex Assigned at Date Recorded Not on file documented as of this encounter Plan of Treatment Not on file documented as of this encounter Visit Diagnoses Not on filedocumented in this encounter Care Teams Photo Finisher Relationship Specialty Start Date End Date Chi Moyer MD PCP - General Internal Medicine 06/13/18 documented as of this encounter
--- OUTSIDE RECORDS SUMMARY | 2024-04-14 09:43 | XMS_ITS | Clinical Summary ---
Author Organization [employer] Address [address] [facility] [address] [place] [address] Care Team Providers Care Overedge Sewer Name Role Phone Unavailable Primary Care Provider [...]
--- OUTSIDE RECORDS SUMMARY | 2024-04-14 09:43 | XMS_ITS | Clinical Summary ---
Author Organization [facility] Address [address] [place] [address] Care Team Providers Care Ginning Operator Name Role Phone Chi Moyer MD Primary Care Provider [phone] Allergies Active Allergy Reactions Severity Noted Date Comments Acetaminophen Rash/Dermatitis 06/13/2018 Medications Medication Sig Dispensed Refills Start Date End Date Status ibuprofen (ADVIL,MOTRIN) 200 MG tablet Take 200 mg by mouth every 6 hours as needed. 0 Active metronidazole (FLAGYL) 500 MG tablet Take 500 mg by mouth 3 times daily. 0 Active levofloxacin (LEVAQUIN) 500 MG tablet Take 500 mg by mouth daily. 0 Active augmented betamethasone dipropionate (Diprolene AF) 0.05 % cream Apply twice a day in the shins for 10 days 30 g 1 05/15/2021 Active Active Problems Problem Noted Date Anxiety 07/07/2018 Overview: Treats with Marijuana Marijuana dependence 07/07/2018 Immunizations Name Administration Dates Next Due Tdap 02/02/2019 Family History Medical History Relation Name Comments Diabetes Father on insulin Hypertension Father no info on father Mother Relation Name Status Comments Father Mother Social History Tobacco Use Types Packs/Day Years Used Date Smoking Tobacco: Every Day Cigarettes 15 Smokeless Tobacco: Never Comments:smokes 6 cigarettes daily Alcohol Use Standard Drinks/Week Comments Yes 0 (1 standard drink = 0.6 oz pur e alcohol) 6 beers per week Sex Assigned at Date Recorded Not on file Last Filed Vital Signs Vital Sign Reading Time Taken Comments Blood Pressure 118/66 01/17/2020 9:32 AM EST Pulse 116 01/17/2020 9:32 AM EST Temperature 36.9 ??C (98.5 ??F) 01/17/2020 9:32 AM ES T Respiratory Rate 14 01/17/2020 9:32 AM EST Oxygen Saturation 98% 01/17/2020 9:32 AM EST Inhaled Oxygen Concentration - - Weight 72.6 kg (160 lb) 01/17/2020 9:32 AM EST Height 165.1 cm (5' 5 ) 02/02/2019 3:53 PM EST Body Mass Index 26.63 02/02/2019 3:53 PM EST Plan of Treatment Health Maintenance Due Date Last Done Comments Covid-19 Vaccine (#1) 1988 TOBACCO CHECK/ADVISE 2006 CHOLESTEROL SCREENING 2008 INFLUENZA (#1) 2023 BASELINE HEALTH EXAM 18-39 02/03/2024 02/02/2019 BMI CHECK/ADVISE 02/16/2024 DEPRESSION SCREENING/FOLLOWUP 02/16/2024 SOCIAL NEEDS SCREENING 02/16/2024 DTAP/TDAP/TD (2 - Td or Tdap) 02/02/2029 02/02/2019 PNEUMOCOCCAL VACCINE FOR HIGH RISK PATIENTS (#1) 04/27 Care Teams Ginning Operator Relationship Specialty Start Date End Date Chi Moyer MD PCP - General Internal Medicine 06/13/18
--- OUTSIDE RECORDS SUMMARY | 2024-04-14 09:43 | XMS_ITS | Clinical Summary ---
Author Organization [facility] Address [address] [place] [address] Care Team Providers Care Head Turning Machine Operator Name Role Phone Chi Moyer MD Primary Care Provider [phone] Allergies Active Allergy Reactions Criticality Noted Date [...] Care Team Description 03/17/2024 Telephone Internal Medicine [address] [phone] Chi Moyer MD Joseph: DESHAWN note 03/08/2024 10:00 AM EST Consult Internal Medicine [address] [phone] Chi Moyer MD Preop examination (Primary Dx); Anxiety; Diverticula of colon 02/24/2024 Telephone Internal Medicine [address] [phone] Chi Moyer MD Pre-op Exam from Last [...] Final Result from Last 3 Months Insurance [facility] Care Teams Head Turning Machine Operator Relationship Specialty Start Date End Date Chi Moyer MD PCP - General Internal Medicine 06/13/18
--- OUTSIDE RECORDS SUMMARY | 2024-04-14 09:43 | XMS_ITS | Encounter Summary ---
Author Organization [facility] Address [address] [place] [address] Care Team Providers Care Irb Compliance Coordinator Name Role Phone Chi Moyer MD Primary Care Provider [phone] Encounter Details Date Type Department Care Team Description 06/04/2021 Hospital Medical Records [address] [place] [address] Tyron Tesfaye MD Social History Tobacco Use Types Packs/Day [...] on filedocumented in this encounter Care Teams Irb Compliance Coordinator Relationship Specialty Start Date End Date Chi Moyer MD PCP - General Internal Medicine 06/13/18 documented as of this encounter
== END 2024-04-14 09:37 | disposition home or self-care (01) ==
PROVIDERS: PCP Internal Medicine; Visit Provider Surgery
DX: K57.32 Diverticulitis of large intestine without perforation or abscess without bleeding (principal)
CPT/HCPCS: 99024

== ENCOUNTER → 2024-04-14 09:10 | Outpatient (BNVA) | payer OTHER, SELFPAY | PROVIDERS: PCP Internal Medicine; Visit Provider Surgery | DX: T81.31XD Disruption of external operation (surgical) wound, not elsewhere classified, subsequent encounter (principal) | CPT/HCPCS: 99212 ==

== ENCOUNTER → 2024-04-25 09:32 | Outpatient (BNVA) | payer OTHER, SELFPAY | PROVIDERS: PCP Internal Medicine; Visit Provider Surgery | DX: Z48.02 Encounter for removal of sutures (principal) | CPT/HCPCS: 99211 ==

== ENCOUNTER → 2024-04-28 09:37 | Outpatient (BNVA) | payer OTHER, SELFPAY | PROVIDERS: PCP Internal Medicine; Visit Provider Surgery | DX: Z48.02 Encounter for removal of sutures (principal); Z98.890 Other specified postprocedural states | CPT/HCPCS: 99211 ==

== ENCOUNTER 2024-05-04 08:39 | Outpatient (AMB) | payer OTHER, SELFPAY ==
--- NOTE | 2024-05-04 08:44 | MHC.OFFVIS ---
Vital Signs 05/04/24 08:49 Weight 148 lb BP 140/80 H Blood Pressure Location Lt brachial Position Sitting Pulse 80 Intake Visit Reasons: 1wk f/u s/p lap macario~ s/r Intake Note: Pt states he's feeling better, sometimes constipated but has methods to help with that. Laboratory Aide Required: No Allergies acetaminophen [From Tylenol] Allergy (Intermediate, Verified 05/04/24 08:51) rash Medication List - Last Reconciled 05/04/24 by Sanjay Mares RN amoxicillin-pot clavulanate 875-125 mg 1 tab PO BID 10 days ketorolac 10 mg PO Q8H HPI Comments Details: Patient returns following removal of both retention sutures. He did develop some redness around the sutures therefore started on amoxicillin/clavulanic acid last week. Feels much improved with less abdominal pain with movement. He was then doing some light lifting and feels well. He is due to return to work on 05/22/2024. As of right now he feels ready to return at that time. [facility] Medical History Wound dehiscence Incarcerated ventral hernia Ventral hernia SBO (small bowel obstruction) Marijuana smoker Low back pain Chronic heartburn Cigarette smoker Diverticulitis of intestine with abscess without bleeding Surgical History Hx of exploratory laparotomy (03/27/24) S/P laparoscopic colectomy (03/20/24) Hx of colonoscopy (~2022) History of ankle surgery (~2004) Social History Household Members: Family Housing: House Are you a primary healthcare network pricing consultant to a significant other at home: No Do you presently have visiting nurse or other home services: No Alcohol intake: current Alcohol intake frequency: a few times a week Alcohol type: beer Patient Tobacco Use Status: Current everyday Tobacco user Tobacco use type: Cigarette Cigarette Packs Per Day: 1 Cigarettes Per Day: 20.0 Years Smoked: 18 e-Cigarette/Vaping Use: Never Used Second Hand Smoke Exposure: No Substance Use Type: Marijuana Advance Directives Date on File: 06/05/21 service: No Current occupational status: employed Physical Exam Const General: comfortable Nutritional Appearance: well nourished Orientation/consciousness: patient oriented x3 Resp Effort & Inspection: normal respiratory effort GI Other: Lower midline incision is clean, dry, and intact without redness or discharge. No evidence of abscess, hernia, or wound separation. Neuro General: patient oriented x3 Assessment & Plan Assessment & Plan (1) Diverticulosis: Code(s): K57.90 - Diverticulosis of intestine, part unspecified, without perforation or abscess without bleeding Category: Medical Plan 34-year-old male patient status post hand assisted laparoscopic sigmoid colectomy complicated by wound dehiscence requiring reoperation and retention suture placement. He developed a reaction from the retention sutures but now feels improved following removal. There was no evidence of an ongoing abdominal wall infection. Should gradually increase his physical activity over the next 2 weeks and should call prior to 05/22/2024 if he does not feel ready to return to work. Coding Level of Care Code Global (16025) Diagnoses Diverticulosis K57.90
[2024-05-04 08:49] VITALS: BP 140/80; PULSE 80
--- OUTSIDE RECORDS SUMMARY | 2024-05-04 08:58 | XMS_ITS | Encounter Summary ---
Author Organization [facility] Address [address] [place] [address] Care Team Providers Care Commercial Escrow Officer Name Role Phone Chi Moyer MD Primary Care Provider Encounter Details Date Type Department Care Team Description 05/15/2022 Program Or Project Administrator Report Medical Records [address] [place] [address] [facility] Social History Tobacco Use Types Packs/Day [...] on filedocumented in this encounter Care Teams Commercial Escrow Officer Relationship Specialty Start Date End Date Chi Moyer MD PCP - General Internal Medicine 06/13/18 documented as of this encounter
--- OUTSIDE RECORDS SUMMARY | 2024-05-04 08:58 | XMS_ITS | Encounter Summary ---
Author Organization [facility] Address [address] [place] [address] Care Team Providers Care Thermograph Operator Name Role Phone Chi Moyer MD Primary Care Provider [phone] Encounter Details Date Type Department Care Team Description 06/04/2021 Wire Stretcher Report Medical Records [address] [place] [address] [facility] Social History Tobacco Use Types Packs/Day Years [...] on filedocumented in this encounter Care Teams Thermograph Operator Relationship Specialty Start Date End Date Chi Moyer MD PCP - General Internal Medicine 06/13/18 documented as of this encounter
--- OUTSIDE RECORDS SUMMARY | 2024-05-04 08:58 | XMS_ITS | Clinical Summary ---
Author Organization Patient [facility] Address [address] [place] [address] Care Team Providers Care Field Collector Name Role Phone Chi Moyer MD Primary Care Provider Allergies Active Allergy Reactions Criticality Noted Date [...] Care Team Description 03/17/2024 Telephone Internal Medicine [address] [phone] Chi Moyer MD Joseph: DESHAWN note 03/08/2024 10:00 AM EST Consult Internal Medicine [address] [phone] Chi Moyer MD Preop examination (Primary Dx); Anxiety; Diverticula of colon 02/24/2024 Telephone Internal Medicine [address] [phone] Chi Moyer MD Pre-op Exam from Last [...] Procedure Name Priority Date/Time Associated Diagnosis Comments EXTERNAL CT REPORT 03/29/[address] REPORT 03/29/[address] REPORT 03/27/[address] REPORT 03/27/[address] REPORT 03/27/[address] REPORT 03/27/2024 ELECTROCARDIOGRAM REPORT Routine 025 3:52 PM EST ECG 12-LEAD Routine 03/08/2024 12:11 PM EST Preop examination from Last 3 Months Results * External CT Report (03/29/2024) Only the most recent of6 resultswithin the time period is included. Anatomical Region Laterality Modality Computed Tomogra phy us Provider [facility]G CT PROCEDURES Final Result * Electrocardiogram Report (03/08/2024 3:52 PM EST) us Chi Moyer MD IN CLINIC/BEDSIDE ORDERABLES Fin al Result * ECG 12 lead (03/08/2024 12:11 PM EST) us Chi Moyer MD ECG ORDERABLES Final Result from Last 3 Months Insurance [place] [phone] Care Teams Field Collector Relationship Specialty Start Date End Date Chi Moyer MD PCP - General Internal Medicine 06/13/18
--- OUTSIDE RECORDS SUMMARY | 2024-05-04 08:58 | XMS_ITS | Clinical Summary ---
Author Organization [employer] Address [address] [facility] [address] [place] [address] Care Team Providers Care Traffic Rate Computer Name Role Phone Unavailable Primary Care Provider [...]
--- OUTSIDE RECORDS SUMMARY | 2024-05-04 08:58 | XMS_ITS | Encounter Summary ---
Author Organization [employer] [facility] Address [address] [facility] [address] [place] [address] Care Team Providers Care Sand Carrier Name Role Phone Unavailable Primary Care Provider [...]
--- OUTSIDE RECORDS SUMMARY | 2024-05-04 08:59 | XMS_ITS | Encounter Summary ---
Author Organization [facility] Address [address] [place] [address] Care Team Providers Care Health Safety And Environment Manager Name Role Phone Chi Moyer MD Primary Care Provider [phone] Encounter Details Date Type Department Care Team Description 04/30/2022 [facility] Medical Records [address] [place] [address] [facility] Social History Tobacco Use Types Packs/Day [...] on filedocumented in this encounter Care Teams Health Safety And Environment Manager Relationship Specialty Start Date End Date Chi Moyer MD PCP - General Internal Medicine 06/13/18 documented as of this encounter
== END 2024-05-04 08:53 | disposition home or self-care (01) ==
PROVIDERS: PCP Internal Medicine; Visit Provider Surgery
DX: K57.90 Diverticulosis of intestine, part unspecified, without perforation or abscess without bleeding (principal)
CPT/HCPCS: 99024

== ENCOUNTER → 2024-05-04 08:39 | Outpatient (BNVA) | payer OTHER, SELFPAY | PROVIDERS: PCP Internal Medicine; Visit Provider Surgery | DX: K59.00 Constipation, unspecified (principal); K57.90 Diverticulosis of intestine, part unspecified, without perforation or abscess without bleeding; Z09 Encounter for follow-up examination after completed treatment for conditions other than malignant neoplasm; Z98.890 Other specified postprocedural states | CPT/HCPCS: 99212 ==

== ENCOUNTER 2024-05-25 09:11 | Outpatient (AMB) | payer OTHER, SELFPAY ==
--- NOTE | 2024-05-25 09:16 | A.OFFVIS_ITS ---
Vital Signs 05/25/24 09:23 Height 5 ft Weight 161 lb 8 oz BMI 31.5 BP 146/77 H Blood Pressure Location Lt brachial Position Sitting Pulse 110 H Intake Visit Reasons: possible infected surgical site Intake Note: Patient is seen in office for wound check, post colon resection & exploratory laparotomy. Pt c/o: admits to redness, painful, might be infected per pt, left incision is worse Kelp Gatherer Required: No Accompanied by: spouse Lucero Allergies acetaminophen [From Tylenol] Allergy (Intermediate, Verified 05/25/24 09:23) rash HPI Comments Details: 34-year-old male patient status post hand assisted sigmoid colectomy for diverticulitis complicated by wound dehiscence requiring retention sutures. He presents today for wound examination for possible incision infection. [facility] Medical History Wound dehiscence Incarcerated ventral hernia Ventral hernia SBO (small bowel obstruction) Marijuana smoker Low back pain Chronic heartburn Cigarette smoker Diverticulitis of intestine with abscess without bleeding Surgical History Hx of exploratory laparotomy (03/27/24) S/P laparoscopic colectomy (03/20/24) Hx of colonoscopy (~2022) History of ankle surgery (~2004) Social History Household Members: Family Housing: House Are you a primary furnace caretaker to a significant other at home: No Do you presently have visiting nurse or other home services: No Alcohol intake: current Alcohol intake frequency: a few times a week Alcohol type: beer Patient Tobacco Use Status: Current everyday Tobacco user Tobacco use type: Cigarette Cigarette Packs Per Day: 1 Cigarettes Per Day: 20.0 Years Smoked: 18 e-Cigarette/Vaping Use: Never Used Second Hand Smoke Exposure: No Substance Use Type: Marijuana Advance Directives Date on File: 06/05/21 service: No Current occupational status: employed Review of Systems Const All systems reviewed & are unremarkable except as noted in HPI and below Physical Exam Const General: comfortable Nutritional Appearance: well nourished Orientation/consciousness: patient oriented x3 Resp Effort & Inspection: normal respiratory effort GI Other: Lower midline incision is clean, dry, and intact with an area of firmness and redness at the upper end of the incision without palpable fluctuance. No open wound or discharge is appreciated. Findings appears suggestive of a cellulitis. Neuro General: patient oriented x3 Assessment & Plan Assessment & Plan (1) Diverticulosis: Code(s): K57.90 - Diverticulosis of intestine, part unspecified, without perforation or abscess without bleeding Category: Medical (2) Cellulitis: Code(s): L03.90 - Cellulitis, unspecified Category: Medical Qualifiers: Site of cellulitis: trunk Site of cellulitis of trunk: abdominal wall Qualified Code(s): L03.311 - Cellulitis of abdominal wall Plan 34-year-old male patient status post hand assisted laparoscopic sigmoid colectomy now with an area of redness in the lower midline incision suggestive of cellulitis. There is no evidence of an abscess at this point. Recommended starting antibiotics once again for the next 10 days. If he is no better by next week he should call for follow-up examination. Medications: Refilled amoxicillin-pot clavulanate 875-125 mg 1 tab PO BID 10 days 20 tabs 0RF R10.30 - Lower abdominal pain, unspecified Coding Level of Care Code Global (39801) Diagnoses Diverticulosis K57.90 Cellulitis of abdominal wall L03.311 Site of cellulitis: trunk Site of cellulitis of trunk: abdominal wall
[2024-05-25 09:23] VITALS: BP 146/77; PULSE 110; BMI 31.5
--- OUTSIDE RECORDS SUMMARY | 2024-05-25 09:52 | XMS_ITS | Clinical Summary ---
Author Organization [employer] Address [address] [facility] [address] [place] [address] Care Team Providers Care Sales Leader Name Role Phone Unavailable Primary Care Provider [...]
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
--- OUTSIDE RECORDS SUMMARY | 2024-05-25 09:52 | XMS_ITS | Encounter Summary ---
Author Organization [employer] [facility] Address [address] [place] [address] Care Team Providers Care Tobacco Drying Machine Operator Name Role Phone Unavailable Primary Care Provider [...]
== END 2024-05-25 09:37 | disposition home or self-care (01) ==
LOC: HO.HGS 09:11
PROVIDERS: PCP Internal Medicine; Visit Provider Surgery
DX: K57.90 Diverticulosis of intestine, part unspecified, without perforation or abscess without bleeding (principal); L03.311 Cellulitis of abdominal wall
CPT/HCPCS: 99024

== ENCOUNTER → 2024-05-25 09:11 | Outpatient (BNVA) | payer OTHER, SELFPAY | PROVIDERS: PCP Internal Medicine; Visit Provider Surgery | DX: K57.90 Diverticulosis of intestine, part unspecified, without perforation or abscess without bleeding (principal); L03.311 Cellulitis of abdominal wall; R10.30 Lower abdominal pain, unspecified; Z48.815 Encounter for surgical aftercare following surgery on the digestive system; Z98.890 Other specified postprocedural states | CPT/HCPCS: 99212 ==

== ENCOUNTER → 2024-06-08 15:17 | Outpatient (BNVA) | payer OTHER, SELFPAY | PROVIDERS: PCP Internal Medicine; Visit Provider Surgery | DX: Z48.02 Encounter for removal of sutures (principal) | CPT/HCPCS: 99211 ==

== ENCOUNTER 2024-07-27 15:30 | Outpatient (AMB) | payer OTHER, SELFPAY ==
--- NOTE | 2024-07-27 15:40 | A.OFFVIS_ITS ---
Intake Visit Reasons: Testicular Pain Intake Note: New Patient presents for initial visit for testicular pain Urology Medications: none Blood Thinner: none Furniture Upholsterer Required: No Accompanied by: Self / Same As Patient Allergies acetaminophen [From Tylenol] Allergy (Intermediate, Verified 07/27/24 16:18) rash Medication List - Last Reconciled 07/27/24 by BETO Enriquez No Known Home Meds HPI Comments Details: João is a very pleasant 34-year-old male patient of Dr. Moyer. He has a past medical history of wound dehiscence, incarcerated ventral hernia, small-bowel obstruction, marijuana smoker, chronic heartburn, nicotine dependence, and diverticulitis. In discussion with the patient today he reports having had surgical intervention here at [facility] 03/2024. It appears patient is status post sigmoid colectomy for diverticulitis complicated by wound dehiscence requiring retention sutures. He reports since surgical intervention he has been experiencing left-sided testicular/scrotal discomfort. He reports discomfort had been worse in March however does feel it has somewhat eased however he does continue to experience this ongoing vague discomfort to the left side of his testicle/scrotum. In assessment of the patient today left-sided epididymal head tenderness noted as well small left- sided palpable hydrocele otherwise no open areas, lesions, and or drainage noted throughout the area. No swelling , redness or high riding to bilateral testicles. Postive cremasteric reflex bilaterally. He otherwise denies any bothersome urinary issues. He denies urinary urgency, urinary frequency, incontinence, nocturia, hematuria, dysuria, foul smelling urine, changes to urinary stream, flank pain, fever, and or chills. He is happy with his current voiding parameters. He denies any issues with obtaining and maintaining his erections. He denies any nausea or vomiting. All questions were answered. He otherwise offers no other issues or concerns at this time. [facility] Medical History Wound dehiscence Incarcerated ventral hernia Ventral hernia SBO (small bowel obstruction) Marijuana smoker Low back pain Chronic heartburn Cigarette smoker Diverticulitis of intestine with abscess without bleeding Surgical History Hx of exploratory laparotomy (03/27/24) S/P laparoscopic colectomy (03/20/24) Hx of colonoscopy (~2022) History of ankle surgery (~2004) Social History Household Members: Family Housing: House Are you a primary director medicare sales to a significant other at home: No Do you presently have visiting nurse or other home services: No Alcohol intake: current Alcohol intake frequency: a few times a week Alcohol type: beer Patient Tobacco Use Status: Current everyday Tobacco user Tobacco use type: Cigarette Cigarette Packs Per Day: 1 Cigarettes Per Day: 20.0 Years Smoked: 18 e-Cigarette/Vaping Use: Never Used Second Hand Smoke Exposure: No Substance Use Type: Marijuana Advance Directives Date on File: 06/05/21 service: No Current occupational status: employed Review of Systems Const All systems reviewed & are unremarkable except as noted in HPI and below Physical Exam Const General: cooperative, healthy appearing, comfortable, no acute distress, well developed, alert and awake Nutritional Appearance: average body habitus Orientation/consciousness: patient oriented x3 Limitations: no limitations HEENT Head: Yes normal to inspection, Yes normocephalic and Yes atraumatic Ears: hearing grossly normal bilaterally Eyes General: appearance normal, both eyes and all related structures Neck Neck: Yes normal visual inspection and Yes trachea midline Chest Chest palpation & inspection: normal inspection of the chest Resp Effort & Inspection: normal respiratory effort and able to speak in complete sentences Cardio Rate: regular rate GI Inspection: Yes normal to inspection General: Yes no CVA tenderness Back/Spine/Pelvis Back: no CVA tenderness Skin General skin exam: no rashes or lesions noted Neuro General: patient oriented x3 Extrem General: Yes normal to inspection Psych Appearance: grossly normal and well kempt Mental Status: mental status grossly normal Speech and movement: Normal speech and movement present and Clear speech present Affect: normal affect Attitude: cooperative Thought process: Normal thought process present Thought content: Normal thought content present Insight: Fair insight present (Psych) Judgement: Fair judgement present (Psych) Results AMB Urinalysis, Automated UA Leukoctes 15 Sandra/uL Last Edit by Sudha Vallecillo, [place] on 07/27/24 15:52 UA Nitrite Negative Last Edit by Sudha Vallecillo, [place] on 07/27/24 15:52 UA Urobilinogen 3.5 mg/dL Last Edit by Sudha Vallecillo, [place] on 07/27/24 15:52 UA Protein 15 mg/dL Last Edit by Sudha Vallecillo, [place] on 07/27/24 15:52 UA pH 6.0 Last Edit by Sudha Vallecillo, [place] on 07/27/24 15:52 UA Blood 0 Luis Fernando/uL Last Edit by Sudha Vallecillo, [place] on 07/27/24 15:52 UA Specific [place] 1.025 Last Edit by Sudha Vallecillo, [place] on 07/27/24 15:52 UA Ketone Negative Last Edit by Sudha Valle[place], [place] on 07/27/24 15:52 UA Bilirubin 0 mg/dL Last Edit by Sudha Vallecillo, [place] on 07/27/24 15:52 UA Glucose 0 mg/dL Last Edit by Sudha Vallecillo, [place] on 07/27/24 15:52 Results Reviewed Results Reviewed: Laboratory Last Values Urine pH (Auto) 6.0 07/27/24 15:49 Specific [place] (Auto) 1.025 07/27/24 15:49 Urine Protein (Auto) 15 mg/dL 07/27/24 15:49 Glucose (UA)(Auto) 0 mg/dL 07/27/24 15:49 Urine Ketones (Auto) Negative 07/27/24 15:49 Urine Blood (Auto) 0 Luis Fernando/uL 07/27/24 15:49 Urine Nitrite (Auto) Negative 07/27/24 15:49 Urine Bilirubin (Auto) 0 mg/dL 07/27/24 15:49 Urine Urobilinogen (Auto) 3.5 mg/dL 07/27/24 15:49 Leukocyte Esterase (Auto) 15 Sandra/uL 07/27/24 15:49 Assessment & Plan Assessment & Plan (1) Testicular pain: Code(s): N50.819 - Testicular pain, unspecified Category: Medical (2) Epididymitis: Code(s): N45.1 - Epididymitis Category: Medical (3) Hydrocele: Code(s): N43.3 - Hydrocele, unspecified Category: Medical Plan In office urinalysis results with the patient today; as noted above. We discussed potential causes of left-sided scrotal discomfort as well as further treatment options and risks and benefits of these treatment options. Will obtain scrotal ultrasound for further assessment evaluation. He currently denies any bothersome urinary issues or concerns. He reports be happy with current voiding parameters. Start doxycycline as prescribed Prescription provided for Mobic; we discussed the importance of avoiding OTC NSAID's while on Mobic. Follow-up in 1-3 months with imaging to be completed prior; or sooner with any issues, concerns, and or questions. Orders: Orders AMB Urinalysis Automated 07/27/24 Z13.9 - Encounter for screening, unspecified US scrotum 07/27/24 N43.3 - Hydrocele, unspecified Medications: New doxycycline hyclate 100 mg PO BID 28 tabs 0RF 14 days N39.0 - Urinary tract infection, site not specified, N45.1 - Epididymitis meloxicam 15 mg PO DAILY 30 tabs 0RF 30 days R10.31 - Right lower quadrant pain, R10.32 - Left lower quadrant pain Patient Instructions: The patient had an opportunity to ask questions regarding the treatment plan. A ll questions were answered. Physical exam, labs, and imaging were discussed and reviewed in detail. As well as risks, benefits, and discussion of treatment choices. No major barriers to understanding were identified. The patient expressed understanding and agreement with the above treatment plan. The patient was made aware they should contact our office by phone for worsening of their current condition, the appearance of new symptoms, or with any questions or concerns. Compliance is encouraged with any medications and follow up testing that is ordered. It is a privilege to be allowed the opportunity to participate in? your urological care.? Again, if you have any questions or concerns If you have any questions or concerns please do not hesitate to contact me. The office is [phone]. This note is constructed using voice recognition software. While every effort has been made to ensure accuracy medical transcription errors may have been included. Yours sincerely, BETO Enriquez Coding Level of Care Code New Pt Level 4 (46670) Diagnoses Testicular pain N50.819 Epididymitis N45.1 Hydrocele N43.3
--- OUTSIDE RECORDS SUMMARY | 2024-07-27 18:00 | XMS_ITS | Encounter Summary ---
Author Organization [facility] Address [address] [place] [address] Care Team Providers Care Financial Cost Analyst Name Role Phone Chi Moyer MD Primary Care Provider [phone] Encounter Details Date Type Department Care Team Description 05/20/2021 Hospital Medical Records [address] [place] [address] Terrence Strong MD Social History Tobacco Use Types Packs/Day [...] on filedocumented in this encounter Care Teams Financial Cost Analyst Relationship Specialty Start Date End Date Chi Moyer MD PCP - General Internal Medicine 06/13/18 documented as of this encounter
== END 2024-07-27 16:14 | disposition home or self-care (01) ==
LOC: HO.HUSH 15:31
PROVIDERS: PCP Internal Medicine; Visit Provider Nurse Practitioner Family
DX: Z13.9 Encounter for screening, unspecified (principal)

== ENCOUNTER → 2024-07-27 15:30 | Outpatient (BNVA) | payer OTHER, SELFPAY | PROVIDERS: PCP Internal Medicine; Visit Provider Nurse Practitioner Family | DX: N45.1 Epididymitis (principal); N50.819 Testicular pain, unspecified; N43.3 Hydrocele, unspecified | CPT/HCPCS: 81003; 99202 ==

== ENCOUNTER 2024-10-25 14:34 | Outpatient (REF) | payer OTHER, SELFPAY ==
--- NOTE | ~2024-10-25 | US_ITS ---
EXAMINATION: US SCROTUM CLINICAL INFORMATION: Hydrocele COMPARISON: None available. TECHNIQUE: A sonogram of the scrotum was performed assessing bonilla-scale appearance and color Doppler flow. Spectral Doppler analysis of the arterial and venous flow were performed in the testes bilaterally. FINDINGS: RIGHT: Right testicle measures 4.2 x 2.1 x 3.2 cm, volume 14.8 mL. No focal testicular parenchymal lesions are visualized. Spectral Doppler analysis of the arterial and venous flow is normal in the right testis. Right epididymal head is normal in size. There is a small right hydrocele. No varicocele is seen. Right epididymal Doppler flow is normal. LEFT: Left testicle measures 4.4 x 2.2 x 2.8 cm, volume 14.2 mL. No focal testicular parenchymal lesions are visualized. Spectral Doppler analysis of the arterial and venous flow is normal flow in the left testis. Left epididymal head is normal in size. There is a left epididymal head cyst measuring 0.4 x 0.4 x 0.5 cm. No left hydrocele or varicocele is seen. Left epididymal Doppler flow is normal. US/US scrotum IMPRESSION: Normal bilateral testes. Small left epididymal head cysts. Small right hydrocele. Electronically signed by: Porter Barnes MD 10/25/2024 03:00 PM EDT
--- OUTSIDE RECORDS SUMMARY | 2024-10-25 17:50 | XMS_ITS | Encounter Summary ---
Author Organization [employer] Address [address] [place] [address] Care Team Providers Care Supervisor [employer]rain [employer] Name Role Phone Unavailable Primary Care Provider [...]
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
--- OUTSIDE RECORDS SUMMARY | 2024-10-25 17:50 | XMS_ITS | Clinical Summary ---
Author Organization [employer] Address [address] [place] [address] Care Team Providers Care Computer Builder Name Role Phone Unavailable Primary Care Provider [...] Comments Depression Screening 1988 Lipid Panel 1988 Disability Screening 1988 Alcohol/Substance Use Screening 2000 Tobacco Screening 2000 Family Planning (PISQ) 04/28/2003 HPV Vaccines (1 - 3-dose series) 04/28/2003 DTaP/Tdap/Td Vaccines (1 - Tdap) 04/28/2007 Hepatitis B Vaccines (1 of 3 - 19+ 3-dose series) 04/28/2007 COVID-19 Vaccine (1 - 2023-2 5 season) 2024 Influenza Vaccine (#1) 2024 Zoster Vaccines (1 of 2) 2038 RSV [...] Years) and At-Risk Patients (6 to 49) Years Aged Out No longer eligible b ased on patient's age to complete this topic RSV under 20 months Aged Out No longe r eligible based on patient's age to complete this topic Rotavirus Vaccines Aged Out No longer eligible based on patient's age to complete this topic
== END 2024-10-25 14:35 | disposition home or self-care (01) ==
LOC: HO.HMGCX 14:34
PROVIDERS: PCP Internal Medicine; Visit Provider Nurse Practitioner Family
DX: N43.3 Hydrocele, unspecified (principal)
CPT/HCPCS: 76870

== ENCOUNTER → 2024-10-25 14:36 | Outpatient (BNV) | payer OTHER, SELFPAY | PROVIDERS: PCP Internal Medicine; Visit Provider Radiology Diagnostic Radiology | DX: N50.3 Cyst of epididymis (principal) | CPT/HCPCS: 76870 ==

== ENCOUNTER 2024-11-23 15:54 | Outpatient (AMB) | payer OTHER, SELFPAY ==
--- NOTE | 2024-11-23 16:01 | MHC.OFFVIS ---
Intake Visit Reasons: follow up/US Intake Note: patient presents today for: follow up/US urology medications: none blood thinners: none imagining done: 10/25/24 Time Clock Mechanic Required: No Accompanied by: Self / Same As Patient Allergies acetaminophen (From Tylenol) Allergy (Intermediate, Verified 11/23/24 21:46) rash Medication List - Last Reconciled 11/23/24 by BETO Enriquez doxycycline hyclate 100 mg PO BID 14 days meloxicam 15 mg PO DAILY 30 days HPI Comments Details: João is a very pleasant 34-year-old male patient of Dr. Moeyr. He has a past medical history of wound dehiscence, incarcerated ventral hernia, small-bowel obstruction, marijuana smoker, chronic heartburn, nicotine dependence, and diverticulitis. He presents to the office today for follow-up of his testicular discomfort. In discussion with the patient today he does report noting significant improvement in discomfort he had been experiencing. He does continue to experience episodes of discomfort however describes these episodes as infrequent and self managing. Recent scrotal imaging results reviewed with the patient today 09/08 normal bilateral testes, small left epididymal head cysts, and small right hydrocele. Patient with a history of sigmoid colectomy for diverticulitis complicated by wound dehiscence requiring retention sutures. He reports scrotal discomfort he had been experiencing happened shortly after this surgical procedure. We did discuss epididymal head cysts as well as hydroceles. We discussed further interventions and risks and benefits of these interventions. He otherwise denies any bothersome urinary issues. He denies urinary urgency, urinary frequency, incontinence, nocturia, hematuria, dysuria, foul smelling urine, changes to urinary stream, flank pain, fever, and or chills. He is happy with his current voiding parameters. He denies any issues with obtaining and maintaining his erections. He denies any nausea or vomiting. All questions were answered. He otherwise offers no other issues or concerns at this time. [facility] Medical History Wound dehiscence Incarcerated ventral hernia Ventral hernia SBO (small bowel obstruction) Marijuana smoker Low back pain Chronic heartburn Cigarette smoker Diverticulitis of intestine with abscess without bleeding Surgical History Hx of exploratory laparotomy (03/27/24) S/P laparoscopic colectomy (03/20/24) Hx of colonoscopy (~2022) History of ankle surgery (~2004) Social History Household Members: Family Housing: House Are you a primary animal care attendant to a significant other at home: No Do you presently have visiting nurse or other home services: No Alcohol intake: current Alcohol intake frequency: a few times a week Alcohol type: beer Patient Tobacco Use Status: Current everyday Tobacco user Tobacco use type: Cigarette Cigarette Packs Per Day: 1 Cigarettes Per Day: 20.0 Years Smoked: 18 e-Cigarette/Vaping Use: Never Used Second Hand Smoke Exposure: No Substance Use Type: Marijuana Advance Directives Date on File: 06/05/21 service: No Current occupational status: employed Review of Systems Const All systems reviewed & are unremarkable except as noted in HPI and below Physical Exam Const General: cooperative, healthy appearing, comfortable, no acute distress, well developed, alert and awake Nutritional Appearance: average body habitus Orientation/consciousness: patient oriented x3 Limitations: no limitations HEENT Head: Yes normal to inspection, Yes normocephalic and Yes atraumatic Ears: hearing grossly normal bilaterally Eyes General: appearance normal, both eyes and all related structures Neck Neck: Yes normal visual inspection and Yes trachea midline Chest Chest palpation & inspection: normal inspection of the chest Resp Effort & Inspection: normal respiratory effort and able to speak in complete sentences Cardio Rate: regular rate GI Inspection: Yes normal to inspection General: Yes no CVA tenderness Back/Spine/Pelvis Back: no CVA tenderness Skin General skin exam: no rashes or lesions noted Neuro General: patient oriented x3 Extrem General: Yes normal to inspection Psych Appearance: grossly normal and well kempt Mental Status: mental status grossly normal Speech and movement: Normal speech and movement present and Clear speech present Affect: normal affect Attitude: cooperative Thought process: Normal thought process present Thought content: Normal thought content present Insight: Fair insight present (Psych) Judgement: Fair judgement present (Psych) Results AMB Urinalysis, Automated UA Leukoctes 0 Sandra/uL Last Edit by CHRIS Hopkins on 11/23/24 16:20 UA Nitrite Last Edit by CHRIS Hopkins on 11/23/24 16:20 UA Urobilinogen 0.2 mg/dL Last [facility] 11/23/24 16:20 UA Protein 0 mg/dL Last Edit by Margot Sotelo [facility] on 11/23/24 16:20 UA pH 8.0 Last Edit by Margot Sotelo [facility] on 11/23/24 16:20 UA Blood 0 Luis Fernando/uL Last Edit by Margot Sotelo [facility] on 11/23/24 16:20 UA Specific [place]urel 1.010 Last Edit by Margot Sotelo [facility] on 11/23/24 16:20 UA Ketone Last Edit by Margot Sotelo [facility] on 11/23/24 16:20 UA Bilirubin 0 mg/dL Last Edit by Margot Sotelo [facility] on 11/23/24 16:20 UA Glucose 0 mg/dL Last Edit by Margot Sotelo [facility] on 11/23/24 16:20 Results Reviewed Results Reviewed: Laboratory Last Values Urine pH (Auto) 8.0 11/23/24 16:19 Specific La[place] (Auto) 1.010 11/23/24 16:19 Urine Protein (Auto) 0 mg/dL 11/23/24 16:19 Glucose (UA)(Auto) 0 mg/dL 11/23/24 16:19 Urine Blood (Auto) 0 Luis Fernando/uL 11/23/24 16:19 Urine Bilirubin (Auto) 0 mg/dL 11/23/24 16:19 Urine Urobilinogen (Auto) 0.2 mg/dL 11/23/24 16:19 Leukocyte Esterase (Auto) 0 Sandra/uL 11/23/24 16:19 Date of Service: 10/25/24 Procedure(s): US scrotum FINDINGS: RIGHT: Right testicle measures 4.2 x 2.1 x 3.2 cm, volume 14.8 mL. No focal testicular parenchymal lesions are visualized. Spectral Doppler analysis of the arterial and venous flow is normal in the right testis. Right epididymal head is normal in size. There is a small right hydrocele. No varicocele is seen. Right epididymal Doppler flow is normal. LEFT: Left testicle measures 4.4 x 2.2 x 2.8 cm, volume 14.2 mL. No focal testicular parenchymal lesions are visualized. Spectral Doppler analysis of the arterial and venous flow is normal flow in the left testis. Left epididymal head is normal in size. There is a left epididymal head cyst measuring 0.4 x 0.4 x 0.5 cm. No left hydrocele or varicocele is seen. Left epididymal Doppler flow is normal. IMPRESSION: Normal bilateral testes. Small left epididymal head cysts. Small right hydrocele. Assessment & Plan Assessment & Plan (1) Testicular pain: Code(s): N50.819 - Testicular pain, unspecified Category: Medical (2) Epididymitis: Code(s): N45.1 - Epididymitis Category: Medical (3) Hydrocele: Code(s): N43.3 - Hydrocele, unspecified Category: Medical Plan In office urinalysis results with the patient today; as noted above. We discussed hydroceles as well as epididymal head cysts; we discussed further interventions and risks and benefits of these interventions. He currently denies any bothersome urinary issues or concerns. He reports be happy with current voiding parameters. Will continue with surveillance monitoring. All questions were answered. Will obtain scrotal ultrasound in 1 year. Follow-up in 1 year with imaging; or sooner with any issues, concerns, and or questions. Orders: Orders US scrotum 1 Year N43.3 - Hydrocele, unspecified AMB Urinalysis Automated Today Z13.9 - Encounter for screening, unspecified Medications: Discontinued doxycycline hyclate Discontinued Reason: Patient Completed Course 100 mg PO BID 14 days 28 tabs 0RF N39.0 - Urinary tract infection, site not specified, N45.1 - Epididymitis meloxicam Discontinued Reason: Patient Completed Course 15 mg PO DAILY 30 days 30 tabs 0RF R10.31 - Right lower quadrant pain, R10.32 - Left lower quadrant pain Patient Instructions: The patient had an opportunity to ask questions regarding the treatment plan. All questions were answered. Physical exam, labs, and imaging were discussed and reviewed in detail. As well as risks, benefits, and discussion of treatment choices. No major barriers to understanding were identified. The patient expressed understanding and agreement with the above treatment plan. The patient was made aware they should contact our office by phone for worsening of their current condition, the appearance of new symptoms, or with any questions or concerns. Compliance is encouraged with any medications and follow up testing that is ordered. It is a privilege to be allowed the opportunity to participate in? your urological care.? Again, if you have any questions or concerns If you have any questions or concerns please do not hesitate to contact me. The office is [phone]. This note is constructed using voice recognition software. While every effort has been made to ensure accuracy rf manager errors may have been included. Yours sincerely, BETO Enriquez Coding Level of Care Code Est Pt Level 3 (10934) Diagnoses Testicular pain N50.819 Epididymitis N45.1 Hydrocele N43.3
== END 2024-11-23 16:31 | disposition home or self-care (01) ==
LOC: HO.HUSH 15:55
PROVIDERS: PCP Internal Medicine; Visit Provider Nurse Practitioner Family
DX: N50.819 Testicular pain, unspecified (principal); N45.1 Epididymitis; N43.3 Hydrocele, unspecified; Z13.9 Encounter for screening, unspecified
CPT/HCPCS: 99213

== ENCOUNTER → 2024-11-23 15:54 | Outpatient (BNVA) | payer OTHER, SELFPAY | PROVIDERS: PCP Internal Medicine; Visit Provider Nurse Practitioner Family | DX: N50.819 Testicular pain, unspecified (principal); N45.1 Epididymitis; N43.3 Hydrocele, unspecified | CPT/HCPCS: 81003; 99212 ==